=== PATIENT | female | born 1965 | race Caucasian/White ===

== ENCOUNTER 2025-07-22 14:19 | Outpatient (CLI) | payer MEDICARE, BC, SELFPAY ==
--- NOTE | 2025-07-22 14:24 | XR_ITS ---
FINAL REPORT CLINICAL HISTORY: left ankle/LE injury FINDINGS: LEFT TIBIAL FIBULA Two views were obtained. There is no fracture or dislocation. There is a medial hemiarthroplasty. The lateral compartment joint space is preserved. No effusion is identified. There is an overlying splint over the left lower leg. IMPRESSION: No acute process. Reviewed, Interpreted and Dictated by Nino Camp MD Transcribed by Delia Smith Authenticated and [facility]
--- NOTE | 2025-07-22 14:24 | XR_ITS ---
FINAL REPORT CLINICAL HISTORY: Left Foot Pain FINDINGS: LEFT FOOT Three views were obtained. There is no fracture or dislocation of the foot. Again identified is an oblique mildly displaced fracture of the distal fibula. IMPRESSION: No foot fracture. Reviewed, Interpreted and Dictated by Nino Camp MD Transcribed by Delia Smith Authenticated and . [facility]
--- NOTE | 2025-07-22 14:24 | XR_ITS ---
FINAL REPORT CLINICAL HISTORY: Left Ankle Pain/injury FINDINGS: LEFT ANKLE Three views were obtained. There is an oblique, mildly displaced fracture of the distal fibula. Overlying splint is identified. The mortise is intact. There is a small plantar spur. IMPRESSION: Oblique mildly displaced fracture of the distal fibula. Reviewed, Interpreted and Dictated by Nino Camp MD Transcribed by Delia Smith Authenticated and [facility]
== END 2025-07-22 23:59 | disposition home or self-care (01) ==
LOC: RAD 14:21
PROVIDERS: PCP Family Medicine; Visit Provider Podiatrist
DX: S82.832A Other fracture of upper and lower end of left fibula, initial encounter for closed fracture (principal); M79.672 Pain in left foot
CPT/HCPCS: 73590; 73610; 73630

== ENCOUNTER 2025-07-27 12:26 | Outpatient (CLI) | payer MEDICARE, BC, SELFPAY ==
--- OUTSIDE RECORDS SUMMARY | 2023-11-28 10:00 | XMS_ITS | Encounter Summary ---
[facility] [address] [place] [address] Care Team Providers Care Bridge Opener Name Role Phone Denae Serrano MD Primary Care Provider + Reason for Referral * Hospital - Outpatient (Routine) - Closed Specialty Diagnoses / Procedures Referred By Shaun parkre Referred To Contact Sleep Medicine Diagnoses PÉREZ (obstructive sleep apnea) Procedures Home Sleep Study Bautista Franks MD [address] [place] [address] Phone: tel: fax: [facility] [address] [address] Phone: tel: fax: Referral ID Status Reason Start Date Expiration Date Visits Re quested Visits Authorized [id number] Closed 11/19/2023 01/20/2024 1 1 Reason for Visit * Hospital - Outpatient (Routine) - Closed Specialty Diagnoses / Procedures Referred By Shaun parker Referred To Contact Sleep Medicine Diagnoses PÉREZ (obstructive sleep apnea) Procedures Home Sleep Study Bautista Franks MD [address] [place] [address] Phone: tel: fax: [facility] [address] [address] Phone: tel: fax: Referral ID Status Reason Start Date Expiration Date Visits Re quested Visits Authorized [id number] Closed 11/19/2023 01/20/2024 1 1 Encounter Details Date Type Department Care Team (Latest Contact Info) Description 11/28/2023 11:00 AM EDT Hospital Encounter [facility] [address] [place] [id number] PÉREZ (obstructive sleep apnea) Social History Tobacco [...] BMI (Calculated): 33.7 Patient presents with an [place] Sleepiness Scale of Total score: 1 Methods [...] Tech Summary: Scoring Tech (Ann Rivas, RPSGT, RN OFFICE): Insufficient data collected due to failure with equipment. Looks as if patient pulled off or did not wear the pulse ox probe. There was not enough data collected for study to be valid. This is technically an inadequate home sleep study. An in-lab sleep study will be necessary in order to obtain accurate diagnostic data. (11/29/23 1449 : Ann Rivas, RN OFFICE) Polysomnography Results Diagnostic Summary TOTAL RECORDING TIME: [...] (pediatric) documented in this encounter Care Teams Bridge Opener Relationship Specialty Start Date End Date Denae Serrano MD [address] [place] [address] PCP - General Family Medicine 03/19/16 documented as of this encounter
--- OUTSIDE RECORDS SUMMARY | 2024-05-04 18:20 | XMS_ITS | Encounter Summary ---
[facility] Address [address] [place] [address] Care Team Providers Care Compensator Worker Name Role Phone Denae Serrano MD Primary Care Provider + Reason for Referral * Hospital - Outpatient (Routine) - Closed Specialty Diagnoses / Procedures Referred By Shaun parker Referred To Contact Sleep Medicine Diagnoses Hypersomnolence Procedures Polysomnography 4 or More Parameters Bautista Franks MD [address] [place] [address] Phone: tel: fax: [facility] [address] [place] [phone] Phone: tel: fax: Referral ID Status Reason Start Date Expiration Date Visits Re quested Visits Authorized [id number] Closed 12/03/2023 05/18/2024 1 1 Reason for Visit * Hospital - Outpatient (Routine) - Closed Specialty Diagnoses / Procedures Referred By Contkaylen parker Referred To Contact Sleep Medicine Diagnoses Hypersomnolence Procedures Polysomnography 4 or More Parameters Bautista Franks MD [address] [place] [address] Phone: tel: fax: [facility] [address] [place] [address] Phone: tel: fax: Referral ID Status Reason Start Date Expiration Date Visits Re quested Visits Authorized [id number] Closed 12/03/2023 05/18/2024 1 1 Encounter Details Date Type Department Care Team (Late st Contact Info) Description 05/04/2024 7:20 PM EDT Hospital Encounter [facility] [address] [place] [phone] Bautista Franks MD [address] [place] [address] Hypersomnolence Social History Tobacco Use Types Packs/Day [...] 7:21 PM EDT documented in this encounter Plan of [...] agree with the interpretation. Bautista Franks MD, FCCP Pulmonary Critical care and Sleep medicine Narrative [...] unspecified documented in this encounter Care Teams Compensator Worker Relationship Specialty Start Date End Date Denae Serrano MD [address] [place] [address] PCP - General Family Medicine 03/19/16 documented as of this encounter
--- OUTSIDE RECORDS SUMMARY | 2025-07-21 15:37 | XMS_ITS | Encounter Summary ---
Author Organization [facility] [address] Care Team Providers Care Binder Stripper Machine Name Role Phone Nonstaff, Referring Primary Care Provider Dangelo scott Reason for Visit * Reason Comments Fall Slipped in mud, inju ry to left knee and ankle Encounter Details Date Type Department Care Team (Late st Contact Info) Description 07/21/2025 3:37 PM EST - 07/21/2025 6:12 PM EST [facility] [address] [facility] [place] [address] Modesto Groves MD [address] [place], [place] [phone] Fall, initial encounter (Primary Dx); Closed fracture [...] sent through Care Everywhere. * Ankle fracture (Thai) documented in this encounter Medications at Time [...] Means Destination Comment s Home or Self [facility]dc documented in this encounter ED Notes * [...] given ankle fracture. She will be prescribed [place] to help with pain control and advised to keep leg elevated and apply cool compresses as needed. She understands and she is agreeable this plan of care and she is discharged in stable condition. CLINICAL IMPRESSION: Fall, left ankle fracture DISPOSITION/PLAN: 1. Posterior short leg splint with stirrups 2. [place] 3. Discharge to home with orthopedic surgery follow-up *[facility] reviewed. Risks and benefits of narcotic treatment were discussed with the patient. Patient elects to continue with treatment using narcotic therapy. Patient is strictly advised to avoid operating any machinery or motor vehicles while under the influence of narcotic therapy and to only use narcotics as prescribed. Modesto Groves MD 07/21/25 3987 documented in this encounter Plan of Treatment [...] 07/21/2025 documented in this encounter Care Teams Binder Stripper Machine Relationship Specialty Start Date End Date Nonstaff, Referring PCP - General 07/21/25 documented as of this encounter
--- OUTSIDE RECORDS SUMMARY | 2025-07-27 12:30 | XMS_ITS | Encounter Summary ---
Author Organization [employer] ([place], [place], [place], [place], [place]) Address [address] [place] [address] Care Team Providers Care Plisse Machine Operator Name Role Phone Denae Serrano MD Primary Care Provider [phone] Encounter Details Date Type Department Care Team (Late st Contact Info) Description 03/01/2020 Transcribed Document [facility] Family Medicine [address] [place] [address] ProviderJer MD [address] [place], [place] [id number] Social History Tobacco Use Types Packs/Day Years Used Date Smoking Tobacco: Never Assessed Comments Unknown Sex and Gender Information Value Date Recorded Sex Assigned at Not on file Legal Sex Female 4:41 PM CDT Gender Identity Not on file Sexual Orientation Not on file documented as of this encounter Miscellaneous Notes * Cerner Conversion Note - Jer ProviderMD - 03/01/2020 10:49 AM CDT [facility] Main OR PreOp Summary Primary Physician: SWAPNIL RAMIREZ MD-SUR Finalized Date/Time: 03/01/20 11:48:53 Pt. Name: ZENAIDA BOWLING/Sex: 1965 Female Med Rec #: [id number] Physician: SWAPNIL RAMIREZ MD-SUR Financial #: [id number] Pt. Type: O Room/Bed: [facility] Admit/Disch: 03/01/20 07:45:00 - Institution: [facility] PreOp Case Times Entry 1 In Preop 03/01/20 08:00:00 Ready for Holding 03/01/20 09:55:00 Room Patient Ready for 03/01/20 09:55:00 Surgery Patient Out of Preop 03/01/20 10:25:00 Patient Out of n/a Holding Room Last Modified By: OMAR RODRÍGUEZ 03/01/20 11:48:52 [facility] PreOp Case Times Audit 03/01/20 11:48:52 Roller: [id number] Modifier: [id number] <+> 1 Patient Out of Preop Finalized By: OMAR RODRÍGUEZ Document Signatures Signed By: OMAR RODRÍGUEZ 03/01/20 11:48 documented in this encounter Plan of Treatment Upcoming Encounters Date Type Department Care Team (Late st Contact Info) Description 09/13/2025 11:15 AM EST Appointment [address] [phone] documented as of this encounter Visit Diagnoses Not on filedocumented in this encounter Care Teams Plisse Machine Operator Relationship Specialty Start Date End Date Denae Serrano MD [address] [place] [phone] PCP - General Family Medicine 06/11/22 documented as of this encounter
--- OUTSIDE RECORDS SUMMARY | 2025-07-27 12:30 | XMS_ITS | Encounter Summary ---
Author Organization [employer] ([place], [place], [place], [place], [place]) Address [address] [place] [address] Care Team Providers Care Pot Fireman Name Role Phone Denae Serrano MD Primary Care Provider [phone] Encounter Details Date Type Department Care Team (Late st Contact Info) Description 03/01/2020 Transcribed Document [facility] Family Medicine [address] [place] [address] ProviderJer MD [address] [place], [place] [address] Social History Tobacco Use Types Packs/Day Years Used Date Smoking Tobacco: Never Assessed Comments Unknown Sex and Gender Information Value Date Recorded Sex Assigned at Not on file Legal Sex Female 4:41 PM CDT Gender Identity Not on file Sexual Orientation Not on file documented as of this encounter Miscellaneous Notes * Cerner Conversion Note - Historical ProviderMD - 03/01/2020 1:47 PM CDT Event Note Entered On: 03/01/2020 13:52 EDT Performed On: 03/01/2020 13:47 EDT by PÉREZ ALBERT RN Event Note Event Date/Time : 03/01/2020 13:47 EDT Event Location : Other: post op Description of Event : Dr. Rivas notified that pt's oxygen level ranging between 83-87% No orders given at this time. Instructed to monitor pt PÉREZ ALBERT RN - 03/01/2020 13:47 EDT Electronically signed by [facility] Conversion Outbound Sales Professional Cerner at 11/28/2022 11:09 PM CDT documented in this encounter Plan of Treatment Upcoming Encounters Date Type Department Care Team (Late st Contact Info) Description 09/13/2025 11:15 AM EST Appointment [address] [phone] documented as of this encounter Visit Diagnoses Not on filedocumented in this encounter Care Teams Pot Fireman Relationship Specialty Start Date End Date Denae Serrano MD [address] [place] [phone] PCP - General Family Medicine 06/11/22 documented as of this encounter
--- OUTSIDE RECORDS SUMMARY | 2025-07-27 12:30 | XMS_ITS | Encounter Summary ---
Author Organization [employer] ([place], [place], [place], [place], [place]) Address [address] [place] [address] Care Team Providers Care Dredge Pump Operator Name Role Phone Denae Serrano MD Primary Care Provider [phone] Encounter Details Date Type Department Care Team (Late st Contact Info) Description 02/27/2019 Transcribed Document [facility] Family Medicine [address] [place] [address] ProviderJer MD [address] [place] [address] Social History Tobacco Use Types Packs/Day Years Used Date Smoking Tobacco: Never Assessed Comments Unknown Sex and Gender Information Value Date Recorded Sex Assigned at Not on file Legal Sex Female 4:41 PM CDT Gender Identity Not on file Sexual Orientation Not on file documented as of this encounter Miscellaneous Notes * Cerner Conversion Note - Jer Klein MD - 02/27/2019 1:16 PM CDT [facility] Follow Up Note RE: ZENAIDA BOWLING : 1965 Date of Service: 02/27/2019 Referring Physician: Herminio Perez Reason for Visit: colon cancer follow up/ high risk breast cancer screening CC: Doing well Cancer Treatment History: 1) 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 Diagnosed on colonoscopy 02/15/14. Patient had presented with abdominal pain, constipation. Was 48 at time of diagnosis. 2) s/p colon resection by Dr. Perez 03/02/14. 08/25 lymph nodes positive. Margins clear. 3) CT c/a/p at time of diagnosis negative for metastatic disease 4) Adjuvant chemotherapy with XELOX (Xeloda and oxaliplatin) q3 weeks x 8 cycles beginning 03/22/14. Completed 3 cycles but had significant GI toxicity from Xeloda. 5) Adjuvant chemotherapy changed to [id number] on 05/31/14. Received one cycle. HPI: Ms. Bowling returns for follow-up for colon cancer and high risk breast cancer screening. She had a heart attack since her last visit with us. Has finished cardiac rehab. No chest pain or pressure. No GI complaints or changes in bowel pattern. No overt bleeding. No breast changes or skin changes. ECOG PS of 0. Past Medical History: 1) Colon cancer as above 2) Endometriosis 3) Arthritis 4) Last menses 2012, on HRT per Dr. Maldonado at . Has now come off HRT, has hot flashes. Past Surgical History: 1) Colon resection as above 2) Partial knee replacement 2008 3) Sinus surgery 4) L shoulder surgery 5) Cholecystectomy 6) R knee meniscus repair Allergies: Penicillin V Potassium CEPHALOSPORINS Medication List: atorvastatin 1 Tablet Oral Daily Ibuprin [ibuprofen] 2 Tablet Oral As needed omeprazole 1 Capsule Oral Daily ropinirole 1 Tablet Oral As Directed Probiotic [lactobacillus acidophilus/lactobacillus rhamnosus gg] 1 Capsule Oral Daily Praluent Pen [alirocumab] 1 Shot SubQ [id number] CoQ10 SG 100 (ubidecarenone/vitamin e mixed) [ubidecarenone/vitamin e mixed (CoQ10 SG 100)] 1 Capsule Oral Daily Protonix (pantoprazole) [pantoprazole (Protonix)] 1 Tablet Oral Daily Plavix (clopidogrel) [clopidogrel (Plavix)] 1 Tablet Oral Daily metoprolol tartrate 1 Tablet Oral Twice a Day ezetimibe 1 Tablet Oral Daily aspirin 1 Tablet Oral Daily NitroQuick (nitroglycerin) [nitroglycerin (NitroQuick)] 1 Tablet Sublingual As needed melatonin 1 Tablet Oral Every day before sleep Social History: Single. She lives in [place]. Mother is main support person. 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 Previous smoker, smoked 1ppd x 20 yrs but quit in 2002. Occasional alcohol use. Denies illicit drug use. Family History: No one else with colon cancer, but mother had two separate episodes of breast cancer. Maternal aunt had breast cancer in her 30s-40s. Brother had testicular cancer in his 30s or 40s. father had skin cancer. mother had renal cell carcinoma. Review of Systems: 10 systems reviewed and negative except as per HPI Vital Signs: Vital Signs & Weight; Pulse - 76; B/P - 104/55; Pulse Ox - 96% RA; Weight (lb) (lb) - 196.98; BSA(D) (m*2) - 1.98 Physical Examination: Gen?NAD, alert and oriented x3. Eyes?PERRL, EOMI, no scleral icterus. ENT?OP clear without lesion or exudate, no mucositis. Neck?supple, no adenopathy CV?RRR, no m/g/r Chest?CTAB, no w/r/r Abd?soft, nontender, nondistended, positive bowel sounds, no mass, no hepatosplenomegaly, well-healed surgical incision. Back?no spinal or CVA tenderness. Extr?no cyanosis, clubbing, or edema. 2+ distal pulses throughout. Skin?No rashes or jaundice. Heme?No petechiae or ecchymoses. Neuro? Normal speech and gait. Strength and sensation grossly intact upper and lower extremities. Psych? Normal mood and affect. Breast- Breast soft without masses or adenopathy. No skin dimpling. No axillary adenopathy palpable. Laboratory: Date 02/27/2019 Time 1:31 PM Chemistry Creatinine (mg/dL) 0.75 CrCl (C&G) (ml/min) 120.95 Date 02/27/2019 Time 1:31 PM Other Labs NA (mmol/L) 140.7 K+ (mmol/L) 4.48 CL (mmol/L) 107.0 GLU (mg/dL) 99 BUN (mg/dL) 12 CA (mg/dL) 9.2 CO2 (meq/L) 27.6 WBC (K/uL) 5.4 RBC (M/uL) 4.81 HGB (g/dL) 14.1 HCT (%) 42.9 MCH (pg) 29.3 MCHC (g/dL) 32.9 MCV (fml) 89.2 PLT (K/uL) 228 RDW-SD (fml) 42.1 RDW-CV (%) 13.1 MPV (fml) 9.7 NEUT (K/uL) 3.48 LYMPH (K/uL) 1.34 MONO (K/uL) 0.46 EOS (K/uL) 0.12 BASO (K/uL) 0.03 NEUT% (%) 64.0 LYMPH% (%) 24.7 EOS% (%) 2.2 BASO% (%) 0.6 MONO% (%) 8.5 TP (g/dL) 7.5 ALB (g/dL) 4.3 TBILI (mg/dL) 0.6 AST (U/L) 18 ALT (U/L) 14 ALKPHOS (U/L) 94 ANC1 (micl) 3475.2 CEA 07/29 <2.0 CEA level 02/15/14 (preop)=3 Radiology: 1) EGD and colonoscopy Dr. Reeves 09/09/17?mild esophagitis at GE junction. Mild gastritis. Polyps in body of stomach and fundus. Normal duodenum. Pathology?reactive gastropathy. Negative for H pylori. Fundic gland polyp. Started Protonix 40mg po daily. Three polyps on colonoscopy?ascending colon, transverse colon, descending colon. All tubular adenomas. 2) CT scan of chest, abd, and pelvis 08/07/18? negative for metastatic disease. Cancer Diagnosis and Staging: Dx Code Description Morphology Description\.br&.br.br\M Stage [ICD10] C18.4 Malignant neoplasm of transverse colon T3 N1a M0 IIIB Orders: Assessment/Plan: 53 YOWF with 1) Stage IIIIB ([id number]) invasive colon cancer. 08/25 lymph nodes positive at time of resection 03/02/14. Was treated with adjuvant chemotherapy, but only completed about 1/3 of planned chemotherapy due to GI, infectious toxicities. Also developed hearing loss likely due to oxaliplatin. In remission. CT scans from 08/07/18 negative for metastatic disease. CEA level pending from today. Has been negative. 2) EGD and colonoscopy Dr. Reeves 09/09/17. No evidence of malignancy. Protonix 40mg po daily for gastritis recommended. Several colon polyps?all tubular adenomas. No malignancy. Repeat colonoscopy 3 years. 3) Strong family history of cancer and patient was young (prior to age 49) at diagnosis of colon cancer. Saw genetic counselor. Microsatellite instability testing was requested on her tumor tissue and was negative, ruling out Gtz syndrome. Genetic testing inconclusive. She does meet criteria for chemoprevention with Anastrazole and is a candidate for yearly MRI alternating with yearly mammogram. Side effects of Anastrazole discussed, including but not limited to, fatigue, arthralgias, and calcium depletion. Baseline DEXA would be needed to assess bone health. Patient declines chemoprevention at this time and will pursue imaging alone. Information handout provided to patient regarding medication. Mammograms completed at [facility]; will request records. Due again 04/30. Bilateral MRI ordered today to be done prior to return appt. 4) Follow up. CEA level pending from today but nothing by history or exam to suggest colon cancer recurrence. RTC in 6 months with cbc/cmp/cea level. CT chest/abd/pelvis with po and iv contrast yearly; ordered today. MRI bilateral breasts ordered. In remission. She is encouraged to call if any new questions or problems before next visit. Colon cancer in remission. Please call with any additional questions or concerns that may arise. CC: Herminio Perez MD, [address] Dr[facility] Liat Contreras MD [address] [facility], [address], [place] [address] 2 documented in this encounter Plan of Treatment Upcoming Encounters Date Type Department Care Team (Late st Contact Info) Description 09/13/2025 11:15 AM EST Appointment [facility] Breast Care [address] [place] [address] [address] [place] [address] documented as of this encounter Visit Diagnoses Not on filedocumented in this encounter Care Teams Dredge Pump Operator Relationship Specialty Start Date End Date Denae Serrano MD [address] [place] [phone] PCP - General Family Medicine 06/11/22 documented as of this encounter
--- OUTSIDE RECORDS SUMMARY | 2025-07-27 12:30 | XMS_ITS | Encounter Summary ---
Author Organization [employer] ([place], [place], [place], [place], [place]) Address [address] [place] [address] Care Team Providers Care Is Technician Name Role Phone Denae Serrano MD Primary Care Provider [phone] Encounter Details Date Type Department Care Team (Late st Contact Info) Description 03/01/2020 Transcribed Document [facility] Family Medicine [address] [place] [address] ProviderJer MD [address] [place], [place] [address] Social History Tobacco Use Types Packs/Day Years Used Date Smoking Tobacco: Never Assessed Comments Unknown Sex and Gender Information Value Date Recorded Sex Assigned at Not on file Legal Sex Female 4:41 PM CDT Gender Identity Not on file Sexual Orientation Not on file documented as of this encounter Miscellaneous Notes * Cerner Conversion Note - Jer Klein MD - 03/01/2020 1:04 PM CDT Event Note Entered On: 03/01/2020 13:09 EDT Performed On: 03/01/2020 13:04 EDT by Wilda Moralez RN Event Note Event Date/Time : 03/01/2020 13:05 EDT Event Location : Assigned room Description of Event : Dr. Rivas at bedside. pt working on IS. able to get sats up to 90-93% on RA. will desat to 84-88% when dozing off. pt has PÉREZ. does not have working CPAP at home currently. pt does c/o of pain. Dr. Rivas does not want her to receive any more IV narcotics. Dr. Rivas okay for patient to go to postop to get ready for discharge. Wilda Moralez, RN - 03/01/2020 13:04 EDT documented in this encounter Plan of Treatment Upcoming Encounters Date Type Department Care Team (Late st Contact Info) Description 09/13/2025 11:15 AM EST Appointment [address] [phone] documented as of this encounter Visit Diagnoses Not on filedocumented in this encounter Care Teams Is Technician Relationship Specialty Start Date End Date Denae Serrano MD [address] [place] [phone] PCP - General Family Medicine 06/11/22 documented as of this encounter
--- OUTSIDE RECORDS SUMMARY | 2025-07-27 12:30 | XMS_ITS | Encounter Summary ---
Author Organization [employer] ([place], [place], [place], [place], [place]) Address [address] [place] [address] Care Team Providers Care Commercial Truck Driver Name Role Phone Denae Serrano MD Primary Care Provider [phone] Encounter Details Date Type Department Care Team (Late st Contact Info) Description 08/07/2018 Transcribed Document [facility] Family Medicine [address] [place] [address] Jer Klein MD [address] [place], [place] [address] Social History Tobacco Use Types Packs/Day Years Used Date Smoking Tobacco: Never Assessed Comments Unknown Sex and Gender Information Value Date Recorded Sex Assigned at Not on file Legal Sex Female 4:41 PM CDT Gender Identity Not on file Sexual Orientation Not on file documented as of this encounter Miscellaneous Notes * Cerner Conversion Note - Jer Klein MD - 08/07/2018 1:26 PM CHARTER BOAT CAPTAIN [facility] Follow Up Note RE: ZENAIDA BOWLING : 1965 Date of Service: 08/07/2018 Referring Physician: Herminio Perez Reason for Visit: colon cancer follow up Cancer Treatment History: 1) 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 Diagnosed on colonoscopy [...] to [id number] on 05/31/14. Received one cycle. 6) Admitted 06/14/14 for intractable back pain, dehydration. Found to have C difficile colitis and possible viral meningitis, numerous lymphocytes and elevated protein in CSF?cultures negative and flow cytometry normal. Discharged 06/23/14. 7) CT scans 08/23/14 negative for metastatic disease 8) Colonoscopy 09/27/14?no evidence of colon cancer recurrence, biopsy of anastomotic area showing granulation tissue, inflammation but no malignancy 9) CT scans February 14, 2015 negative for metastatic disease 10) CT scans 06/10/15 negative for metastatic disease 11) CT scans October 25, 2015 negative for metastatic disease. 12) EGD and colonoscopy with Dr. Reeves October 10, 2015?esophagitis. Mild gastritis. No evidence of malignancy. Colonoscopy negative. Repeat colonoscopy recommended in 2 years. Pathology showed no evidence of malignancy and no findings consistent with celiac disease. 13) CT scan of chest, abd, and pelvis 07/17/16 negative for metastatic disease 14) CT c/a/p with iv and po contrast 08/06/17?no change and no evidence of metastatic disease. 3mm nodule LLL stable. 15) EGD and colonoscopy Dr. Reeves 09/09/17?mild esophagitis at GE junction. Mild gastritis. Polyps in body of stomach and fundus. Normal duodenum. Pathology?reactive gastropathy. Negative for H pylori. Fundic gland polyp. Started Protonix 40mg po daily. Three polyps on colonoscopy?ascending colon, transverse colon, descending colon. All tubular adenomas. HPI: Ms. Bowling is a 52 yo WF with h/o colon cancer, here today for follow-up. Has mild headache today, but not unusual for her. She has been concerned with weight gain. Otherwise has no complaints. Doing well and is trying to be more active and working. Still has issues with severe back pain and restless legs. No n/v, wt loss, fatigue. No chest pain, dyspnea, cough, abd pain, diarrhea, constipation, blood in stool melena ECOG PS of 0. Past Medical History: [...] Daily ropinirole 1 Tablet Oral As Directed tramadol 1 Tablet Oral As needed Social History: Single. She lives in [place]. Mother is main support person. 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 Works night [...] HPI Vital Signs: Vital Signs & Weight; 36.8 88 138/60 95RA Weight (lb) (lb) ? 209 lb BSA(D) (m*2) - 2.03 Weight 191 lb 02/04/18 Physical Examination: Gen?NAD, alert and oriented x3. [...] lower extremities. Psych? Normal mood and affect. Laboratory: Date Time Date Time CEA pending CEA 1.7 02/04/17 CEA 1.9 07/17/16 CEA 1.5 January 16, 2016 CEA 1.4 October 03, 2015 CEA level 05/30/15 1.7 CEA level 02/14/15 1.7 CEA level 11/16/14 1.5 CEA level 08/23/14 1.6 CEA level 06/14/14 2.2 CEA level 02/15/14 (preop)=3 Radiology: CT scan of chest, abd, and pelvis 08/07/18? negative for metastatic disease. Cancer Diagnosis and Staging: Dx Code Description Morphology Description\.br&.br.br\M Stage [ICD10] C18.4 Malignant neoplasm of transverse colon T3 N1a M0 IIIB Orders: Assessment/Plan: 52 yo WF with 1) Stage IIIIB ([id number]) invasive colon cancer. 08/25 lymph nodes positive at time of resection 03/02/14. Was treated with adjuvant chemotherapy, but only completed about 1/3 of planned chemotherapy due to GI, infectious toxicities. Also developed hearing loss likely due to oxaliplatin. In remission, over 3 years out from time of resection. CT scans from 08/07/18 negative for metastatic disease. CEA level pending from today. Has been negative. 2) EGD and colonoscopy Dr. Reeves 09/09/17. No evidence of malignancy. Protonix 40mg po daily for gastritis recommended. Several colon polyps?all tubular adenomas. No malignancy. Repeat colonoscopy 3 years 3) Strong family history of cancer and patient was young (prior to age 49) at diagnosis of colon cancer. Saw genetic counselor. Microsatellite instability testing was requested on her tumor tissue and was negative, ruling out Gtz syndrome. Refer back to genetic counselor in case further testing indicated 4) Follow up. CEA level pending from today but nothing by history or exam to suggest colon cancer recurrence. Now almost 5 years out from time of surgical resection. RTC in 6 months with cbc/cmp/cea level. CT chest/abd/pelvis with po and iv contrast yearlyt. Yearly scans until year 5. In remission. She is encouraged to call if any new questions or problems before next visit. Colon cancer in remission. Please call with any additional questions or concerns that may arise. CC: Herminio Perez MD, [address]aci [address] Dr. [facility] MD Liat Berger MD [address], [address], [place] [address] [address] Electronically signed by Juan [facility] Conversion Veterinary Assistant Cerner at 11/28/2022 11:15 PM CDT documented in this encounter Plan of Treatment Upcoming Encounters Date Type Department Care Team (Late st Contact Info) Description 09/13/2025 11:15 AM EST Appointment [facility] Breast [address] [place] [address] documented as of this encounter Visit Diagnoses Not on filedocumented in this encounter Care Teams Commercial Truck Driver Relationship Specialty Start Date End Date Denae Serrano MD [address] [address] PCP - General Family Medicine 06/11/22 documented as of this encounter
--- OUTSIDE RECORDS SUMMARY | 2025-07-27 12:30 | XMS_ITS | Encounter Summary ---
Author Organization [employer] ([place], [place], [place], [place], [place]) Address [address] [place] [address] Care Team Providers Care Dough Catcher Name Role Phone Denae Serrano MD Primary Care Provider [phone] Encounter Details Date Type Department Care Team (Late st Contact Info) Description 03/01/2020 Transcribed Document [facility] Family Medicine [address] [place] [address] ProviderJer MD [address] [place], [place] [address] Social History Tobacco Use Types Packs/Day Years Used Date Smoking Tobacco: Never Assessed Comments Unknown Sex and Gender Information Value Date Recorded Sex Assigned at Not on file Legal Sex Female 4:41 PM CDT Gender Identity Not on file Sexual Orientation Not on file documented as of this encounter Miscellaneous Notes * Cerner Conversion Note - Historical ProviderMD - 03/01/2020 9:27 AM CDT Pre Procedure Adult Entered On: 03/01/2020 9:38 EDT Performed On: 03/01/2020 9:27 EDT by Skye Rubio RN Height and Weight, Clinical Dosing Height Source : Stated Height Entry Format : Bath Height, Feet : 5 ft(Converted to: 152 cm, 60 Inch) Height, Inches : 6.5 Inch(Converted to: 0 ft 7 Inch, 16.51 cm) Clinical Height : 168.91 cm Weight Source : Standing scale Weight Entry Format : Bath Clinical Dosing Weight : 100.91 kg Weight, Pounds : 222 lb Body Surface Area (BSA) : 2.1 m2 Body Mass Index : 35.4 kg/m2 (HI) [place] Body Weight : 60 kg Skye Rubio RN - 03/01/2020 9:27 EDT Health Histories Smoking Status : Former smoker, quit more than 30 days ago Smokeless Tobacco Status : Never Skye Rubio RN - 03/01/2020 9:27 EDT Social History (As Of: 03/01/2020 09:38:26 EDT) Tobacco: Smoking Status Former smoker. Years of Use: 15. Packs/Tins Daily: 0.5. Last Used: Quit 2002. (Last Updated: 03/02/2014 09:22:42 EDT by PÉREZ ALBERT, RN) Alcohol: Use in Last 12 Months: Yes. Date/Time of Last Drink: social. (Last Updated: 02/15/2014 11:21:16 EDT by OPAL OHARA, KAUSHIK) Substance Abuse: Drug Use Hx: No. Use in Last 12 Months: No. (Last Updated: 02/15/2014 11:20:35 EDT by OPAL OHARA RN) Nutrition/Health: Caffeine intake amount: 2. (Last Updated: 09/09/2017 08:41:04 EST by MEGHAN EDWARDS RN) Infectious Disease History Has the patient ever been tested for COVID-19? : Yes, Patient stated results Negative Where are the test results? : In EMR Results, Paper Copy on chart Date of COVID-19 test known? : Yes Does patient have symptoms of COVID-19? : No COVID19 Screening : No Experiencing Infectious Disease Symptoms : No symptoms Physical contact outside [place] in the last 30 days : No Infectious Disease History : C-Difficile, Chicken pox/Shingles, Influenza, Measles, Meningitis, Mumps Tuberculosis Symptoms : None Skye Rubio RN - 03/01/2020 9:27 EDT COVID19 PreProcedure Screening Is this an Emergent or Add on Procedure? : No Has patient been isolated since the test : No Exposed to COVID19 symptoms since test? : No Skye Rubio RN - 03/01/2020 9:27 EDT Anesthesia/Transfusion History Family History of Anesthesia Reaction : No prior transfusion(s) Transfusion History : Prior anesthesia without reaction Family History of Anesthesia Reaction : None Skye Rubio RN - 03/01/2020 9:27 EDT Functional Assessment Living Situation : Home Patient Lives With : Alone Persons Assisting Patient at Home : Alone Current Daily Living Assistance : None Sensory Deficits : None Mobility Assistance Prior to Admission : Use of assistive devices SHIELDS Hx Falls Immediate/Within 3 Months : Yes Current Home Treatments : CPAP Home Equipment : Cane, Walker Cane : Cane, single point Walker : Walker, front wheel Professional Skilled Services : None Special Services and Community Resources : None Skye Rubio RN - 03/01/2020 9:27 EDT [place] Suicide Severity Rating Scale (C-SSRS) CSSRS Past Month Wish to be : No CSSRS Past Month Suicidal Thoughts : No CSSRS Lifetime Suicide Behavior : No Suicide Severity Rating Score : 0 Suicide Severity Rating : No Additional Care Required at this time Skye Rubio RN - 03/01/2020 9:27 EDT Psychosocial History Does Someone Depend on You for Care? : No Chronic/Terminal Illness w/Freq Visits : Yes Do You Have a History of the Following? : Patient denies history Currently in Unsafe Situation : No Restraining Order Against Another Person : No Do You Have a Support System? : Yes Hospital/DC Financial Concerns : No Stressors Affecting Hospitalization/DC : No Skye Rubio RN - 03/01/2020 9:27 EDT Advance Directive Patient has Advance Directive *Q : No, patient refuses Advance Directive information Skye Rubio RN - 03/01/2020 9:27 EDT Spiritual/Cultural Needs Significant Loss/Crisis in Past 3 Years : No Significant Distress/Coping/Need Support : No Any Spiritual/Cultural Needs or Requests : No Skye Rubio RN - 03/01/2020 9:27 EDT Teaching/Learning Assessment Barriers To Learning : None evident Individuals Taught : Patient Readiness to Learn : Cooperative Baseline Knowledge of Topic : Good Readiness to Learn : Explanation, Printed materials Learning Style Preferences Patient : Printed materials, Verbal explanation Learning Style Preferences Family : Printed materials, Verbal explanation Skye Rubio RN - 03/01/2020 9:27 EDT Education Topics, Periop Preadmission Perioperative Education Grid Arrival Time/Place : Verbalizes understanding Falls : Verbalizes understanding Infection Control : Verbalizes understanding IV's : Verbalizes understanding NPO Status/Directions : Verbalizes understanding Pain Management : Verbalizes understanding Postoperative Care Preparations : Verbalizes understanding Preprocedure Preparations : Verbalizes understanding Preprocedure Tests/Labs : Verbalizes understanding Responsible Adult : Verbalizes understanding Skye Rubio RN - 03/01/2020 9:27 EDT General Info Preferred Name : Zenaida Arrived From : Home Mode of Arrival on Unit : Ambulatory Patient Arrival Date/Time : 03/01/2020 8:00 EDT Legal Guardian : Mother Support Person/Patient Haul Cane Brakeman : Yes Support Person/Pt Rep Name : Martita Bowling - mother Support Person/Pt Rep Contact Information : [phone] Want Family/Rep/Phys Notified of Admit : No Emergency Contact #1 : Martita Bowling Emergency Contact #1 C [phone] H Emergency Contact #1 Relationship : mother Emergency Contact #2 : . Emergency Contact #2 Phone Number : . Emergency Contact #2 Relationship : . Information Obtained From : Patient Primary Language : Citizen Of [place] Preferred Communication Mode : Verbal Communication Barrier : None Croze Cutter Needed : No Objects to Sharing Info w Family : No Currently Lactating : No Status : Menopause Clinical Trials Participant *Q : None CTP, None *Q : Yes Skye Rubio RN - 03/01/2020 9:27 EDT Vital Measurements Temperature Source : Oral Temperature Mode : Fahrenheit Temperature, Fahrenheit : 98.0 Deg F Clinical Temperature, C : 36.7 Deg C Pulse Method : Non-Invasive BP Device Pulse Source : Brachial, Right Peripheral Pulse Rate : 66 bpm Pulse Rhythm : Regular Respiratory Rate : 16 Breaths/Min Blood Pressure Location : Arm, right upper Blood Pressure Source : Non-Invasive BP Device Blood Pressure Position : Sitting Systolic Blood Pressure : 136 mmHg Diastolic Blood Pressure : 68 mmHg Oxygen Saturation : 97 % Oxygen Therapy Mode : Room air Skye Rubio RN - 03/01/2020 9:27 EDT Sleep Apnea Risk Assmt BiPAP/CPAP Ordered for Home Use : Yes Hx of Obstructive Sleep Apnea Diagnosis : Yes BiPAP/CPAP Used at Home : No Reason BiPAP/CPAP Not Used at Home : weight loss Age over 50 Years Old : Yes Gender Male : No Skye Rubio RN - 03/01/2020 9:27 EDT Christiano Scale Christiano Sensory Perception : No impairment Christiano Moisture : Rarely moist Christiano Activity : Walks occasionally Christiano Mobility : Slightly limited Christiano Nutrition : Adequate Christiano Friction and Shear : No apparent problem Christiano Score : 20 Skye Rubio RN - 03/01/2020 9:27 EDT Oxygen Therapy Oxygen Therapy Mode : Room air Oxygen Saturation (%) : 97 % Skye Rubio RN - 03/01/2020 9:27 EDT Pain Assessment Pain Assessment : Initial assessment Pain Scale Goal : 4 Pain Scale Used : 0-10 Scale Skye Rubio RN - 03/01/2020 9:27 EDT Fall Risk Scales ABCs Fall Injury Risk Identification : None SHIELDS Hx Falls Immediate/Within 3 Months : Yes Shields Secondary Diagnosis : Yes SHIELDS Use of Ambulatory Aid : None SHIELDS IV Therapy or IV Access : Yes Shields Gait/Transferring : Normal, bedrest, immobile Shields Mental Status : Oriented to own ability Shields Fall Risk Score : 60 SHIELDS Fall Scale Risk Level : 46 or > High Risk [place] Fall Interventions : Adequate lighting, Bed in low position, Call device within reach, Non-slip footwear, Personal items within reach, Reinforced to call for assistance before getting out of bed, Room free of clutter/spills, Upper side-rails up, Wheels locked, Wires/Cords secured Skye Rubio RN - 03/01/2020 9:27 EDT Education Topics, Day of Surgery DayofSurgery Education Grid Anesthesia/Sedation : Verbalizes understanding Fall Risks : Verbalizes understanding Family Instructions : Verbalizes understanding Infection Control : Verbalizes understanding Infection Risks : Verbalizes understanding IV's : Verbalizes understanding Medication Instructions : Verbalizes understanding Pain Management : Verbalizes understanding Plan of Care : Verbalizes understanding Responsible Adult : Verbalizes understanding Skye Rubio RN - 03/01/2020 9:27 EDT Valuables and Belongings Valuables and Belongings : Clothing, Jewelry, Personal devices, Personal items, Medications Clothing : Common streetwear Clothing Disposition : Sent to locker Personal Device Disposition : Sent to locker Jewelry : Earrings Jewelry Disposition : Sent to locker Personal Devices : Glasses Personal Items : Cell phone, Credit cards, Wallet Personal Items Disposition : Sent to locker Medication Disposition : Sent to locker Medication Brought With Patient : Yes Skye Rubio RN - 03/01/2020 9:27 EDT Pain Scale Intensity : 0 Skye Rubio RN - 03/01/2020 9:27 EDT Image 4 - Images currently included in the form version of this document have not been included in the text rendition version of the form. Darlyn Coma Mckinney Best Motor Response : Obey commands Darlyn Best Verbal Response : Oriented Mckinney Eye Opening Response : Spontaneous Darlyn Coma Score : 15 Skye Rubio, RN - 03/01/2020 9:27 EDT Electronically signed by [facility] Conversion Supervising Film Or Videotape Editor Cerner at 11/28/2022 11:18 PM CDT documented in this encounter Plan of Treatment Upcoming Encounters Date Type Department Care Team (Late st Contact Info) Description 09/13/2025 11:15 AM EST Appointment [address] [place] [phone] documented as of this encounter Visit Diagnoses Not on filedocumented in this encounter Care Teams Dough Catcher Relationship Specialty Start Date End Date Denae Serrano MD [address] [place] [phone] PCP - General Family Medicine 06/11/22 documented as of this encounter
--- OUTSIDE RECORDS SUMMARY | 2025-07-27 12:30 | XMS_ITS | Encounter Summary ---
Author Organization [employer] ([place], [place], [place], [place], [place]) Address [address] [place] [address] Care Team Providers Care Postal Worker Name Role Phone Denae Serrano MD Primary Care Provider [phone] Encounter Details Date Type Department Care Team (Late st Contact Info) Description 03/01/2020 Transcribed Document [facility] Family Medicine [address] [place] [address] ProviderJer MD [address] [place], [place] [address] Social History Tobacco Use Types Packs/Day Years [...] 03/01/2020 10:49 AM CDT [facility] PostOp Summary Primary Physician: SWAPNIL RAMIREZ MD-SUR Finalized Date/Time: 03/01/20 16:34:23 Pt. Name: ZENAIDA BOWLING/Sex: 1965 Female Med Rec #: [id number] Physician: SWAPNIL RAMIREZ MD-SUR Financial #: [id number] Pt. Type: O Room/Bed: [facility] Admit/Disch: 03/01/20 07:45:00 - Institution: [facility] PostOp Case Times Entry 1 In PACU II 03/01/20 13:25:00 Ready for PACU II 03/01/20 16:15:00 Discharge Discharge from PACU 03/01/20 16:15:00 II Last Modified By: PÉREZ ALBERT RN 03/01/20 16:34:19 Finalized By: PÉREZ ALBERT, RN Document Signatures Signed By: PÉREZ ALBERT RN 03/01/20 16:34 documented in this encounter Plan of Treatment Upcoming Encounters Date Type Department Care Team (Late st Contact Info) Description 09/13/2025 11:15 AM EST Appointment [address] [phone] documented as of this encounter Visit Diagnoses Not on filedocumented in this encounter Care Teams Postal Worker Relationship Specialty Start Date End Date Denae Serrano MD [address] [phone] PCP - General Family Medicine 06/11/22 documented as of this encounter
--- OUTSIDE RECORDS SUMMARY | 2025-07-27 12:30 | XMS_ITS | Encounter Summary ---
Author Organization [employer] ([place], [place], [place], [place], [place]) Address [address] [place] [address] Care Team Providers Care C Software Engineer Name Role Phone Denae Serrano MD Primary Care Provider [phone] Encounter Details Date Type Department Care Team (Late st Contact Info) Description 03/01/2020 Transcribed Document [facility] [place] Family Medicine [address] [place] [address] ProviderJer MD [address] [place], [place] [address] Social History Tobacco Use Types Packs/Day Years [...] 03/01/2020 10:49 AM CDT [facility] PACU Summary Primary Physician: SWAPNIL RAMIREZ MD-SUR Finalized Date/Time: 03/01/20 13:39:39 Pt. Name: ZENAIDA BOWLING/Sex: 1965 Female Med Rec #: [id number] Physician: SWAPNIL RAMIREZ MD-SUR Financial #: [id number] Pt. Type: O Room/Bed: [facility] Admit/Disch: 03/01/20 07:45:00 - Institution: [facility] OR PACU Case Times Entry 1 In PACU I 03/01/20 11:40:00 Ready for PACU 03/01/20 13:35:00 Discharge Discharge from PACU 03/01/20 13:35:00 I Last Modified By: Wilda Moralez RN 03/01/20 13:39:31 [facility] Main OR PACU Case Times Audit 03/01/20 13:39:31 Security Program Manager: [email or web address] Modifier: [email or web address] <+> 1 Ready for PACU Discharge <+> 1 Discharge from PACU I Finalized By: Wilda Moralez, RN Document Signatures Signed By: Wilda Moralez RN 03/01/20 13:39 documented in this encounter Plan of Treatment Upcoming Encounters Date Type Department Care Team (Late st Contact Info) Description 09/13/2025 11:15 AM EST Appointment [address] [phone] documented as of this encounter Visit Diagnoses Not on filedocumented in this encounter Care Teams C Software Engineer Relationship Specialty Start Date End Date Denae Serrano MD [address] [place] [phone] PCP - General Family Medicine 06/11/22 documented as of this encounter
--- OUTSIDE RECORDS SUMMARY | 2025-07-27 12:30 | XMS_ITS | Encounter Summary ---
Author Organization [employer] ([place], [place], [place], [place], [place]) Address [address] [place] [address] Care Team Providers Care Diesel Lube Tech Name Role Phone Denae Serrano MD Primary Care Provider [phone] Encounter Details Date Type Department Care Team (Late st Contact Info) Description 03/01/2020 Transcribed Document [facility] Family Medicine [address] [place] [address] ProviderJer MD [address] [place], [place] [address] Social History Tobacco Use Types Packs/Day Years Used Date Smoking Tobacco: Never Assessed Comments Unknown Sex and Gender Information Value Date Recorded Sex Assigned at Not on file Legal Sex Female 4:41 PM CDT Gender Identity Not on file Sexual Orientation Not on file documented as of this encounter Miscellaneous Notes * [employer]ner Conversion Note - Historical ProviderMD - 03/01/2020 1:37 PM CDT Event Note Entered On: 03/01/2020 13:38 EDT Performed On: 03/01/2020 13:37 EDT by Wilda Moralez RN Event Note Description of Event : Called Dr. Perez to make him aware of r/t pr being in pacu for 2 hours and having decreased sats when sleeping/no cpap at home. Orders received to give pt 30mg toradol. Wilda Moralez RN - 03/01/2020 13:37 EDT Electronically signed by Lynne Martinez Conversion Environmental Maintenance Worker Cerner at 11/28/2022 11:12 PM CDT documented in this encounter Plan of Treatment Upcoming Encounters Date Type Department Care Team (Late st Contact Info) Description 09/13/2025 11:15 AM EST Appointment [address] [phone] documented as of this encounter Visit Diagnoses Not on filedocumented in this encounter Care Teams Diesel Lube Tech Relationship Specialty Start Date End Date Denae Serraon MD [address] [place] [phone] PCP - General Family Medicine 06/11/22 documented as of this encounter
--- OUTSIDE RECORDS SUMMARY | 2025-07-27 12:31 | XMS_ITS | Clinical Summary ---
Author Organization [facility] Address [address] [place] [address] Care Team Providers Care Butcher Assistant Name Role Phone Denae Serrano MD Primary Care Provider [phone] Allergies Active Allergy Reactions Criticality Noted Date Comments Cephalosporins Shortness of breath,Itching,Rash High 04/09/2016 Penicillins Hives,Shortness of breath,Itching,Rash High 04/09/2016 Wound Dressing Adhesive Rash Low 09/03/2022 Tape and dressing adhesive Medications ezetimibe (Zetia) 10 MG tablet Take 1 tablet (10 mg) by mouth 1 (one) time each day. 12/30/2019 Active metoprolol tartrate (Lopressor) 25 MG tablet Take 1 tablet (25 mg) by mouth 1 (one) time each day. 12/30/2019 Active Melatonin 5 MG tablet tablet Take 1 tablet (5 mg) by mouth every night. Active rOPINIRole (Requip) 2 MG tablet Take 2 tablets (4 mg) by mouth every night. 2 tablets nightly Active Repatha SureClick 140 MG/ML solution auto-injector Inject 1 mL into the muscle every 14 (fourteen) days. 06/14/2022 Active esomeprazole (NexIUM) [address] capsule Take 1 capsule (40 mg) by mouth 1 (one) time each day before breakfast. Do not open capsule. Active nitroglycerin (Nitrostat) 0.[address] 1 tablet (0.4 mg) under the tongue every 5 (five) minutes if needed for chest pain. Active acetaminophen (Tylenol) 500 MG tablet Take 2 tablets (1,000 mg total) by mouth every 8 (eight) hours if needed for pain. 100 tablet 11/27/2022 Active traMADol (Ultram) 50 MG tablet Take 1 tablet (50 mg total) by mouth every 6 (six) hours if needed for severe pain. 60 tablet 11/27/2022 Active gabapentin (Neurontin) 100 MG capsuleIndicati ons:Postoperati ve Pain Take one tablet in the morning and 1-2 at night as needed for pain 30 capsule 12/12/2022 Active oxyCODONE (Roxicodone) 5 MG immediate release tablet Take 1 tablet (5 mg) by mouth 1 (one) time each day at the same time. 10 tablet 12/26/2022 Active Active Problems Problem Noted Date Diagnosed Date Obesity (BMI 35.0-39.9 without comorbidity) 08/13 Severe obesity (BMI 35.0-39.9) with comorbidity 09/03/2022 Primary osteoarthritis of one knee, right 2022 Overview (09/03/2022): Added automatically from request for surgery [id number] Dysphagia 07/11/2022 Overview (07/11/2022): Trouble swallowing pills Hiatal hernia 07/11/2022 Prediabetes 07/11/2022 Gastroesophageal reflux disease with hiatal olive ia 05/25/2019 Coronary heart disease Recurrent incisional hernia Resolved Problems Problem Noted Date Diagnosed Date Resolved Date S/P repair of recurrent ventral hernia 08/01/2022 05/02/2025 Arthritis 07/11/2022 05/02/2025 Fatigue 05/25/2019 05/02/2025 Insomnia with sleep apnea 05/25/2019 Family History Medical History Relation Name Comments Cancer Brother Remi Bowling Diabetes Brother Remi Bowling Cancer Father Remi Bowling Sr. Diabetes Father Remi Bowling Sr. Heart disease Father Remi Bowling Sr. Arthritis Mother Martita Bowling Cancer Mother Martita Bowling Hypertension Mother Martita Bowling Kidney disease Mother Martita Bowling Cardiac disorder Other 1 Diabetes Other 2 Other cancer Other 3 Anesthesia problems Neg Hx Malig Hyperthermia Neg Hx Relation Name Status Comments Brother Remi Bowling Father Remi Bowling Sr. Mother Martita Bowling Other 1 Other 2 Other 3 Social History Tobacco Use Types Packs/Day Years Used Date Smoking Tobacco: Former Cigarettes 0.8 20 1 08/15/1982 - 06/15/2003 Smokeless Tobacco: Never Tobacco Cessation:Counseling Given: Not Answered Alcohol Use Standard Drinks/Week Comments Yes 2 (1 standard drink = 0.6 oz pur e alcohol) rarely PHQ-2 Answer Date Recorded Patient Health Questionnaire-2 Score 1 09/19/2022 CAGE ASSESSMENT Answer Date Recorded Cage unable to access Not on file 07/26/2022 Cage max number of drinks Not on file 2021 Cage Beverages a week Not on file 07/26/2022 Have you ever felt you should CUT down on your d rinking? 0 07/26/2022 Have you been ANNOYED by people criticizing your drinking? 0 07/26/2022 Have you felt GUILTY about your drinking? 0 07/26/2022 Have you had a drink first t divina in the morning ([employer] COMM[employer]ICATION[employer] OFFICER) to steady your nerves or to get rid of a hangover? 0 07/26/2022 CAGE Questionnaire Score 0 022 PHQ-2A Answer Date Recorded Patient Health Questionnaire-2 Score 1 09/19/2022 Comments No Sex and Gender Information Value Date Recorded Sex Assigned at Not on file Legal Sex Female 8:49 PM EDT Gender Identity Not on file Sexual Orientation Not on file Last Filed Vital Signs Vital Sign Reading Time Taken Comments Blood Pressure 113/58 03/04/2023 2:17 PM EDT Pulse 79 03/04/2023 2:17 PM EDT Temperature 36.4 C (97.6 F) 11/29/2022 11:25 AM EDT Respiratory Rate 13 11/27/2022 11:25 AM EDT Oxygen Saturation 97% 03/04/2023 2:17 PM EDT Inhaled Oxygen Concentration - - Weight 100 kg (220 lb 7.4 oz) 03/04/2023 2:17 PM EDT Height 170.2 cm (5' 7 ) 03/04/2023 2:17 PM EDT Body Mass Index 34.53 03/04/2023 2:17 PM EDT Plan of Treatment Health Maintenance Due Date Last Done Comments [facility]-HIV Screening 1965 [facility]-Hepatitis C Screening 1965 [facility]-Medicare Annual Wellness (AWV) 1965 [facility]-Infant/Child/Adol SDOH Screenings 1965 [facility]- SDOH Screenings 1982 [facility]-Adult SDOH Screenings 1982 [facility]-Pap Smear 1985 [facility]-Cervical Cancer Screening 1994 [facility]-HPV/Cotest 1994 [facility]-Pneumococcal Vaccine: 50+ Years (2 of 2 - PPSV23, PCV20, or PCV21) 10/04/2016 08/09/2016 [facility]-Zoster Vaccines (3 of 3) 06/19/2022 04/24/2022, 05/21/2016 [facility]-Diabetes: Hemoglobin A1C 07/11/2023 07/11/2022, 10/20/2018 [facility]-Depression Screening 09/19/2023 09/19/2022 [facility]-Breast Cancer Screening 09/04/202408/13, 09/04/2022, 08/30/2021, Additional history exists TYD-HEDNV-84 Vaccine (1 - 2024- season) 2025 [facility]-Influenza Vaccine (#1) 04/12/202507/11, 04/12/2020, 05/12/2019, Additional history exists [facility]-DTaP,Tdap,and Td Vaccines (2 - Td or Tdap) 04/24/2032 04/24/2022, 03/30/2011 [facility]-RSV Vaccine: 60+ Years or (1 - 1-dose 75+ series) 2039 [facility]-Hepatitis A Vaccines Aged Out 11/27/2018, 05/12 No longer eligible based on patient's age to complete this topic [facility]-Obesity Intervention Completed 023, 01/14/2023, 12/12/2022, Additional history exists HPV Vaccines (No Doses Required) Completed [facility]-HIB Vaccines Aged Out No longer e ligible based on patient's age to complete this topic [facility]-IPV Vaccines Aged Out No longer e ligible based on patient's age to complete this topic [facility]-Rotavirus Vaccines Aged Out No lo nger eligible based on patient's age to complete this topic Medical Devices Implanted Type Area Program Project Manager Device Identifier Shelf Expiration Date Model / Serial / Lot Implant Implant Bilateral: Knee Stent Stent Heart Mesh Phasix 10x12 In - [id number] Implanted:Qty : 1 on 07/26/2022 by Gentry Guardado MD at [facility] N/A: Abdomen [employer]-[id number] 05/09/2023 [id number] / / [id number] Cement Palacos - [id number] Implanted:Qty : 2 on 11/27/2022 by Albert Boswell MD at [facility] Right: Knee Heraeus Inc-[id number] 05/11/2027 [id number] / / [id number] Chg Patella Gii Oval Resurfaci - [id number] Implanted:Qty : 1 on 11/27/2022 by Albert Boswell MD at [facility] Right: Knee Judd [employer] Nephew [employer]-[id number] 07/31/2032 [id number] / / [id number] Chg Femoral Legion Ps Oxin Sz5 - [id number] Implanted:Qty : 1 on 11/27/2022 by Albert Boswell MD at [facility] Right: Knee [employer]-[id number] 04/23/2032 [id number] / / [id number] Chg Tibial Gns Ii Cmt Size 3 R - [id number] Implanted:Qty : 1 on 11/27/2022 by Albert Boswell MD at [facility] Right: Knee [employer]-[id number] 06/13/2032 [id number] / / [id number] Knee Lgn Xlp Ps High Sz3-4 12mm - [id number] Implanted:Qty : 1 on 11/27/2022 by Albert Boswell MD at [facility] Right: Knee [id number] 08/13/2032 [id number] / / [id number] Procedures Procedure Name Priority Date/Time Associated Diagnosis Comments POCT GLYCOSYLATED HEMOGLOBIN (HGB A1C) Routine 07/11/2022 8:59 AM EST Personal history of nutritional deficiency from Last 3 Months or Most Recently Relevant to Health Maintenance Results * POCT Glycosylated Hemoglobin (Hgb A1C) (07/11/2022 8:59 AM EST) POCT Hemoglobin A1C 6.0 4.4-6.6 % % [facility] Kit Lot Number [id number] [facility] Kit Expiration Date 06/11/24 [facility] Blood Venous blood specimen / Unknown 07/11/2022 8:59 AM EST Gentry Guardado MD POINT OF CARE TEST ENTER/EDIT OR DERABLES Final Result [facility] [address] [place] [address] from Last 3 Months or Most Recently Relevant to Health Maintenance Insurance [facility] MEDIC[facility] Advance Directives * Full Code (Latest Code Status on File) Date Activated Date Inactivated Comments 07/26/2022 4:15 PM 07/28/2022 6:08 PM Question Answer Comments Patient has decision-making capacity? Yes Care Teams Butcher Assistant Relationship Specialty Start Date End Date Denae Serrano MD [address] [place] [address] [address] [place] [address] PCP - General 12/23/20
--- OUTSIDE RECORDS SUMMARY | 2025-07-27 12:31 | XMS_ITS | Encounter Summary ---
Author Organization [email or web address] ([place], [place], [place], [place], [place]) Address [address] [place] [address] Care Team Providers Care Bottle Carrier Name Role Phone Denae Serrano MD Primary Care Provider [phone] Encounter Details Date Type Department Care Team (Late st Contact Info) Description 10/10/2020 Transcribed Document [facility] [place] [address] [place] [address] ProviderJer MD [address] [place], [place] [id number] Social History Tobacco Use Types Packs/Day Years Used Date Smoking Tobacco: Never Assessed Comments Unknown Sex and Gender Information Value Date Recorded Sex Assigned at Not on file Legal Sex Female 4:41 PM CDT Gender Identity Not on file Sexual Orientation Not on file documented as of this encounter Miscellaneous Notes * Cerner Conversion Note - Historical ProviderMD - 10/10/2020 12:30 PM ASSISTANT PROFESSOR SURGICAL TECHNOLOGY [facility] PreOp Summary Primary Physician: KENDAL SHARP MD-GAE Finalized Date/Time: 10/10/20 12:35:44 Pt. Name: ZENAIDA BOWLING/Sex: 1965 Female Med Rec #: [id number] Physician: KENDAL SHARP MD-GAE Financial #: [id number] Pt. Type: E Room/Bed: [facility] Admit/Disch: 10/10/20 11:14:00 - Institution: [facility] PreOp Case Times Entry 1 In Preop 10/10/20 11:30:00 Ready for Holding 10/10/20 12:25:00 Room Patient Ready for 10/10/20 12:25:00 Surgery Patient Out of Preop 10/10/20 12:25:00 Patient Out of 10/10/20 12:25:00 Holding Room [facility] PreOp Case Times Audit 10/10/20 12:25:13 Esthetician: [id number] Modifier: [id number] <+> 1 Patient Out of Preop <+> 1 Patient Ready for Surgery <+> 1 Ready for Holding Room <+> 1 Patient Out of Holding Room Finalized By: Darlin Randhawa, Rn Document Signatures Signed By: Darlin Randhawa Rn 10/10/20 12:35 Electronically signed by Lynne Martinez Conversion Residential Solar Sales Consultant Cerner at 11/28/2022 11:26 PM CDT documented in this encounter Plan of Treatment Upcoming Encounters Date Type Department Care Team (Late st Contact Info) Description 09/13/2025 11:15 AM EST Appointment [address] [place] [address] documented as of this encounter Visit Diagnoses Not on filedocumented in this encounter Care Teams Bottle Carrier Relationship Specialty Start Date End Date Denae Serrano MD [address] [place] [phone] PCP - General Family Medicine 06/11/22 documented as of this encounter
--- OUTSIDE RECORDS SUMMARY | 2025-07-27 12:31 | XMS_ITS | Encounter Summary ---
Author Organization [employer] ([place], [place], [place], [place], [place]) Address [address] [place] [address] Care Team Providers Care Database Programmer Analyst Name Role Phone Denae Serrano MD Primary Care Provider [phone] Encounter Details Date Type Department Care Team (Late st Contact Info) Description 10/10/2020 Transcribed Document [facility] [place] Medicine [address] [place] [address] Jer Klein MD [address] [place], [place] [id number] Social History Tobacco Use Types Packs/Day Years Used Date Smoking Tobacco: Never Assessed Comments Unknown Sex and Gender Information Value Date Recorded Sex Assigned at Not on file Legal Sex Female 4:41 PM CDT Gender Identity Not on file Sexual Orientation Not on file documented as of this encounter Miscellaneous Notes * Cerner Conversion Note - Jer Klein MD - 10/10/2020 1:24 PM ANIMAL DAYCARE PROVIDER Patient Education Materials Follows: Monitored Anesthesia Care, Care After These instructions provide you with information about caring for yourself after your procedure. Your health care provider may also give you more specific instructions. Your treatment has been planned according to current medical practices, but problems sometimes occur. Call your health care provider if you have any problems or questions after your procedure. What can I expect after the procedure? After your procedure, you may: ??? Feel sleepy for several hours. ??? Feel clumsy and have poor balance for several hours. ??? Feel forgetful about what happened after the procedure. ??? Have poor judgment for several hours. ??? Feel nauseous or vomit. ??? Have a sore throat if you had a breathing tube during the procedure. Follow these instructions at home: For at least 24 hours after the procedure: ??? Have a responsible adult stay with you. It is important to have someone help care for you until you are awake and alert. ??? Rest as needed. ??? Do not: ? Participate in activities in which you could fall or become injured. ? Drive. ? Use heavy machinery. ? Drink alcohol. ? Take sleeping pills or medicines that cause drowsiness. ? Make important decisions or sign legal documents. ? Take care of children on your own. Eating and drinking ??? Follow the diet that is recommended by your health care provider. ??? If you vomit, drink water, juice, or soup when you can drink without vomiting. ??? Make sure you have little or no nausea before eating solid foods. General instructions ??? Take inwd-vac-oyqgxiu and prescription medicines only as told by your health care provider. ??? If you have sleep apnea, surgery and certain medicines can increase your risk for breathing problems. Follow instructions from your health care provider about wearing your sleep device: ? Anytime you are sleeping, including during daytime naps. ? While taking prescription pain medicines, sleeping medicines, or medicines that make you drowsy. ??? If you smoke, do not smoke without supervision. ??? Keep all follow-up visits as told by your health care provider. This is important. Contact a health care provider if: ??? You keep feeling nauseous or you keep vomiting. ??? You feel light-headed. ??? You develop a rash. ??? You have a fever. Get help right away if: ??? You have trouble breathing. Summary ??? For several hours after your procedure, you may feel sleepy and have poor judgment. ??? Have a responsible adult stay with you for at least 24 hours or until you are awake and alert. This information is not intended to replace advice given to you by your health care provider. Make sure you discuss any questions you have with your health care provider. Document Released: 11/18/2016 Document Revised: 10/27/2018 Document Reviewed: 11/18/2016 [employer] Patient Education ? 2020 [employer] Colonoscopy, Adult, Care After This sheet gives you information about how to care for yourself after your procedure. Your doctor may also give you more specific instructions. If you have problems or questions, call your doctor. What can I expect after the procedure? After the procedure, it is common to have: ??? A small amount of blood in your poop for 24 hours. ??? Some gas. ??? Mild cramping or bloating in your belly. Follow these instructions at home: General instructions ??? For the first 24 hours after the procedure: ? Do not drive or use machinery. ? Do not sign important documents. ? Do not drink alcohol. ? Do your daily activities more slowly than normal. ? Eat foods that are soft and easy to digest. ??? Take nlwo-fax-sjjypnb or prescription medicines only as told by your doctor. To help cramping and bloating: ??? Try walking around. ??? Put heat on your belly (abdomen) as told by your doctor. Use a heat source that your doctor recommends, such as a moist heat pack or a heating pad. ? Put a towel between your skin and the heat source. ? Leave the heat on for 20?30 minutes. ? Remove the heat if your skin turns bright red. This is especially important if you cannot feel pain, heat, or cold. You can get burned. Eating and drinking ??? Drink enough fluid to keep your pee (urine) clear or pale yellow. ??? Return to your normal diet as told by your doctor. Avoid heavy or fried foods that are hard to digest. ??? Avoid drinking alcohol for as long as told by your doctor. Contact a doctor if: ??? You have blood in your poop (stool) 2?3 days after the procedure. Get help right away if: ??? You have more than a small amount of blood in your poop. ??? You see large clumps of tissue (blood clots) in your poop. ??? Your belly is swollen. ??? You feel sick to your stomach (nauseous). ??? You throw up (vomit). ??? You have a fever. ??? You have belly pain that gets worse, and medicine does not help your pain. Summary ??? After the procedure, it is common to have a small amount of blood in your poop. You may also have mild cramping and bloating in your belly. ??? For the first 24 hours after the procedure, do not drive or use machinery, do not sign important documents, and do not drink alcohol. ??? Get help right away if you have a lot of blood in your poop, feel sick to your stomach, have a fever, or have more belly pain. This information is not intended to replace advice given to you by your health care provider. Make sure you discuss any questions you have with your health care provider. Document Released: 08/31/2011 Document Revised: 05/29/2018 Document Reviewed: 04/22/2017 [employer] Patient Education ? 2020 [employer]. Diverticulosis Diverticulosis is a condition that develops when small pouches (diverticula) form in the wall of the large intestine (colon). The colon is where water is absorbed and stool is formed. The pouches form when the inside layer of the colon pushes through weak spots in the outer layers of the colon. You may have a few pouches or many of them. What are the causes? The cause of this condition is not known. What increases the risk? The following factors may make you more likely to develop this condition: ??? Being older than age 60. Your risk for this condition increases with age. Diverticulosis is rare among people younger than age 30. By age 80, many people have it. ??? Eating a low-fiber diet. ??? Having frequent constipation. ??? Being overweight. ??? Not getting enough exercise. ??? Smoking. ??? Taking xhrn-aox-zkpzldw pain medicines, like aspirin and ibuprofen. ??? Having a family history of diverticulosis. What are the signs or symptoms? In most people, there are no symptoms of this condition. If you do have symptoms, they may include: ??? Bloating. ??? Cramps in the abdomen. ??? Constipation or diarrhea. ??? Pain in the lower left side of the abdomen. How is this diagnosed? This condition is most often diagnosed during an exam for other colon problems. Because diverticulosis usually has no symptoms, it often cannot be diagnosed independently. This condition may be diagnosed by: ??? Using a flexible scope to examine the colon (colonoscopy). ??? Taking an X-ray of the colon after dye has been put into the colon (barium enema). ??? Doing a CT scan. How is this treated? You may not need treatment for this condition if you have never developed an infection related to diverticulosis. If you have had an infection before, treatment may include: ??? Eating a high-fiber diet. This may include eating more fruits, vegetables, and grains. ??? Taking a fiber supplement. ??? Taking a live bacteria supplement (probiotic). ??? Taking medicine to relax your colon. ??? Taking antibiotic medicines. Follow these instructions at home: ??? Drink 6?8 glasses of water or more each day to prevent constipation. ??? Try not to strain when you have a bowel movement. ??? If you have had an infection before: ? Eat more fiber as directed by your health care provider or your diet and child nutrition director (dietitian). ? Take a fiber supplement or probiotic, if your health care provider approves. ??? Take kioh-btk-swowgqg and prescription medicines only as told by your health care provider. ??? If you were prescribed an antibiotic, take it as told by your health care provider. Do not stop taking the antibiotic even if you start to feel better. ??? Keep all follow-up visits as told by your health care provider. This is important. Contact a health care provider if: ??? You have pain in your abdomen. ??? You have bloating. ??? You have cramps. ??? You have not had a bowel movement in 3 days. Get help right away if: ??? Your pain gets worse. ??? Your bloating becomes very bad. ??? You have a fever or chills, and your symptoms suddenly get worse. ??? You vomit. ??? You have bowel movements that are bloody or black. ??? You have bleeding from your rectum. Summary ??? Diverticulosis is a condition that develops when small pouches (diverticula) form in the wall of the large intestine (colon). ??? You may have a few pouches or many of them. ??? This condition is most often diagnosed during an exam for other colon problems. ??? If you have had an infection related to diverticulosis, treatment may include increasing the fiber in your diet, taking supplements, or taking medicines. This information is not intended to replace advice given to you by your health care provider. Make sure you discuss any questions you have with your health care provider. Document Released: 04/25/2005 Document Revised: 07/11/2018 Document Reviewed: 06/17/2017 [employer] Patient Education ? 2020 [employer] Colon Polyps Polyps are tissue growths inside the body. Polyps can grow in many places, including the large intestine (colon). A polyp may be a round bump or a mushroom-shaped growth. You could have one polyp or several. Most colon polyps are noncancerous (benign). However, some colon polyps can become cancerous over time. Finding and removing the polyps early can help prevent this. What are the causes? The exact cause of colon polyps is not known. What increases the risk? You are more likely to develop this condition if you: ??? Have a family history of colon cancer or colon polyps. ??? Are older than 50 or older than 45 if you are . ??? Have inflammatory bowel disease, such as ulcerative colitis or Crohn's disease. ??? Have certain hereditary conditions, such as: ? Familial adenomatous polyposis. ? Gtz syndrome. ? Turcot syndrome. ? Peutz?Jeghers syndrome. ??? Are overweight. ??? Smoke cigarettes. ??? Do not get enough exercise. ??? Drink too much alcohol. ??? Eat a diet that is high in fat and red meat and low in fiber. ??? Had childhood cancer that was treated with abdominal radiation. What are the signs or symptoms? Most polyps do not cause symptoms. If you have symptoms, they may include: ??? Blood coming from your rectum when having a bowel movement. ??? Blood in your stool. The stool may look dark red or black. ??? Abdominal pain. ??? A change in bowel habits, such as constipation or diarrhea. How is this diagnosed? This condition is diagnosed with a colonoscopy. This is a procedure in which a lighted, flexible scope is inserted into the anus and then passed into the colon to examine the area. Polyps are sometimes found when a colonoscopy is done as part of routine cancer screening tests. How is this treated? Treatment for this condition involves removing any polyps that are found. Most polyps can be removed during a colonoscopy. Those polyps will then be tested for cancer. Additional treatment may be needed depending on the results of testing. Follow these instructions at home: Lifestyle ??? Maintain a healthy weight, or lose weight if recommended by your health care provider. ??? Exercise every day or as told by your health care provider. ??? Do not use any products that contain nicotine or tobacco, such as cigarettes and e-cigarettes. If you need help quitting, ask your health care provider. ??? If you drink alcohol, limit how much you have: ? 0?1 drink a day for women. ? 0?2 drinks a day for men. ??? Be aware of how much alcohol is in your drink. In the [place] one drink equals one 12 oz bottle of beer (355 mL), one 5 oz glass of wine (148 mL), or one 1? oz shot of hard liquor (44 mL). Eating and drinking ??? Eat foods that are high in fiber, such as fruits, vegetables, and whole grains. ??? Eat foods that are high in calcium and vitamin D, such as milk, cheese, yogurt, eggs, liver, fish, and broccoli. ??? Limit foods that are high in fat, such as fried foods and desserts. ??? Limit the amount of red meat and processed meat you eat, such as hot dogs, sausage, stewart, and lunch meats. General instructions ??? Keep all follow-up visits as told by your health care provider. This is important. ? This includes having regularly scheduled colonoscopies. ? Talk to your health care provider about when you need a colonoscopy. Contact a health care provider if: ??? You have new or worsening bleeding during a bowel movement. ??? You have new or increased blood in your stool. ??? You have a change in bowel habits. ??? You lose weight for no known reason. Summary ??? Polyps are tissue growths inside the body. Polyps can grow in many places, including the colon. ??? Most colon polyps are noncancerous (benign), but some can become cancerous over time. ??? This condition is diagnosed with a colonoscopy. ??? Treatment for this condition involves removing any polyps that are found. Most polyps can be removed during a colonoscopy. This information is not intended to replace advice given to you by your health care provider. Make sure you discuss any questions you have with your health care provider. Document Released: 04/24/2005 Document Revised: 11/13/2018 Document Reviewed: 11/13/2018 [employer] Patient Education ? 2019 [employer]. Electronically signed by Juan, [facility] Conversion Wood Tile Installation Helper Cerner at 11/28/2022 11:33 PM CDT documented in this encounter Plan of Treatment Upcoming Encounters Date Type Department Care Team (Late st Contact Info) Description 09/13/2025 11:15 AM EST Appointment [address] [phone] documented as of this encounter Visit Diagnoses Not on filedocumented in this encounter Care Teams Database Programmer Analyst Relationship Specialty Start Date End Date Denae Serrano MD [address] [place] [phone] PCP - General Family Medicine 06/11/22 documented as of this encounter
--- OUTSIDE RECORDS SUMMARY | 2025-07-27 12:31 | XMS_ITS | Clinical Summary ---
Author Organization [facility] Address [address] [place] [address] Phone Care Team Providers Care Fresh Foods Technician Name Role Phone Nonstaff, Referring Primary Care Provider Unavai lable Allergies Active Allergy Reactions Criticality Noted Date Comments Cephalosporins Rash 07/21/2025 Penicillins Rash 07/21/2025 Medications ezetimibe (ZETIA) 10 mg Oral Tablet Take 10 mg by mouth daily. Active esomeprazole (NEXIUM) 40 mg Oral Capsule, Delayed Release(E.C.) Take 40 mg by mouth daily. Active rOPINIRole (REQUIP) 2 mg Oral Tablet Take 4 mg by mouth nightly. Active metoprolol succinate (TOPROL-XL) 25 mg Oral Tablet Sustained Release 24 hr Take 25 mg by mouth daily. Active FLUoxetine (PROZAC) 40 mg Oral Capsule Take 40 mg by mouth daily. Active aspirin 81 mg Oral Tablet, Delayed Release (E.C.) Take 81 mg by mouth daily. Active evolocumab (REPATHA SURECLICK) 140 mg/mL SubQ Pen Injector Inject 140 mg under the skin every 14 days. Active traZODone (DESYREL) 100 mg Oral Tablet Take 100 mg by mouth nightly. Active magnesium oxide (MAG-OX) 400 mg (241.3 mg magnesium) Oral Tablet Take 400 mg by mouth daily. Active Lisdexamfetamin e 40 mg Oral Capsule Take 40 mg by mouth daily. Active HYDROcodone-raphael taminophen (NORCO) 5-325 mg Oral Tablet Take 1 Tablet by mouth every 6 hours as needed for Acute Pain (R52) for up to 3 days. 12 Tablet 07/21/2025 Encounters Date Type Department Care Team Description 07/21/2025 3:37 PM EST - 07/21/2025 6:12 PM EST [facility] [address] [facility] [place]. [place] [phone] Modesto Groves MD Fall, initial encounter (Primary Dx); Closed fracture of left ankle, initial encounter Discharge Disposition: Home or Self Care 07/21/2025 Travel from Last 3 Months Medical History Medical History Date Comments Cancer (HCC) CAD (coronary artery disease) Social History Tobacco Use Types Packs/Day Years [...] Mass Index 29.86 07/21/2025 4:02 PM EST Plan of Treatment Health Maintenance Due Date Last Done Comments Annual Wellness Exam 1967 Hepatitis C Screening 1982 Cervical Cancer Screening 1985 Pap Smear 1985 HPV/Pap Cotest 1994 Breast Cancer Screening 2004 Cologuard 2009 Colon Cancer Screening 2009 Colonoscopy 2009 FIT 2009 Sigmoidoscopy 2009 Virtual Colonography 2009 Hepatitis B Vaccine (2 of 2 - CpG 2-dose series) 02/10/2025 01/13/2025 COVID-19 Vaccine ( season) 2025 DTaP/TDaP/Td (2 - Td or Tdap) 04/24/2032 04/24/2022 Pneumococcal Vaccine 50+ Completed 12/07/2024 Zoster Completed 01/13/2025, 04/24/2022 Influenza Vaccine Completed 06/28/2025, , 04/12/2020, Additional history exists Meningococcal B Vaccine Aged Out No l onger eligible based on patient's age to complete this topic Procedures Procedure Name Priority Date/Time Associated Diagnosis Comments XR KNEE LEFT AP LAT INT EXT OBLIQUES AND SUNRISE STAT 07/21/2025 4:19 PM EST XR ANKLE LEFT AP LATERAL AND OBLIQUE STAT 07/21/2025 4:19 PM EST from Last 3 Months Results * XR KNEE LEFT AP LAT [...] of the ordering clinician. Modesto Groves MD [facility] Final Result * XR [...] of the ordering clinician. Modesto Groves MD [facility] Final Result from Last 3 Months Insurance [facility] PPO MEDICARE IN PART A AND [place] [address] Care Teams Fresh Foods Technician Relationship Specialty Start Date End Date Nonstaff, Referring PCP - General 07/21/25
--- OUTSIDE RECORDS SUMMARY | 2025-07-27 12:31 | XMS_ITS | Encounter Summary ---
Author Organization [facility] [address] Care Team Providers Care Manager Apple Name Role Phone Nonstaff, Referring Primary Care Provider Dangelo scott Encounter Details Date Type Department Care Team (Latest Contact Info) Description 07/21/2025 Travel Social History Tobacco Use Types Packs/Day Years [...] on file documented as of this encounter Plan of Treatment Not on file documented as of this encounter Visit Diagnoses Not on filedocumented in this encounter Care Teams Manager Apple Relationship Specialty Start Date End Date Nonstaff, Referring PCP - General 07/21/25 documented as of this encounter
--- OUTSIDE RECORDS SUMMARY | 2025-07-27 12:31 | XMS_ITS | Encounter Summary ---
Author Organization [employer] ([place], [place], [place], [place], [place]) Address [address] [place] [address] Care Team Providers Care Manager Six Sigma Name Role Phone Denae Serrano MD Primary Care Provider [phone] Encounter Details Date Type Department Care Team (Late st Contact Info) Description 03/01/2020 Transcribed Document [facility] [place] [address] [place] [address] ProviderJer MD [address] [place], [place] [address] Social History Tobacco Use Types Packs/Day Years Used Date Smoking Tobacco: Never Assessed Comments Unknown Sex and Gender Information Value Date Recorded Sex Assigned at Not on file Legal Sex Female 4:41 PM CDT Gender Identity Not on file Sexual Orientation Not on file documented as of this encounter Miscellaneous Notes * Cerner Conversion Note - Historical ProviderMD - 03/01/2020 10:07 AM CDT Event Note Entered On: 03/01/2020 10:08 EDT Performed On: 03/01/2020 10:07 EDT by Skye Rubio RN Event Note Event Date/Time : 03/01/2020 9:00 EDT Event Location : [place] Event Details : Other: anticoag Description of Event : Notified Dr. Perez that pt continued with Aspirin 81 mg po through this am, OK to proceed per Skye Ramos, KAUSHIK - 03/01/2020 10:07 EDT Electronically signed by Juan [facility] Conversion Psychology Instructor Cerner at 11/28/2022 11:18 PM CDT documented in this encounter Plan of Treatment Upcoming Encounters Date Type Department Care Team (Late st Contact Info) Description 09/13/2025 11:15 AM EST Appointment [address] [place] [phone] documented as of this encounter Visit Diagnoses Not on filedocumented in this encounter Care Teams Manager Six Sigma Relationship Specialty Start Date End Date Denae Serrano MD [address] [place] [phone] PCP - General Family Medicine 06/11/22 documented as of this encounter
--- OUTSIDE RECORDS SUMMARY | 2025-07-27 12:31 | XMS_ITS | Encounter Summary ---
Author Organization [employer] ([place], [place], [place], [place], [place]) Address [address] [place] [address] Care Team Providers Care Floor Specialist Name Role Phone Denae Serrano MD Primary Care Provider [phone] Encounter Details Date Type Department Care Team (Late st Contact Info) Description 10/10/2020 Transcribed Document [facility] [place] [address] [place] [address] ProviderJer MD [address] [place], [place] [id number] Social History Tobacco Use Types Packs/Day Years Used Date Smoking Tobacco: Never Assessed Comments Unknown Sex and Gender Information Value Date Recorded Sex Assigned at Not on file Legal Sex Female 4:41 PM CDT Gender Identity Not on file Sexual Orientation Not on file documented as of this encounter Miscellaneous Notes * Cerner Conversion Note - Historical ProviderMD - 10/10/2020 1:25 PM RETAIL FIELD MERCHANDISER [address] [address] ZENAIDA BOWLING :1965 Visit Time:10/10/2020 What to do next Your Diagnosis Personal history of colonic polyps, Personal history of colonic polyps Instructions From Your Care Team Diet after Discharge: Resume usual diet as tolerated, Do not drink any alcoholic beverages, _ Activity after Discharge: , Rest and relax today, No strenuous activity Lifting Restrictions: No heavy lifting over 10 pounds Driving after Discharge: Do not drive for 24 hours May Return to Work/School: tomorrow Notify Provider of: with any questions or concerns Follow-Up Appointments Follow Up with KENDAL SHARP MD-GAE When Comments repeat colonoscopy in 3 years Where: [address] [facility] [address] [place] [address]- Medications What How Much When Instructions Next Dose aspirin (aspirin 81 mg oral delayed release tablet) 1 Tablet(s) Oral Every Day evolocumab (Repatha 140 mg/ mL subcutaneous solution) 140 Milligram(s) SubCutaneous Every Two Weeks rotate injection sites ezetimibe 10 Milligram(s) Oral Every Day furosemide (furosemide 40 mg oral tablet) Oral Every Day gabapentin (gabapentin 100 mg oral capsule) Oral Every Day melatonin (Melatonin 5 mg oral tablet) 1 Tablet(s) Oral Once a day (at bedtime) as needed for as needed for insomnia metoprolol (metoprolol succinate 25 mg oral capsule, extended release) 1 Capsule(s) Oral Every Day multivitamin with minerals (Centrum Women's) 1 Tablet(s) Oral Every Day nitroglycerin (nitroglycerin 0.4 mg sublingual spray) 1 [place](s) SubLINgual Every 5 minutes as needed for for chest pain pantoprazole (Protonix 40 mg oral delayed release tablet) 1 Tablet(s) Oral Every Day Take on an empty stomach 30 minutes before breakfast rOPINIRole (rOPINIRole 2 mg oral tablet) 2 Tablet(s) Oral At Bedtime ubiquinone (CoQ10) 300 Milligram(s) Oral Every Day Take your medications faithfully. Do NOT skip medication. Do NOT stop taking medications without the direction of a physician. Carry a list of your medications with you at all times, and take this medication list with you to your first follow up visit. Report any side effects. Avoid herbal remedies unless discussed with your physician. As part of your treatment plan, your physician may have prescribed a limited course of a controlled substance. This medication may be given to help people with moderate or severe pain or for other medical conditions, but there are risks involved with treatment. Common side effects may include nausea, constipation, drowsiness, sweating, itching, dry mouth, and rash. More serious side effects may include cognitive and motor impairment, like problems with thinking, concentrating, alertness, and movement (e.g. slowed reflexes), and driving and operating heavy machinery can be dangerous. It is important for you to talk to your physician if you have these side effects or questions. These controlled substances can produce physical dependence and be habit-forming if taken for an extended period of time, which means that the body has gotten used to them and may experience withdrawal symptoms if they are abruptly stopped. Withdrawal symptoms can include runny nose, sweating, goose bumps, diarrhea, abdominal cramping, rapid heartbeat, difficulty sleeping, and nervousness. Please dispose of unused and medications per pharmacy guidance. Education Materials Monitored Anesthesia Care, Care After These instructions [...] eating solid foods. General instructions ??? Take hhir-iew-tdozvqj and prescription medicines only as told by [...] 11/18/2016 Document Revised: 10/27/2018 Document Reviewed: 11/18/2016 [employer] Patient Education ?? 2020 [employer]. Colonoscopy, Adult, Care After This sheet gives [...] soft and easy to digest. ??? Take akit-oob-kjvasge or prescription medicines only as told by [...] source. ? Leave the heat on for 20???30 minutes. ? Remove the heat if your [...] You have blood in your poop (stool) 2???3 days after the procedure. Get help right [...] 08/31/2011 Document Revised: 05/29/2018 Document Reviewed: 04/22/2017 [employer] Patient Education ?? 2020 [employer]. Diverticulosis Diverticulosis is a condition that develops [...] getting enough exercise. ??? Smoking. ??? Taking bygc-ptt-gbqsymo pain medicines, like aspirin and ibuprofen. ??? [...] Follow these instructions at home: ??? Drink 6???8 glasses of water or more each day to prevent constipation. ??? Try not to strain when you have a bowel movement. ??? If you have had an infection before: ? Eat more fiber as directed by your health care provider or your diet and communications specialist (dietitian). ? Take a fiber supplement or probiotic, if your health care provider approves. ??? Take khpe-jhz-jrappfk and prescription medicines only as told by [...] 04/25/2005 Document Revised: 07/11/2018 Document Reviewed: 06/17/2017 [employer] Patient Education ?? 2020 Pro[employer]. Colon Polyps Polyps are tissue growths [...] ? Gtz syndrome. ? Turcot syndrome. ? Peutz???Jeghers syndrome. ??? Are overweight. ??? Smoke cigarettes. [...] alcohol, limit how much you have: ? 0???1 drink a day for women. ? 0???2 drinks a day for men. ??? Be aware of how much alcohol is in your drink. In the [place] one drink equals one 12 oz bottle of beer (355 mL), one 5 oz glass of wine (148 mL), or one 1?? oz shot of hard liquor (44 mL). [...] 04/24/2005 Document Revised: 11/13/2018 Document Reviewed: 11/13/2018 Prognosis [employer] Information Systems Patient Education ?? 2020 [employer]. Emergency Awareness and Preventative Care STROKE is an EMERGENCY Every Minute Counts Act FAST and Check for these signs: FACE Does the face look uneven? ARM Does one arm drift down? SPEECH Does their speech sound strange? TIME Call at any sign of stroke Stroke Risk Factors Atrial Fibrillation (irregular heartbeat) Diabetes Family history of stroke Heart Disease Heavy alcohol use High Blood Pressure High Cholesterol Physical inactivity and obesity Smoking Cigarette Smoking The facts are clear, cigarette smoking will shorten your life. Smoking can cause many illnesses along the way. As a healthcare provider, we recommend that you stop smoking. Assistance with quitting is available by contacting 3-567-JRHL-NOW. This is a free resource providing counseling, support, and referral. Or you may contact your personal physician. National Suicide Prevention Lifeline: The National Suicide Prevention Lifeline is a national network of local crisis centers that provides free and confidential emotional support to people in suicidal crisis or emotional distress 24 hours a day, 7 days a week. Don't Wait! Stop a Heart Attack Before it Starts What is a heart attack? A heart attack is damage or to a part of the heart from severely decreased or lack of blood flow to the heart. Over time, arteries can become narrow from the buildup of fat and cholesterol, which is called plaque. The plaque can rupture causing a blood clot to form. When the blood clot forms, the artery can become severely narrowed or completely blocked, causing a heart attack. Heart attack is the leading cause of in the [place]. 85% of muscle damage occurs within the first 2 hours. Delay in the recognition of heart attack symptoms increases the chances of . Know the early symptoms of a heart attack: Nausea Feeling of fullness in chest Jaw Pain Pain that travels down one or both arms Fatigue/being tired Anxiety Back Pain Chest pressure, squeezing, or discomfort Shortness of breath Sweating, or a cold sweat Feeling of impending doom There are unusual signs of a heart attack, too! Women, the elderly, and diabetics may present with atypical symptoms: Fainting/dizziness Weakness Confusion Risk Factors for a Heart Attack Some heart disease risk factors, such as age and family history, cannot be changed. Others, like smoking and lack of exercise, can be changed. Smoking High Cholesterol High Blood Pressure Family History Obesity Age Gender (Males are at higher risk) Lack of Exercise Diabetes Diet Stress Excessive Alcohol Intake If you or someone you know is experiencing the signs and symptoms of a heart attack, DON???T DELAY. Call immediately and seek help. If someone collapses, perform CPR! Do not attempt to drive if you are having symptoms of heart attack. Hands-Only CPR Why Hands-Only CPR? Hands-Only CPR has been shown to be as effective as conventional CPR for cardiac arrests that occur outside of a hospital. Survival depends on immediately receiving CPR from someone nearby. How do you perform Hands-Only CPR? There are two easy steps: Call if you see a teen or adult collapse Push hard and fast in the center of the chest at a beat of 100 beats per minute. Save a life! 4 WAYS TO GET AHEAD OF SEPSIS SEPSIS is a MEDICAL EMERGENCY. Time matters! Infections put you and your family at risk for a life-threatening condition called sepsis. Sepsis is the body's extreme response to an infection. It is life-threatening, and without timely treatment, sepsis can rapidly lead to tissue damage, organ failure, and . Sepsis happens when an infection you already have-in your skin, lungs, urinary tract or somewhere else-triggers a chain reaction throughout your body. 1 PREVENT INFECTIONS Take good care of chronic conditions. Talk to your doctor about getting the recommended vaccines. 2 PRACTICE GOOD HYGIENE Wash your hands frequently. Keep cuts or open sores clean and covered until they are healed. 3 KNOW THE SYMPTOMS Confusion or disorientation Shortness of breath High heart rate Fever, shivering, or feeling very cold Extreme pain or discomfort Clammy or sweaty skin 4 ACT FAST Get medical care IMMEDIATELY if you suspect sepsis or if you have an infection that is not getting better or is getting worse. To learn more about sepsis and how to prevent infections, visit www.cdc.gov/sepsis. Test Results Laboratory or Other Results This Visit (last charted value for your 10/10/2020 visit) No Laboratory or Other Results This Visit Patient Name:ZENAIDA BOWLING I have received this information and was given the opportunity to ask questions. Patient/Training Assistant Name: Patient/Training Assistant Signature: Relationship to Patient: Clinician/Hospital Training Assistant Signature: Date: documented in this encounter Plan of Treatment Upcoming Encounters Date Type Department Care Team (Late st Contact Info) Description 09/13/2025 11:15 AM EST Appointment [address] [phone] documented as of this encounter Visit Diagnoses Not on filedocumented in this encounter Care Teams Floor Specialist Relationship Specialty Start Date End Date Denae Serrano MD [address] [place] [phone] PCP - General Family Medicine 06/11/22 documented as of this encounter
--- OUTSIDE RECORDS SUMMARY | 2025-07-27 12:31 | XMS_ITS | Encounter Summary ---
Author Organization [employer] ([place], [place], [place], [place], [place]) Address [address] [place] [address] Care Team Providers Care Cardiology Associate Name Role Phone Denae Serrano MD Primary Care Provider [phone] Encounter Details Date Type Department Care Team (Late st Contact Info) Description 03/14/2020 Transcribed Document [facility] [place] [address] [place] [address] ProviderJer MD [address] [place] [address] Social History Tobacco Use Types Packs/Day Years Used Date Smoking Tobacco: Never Assessed Comments Unknown Sex and Gender Information Value Date Recorded Sex Assigned at Not on file Legal Sex Female 4:41 PM CDT Gender Identity Not on file Sexual Orientation Not on file documented as of this encounter Miscellaneous Notes * Cerner Conversion Note - Jer Klein MD - 03/14/2020 8:46 AM CDT DATE OF PROCEDURE: 03/01/2020 SURGEON: Herminio Perez MD DRILL PRESS TENDER: Slick. PREOPERATIVE DIAGNOSIS: Incisional hernia. POSTOPERATIVE DIAGNOSIS: Incisional hernia with multiple incisional hernias. PROCEDURE: Laparoscopic repair with mesh. A 15 x 20 cm Synecor mesh was used. DESCRIPTION OF PROCEDURE: After obtaining informed consent, the patient was taken to the operating room, placed in the supine position. General anesthesia was induced and the patient's abdomen was prepped and draped and her left arm was tucked. A band drape was placed and a 10 mm left upper quadrant incision was made. The Veress needle was inserted and the abdomen was insufflated with carbon dioxide gas. The attention was paid to the midline. The patient had multiple adhesions to the anterior abdominal wall. There was no bowel involved with this. These were taken down sharply. It was evident the patient had several Australian cheeselike defects in the midline. The hernia sacs were dissected free and removed the from the abdominal cavity. Three separate zuetnk-ld-uzxwu nonabsorbable sutures were used to close the defect. In order to obtain a 5 cm overlap, the patient had a piece of Synecor mesh measuring 15 x 20 cm was placed in the abdominal cavity and parachuted up to the anterior abdominal wall. It was then attached in a double crown technique using the Protac device. After affixing the mesh, there was no kinking or torsion of the mesh. There was no evidence of any bleeding. The left upper quadrant 10 mm port site was closed with interrupted Vicryl suture. All needle, instrument, sponge counts were correct. The trocars were removed. Incisions were closed. Sterile dressings were applied. The patient was awakened, extubated, taken to recovery room in stable condition. /[id number] MD NORMA Flower/AQ / JS / MODL /[id number] documented in this encounter Plan of Treatment Upcoming Encounters Date Type Department Care Team (Late st Contact Info) Description 09/13/2025 11:15 AM EST Appointment [address] [place] [phone] documented as of this encounter Visit Diagnoses Not on filedocumented in this encounter Care Teams Cardiology Associate Relationship Specialty Start Date End Date Denae Serrano MD [address] [place] [phone] PCP - General Family Medicine 06/11/22 documented as of this encounter
--- OUTSIDE RECORDS SUMMARY | 2025-07-27 12:31 | XMS_ITS | Encounter Summary ---
Author Organization [employer] ([place], [place], [place], [place], [place]) Address [address] [place] [address] Care Team Providers Care Wheel Borer Name Role Phone Denae Serrano MD Primary Care Provider [phone] Encounter Details Date Type Department Care Team (Late st Contact Info) Description 10/10/2020 Transcribed Document [facility] [place] [address] [place] [address] ProviderJer MD [address] [place], [place] [address] Social History Tobacco Use Types Packs/Day Years Used Date Smoking Tobacco: Never Assessed Comments Unknown Sex and Gender Information Value Date Recorded Sex Assigned at Not on file Legal Sex Female 4:41 PM CDT Gender Identity Not on file Sexual Orientation Not on file documented as of this encounter Miscellaneous Notes * Cerner Conversion Note - Historical ProviderMD - 10/10/2020 11:59 AM BOOKKEEPING ASSISTANT Pre Procedure Adult Entered On: 10/10/2020 12:06 EST Performed On: 10/10/2020 11:59 EST by Darlin Randhawa Rn Height and Weight, Clinical Dosing Height Source : Stated Height Entry Format : [place] Height, Feet : 5 ft(Converted to: 152 cm, 60 Inch) Height, Inches : 6 Inch(Converted to: 0 ft 6 Inch, 15.24 cm) Clinical Height : 167.64 cm Weight Source : Standing scale Weight Entry Format : [place] Clinical Dosing Weight : 101.82 kg Weight, Pounds : 224 lb Body Surface Area (BSA) : 2.1 m2 Body Mass Index : 36.2 kg/m2 (HI) Cosmos Body Weight : 59 kg Darlin Randhawa Rn - 10/10/2020 11:59 EST Health Histories Smoking Status : Never (less than 100 in lifetime; none in last 30 days) Smokeless Tobacco Status : Never Darlin Randhawa Rn - 10/10/2020 11:59 EST Social History (As Of: 10/10/2020 12:06:30 EST) Tobacco: Smoking Status Former smoker. Years of Use: 15. Packs/Tins Daily: 0.5. Last Used: Quit 2002. (Last Updated: 03/02/2014 09:22:42 EDT by PÉREZ ALBERT RN) Alcohol: Use in Last 12 Months: Yes. Date/Time of Last Drink: social. (Last Updated: 02/15/2014 11:21:16 EDT by OPAL OHARA, KAUSHIK) Substance Abuse: Drug Use Hx: No. Use in Last 12 Months: No. (Last Updated: 02/15/2014 11:20:35 EDT by OPAL OHARA, KAUSHIK) Nutrition/Health: Caffeine intake amount: 2. (Last Updated: 09/09/2017 08:41:04 EST by MEGHAN EDWARDS RN) Infectious Disease History Has the patient ever been tested for COVID-19? : Yes, Patient stated results Negative Date of COVID-19 test known? : Yes Date of COVID-19 Test : 08/08/2021 EST Date Comment : Pt was given a release after testing positive 08/08/2021 Does patient have symptoms of COVID-19? : No COVID19 Screening : No Experiencing Infectious Disease Symptoms : No symptoms Physical contact outside [place] in the last 30 days : No Infectious Disease History : C-Difficile, Chicken pox/Shingles, Influenza, Measles, Meningitis, Mumps Tuberculosis Symptoms : None Darlin Randhawa Rn - 10/10/2020 11:59 EST COVID19 PreProcedure Screening Is this an Emergent or Add on Procedure? : No Date PreProcedure COVID-19 test known? : Yes Date of PreProcedure COVID-19 : 08/08/2021 EST Has patient been isolated since the test : Yes Exposed to COVID19 symptoms since test? : No Darlin Randhawa Rn - 10/10/2020 11:59 EST Anesthesia/Transfusion History Family History of Anesthesia Reaction : No prior transfusion(s) Transfusion History : Prior anesthesia without reaction Family History of Anesthesia Reaction : None Darlin Randhawa Rn - 10/10/2020 11:59 EST Functional Assessment Living Situation : Home Current Home Treatments : CPAP Darlin Randhawa Rn - 10/10/2020 11:59 EST [place] Suicide Severity Rating Scale (C-SSRS) CSSRS Past Month Wish to be : No CSSRS Past Month Suicidal Thoughts : No CSSRS Lifetime Suicide Behavior : No Suicide Severity Rating Score : 0 Suicide Severity Rating : No Additional Care Required at this time Darlin Randhawa Rn - 10/10/2020 11:59 EST Psychosocial History Chronic/Terminal Illness w/Freq Visits : Yes Do You Have a History of the Following? : Patient denies history Currently in Unsafe Situation : No Darlin Randhawa Rn - 10/10/2020 11:59 EST Advance Directive Patient has Advance Directive *Q : No, patient refuses Advance Directive information Darlin Randhawa Rn - 10/10/2020 11:59 EST General Info Preferred Name : Zenaida Support Person/Patient Hostler Helper : Yes Support Person/Pt Rep Name : Martita Bowling - mother Support Person/Pt Rep Contact Information : [phone] Want Family/Rep/Phys Notified of Admit : No Emergency Contact #1 : Alla Aviles Emergency Contact #1 Emergency Contact #1 Relationship : friend Emergency Contact #2 : - Emergency Contact #2 Phone Number : - Emergency Contact #2 Relationship : - Primary Language : Palauan Preferred Communication Mode : Verbal Communication Barrier : None Geospatial Information Scientist Needed : No Darlin Randhawa Rn - 10/10/2020 11:59 EST Sleep Apnea Risk Assmt BiPAP/CPAP Ordered for Home Use : Yes Hx of Obstructive Sleep Apnea Diagnosis : Yes BiPAP/CPAP Used at Home : No Reason BiPAP/CPAP Not Used at Home : weight loss; pt states that she doesn't use bc she cant sleep Age over 50 Years Old : Yes Gender Male : No Darlin Randhawa Rn - 10/10/2020 11:59 EST Christiano Scale Christiano Sensory Perception : No impairment Christiano Moisture : Rarely moist Christiano Activity : Walks frequently Christiano Mobility : No limitation Christiano Nutrition : Excellent Christiano Friction and Shear : No apparent problem Christiano Score : 23 Darlin Randhawa Rn - 10/10/2020 11:59 EST Fall Risk Scales ABCs Fall Injury Risk Identification : None SHIELDS Hx Falls Immediate/Within 3 Months : No Shields Secondary Diagnosis : Yes SHIELDS Use of Ambulatory Aid : None SHIELDS IV Therapy or IV Access : Yes Shields Gait/Transferring : Normal, bedrest, immobile Shields Mental Status : Oriented to own ability Shields Fall Risk Score : 35 SHIELDS Fall Scale Risk Level : 25-45 Medium Risk [place] Fall Interventions : Adequate lighting, Assistive devices within reach, Bed in low position, Call device within reach, Personal items within reach Darlin Randhawa Rn - 10/10/2020 11:59 EST Valuables and Belongings Valuables and Belongings : Clothing, Personal items Clothing : Common streetwear Clothing Disposition : Bedside Personal Items : Cell phone Personal Items Disposition : Bedside Darlin Randhawa Rn - 10/10/2020 11:59 EST Electronically signed by Lynne Martinez Conversion Curriculum Development Manager Cerner at 11/28/2022 11:17 PM CDT documented in this encounter Plan of Treatment Upcoming Encounters Date Type Department Care Team (Late st Contact Info) Description 09/13/2025 11:15 AM EST Appointment [address] [phone] documented as of this encounter Visit Diagnoses Not on filedocumented in this encounter Care Teams Wheel Borer Relationship Specialty Start Date End Date Denae Serrano MD [address] [phone] PCP - General Family Medicine 06/11/22 documented as of this encounter
--- OUTSIDE RECORDS SUMMARY | 2025-07-27 12:31 | XMS_ITS | Encounter Summary ---
Author Organization [facility] ([place], [place], [place], [place], [place]) Address [address] [place] [address] Care Team Providers Care Sander Hand Name Role Phone Denae Serrano MD Primary Care Provider [phone] Encounter Details Date Type Department Care Team (Late st Contact Info) Description 03/01/2020 Transcribed Document [facility] Family Medicine [address] [place] [address] ProviderJer MD [address] [place], [place] [id number] Social History Tobacco Use Types Packs/Day Years Used Date Smoking Tobacco: Never Assessed Comments Unknown Sex and Gender Information Value Date Recorded Sex Assigned at Not on file Legal Sex Female 4:41 PM CDT Gender Identity Not on file Sexual Orientation Not on file documented as of this encounter Miscellaneous Notes * Cerner Conversion Note - Jer ProviderMD - 03/01/2020 3:28 PM CDT [address] [address] ZENAIDA BOWLING :1965 Visit Time:03/01/2020 What to do next Your Diagnosis Incisional hernia without obstruction or gangrene, Incisional hernia without obstruction or gangrene Instructions From Your Care Team Diet after Discharge: advance as tolerated to usual diet Lifting Restrictions: No heavy lifting over 10 pounds Driving after Discharge: No driving for 24 hours following surgery or any time taking pain medication. Showering/Bathing: Can shower beginning 48 hours after discharge. No tub baths Notify Provider of: any increased redness, drainage or swelling. Temp greater than 101, unable to urinate by 7PM or no BM in 2-3 days. Wound/Incision Care after Discharge: Covaderm dressing over incisions, these may be removed in 48 hours and patient can shower beginning 48 hours after discharge. Do not remove steri strips. Keep abdominal binder on until instructed by doctor at follow up appointment and may remove when in bed. Scripts given for Zofran 8mg by mouth every 12 hours as needed for nausea and Marlow 7.5/325mg one tab by mouth every 4 hours as needed for pain. No ibuprofen until after 9:45 pm Activity: Discharge Activity: No heavy lifting over 10 lbs Diet: Discharge Diet: Resume usual diet as tolerated Follow-Up Appointments Follow Up with SWAPNIL RAMIREZ MD-ANABELA When 03/09/2020 12:00 PM EDT Comments Appointment has been made Where: [facility] [address] [place] [address]- Medications What How Much When Instructions Next Dose aspirin (aspirin 81 mg oral delayed release tablet) 1 Tablet(s) Oral Every Day evolocumab (Repatha 140 mg/ mL subcutaneous solution) 140 Milligram(s) SubCutaneous Every Two Weeks rotate injection sites ezetimibe 10 Milligram(s) Oral Every Day melatonin (Melatonin 5 mg oral tablet) 1 Tablet(s) Oral Once a day (at bedtime) as needed for as needed for insomnia metoprolol (metoprolol succinate 25 mg oral capsule, extended release) 1 Capsule(s) Oral Every Day multivitamin with minerals (Centrum Women's) 1 Tablet(s) Oral Every Day nitroglycerin (nitroglycerin 0.4 mg sublingual spray) 1 [place](s) SubLINgual Every 5 minutes as needed for [...] and medications per pharmacy guidance. Education Materials Outpatient Surgery, Adult, Care After These instructions provide you with [...] procedure, it is common to have: ??? Tenderness and numbness at the surgical site. ??? Swelling and bruising around the surgical site. ??? Nausea. Follow these instructions at home: For at [...] Take care of children on your own. Activity ??? Return to your normal activities as told by your health care provider. Ask your health care provider what activities are safe for you. ??? Do not lift anything that is heavier than 10 lb (4.5 kg), or the limit that your health care provider tells you, until your health care provider says it is okay. ??? Do not play contact sports until your health care provider says it is okay. Incision care ??? Follow instructions from your health care provider about how to take care of an incision, if you have one. Make sure you: ? Wash your hands with soap and water before you change your bandage (dressing). If soap and water are not available, use hand crystal mounter. ? Change your dressing as told by your health care provider. ? Leave stitches (sutures), skin glue, or adhesive strips in place. These skin closures may need to stay in place for 2 weeks or longer. If adhesive strip edges start to loosen and curl up, you may trim the loose edges. Do not remove adhesive strips completely unless your health care provider tells you to do that. ??? Check your incision area every day for signs of infection. Check for: ? More redness, swelling, or pain. ? More fluid or blood. ? Warmth. ? Pus or a bad smell. Medicines ??? Take ctoz-tsa-ewfkljt and prescription medicines only as told by your health care provider. ??? Do not drive or use heavy machinery while taking prescription pain medicines. Eating and drinking ??? Follow the diet recommended by your health care provider. ??? When you are hungry, begin eating light and bland foods such as toast. Gradually return to your regular diet. ??? If you vomit: ? Drink water, juice, or soup when you can drink without vomiting. ? Make sure you have little or no nausea before eating solid foods. General instructions ??? If you have sleep apnea, surgery and certain medicines can increase your risk for breathing problems. Follow instructions from your HCP about wearing your sleep device: ? Anytime you are sleeping, including during daytime naps. ? While taking prescription pain medicines, sleeping medicines, or medicines that make you drowsy. ??? Do not use any tobacco products, such as cigarettes, chewing tobacco, and e-cigarettes, for as long as possible. ??? If you smoke, do not smoke without supervision. ??? Keep all follow-up visits as told by your health care provider. This is important. Contact a health care provider if: ??? You have more redness, swelling, or pain around your incision. ??? You have more fluid or blood coming from your incision. ??? Your incision feels warm to the touch. ??? You have pus or a bad smell coming from your incision. ??? You have a fever. ??? You feel light-headed or you faint. ??? You develop a rash. ??? You keep feeling nauseous or keep vomiting. ??? You have very bad pain, even after taking the medicines your health care provider has prescribed or recommended. ??? You have constipation. Get help right away if: ??? You are unable to pass urine. ??? You have trouble breathing. Summary ??? Have a responsible adult stay with you for at least 24 hours after the procedure. ??? Nausea is common after a procedure. Make sure you have little or no nausea before eating solid foods. Follow the diet recommended by your health care provider. ??? Ask your health care provider what activities are safe for you. This information is not intended to replace advice given to you by your health care provider. Make sure you discuss any questions you have with your health care provider. Document Released: 11/18/2016 Document Revised: 07/31/2019 Document Reviewed: 11/18/2016 [employer] Patient Education ?? 2020 [employer]. General Anesthesia, Adult, Care After This sheet gives you information about how to care for yourself after your procedure. Your health care provider may also give you more specific instructions. If you have problems or questions, contact your health care provider. What can I expect after the procedure? After the procedure, the following side effects are common: ??? Pain or discomfort at the IV site. ??? Nausea. ??? Vomiting. ??? Sore throat. ??? Trouble concentrating. ??? Feeling cold or chills. ??? Weak or tired. ??? Sleepiness and fatigue. ??? Soreness and body aches. These side effects can affect parts of the body that were not involved in surgery. Follow these instructions at home: For at [...] your own. Eating and drinking ??? Follow any instructions from your health care provider about eating or drinking restrictions. ??? When you feel hungry, start by eating small amounts of foods that are soft and easy to digest (bland), such as toast. Gradually return to your regular diet. ??? Drink enough fluid to keep your urine pale yellow. ??? If you vomit, rehydrate by drinking water, juice, or clear broth. General instructions ??? If you have sleep apnea, surgery and certain medicines can increase your risk for breathing problems. Follow instructions from your health care provider about wearing your sleep device: ? Anytime you are sleeping, including during daytime naps. ? While taking prescription pain medicines, sleeping medicines, or medicines that make you drowsy. ??? Return to your normal activities as told by your health care provider. Ask your health care provider what activities are safe for you. ??? Take exow-gxq-nxsfhco and prescription medicines only as told by your health care provider. ??? If you smoke, do not smoke without supervision. ??? Keep all follow-up visits as told by your health care provider. This is important. Contact a health care provider if: ??? You have nausea or vomiting that does not get better with medicine. ??? You cannot eat or drink without vomiting. ??? You have pain that does not get better with medicine. ??? You are unable to pass urine. ??? You develop a skin rash. ??? You have a fever. ??? You have redness around your IV site that gets worse. Get help right away if: ??? You have difficulty breathing. ??? You have chest pain. ??? You have blood in your urine or stool, or you vomit blood. Summary ??? After the procedure, it is common to have a sore throat or nausea. It is also common to feel tired. ??? Have a responsible adult stay with you for the first 24 hours after general anesthesia. It is important to have someone help care for you until you are awake and alert. ??? When you feel hungry, start by eating small amounts of foods that are soft and easy to digest (bland), such as toast. Gradually return to your regular diet. ??? Drink enough fluid to keep your urine pale yellow. ??? Return to your normal activities as told by your health care provider. Ask your health care provider what activities are safe for you. This information is not intended to replace advice given to you by your health care provider. Make sure you discuss any questions you have with your health care provider. Document Released: 11/04/2001 Document Revised: 03/14/2018 Document Reviewed: 03/14/2018 [employer] Patient Education ?? 2020 [employer]. Hernia, Adult A hernia happens when tissue inside your body pushes out through a weak spot in your belly muscles (abdominal wall). This makes a round lump (bulge). The lump may be: ??? In a scar from surgery that was done in your belly (incisional hernia). ??? Near your belly button (umbilical hernia). ??? In your groin (inguinal hernia). Your groin is the area where your leg meets your lower belly (abdomen). This kind of hernia could also be: ? In your scrotum, if you are male. ? In folds of skin around your vagina, if you are female. ??? In your upper thigh (femoral hernia). ??? Inside your belly (hiatal hernia). This happens when your stomach slides above the muscle between your belly and your chest (diaphragm). If your hernia is small and it does not cause pain, you may not need treatment. If your hernia is large or it causes pain, you may need surgery. Follow these instructions at home: Activity ??? Avoid stretching or overusing (straining) the muscles near your hernia. Straining can happen when you: ? Lift something heavy. ? Poop (have a bowel movement). ??? Do not lift anything that is heavier than 10 lb (4.5 kg), or the limit that you are told, until your doctor says that it is safe. ??? Use the strength of your legs when you lift something heavy. Do not use only your back muscles to lift. General instructions ??? Do these things if told by your doctor so you do not have trouble pooping (constipation): ? Drink enough fluid to keep your pee (urine) pale yellow. ? Eat foods that are high in fiber. These include fresh fruits and vegetables, whole grains, and beans. ? Limit foods that are high in fat and processed sugars. These include foods that are fried or sweet. ? Take medicine for trouble pooping. ??? When you cough, try to cough gently. ??? You may try to push your hernia in by very gently pressing on it when you are lying down. Do not try to force the bulge back in if it will not push in easily. ??? If you are overweight, work with your doctor to lose weight safely. ??? Do not use any products that have nicotine or tobacco in them. These include cigarettes and e-cigarettes. If you need help quitting, ask your doctor. ??? If you will be having surgery (hernia repair), watch your hernia for changes in shape, size, or color. Tell your doctor if you see any changes. ??? Take tycn-cqb-oyatmbs and prescription medicines only as told by your doctor. ??? Keep all follow-up visits as told by your doctor. Contact a doctor if: ??? You get new pain, swelling, or redness near your hernia. ??? You poop fewer times in a week than normal. ??? You have trouble pooping. ??? You have poop (stool) that is more dry than normal. ??? You have poop that is harder or larger than normal. Get help right away if: ??? You have a fever. ??? You have belly pain that gets worse. ??? You feel sick to your stomach (nauseous). ??? You throw up (vomit). ??? Your hernia cannot be pushed in by very gently pressing on it when you are lying down. Do not try to force the bulge back in if it will not push in easily. ??? Your hernia: ? Changes in shape or size. ? Changes color. ? Feels hard or it hurts when you touch it. These symptoms may represent a serious problem that is an emergency. Do not wait to see if the symptoms will go away. Get medical help right away. Call your local emergency services (911 in the [place] Summary ??? A hernia happens when tissue inside your body pushes out through a weak spot in the belly muscles. This creates a bulge. ??? If your hernia is small and it does not hurt, you may not need treatment. If your hernia is large or it hurts, you may need surgery. ??? If you will be having surgery, watch your hernia for changes in shape, size, or color. Tell your doctor about any changes. This information is not intended to replace advice given to you by your health care provider. Make sure you discuss any questions you have with your health care provider. Document Released: 01/16/2011 Document Revised: 04/30/2018 Document Reviewed: 04/30/2018 [employer] Interactive Patient Education ?? 2020 [employer]. ondansetron (oral) (on JARAD se iglesia) Sindy Callahan Zuplenz What is the most important information I should know about ondansetron? You should not use ondansetron if you are also using apomorphine (Apokyn). What is ondansetron? Ondansetron blocks the actions of chemicals in the body that can trigger nausea and vomiting. Ondansetron is used to prevent nausea and vomiting that may be caused by surgery, cancer chemotherapy, or radiation treatment. Ondansetron may be used for purposes not listed in this medication guide. What should I discuss with my health care provider before taking ondansetron? You should not use ondansetron if: ?? you are also using apomorphine (Apokyn); or ?? you are allergic to ondansetron or similar medicines (dolasetron, granisetron, palonosetron). To make sure ondansetron is safe for you, tell your doctor if you have: ?? liver disease; ?? an electrolyte imbalance (such as low levels of potassium or magnesium in your blood); ?? congestive heart failure, slow heartbeats; ?? a personal or family history of long QT syndrome; or ?? a blockage in your digestive tract (stomach or intestines). Ondansetron is not expected to harm an unborn baby. Tell your doctor if you are . It is not known whether ondansetron passes into breast milk or if it could harm a nursing baby. Tell your doctor if you are breast-feeding a baby. Ondansetron is not approved for use by anyone younger than 4 years old. Ondansetron orally disintegrating tablets may contain phenylalanine. Tell your doctor if you have phenylketonuria (PKU). How should I take ondansetron? Follow all directions on your prescription label. Do not take this medicine in larger or smaller amounts or for longer than recommended. Ondansetron can be taken with or without food. The first dose of ondansetron is usually taken before the start of your surgery, chemotherapy, or radiation treatment. Follow your doctor's dosing instructions very carefully. Take the ondansetron regular tablet with a full glass of water. To take the orally disintegrating tablet (Zofran ODT): ?? Keep the tablet in its blister pack until you are ready to take it. Open the package and peel back the foil. Do not push a tablet through the foil or you may damage the tablet. ?? Use dry hands to remove the tablet and place it in your mouth. ?? Do not swallow the tablet whole. Allow it to dissolve in your mouth without chewing. ?? Swallow several times as the tablet dissolves. To use ondansetron oral soluble film (strip) (Zuplenz): ?? Keep the strip in the foil pouch until you are ready to use the medicine. ?? Using dry hands, remove the strip and place it on your tongue. It will begin to dissolve right away. ?? Do not swallow the strip whole. Allow it to dissolve in your mouth without chewing. ?? Swallow several times after the strip dissolves. If desired, you may drink liquid to help swallow the dissolved strip. ?? Wash your hands after using Zuplenz. Measure liquid medicine with the dosing syringe provided, or with a special dose-measuring spoon or medicine cup. If you do not have a dose-measuring device, ask your pharmacist for one. Store at room temperature away from moisture, heat, and light. Store liquid medicine in an upright position. What happens if I miss a dose? Take the missed dose as soon as you remember. Skip the missed dose if it is almost time for your next scheduled dose. Do not take extra medicine to make up the missed dose. What happens if I overdose? Seek emergency medical attention or call the Poison Help line at . Overdose symptoms may include sudden loss of vision, severe constipation, feeling light-headed, or fainting. What should I avoid while taking ondansetron? Ondansetron may impair your thinking or reactions. Be careful if you drive or do anything that requires you to be alert. What are the possible side effects of ondansetron? Get emergency medical help if you have signs of an allergic reaction: rash, hives; fever, chills, difficult breathing; swelling of your face, lips, tongue, or throat. Call your doctor at once if you have: ?? severe constipation, stomach pain, or bloating; ?? headache with chest pain and severe dizziness, fainting, fast or pounding heartbeats; ?? fast or pounding heartbeats; ?? jaundice (yellowing of the skin or eyes); ?? blurred vision or temporary vision loss (lasting from only a few minutes to several hours); ?? high levels of serotonin in the body--agitation, hallucinations, fever, fast heart rate, overactive reflexes, nausea, vomiting, diarrhea, loss of coordination, fainting. Common side effects may include: ?? diarrhea or constipation; ?? headache; ?? drowsiness; or ?? tired feeling. This is not a complete list of side effects and others may occur. Call your doctor for medical advice about side effects. You may report side effects to FDA at 5-113-FPZ-7473. What other drugs will affect ondansetron? Ondansetron can cause a serious heart problem, especially if you use certain medicines at the same time, including antibiotics, antidepressants, heart rhythm medicine, antipsychotic medicines, and medicines to treat cancer, malaria, HIV or AIDS. Tell your doctor about all medicines you use, and those you start or stop using during your treatment with ondansetron. Taking ondansetron while you are using certain other medicines can cause high levels of serotonin to build up in your body, a condition called 'serotonin syndrome,' which can be fatal. Tell your doctor if you also use: ?? medicine to treat depression; ?? medicine to treat a psychiatric disorder; ?? a narcotic (opioid) medication; or ?? medicine to prevent nausea and vomiting. This list is not complete and many other drugs can interact with ondansetron. This includes prescription and kgyn-jze-wubzfyl medicines, vitamins, and herbal products. Give a list of all your medicines to any healthcare provider who treats you. Where can I get more information? Your pharmacist can provide more information about ondansetron. Remember, keep this and all other medicines out of the reach of children, never share your medicines with others, and use this medication only for the indication prescribed. Every effort has been made to ensure that the information provided by [employer]. ('[employer]') is accurate, up-to-date, and complete, but no guarantee is made to that effect. Drug information contained herein may be time sensitive. [employer] information has been compiled for use by healthcare practitioners and consumers in the [place] and therefore [employer] does not warrant that uses outside of the [place] are appropriate, unless specifically indicated otherwise. [employer] drug information does not endorse drugs, diagnose patients or recommend therapy. [employer] drug information is an informational resource designed to assist licensed healthcare practitioners in caring for their patients and/or to serve consumers viewing this service as a supplement to, and not a substitute for, the expertise, skill, knowledge and judgment of healthcare practitioners. The absence of a warning for a given drug or drug combination in no way should be construed to indicate that the drug or drug combination is safe, effective or appropriate for any given patient. [employer] does not assume any responsibility for any aspect of healthcare administered with the aid of information [employer] provides. The information contained herein is not intended to cover all possible uses, directions, precautions, warnings, drug interactions, allergic reactions, or adverse effects. If you have questions about the drugs you are taking, check with your doctor, nurse or pharmacist. Copyright 5001-9518 [employer]. Version: 13.01. Revision Date: 06/01/2016. acetaminophen and hydrocodone (a SEET a MIN oh fen and cathi droe KOE done) Hycet, Lorcet, Marlow, Verdrocet, Vicodin, Xodol, Zamicet What is the most important information I should know about acetaminophen and hydrocodone? MISUSE OF OPIOID MEDICINE CAN CAUSE ADDICTION, OVERDOSE, OR . Keep the medication in a place where others cannot get to it. Taking opioid medicine during may cause life-threatening withdrawal symptoms in the . Fatal side effects can occur if you use opioid medicine with alcohol, or with other drugs that cause drowsiness or slow your breathing. Stop taking this medicine and call your doctor right away if you have skin redness or a rash that spreads and causes blistering and peeling. What is acetaminophen and hydrocodone? Acetaminophen and hydrocodone is a combination medicine used to relieve moderate to severe pain. Acetaminophen and hydrocodone may also be used for purposes not listed in this medication guide. What should I discuss with my healthcare provider before taking acetaminophen and hydrocodone? You should not use this medicine if you are allergic to acetaminophen or hydrocodone, or if you have: ?? severe asthma or breathing problems; or ?? a blockage in your stomach or intestines. Tell your doctor if you have ever had: ?? breathing problems, sleep apnea; ?? liver disease; ?? a drug or alcohol addiction; ?? kidney disease; ?? a head injury or seizures; ?? urination problems; or ?? problems with your thyroid, pancreas, or gallbladder. If you use opioid medicine while you are , your baby could become dependent on the drug. This can cause life-threatening withdrawal symptoms in the baby after it is born. Babies born dependent on opioids may need medical treatment for several weeks. Do not breastfeed. This medicine can pass into breast milk and cause drowsiness, breathing problems, or in a nursing baby. How should I take acetaminophen and hydrocodone? Follow all directions on your prescription label. Never take this medicine in larger amounts, or for longer than prescribed. An overdose can damage your liver or cause . Tell your doctor if you feel an increased urge to use more of this medicine. Never share this medicine with another person, especially someone with a history of drug abuse or addiction. MISUSE CAN CAUSE ADDICTION, OVERDOSE, OR . Keep the medicine in a place where others cannot get to it. Selling or giving away acetaminophen and hydrocodone is against the law. Measure liquid medicine carefully. Use the dosing syringe provided, or use a medicine dose-measuring device (not a kitchen spoon). If you need surgery or medical tests, tell the doctor ahead of time that you are using this medicine. You should not stop using this medicine suddenly. Follow your doctor's instructions about tapering your dose. Store at room temperature away from moisture and heat. Keep track of your medicine. You should be aware if anyone is using it improperly or without a prescription. Do not keep leftover opioid medication. Just one dose can cause in someone using this medicine accidentally or improperly. Ask your pharmacist where to locate a drug take-back disposal program. If there is no take-back program, flush the unused medicine down the toilet. What happens if I miss a dose? Since this medicine is used for pain, you are not likely to miss a dose. Skip any missed dose if it is almost time for your next dose. Do not use two doses at one time. What happens if I overdose? Seek emergency medical attention or call the Poison Help line at . An overdose of acetaminophen and hydrocodone can be fatal. The first signs of an acetaminophen overdose include loss of appetite, nausea, vomiting, stomach pain, sweating, and confusion or weakness. Later symptoms may include pain in your upper stomach, dark urine, and yellowing of your skin or the whites of your eyes. Overdose can also cause severe muscle weakness, pinpoint pupils, very slow breathing, extreme drowsiness, or coma. What should I avoid while taking acetaminophen and hydrocodone? Avoid driving or operating machinery until you know how this medicine will affect you. Dizziness or drowsiness can cause falls, accidents, or severe injuries. Do not drink alcohol. Dangerous side effects or could occur. Ask a doctor or pharmacist before using any other medicine that may contain acetaminophen (sometimes abbreviated as APAP). Taking certain medications together can lead to a fatal overdose. What are the possible side effects of acetaminophen and hydrocodone? Get emergency medical help if you have signs of an allergic reaction: hives; difficulty breathing; swelling of your face, lips, tongue, or throat. Opioid medicine can slow or stop your breathing, and may occur. A person caring for you should seek emergency medical attention if you have slow breathing with long pauses, blue colored lips, or if you are hard to wake up. In rare cases, acetaminophen may cause a severe skin reaction that can be fatal. This could occur even if you have taken acetaminophen in the past and had no reaction. Stop taking this medicine and call your doctor right away if you have skin redness or a rash that spreads and causes blistering and peeling. Call your doctor at once if you have: ?? noisy breathing, sighing, shallow breathing, breathing that stops during sleep; ?? a light-headed feeling, like you might pass out; ?? liver problems--nausea, upper stomach pain, tiredness, loss of appetite, dark urine, pranav-colored stools, jaundice (yellowing of the skin or eyes); or ?? low cortisol levels-- nausea, vomiting, loss of appetite, dizziness, worsening tiredness or weakness. Seek medical attention right away if you have symptoms of serotonin syndrome, such as: agitation, hallucinations, fever, sweating, shivering, fast heart rate, muscle stiffness, twitching, loss of coordination, nausea, vomiting, or diarrhea. Serious side effects may be more likely in older adults and those who are overweight, malnourished, or debilitated. Long-term use of opioid medication may affect fertility (ability to have children) in men or women. It is not known whether opioid effects on fertility are permanent. Common side effects include: ?? dizziness, drowsiness, feeling tired; ?? nausea, vomiting, stomach pain; ?? constipation; or ?? headache. This is not a complete list of side effects and others may occur. Call your doctor for medical advice about side effects. You may report side effects to FDA at 4-404-RLI-4710. What other drugs will affect acetaminophen and hydrocodone? You may have breathing problems or withdrawal symptoms if you start or stop taking certain other medicines. Tell your doctor if you also use an antibiotic, antifungal medication, heart or blood pressure medication, seizure medication, or medicine to treat HIV or hepatitis C. Opioid medication can interact with many other drugs and cause dangerous side effects or . Be sure your doctor knows if you also use: ?? cold or allergy medicines, bronchodilator asthma/COPD medication, or a diuretic ('water pill'); ?? medicines for motion sickness, irritable bowel syndrome, or overactive bladder; ?? other narcotic medications--opioid pain medicine or prescription cough medicine; ?? a sedative like Valium--diazepam, alprazolam, lorazepam, Xanax, Klonopin, Versed, and others; ?? drugs that make you sleepy or slow your breathing--a sleeping pill, muscle relaxer, medicine to treat mood disorders or mental illness; ?? drugs that affect serotonin levels in your body--a stimulant, or medicine for depression, Parkinson's disease, migraine headaches, serious infections, or nausea and vomiting. This list is not complete. Other drugs may affect acetaminophen and hydrocodone, including prescription and fzqj-vnq-xbidzwe medicines, vitamins, and herbal products. Not all possible interactions are listed here. Where can I get more information? Your doctor or pharmacist can provide more information about acetaminophen and hydrocodone. Remember, keep this and all other medicines out of the reach of children, never share your medicines with others, and use this medication only for the indication prescribed. Every effort has been made to ensure that the information provided by [employer]. ('[employer]') is accurate, up-to-date, and complete, but no guarantee is made to that effect. Drug information contained herein may be time sensitive. [employer] information has been compiled for use by healthcare practitioners and consumers in the [place] and therefore [employer] does not warrant that uses outside of the [place] are appropriate, unless specifically indicated otherwise. [employer] drug information does not endorse drugs, diagnose patients or recommend therapy. [employer] drug information is an informational resource designed to assist licensed healthcare practitioners in caring for their patients and/or to serve consumers viewing this service as a supplement to, and not a substitute for, the expertise, skill, knowledge and judgment of healthcare practitioners. The absence of a warning for a given drug or drug combination in no way should be construed to indicate that the drug or drug combination is safe, effective or appropriate for any given patient. [employer] does not assume any responsibility for any aspect of healthcare administered with the aid of information [employer] provides. The information contained herein is not intended to cover all possible uses, directions, precautions, warnings, drug interactions, allergic reactions, or adverse effects. If you have questions about the drugs you are taking, check with your doctor, nurse or pharmacist. Copyright 5546-6167 [employer]. Version: 16.. Revision Date: 09/02/2019. Emergency Awareness and Preventative Care STROKE is [...] Assistance with quitting is available by contacting 9-164-UQGI-NOW. This is a free resource providing counseling, support, and referral. Or you may contact your personal physician. [place] Suicide Prevention Lifeline: The National Suicide Prevention [...] CPR? There are two easy steps: Call 9-1-1 if you see a teen or adult [...] This Visit (last charted value for your 03/01/2020 visit) Microbiology 02/26/2020 12:45 PM Novel Coronavirus 2019: Not Detected General Chemistry 03/01/2020 11:45 AM Glucose POC2: 131 mg/dL -- Normal range between ( 70 and 110 ) Device Comment 1: Device Comment 1 Patient Name:ZENAIDA BOWLING I have received this information and was given the opportunity to ask questions. Patient/Revenue Tax Specialist Name: Patient/Revenue Tax Specialist Signature: Relationship to Patient: Clinician/Hospital Revenue Tax Specialist Signature: Date: Electronically signed by [facility], [facility] Conversion Civil Service Worker Cerner at 11/28/2022 11:29 PM CDT documented in this encounter Plan of Treatment Upcoming Encounters Date Type Department Care Team (Late st Contact Info) Description 09/13/2025 11:15 AM EST Appointment [address] [address] documented as of this encounter Visit Diagnoses Not on filedocumented in this encounter Care Teams Sander Hand Relationship Specialty Start Date End Date Denae Serrano MD [address] [phone] PCP - General Family Medicine 06/11/22 documented as of this encounter
--- OUTSIDE RECORDS SUMMARY | 2025-07-27 12:31 | XMS_ITS | Clinical Summary ---
Author Organization [facility] Address [address] [place] [address] Care Team Providers Care Steam Trap Man Name Role Phone Denae Serrano MD Primary Care Provider + Allergies Active Allergy Reactions Criticality Noted Date Comments Cephalosporins Shortness Of Breath,Rash High 10/19/2018 Latex Unknown - Low Severity 04/22/2023 Added based on information entered during case entry, please review and add reactions, type, and severity as needed Penicillins Shortness Of Breath,Rash High 10/19/2018 Wound Dressing Adhesive Other (See Comments) 02/25/2023 Causes red spot if band-aid or other wound adhesive dressing is applied Medications rOPINIRole (REQUIP) 2 MG tablet Take 1 tablet by mouth Every Night. 2 tablets every night Active Melatonin 3 MG capsule Take by mouth Every Night. Active metoprolol tartrate (LOPRESSOR) 25 MG tablet Take 1 tablet by mouth Every 12 (Twelve) Hours. 60 tablet 11 9 Active Additional Information Patient taking differently:25 mg OralDaily, Reported on 02/25/2023 aspirin 81 MG tablet Take 1 tablet by mouth Daily. 30 tablet 11 Active ezetimibe (ZETIA) 10 MG tablet Take 1 tablet by mouth Daily. Active Evolocumab (REPATHA SURECLICK SC) Inject under the skin into the appropriate area as directed Every 14 (Fourteen) Days. Active omeprazole (priLOSEC) 40 MG capsule Take 1 capsule by mouth Daily. Exact dose not reported Active hydrOXYzine pamoate (VISTARIL) 25 MG capsule 4 Active FLUoxetine (PROzac) 20 MG capsule Take 1 capsule by mouth Daily. Active lisdexamfetamin e (Vyvanse) 30 MG capsule Take 1 capsule by mouth Every Morning Active gabapentin (NEURONTIN) 100 MG capsuleIndicati ons:Restless legs syndrome (RLS) Take 1 capsule by mouth Every Night. 30 capsule 4 Active Active Problems Problem Noted Date Diagnosed Date Left ankle pain 02/25/2023 Coronary artery disease invo [place]ving [place] coronary artery of [place] heart without angina pectoris 10/28/2018 Acute [place] inferior lateral first episode care 05/2019 Hyperlipidemia 10/19/2018 Immunizations Immunization Administration Dates Next Due 31-influenza Vac Quardvalent Preservativ 05/12/2019,05/17/2016 Fluzone (or Fluarix & Flulav al for VFC) >6mos 07/11/2022,04/12/2020,05/12/2019,2017 Hepatitis A 11/27/2018,05/21/2018 Pneumococcal Conjugate 13-Va lent (PCV13) 08/09/2016 Shingrix 04/24/2022 Td, Not Adsorbed 03/30/2011 Tdap 04/24/2022 Zostavax 05/21/2016 Family History Medical History Relation Name Comments Cancer Brother Diabetes Brother Diabetes Father Heart disease Father Breast cancer Maternal Aunt Stroke Maternal Grandmother Breast cancer Mother IN HER EARLY 6 0'S Heart attack Paternal Grandfather Heart disease Paternal Grandfather Diabetes Paternal Grandmother Relation Name Status Comments Brother Alive Father Maternal Aunt Maternal Grandfather Maternal Grandmother Mother Alive Paternal Grandfather Paternal Grandmother Social History Tobacco Use Types Packs/Day Years Used Date Smoking Tobacco: Former Cigarettes Q uit: 2002 Smokeless Tobacco: Never Tobacco Cessation:Counseling Given: Not [...] Pulse 82 05/04/2024 7:21 PM EDT Temperature 36.2 C (97.1 F) 11/19/2023 10:43 AM EDT Respiratory Rate 16 10/28/2018 12:44 PM EDT Oxygen Saturation 97% 05/04/2024 7:21 PM EDT Inhaled Oxygen Concentration - - Weight 88.5 kg (195 lb) 05/04/2024 7:21 PM EDT Height 167 cm (5' 5.75 ) 05/04/2024 7:21 PM EDT Body Mass Index 31.72 05/04/2024 7:21 PM EDT Plan of Treatment Health Maintenance Due Date Last Done Comments Annual Gynecologic Pelvic an d Breast Exam 1965 COLOGUARD 2009 COLON CANCER SCREENING 5 YEA R SIGMOIDOSCOPY [address] COLONOGRAPHY 2009 FECAL OCCULT BLOOD TEST 2009 FIT Testing (1 year) 2009 Pneumococcal Vaccine 50+ (2 of 2 - PCV20 or PCV21) 08/09/2017 08/09/2016 ANNUAL PHYSICAL 10/22/2018 HEPATITIS C SCREENING 10/22/2018 LIPID PANEL 10/21/2019 10/20/2018 ZOSTER VACCINE (3 of 3) 06/19/2022 04/24/2022, 05/21 INFLUENZA VACCINE 03/12/2025 07/11/2022, , 05/12/2019, Additional history exists MAMMOGRAM 09/04/2025 09/04/2023, 08/13, 01/08/2023, Additional history exists COLONOSCOPY 10/10/2030 10/10/2020 COLORECTAL CANCER SCREENING 10/10/2030 TDAP/TD VACCINES (2 - Td or Tdap) 04/24/2032 022, 03/30/2011 Medical Devices Implanted Type Area Transfer Specialist Device Identifier Shelf Expiration Date Model / Serial / Lot Stent Xience Gladys Everolimus Brendan 3.5x18mm - [id number] Implanted:Qty: 1 on 10/19/2018 by Xander Rosenbaum MD at [facility] [employer] [facility] [id number] / / Procedures Procedure Name Priority Date/Time Associated Diagnosis Comments MAMMO SCREENING DIGITAL TOMOSYNTHESIS BILATERAL W CAD Routine 08/07/2019 3:00 PM EST Visit for screening mammogram LIPID PANEL Routine 10/20/2018 3:39 AM EDT from Last 3 Months or Most Recently Relevant to Health Maintenance Results * Mammo Screening Digital Tomosynthesis Bilateral With CAD (08/07/2019 3:00 PM EST) Anatomical Region Laterality Modality Breast N/A Mammography 08/10/2019 4:35 PM EST Impressions 08/10/2019 4:37 PM EST No findings suspicious for malignancy. ACR BI-RADS CATEGORY: 1, NEGATIVE RECOMMENDATION: Yearly mammogram, yearly clinical breast exam, and encourage self breast awareness. CAD was used. The standard false negative rate of mammography is between 10% and 25%. Complex patterns or increased breast density will markedly elevate the false negative rate of mammography. A letter, in lay terminology, with the results of this exam will be mailed to the patient. If there is a palpable area of concern, biopsy should be considered regardless of imaging findings. This report was finalized on 08/10/2019 4:37 PM by Thea Davila MD. Narrative 08/10/2019 4:37 PM EST ROUTINE DIGITAL SCREENING MAMMOGRAM WITH TOMOSYNTHESIS HISTORY: Routine screening. IMAGE COMPARISON: Multiple prior comparisons extending to 2014. TECHNIQUE: Low dose full field digital breast tomosynthesis imaging was performed with 2D and 3D acquisitions consisting of bilateral CC and MLO views. FINDINGS: There are heterogeneously dense fibroglandular tissues. The fibroglandular pattern appears stable. There is no mass, worrisome microcalcifications, or architectural distortion to suggest development of malignancy. us Denae Serrano MD IMG MAMMOGRAPHY ORDERABL ES Final Result * (ABNORMAL) Lipid Panel (10/20/2018 3:39 AM EDT) Total Cholesterol 165 0 - 200 mg/dL 10/20/2018 6:28 AM EDT [facility] Triglycerides 152(H) 0 - 150 mg/dL 10/20/2018 6:28 AM EDT [facility] HDL Cholesterol 39(L) 40 - 60 mg/dL 10/20/2018 6:28 AM EDT [facility] LDL Cholesterol 118 0 - 130 mg/dL 10/20/2018 6:28 AM T [facility] Blood Venipuncture / Unknown 10/20/2018 3:39 AM EDT 10/20/2018 5:34 AM EDT [facility] - 10/20/2018 6:28 AM EDT Cholesterol Reference Ranges: Desirable < 200 mg/dL Borderline 200-239 mg/dL High Risk > 239 mg/dL Triglyceride Reference Ranges: Normal < 150 mg/dL Borderline 150-199 mg/dL High 200-499 mg/dL Very High > 499 mg/dL HDL Reference Ranges: Low < 40 mg/dL High > 59 mg/dL LDL Reference Ranges: Optimal < 100 mg/dL Near Optimal 100-129 mg/dL Borderline 130-159 mg/dL High 160-189 mg/dL Very High > 189 mg/dL Xander Rosenbaum MD LAB BLOOD ORDERABLES Anamika kahti Result [facility]
[address] [place] [address], from Last 3 Months or Most Recently Relevant to Health Maintenance Insurance [facility] PPO Advance Directives * CPR (Attempt to Resuscitate) (Latest Code Status on File) Date Activated Date Inactivated Comments 10/19/2018 3:31 PM 10/21/2018 3:19 PM Question Answer Comments Code Status (Patient has no pulse and is not breathing): CPR (Attempt to Resuscitate) Medical Interventions (Patie nt has pulse or is breathing): Full Level Of Support Discussed With: Patient Care Teams Steam Trap Man Relationship Specialty Start Date End Date Denae Serrano MD [address] [place] [id number] PCP - General Family Medicine 03/19/16
--- OUTSIDE RECORDS SUMMARY | 2025-07-27 12:31 | XMS_ITS | Encounter Summary ---
Author Organization [employer] ([place], [place], [place], [place], [place]) Address [address] [place] [address] Care Team Providers Care Corporate Relations Manager Name Role Phone Denae Serrano MD Primary Care Provider [phone] Encounter Details Date Type Department Care Team (Late st Contact Info) Description 03/01/2020 Transcribed Document [facility] [place] [address] [place] [address] ProviderJer MD [address] [place], [place] [id number] Social History Tobacco Use Types Packs/Day Years Used Date Smoking Tobacco: Never Assessed Comments Unknown Sex and Gender Information Value Date Recorded Sex Assigned at Not on file Legal Sex Female 4:41 PM CDT Gender Identity Not on file Sexual Orientation Not on file documented as of this encounter Miscellaneous Notes * Cerner Conversion Note - Jer Klein MD - 03/01/2020 3:15 PM CDT Patient Education Materials Follows: Outpatient Surgery, Adult, Care After These instructions [...] and water are not available, use hand stoker erector. ? Change your dressing as told by [...] or a bad smell. Medicines ??? Take ujsn-ouw-yascgoi and prescription medicines only as told by [...] 11/18/2016 Document Revised: 07/31/2019 Document Reviewed: 11/18/2016 [employer] Interactive Patient Education ? 2020 [employer] General Anesthesia, Adult, Care After This sheet [...] activities are safe for you. ??? Take kmzi-vwv-cnsyisj and prescription medicines only as told by [...] 11/04/2001 Document Revised: 03/14/2018 Document Reviewed: 03/14/2018 [employer] Interactive Patient Education ? 2020 [employer]. Hernia, Adult A hernia happens when tissue [...] if you see any changes. ??? Take mthm-nyh-rckvuas and prescription medicines only as told by [...] 01/16/2011 Document Revised: 04/30/2018 Document Reviewed: 04/30/2018 [employer] Interactive Patient Education ? 2019 [employer]. documented in this encounter Plan of Treatment Upcoming Encounters Date Type Department Care Team (Late st Contact Info) Description 09/13/2025 11:15 AM EST Appointment [facility] [address] [place] [address] documented as of this encounter Visit Diagnoses Not on filedocumented in this encounter Care Teams Corporate Relations Manager Relationship Specialty Start Date End Date Denae Serrano MD [address] [place] [phone] PCP - General Family Medicine 06/11/22 documented as of this encounter
--- OUTSIDE RECORDS SUMMARY | 2025-07-27 12:31 | XMS_ITS | Encounter Summary ---
Author Organization [employer] ([place], [place], [place], [place], [place]) Address [address] [place] [address] Care Team Providers Care Biomedical Engineering Director Name Role Phone Denae Serrano MD Primary Care Provider [phone] Encounter Details Date Type Department Care Team (Late st Contact Info) Description 03/01/2020 Transcribed Document [facility] [place] Family Medicine [address] [place] [address] ProviderJer MD [address] [place], [place] [id number] Social History Tobacco Use Types Packs/Day Years Used Date Smoking Tobacco: Never Assessed Comments Unknown Sex and Gender Information Value Date Recorded Sex Assigned at Not on file Legal Sex Female 4:41 PM CDT Gender Identity Not on file Sexual Orientation Not on file documented as of this encounter Miscellaneous Notes * Cerner Conversion Note - Historical ProviderMD - 03/01/2020 3:56 PM CDT Event Note Entered On: 03/01/2020 16:04 EDT Performed On: 03/01/2020 15:56 EDT by PÉREZ ALBERT RN Event Note Event Date/Time : 03/01/2020 15:40 EDT Description of Event : Spoke with Dr. Rivas regarding pt's oxygen level. Pt has been able to maintain levels greater than 90 % oxygen level. Orders given to discharge pt home. PÉREZ ALBERT RN - 03/01/2020 15:56 EDT Electronically signed by [facility] Conversion Timber Trimmer Cerner at 11/28/2022 11:33 PM CDT documented in this encounter Plan of Treatment Upcoming Encounters Date Type Department Care Team (Late st Contact Info) Description 09/13/2025 11:15 AM EST Appointment [address] [phone] documented as of this encounter Visit Diagnoses Not on filedocumented in this encounter Care Teams Biomedical Engineering Director Relationship Specialty Start Date End Date Denae Serrano MD [address] [place] [phone] PCP - General Family Medicine 06/11/22 documented as of this encounter
--- OUTSIDE RECORDS SUMMARY | 2025-07-27 12:31 | XMS_ITS | Referral Summary ---
Author Organization [employer] ([place], [place], [place], [place], [place]) Address [address] [place] [address] Care Team Providers Care Cnc Mill And Lathe Operator Name Role Phone Denae Serrano MD Primary Care Provider [phone] Allergies Active Allergy Reactions Criticality Noted Date Comments Cephalosporins Shortness Of Breath,Rash High 06/12/2022 Latex 04/22/2023 Added based on information entered during case entry, please review and add reactions, type, and severity as needed Penicillin Shortness Of Breath,Rash High 06/12/2022 Medications aspirin 81 MG EC tablet Take 1 tablet (81 mg total) by mouth. Active esomeprazole (NexIUM) 40 MG capsule Take 1 capsule (40 mg total) by mouth. Active ezetimibe (ZETIA) 10 mg tablet Take 1 tablet (10 mg total) by mouth daily. 09/08/2022 Active melatonin-pyrid oxine, vit B6, (Melatonin, with B6,) 5-1 mg Tab Take 5 mg by mouth. Active metoprolol tartrate (LOPRESSOR) 25 MG tablet Take 1 tablet (25 mg total) by mouth daily. 10/02/2022 Active rOPINIRole (REQUIP) 2 MG tablet Take 1 tablet (2 mg total) by mouth. Active Repatha SureClick 140 mg/mL PnIj Inject subcutaneous ly. 10/11/2022 Active hydrOXYzine (VistariL) 25 MG capsule Take 1 capsule (25 mg total) by mouth 1 time Look-alike /Sound-alike medication . Active fLUoxetine (PROzac) 20 MG capsule Take 1 capsule (20 mg total) by mouth daily. Active dextroamphetami ne-amphetamine (ADDERALL) 20 mg Tab tablet Take 1 tablet (20 mg total) by mouth 1 time. Max Daily Amount: 20 mg Active Active Problems Problem Noted Date Diagnosed Date History of colon polyps 12/25/2023 Social History Tobacco Use Types Packs/Day Years Used Date Smoking Tobacco: Never Smokeless Tobacco: Never Alcohol Use Standard Drinks/Week Comments Not Currently 0 (1 standard drink = 0.6 oz pur e alcohol) Family and Community Support Answer Ezekiel e Recorded Help with Day to Day Activities Not on file 08/23/2023 Feeling Lonely or Isolated Not on file 08/23 Educational Attainment Answer Date Javier rded Speak language other than Turkmen at home Not on file 08/23/2023 Want help with school or training Not on file 08/23/2023 Substance Use Answer Date Recorded Used prescription meds for non-medical reasons N ot on file 08/23/2023 Used illegal drugs past 12 months Not on file 08/23/2023 Comments No Sex and Gender Information Value Date Recorded Sex Assigned at Not on file Legal Sex Female 4:41 PM CDT Gender Identity Not on file Sexual Orientation Not on file Last Filed Vital Signs Vital Sign Reading Time Taken Comments Blood Pressure 126/58 01/24/2024 1:46 PM EDT Pulse 81 01/24/2024 1:46 PM EDT Temperature 36.3 C (97.3 F) 01/24/2024 1:33 PM EDT Respiratory Rate 16 01/24/2024 1:46 PM EDT Oxygen Saturation 98% 01/24/2024 1:46 PM EDT Inhaled Oxygen Concentration - - Weight 90.3 kg (199 lb) 01/24/2024 12:02 PM EDT Height 167.6 cm (5' 6 ) 01/24/2024 12:02 PM EDT Body Mass Index 32.12 01/24/2024 12:02 PM EDT Plan of Treatment Upcoming Encounters Date Type Department Care Team (Late st Contact Info) Description 09/13/2025 11:15 AM EST Appointment [address] [place] [phone] Procedures Procedure Name Priority Date/Time Associated Diagnosis Comments MM DIGITAL MAMMO SCREEN WITH WILLIAM BILATERAL Routine 09/09/2024 10:22 AM EST Visit for screening mammogram from Last 3 Months or Most Recently Relevant to Health Maintenance Results * MM digital mammo screen with william bilateral (09/09/2024 10:22 AM EST) Anatomical Region Laterality Modality Breast Bilateral Mammography 09/09/2024 12:2 9 PM EST Impressions 09/09/2024 12:42 PM EST No mammographic evidence of malignancy. BI-RADS CATEGORY: 2 , BENIGN FINDING(S). RECOMMENDED FOLLOW-UP: Annual mammography. A letter including results and recommendations was sent to the patient. Density notification was included for patients with pattern 3 or 4 breast tissue. Patient information was entered into a reminder system with a target due date for the next mammogram. NOTES: Mammography does not detect approximately 10-15% of breast cancers. Physical examination of the breasts by a physician and regular monthly breast self examinations are integral parts of breast cancer screening. A normal mammogram does not exclude breast cancer if there is an abnormal finding on physical examination. When clinically indicated, a biopsy should not be postponed because of a normal mammogram report. Narrative 09/09/2024 12:42 PM EST BILATERAL SCREENING DIGITAL MAMMOGRAPHY CLINICAL INDICATION: Routine screening. TECHNIQUE: Bilateral CC and MLO views were obtained with digital acquisitions with 3D tomosynthesis. The study was read with the assistance of CAD. COMPARISON: Exams dating back to 2021. DENSITY: The breasts are heterogeneously dense, which may obscure small masses. FINDINGS: There are no spiculated masses, areas of distortion or suspicious calcifications. Diffuse calcifications are noted, stable from prior exam. No dominant suspicious cluster is seen. Biopsy marker clip is noted in the central right breast. us Denae Serrano MD IM MAMMOGRAPHY ORDERABLES Final Result from Last 3 Months or Most Recently Relevant to Health Maintenance Insurance BLUE CROSS/BLUE SHIELD MEDICARE PART A B Care Teams Cnc Mill And Lathe Operator Relationship Specialty Start Date End Date Denae Serrano MD [address] [place] [phone] PCP - General Family Medicine 06/11/22
--- OUTSIDE RECORDS SUMMARY | 2025-07-27 12:31 | XMS_ITS | Encounter Summary ---
Author Organization [employer] ([place], [place], [place], [place], [place]) Address [address] [place] [address] Care Team Providers Care Shoulder Joiner Name Role Phone Denae Serrano MD Primary Care Provider [phone] Encounter Details Date Type Department Care Team (Late st Contact Info) Description 03/01/2020 Transcribed Document [facility] Family Medicine [address] [place] [address] ProviderJer MD [address] [place], [place] [address] Social History Tobacco Use Types Packs/Day Years [...] 03/01/2020 10:49 AM CDT [facility] Main OR IntraOp Summary Primary Physician: SWAPNIL RAMIREZ MD-SUR Finalized Date/Time: 03/01/20 11:34:18 Pt. Name: PERLITA BOWLING/Sex: 1965 Female Med Rec #: [id number] Physician: SWAPNIL RAMIREZ MD-SUR Financial #: [id number] Pt. Type: O Room/Bed: [facility] Admit/Disch: 03/01/20 07:45:00 - Institution: [facility] [place]Op Case Attendance Entry 1 Entry 2 Entry 3 Case Attendee SWAPNIL RAMIREZ MD-Tiki Segal, Rn JACQUES GIRALDO FA Role Performed Surgeon/Proceduralist, Technical Document Writer, Second Court Worker, First First Time In 03/01/20 10:31:00 03/01/20 10:38:00 03/01/20 10:31:00 Time Out 03/01/20 11:36:00 03/01/20 10:47:00 03/01/20 11:36:00 Procedure Hernia Repair Hernia Repair Hernia Repair Incisional Laparoscopic Incisional Laparoscopic Incisional Laparoscopic Other Attendee RN HIEU Superficial Wound Closed By: Last Modified By: LONG FINNEGAN RN WESSEL, JULIANA, RN WESSEL, JULIANA, RN 03/01/20 11:34:15 03/01/20 11:34:15 03/01/20 11:34:15 Entry 4 Entry 5 Entry 6 Case Attendee LONG FINNEGAN, Cher Horne, Scrub iWllow Harris, - SSI Tech Role Performed Technical Document Writer, First Scrub, First Pharmacy Specialist, Ancillary Time In 03/01/20 10:31:00 03/01/20 10:31:00 03/01/20 10:31:00 Time Out 03/01/20 11:36:00 03/01/20 11:05:00 03/01/20 11:36:00 Procedure Hernia Repair Hernia Repair Hernia Repair Incisional Laparoscopic Incisional Laparoscopic Incisional Laparoscopic Other Attendee Superficial Wound Closed By: Last Modified By: LONG FINNEGAN RN WESSEL, JULIANA, RN WESSEL, JULIANA, RN 03/01/20 11:34:15 03/01/20 11:34:15 03/01/20 11:34:15 Entry 7 Entry 8 Case Attendee RAMIRO BIRCH, KEVIN MEADE, Client Relations Representative Role Performed YEAST PUSHER/Nurse Cardiology Technologist Scrub, Second Time In 03/01/20 10:31:00 03/01/20 11:05:00 Time Out 03/01/20 11:36:00 03/01/20 11:36:00 Procedure Hernia Repair Hernia Repair Incisional Laparoscopic Incisional Laparoscopic Other Attendee ST ILDEFONSO RELIEF Superficial Wound Closed By: Last Modified By: LONG FINNEGAN, LONG HUDSON RN 03/01/20 11:34:15 03/01/20 11:34:15 [facility] IntraOp Case Attendance Audit 03/01/20 11:34:15 Chemical Laboratory Scientist: LETA Modifier: [email or web address] 1 <+> Time Out 1 <*> Procedure Hernia Repair Incisional Laparoscopic 2 <*> Procedure Hernia Repair Incisional Laparoscopic 3 <+> Time Out 3 <*> Procedure Hernia Repair Incisional Laparoscopic 4 <+> Time Out 4 <*> Procedure Hernia Repair Incisional Laparoscopic 5 <*> Procedure Hernia Repair Incisional Laparoscopic 6 <+> Time Out 6 <*> Procedure Hernia Repair Incisional Laparoscopic 7 <+> Time Out 7 <*> Procedure Hernia Repair Incisional Laparoscopic 8 <+> Time Out 8 <*> Procedure Hernia Repair Incisional Laparoscopic 03/01/20 11:23:59 Chemical Laboratory Scientist: [email or web address] Modifier: [email or web address] 5 <+> Time Out 5 <*> Procedure Hernia Repair Incisional Laparoscopic 03/01/20 11:23:46 Chemical Laboratory Scientist: [email or web address] Modifier: [email or web address] 1 <*> Procedure Hernia Repair Incisional Laparoscopic 2 <*> Procedure Hernia Repair Incisional Laparoscopic 3 <*> Procedure Hernia Repair Incisional Laparoscopic 4 <*> Procedure Hernia Repair Incisional Laparoscopic 5 <*> Procedure Hernia Repair Incisional Laparoscopic 6 <*> Procedure Hernia Repair Incisional Laparoscopic 7 <+> Time In 7 <*> Procedure Hernia Repair Incisional Laparoscopic <+> 8 Case Attendee <+> 8 Role Performed <+> 8 Time In <+> 8 Procedure <+> 8 Other Attendee 03/01/20 10:54:56 Chemical Laboratory Scientist: [email or web address] Modifier: [email or web address] 1 <*> Procedure Hernia Repair Incisional Laparoscopic 2 <*> Procedure Hernia Repair Incisional Laparoscopic 3 <+> Time In 3 <*> Procedure Hernia Repair Incisional Laparoscopic 4 <+> Time In 4 <*> Procedure Hernia Repair Incisional Laparoscopic 5 <+> Time In 5 <*> Procedure Hernia Repair Incisional Laparoscopic 6 <+> Time In 6 <*> Procedure Hernia Repair Incisional Laparoscopic <+> 7 Case Attendee <+> 7 Role Performed <+> 7 Procedure 03/01/20 10:53:03 Chemical Laboratory Scientist: [email or web address] Modifier: [email or web address] <+> 1 Procedure <+> 3 Case Attendee <+> 3 Role Performed <+> 3 Procedure <+> 4 Case Attendee <+> 4 Role Performed <+> 4 Procedure <+> 5 Case Attendee <+> 5 Role Performed <+> 5 Procedure <+> 6 Case Attendee <+> 6 Role Performed <+> 6 Procedure [facility] IntraOp Case Times Entry 1 Patient In Room Time 03/01/20 10:31:00 Out Room Time 03/01/20 11:36:00 Anesthesia Start Time 03/01/20 10:31:00 Stop Time 03/01/20 11:36:00 Anesthesia Ready 03/01/20 10:31:00 Surgery / Procedure Times Start Time 03/01/20 10:49:00 Stop Time 03/01/20 11:27:00 Last Modified By: LONG FINNEGAN RN 03/01/20 11:34:14 [facility] IntraOp Case Times Audit 03/01/20 11:34:14 Chemical Laboratory Scientist: [email or web address] Modifier: [email or web address] <+> 1 Out Room Time <+> 1 Stop Time 03/01/20 11:27:44 Chemical Laboratory Scientist: [email or web address] Modifier: [email or web address] <+> 1 Stop Time 03/01/20 10:51:19 Chemical Laboratory Scientist: [email or web address] Modifier: [email or web address] <+> 1 Start Time [facility] IntraOp Cautery Entry 1 ESU Identification Cautery Type Monopolar ESU ID Number [id number] ID Type Hospital Number Cautery Settings Cut Setting 1 Coag Setting 30 ESU Grounding Pad Ground Pad Type Adult Grounding Pad Site Left thigh Grounding Pad LONG FINNEGAN RN Applied By Grounding Pad Site Warm, dry and intact Skin Condition Before Cautery Grounding Pad Site Unchanged Skin Condition After Cautery Last Modified By: LONG FINNEGAN RN 03/01/20 10:53:38 [facility] IntraOp Communication Entry 1 Communication To Family/Significant other Comment START Communication By LONG FINNEGAN RN Date and Time 03/01/20 10:52:00 Last Modified By: LONG FINNEGAN RN 03/01/20 10:54:09 [facility] IntraOp Communication Audit 03/01/20 10:54:09 Chemical Laboratory Scientist: [email or web address] Modifier: [email or web address] 1 <*> Date and Time 03/01/20 10:53:00 [facility] IntraOp Counts Verification Entry 1 Procedure Hernia Repair Incisional Laparoscopic Count Info Count Type Sponge, Sharps, Instrument, Miscellaneous Counts Verification Baseline/pre-procedure Sequence Count Results Correct, surgeon notified Counts Performed By Count Performed By Cher Judd, Scrub (Scrub) Tech Count Performed By LONG FINNEGAN RN (RN) Last Modified By: LONG FINNEGAN RN 03/01/20 10:54:30 [facility] IntraOp Counts Final Entry 1 Procedure Hernia Repair Incisional Laparoscopic Final Count Info Count Type Sponge, Sharps, Miscellaneous Counts Verification Skin Closure/end of Sequence procedure Count Results Correct, surgeon notified Counts Performed By Count Performed By KEVIN BRIGHT, (Scrub) Client Relations Representative Count Performed By LONG FINNEGAN RN (RN) Last Modified By: LONG FINNEGAN RN 03/01/20 11:24:24 [facility] IntraOp Counts Final Audit 03/01/20 11:24:24 Chemical Laboratory Scientist: [email or web address] Modifier: [email or web address] 1 <*> Procedure Hernia Repair Incisional Laparoscopic 1 <*> Count Performed By (Scrub) Cher Judd, Client Relations Representative 03/01/20 11:23:18 Chemical Laboratory Scientist: [email or web address] Modifier: [email or web address] 1 <*> Procedure Hernia Repair Incisional Laparoscopic 1 <+> Counts Verification Sequence [facility] IntraOp Departure from OR Entry 1 Integumentary Assessment Integumentary WDL Assessment WDL Transfer/Handoff Transfer to PACU Phase I Handoff Method Bedside/Face to face Post-op Transport Stretcher/Gurney Via Patient Transport LONG FINNEGAN RN Accompanied by Last Modified By: LONG FINNEGAN RN 03/01/20 10:54:46 [facility] IntraOp Dressing and Packing Entry 1 Type Dressing Location abdomen Wound Dressing Item 2x2's Applied By JACQUES GIRALDO FA Other Comments 2x2 covaderms to trocar sites Last Modified By: LONG FINNEGAN RN 03/01/20 10:55:10 [facility] IntraOp Fire Risk Assessment Entry 1 Fire Info Surgical Site or 0- No Incision Above the Xyphoid Open O2 Source 0- No (Mask or Cannula) Available Ignition 1- Yes (ESU, Laser, Light Source) Fire Risk 1 Assessment Score Fire Score Fire Risk Yes Assessment Complete Fire Risk LONG FINNEGAN RN Assessment Verified By Fire Risk 03/01/20 10:31:00 Assessment Verified Date/Time Fire Risk Standard Fire Yes Safety Precautions Followed Last Modified By: LONG FINNEGAN RN 03/01/20 10:55:35 [facility] IntraOp Fire Risk Assessment Audit 03/01/20 10:55:35 Chemical Laboratory Scientist: [email or web address] Modifier: [email or web address] <+> 1 Open O2 Source (Mask or Cannula) [facility] IntraOp General Case Stain Remover 1 Case Information OR OR 03 SJE Case Level 1 Room Verified Yes Wound Class III - Contaminated Specialty SN General Anesthesia Type General ASA Class 3 Diagnosis Preop Diagnosis INNCISIONAL HERNIA Postop Same As Preop Yes Postop Diagnosis INNCISIONAL HERNIA Last Modified By: LONG FINNEGAN RN 03/01/20 10:55:55 [facility] IntraOp General Case Data Audit 03/01/20 10:55:55 Chemical Laboratory Scientist: [email or web address] Modifier: [email or web address] <+> 1 ASA Class <+> 1 Anesthesia Type <+> 1 Postop Same As Preop <+> 1 Preop Diagnosis <+> 1 Postop Diagnosis <+> 1 Room Verified [facility] IntraOp Implant Log Entry 1 Entry 2 Type Implant (Synthetic) Implant (Synthetic) Implant Log Implant Type Other Other Tissue Implant Type Implant BIOMATERIAL SYNECOR SYS FIXATION CAPSURE Identification [id number] [facility]-[id number] Description Implant Quantity 1 2 Implant Site OPSITE OPSITE Implant Identification Model Number Implant [id number] Identification Serial Number Implant [id number] Identification Lot Number Implant [employer] [place] [employer]:Med Prdt Cr Bard:Davol Identification Flake Drier Name: Implant [id number] Identification Catalog Number Implant Size Implant Has an Yes Yes Expiration Date Implant Expiration 01/20/21 08/08/21 Date Wasted Radioactive Material Time Implanted Tissue Implant Continue for Tissue Implant Documentation Tissue Identification Number Graft Prep Per Flake Drier Instructions: Tissue Preparation Method: Reconstitution Solution: Reconstitution Solution Lot Number Reconstitution Solution Expiration Date: Thawing Solution Thawing Solution Lot Number Thawing Solution Expiration Date Preparation Materials, Other Preparation Materials, Other Lot Number Preparation Materials, Other Expiration Date Tissue Prepared/Processed By Flake Drier Paperwork Completed Implant Type Comment Last Modified By: LONG FINNEGAN RN WESSEL, JULIANA, RN 03/01/20 11:03:55 03/01/20 11:17:28 [facility] IntraOp Implant Log Audit 03/01/20 11:17:28 Chemical Laboratory Scientist: LETA Modifier: LETA <+> 2 Implant Identification Description <+> 2 Implant Identification Lot Number <+> 2 Implant Identification Flake Drier Name: <+> 2 Implant Expiration Date <+> 2 Implant Site <+> 2 Implant Quantity <+> 2 Implant Identification Catalog Number <+> 2 Implant Type <+> 2 Implant Has an Expiration Date <+> 2 Type [facility] IntraOp Intraoperative Assessment Entry 1 Valid History / Yes Physical in Chart Preoperative Yes Checklist Reviewed/Evaluated Allergies Reviewed Yes Patient is Latex No Sensitive Isolation Not applicable Precautions Noted Level of WDL Consciousness (WDL = Alert, Oriented to Person, Place, and Time) Skin Assessment Yes Verified Present Upon IVs Arrival to OR Last Modified By: LONG FINNEGAN RN 03/01/20 10:56:00 [facility] IntraOp Intraoperative Equipment Entry 1 Type Equipment Equipment Equipment CO2 Insufflator Intraop Monitoring Electrocardiogram Three lead placement (ECG) Electrode Placement Blood Pressure Non-Invasive BP Device Source Antiembolic Devices Antiembolic Devices Sequential compression device, knee high Antiembolic Device Bilateral Location Scopes Photo/Video Documentation Photo No Video No Intraop Equipment scds on and working Comment prior to induction Last Modified By: LONG FINNEGAN RN 03/01/20 10:56:06 [facility] IntraOp Medication Admin Entry 1 Medication/Irrigant Anesthetic Cocktail-James Route of LOCAL Administration Dose Dose 50 Unit of Measure ml Administered By SWAPNIL RAMIREZ MD-ANABELA Procedure Irrigation Last Modified By: LONG FINNEGAN RN 03/01/20 10:56:15 [facility] IntraOp Patient Positioning Entry 1 Procedure Hernia Repair Incisional Laparoscopic Body Position Supine Left Arm Position Tucked and padded at side Right Arm Position Secured on padded arm board Left Leg Position Uncrossed, parallel Right Leg Position Uncrossed, parallel Feet Uncrossed Yes Pressure Points Yes Checked Positioning Devices Pillows, Safety Strap, Leg(s), Safety Strap, Arm(s) Positioned By RAMIRO BIRCH CRNAJAMES JOSHUA, MD-ANABELA, JACQUES GIRALDO, FA, LONG FINNEGAN RN Position Verified Positioning Yes Verified by Anesthesia Positioning Yes Verified by Surgeon Last Modified By: LONG FINNEGAN RN 03/01/20 10:56:23 [facility] IntraOp Sign In Entry 1 Patient, Site, Yes Procedure Identified Surgical Consent Yes Confirmed Relevant Surgical Yes Documents Available Surgical Site N/A Marked by person performing procedure Anesthesia Machine Yes Check Completed Medication Checks Yes Completed Allergies Yes Airway Difficult Yes Airway/Aspiration Risk Difficult Yes Airway/Aspiration Intervention Equipment Available Blood Loss Risk Yes Blood Loss Yes Intervention Equipment Prepared and Ready Blood Identifiers Not applicable Verified Per Policy Hypothermia Risk Yes Warming Measures Yes Taken Last Modified By: LONG FINNEGAN RN 03/01/20 10:56:27 [facility] Intra Op Sign Out Entry 1 RN Confirmation Surgical Yes Procedure(s) Identified Instrument, Sponge Yes and Sharps Counts Correct/Documented Equipment Problems N/A Documented Specimen Labeled N/A Correctly Urinary Catheter N/A Documented in IView [place] Patient Yes Recovery Concerns Reviewed with Anesthesia Provider, Surgeon and RN [place] Patient Yes Management Concerns Reviewed with Anesthesia Provider, Surgeon and RN Safety Checklist Yes Elements Complete? RN Sign Out LONG FINNEGAN RN Signature RN Sign Out 03/01/20 11:36:00 Signature Date/Time Plan of Care Outcome - Fire Risk OUTCOME STATEMENT: Goal met Patient is free from injury related to surgical fire Plan of Care Outcome - Pt Positioning OUTCOME STATEMENT: Goal met Absence of signs and symptoms of positioning injury. Plan of Care Outcome - Skin Prep OUTCOME STATEMENT: Goal met Intraoperative care is consistent with measures to prevent infection Plan of Care Outcome - Xray/Images OUTCOME STATEMENT: N/A Absence of observable signs or symptoms of radiation injury Plan of Care Outcome - Counts OUTCOME STATEMENT: Goal met Absence of signs and symptoms of injury related to extraneous objects Last Modified By: LONG FINNEGAN RN 03/01/20 11:34:09 [facility] Intra Op Sign Out Audit 03/01/20 11:34:09 Chemical Laboratory Scientist: LETA Modifier: [email or web address] <+> 1 RN Sign Out Signature Date/Time [facility] IntraOp Skin Prep Entry 1 Procedure Hernia Repair Incisional Laparoscopic Prescribed Yes Pre-Surgical Prep Completed Prep Area abdomen Intraop Prep Integumentary WDL Assessment WDL Prep Agents Chloraprep Prep by LONG FINNEGAN RN Hair Removal Methods No hair removal performed Last Modified By: LONG FINNEGAN RN 03/01/20 10:56:36 [facility] IntraOp Surgical Procedures Entry 1 Procedure Hernia Repair Incisional Laparoscopic Additional LAPAROSCOPIC INCISIONAL Procedure HERNIA REPAIR Description Primary Procedure Yes Primary Surgeon SWAPNIL RAMIREZ MD-ANABELA Start 03/01/20 10:49:00 Stop 03/01/20 11:27:00 Anesthesia Type General Specialty SN General Wound Class III - Contaminated Last Modified By: LONG FINNEGAN RN 03/01/20 11:27:45 [facility] IntraOp Surgical Procedures Audit 03/01/20 11:27:45 Chemical Laboratory Scientist: LETA Modifier: [email or web address] <+> 1 Stop [facility] IntraOp Time Out Entry 1 Procedure to be Hernia Repair Performed Incisional Laparoscopic Time Out Time Out Pause Time 03/01/20 10:48:00 All activity Yes suspended (unless life threatening emergency) Team Verbally Correct patient Confirms Information identity, Correct side and site are marked, Consent form is present and accurate, Agreement on the procedure to be done, Correct patient position, Relevant images/results properly labeled/appropriately displayed, Confirm antibiotics have been administered, Confirm the skin prep has dried, Confirm prosthesis/implant/devic e is present, Performed in location of procedure after prepped/draped, Performed before each procedure if multiple procedures, Reconcile problems if responses among team members differ Antibiotic Yes Prophylaxis Administered Or In Progress Within the Last 60 Minutes Beta Ban Yes Administered Venous Yes Thromboembolism Prophylaxis Required Anticipated Critical Events Surgeon Critical or unexpected steps, Special equipment need, Special instrumentation need Anesthesia Provider Patient specific concerns Nursing Assures Sterility of instruments, Implant Availability Essential Imaging N/A Labeled and Displayed Last Modified By: LONG FINNEGAN RN 03/01/20 10:57:09 Case Comments <None> Finalized By: LONG FINNEGAN RN Document Signatures Signed By: LONG FINNEGAN RN 03/01/20 11:34 documented in this encounter Plan of Treatment Upcoming Encounters Date Type Department Care Team (Late st Contact Info) Description 09/13/2025 11:15 AM EST Appointment [address] [phone] documented as of this encounter Visit Diagnoses Not on filedocumented in this encounter Care Teams Shoulder Joiner Relationship Specialty Start Date End Date Denae Serrano MD [address] [place] [phone] PCP - General Family Medicine 06/11/22 documented as of this encounter
--- OUTSIDE RECORDS SUMMARY | 2025-07-27 12:31 | XMS_ITS | Encounter Summary ---
Author Organization [employer] ([place], [place], [place], [place], [place]) Address [address] [place] [address] Care Team Providers Care Natural Resource Economist Name Role Phone Denae Serrano MD Primary Care Provider [phone] Encounter Details Date Type Department Care Team (Late st Contact Info) Description 10/10/2020 Transcribed Document [facility] [place] Family Medicine [address] [place] [address] ProviderJer MD [address] [place] [address] Social History Tobacco Use Types Packs/Day Years Used Date Smoking Tobacco: Never Assessed Comments Unknown Sex and Gender Information Value Date Recorded Sex Assigned at Not on file Legal Sex Female 4:41 PM CDT Gender Identity Not on file Sexual Orientation Not on file documented as of this encounter Miscellaneous Notes * Cerner Conversion Note - Jer Klein MD - 10/10/2020 11:51 AM POST ACUTE CARE NURSE PRACTITIONER Patient: ZENAIDA BOWLING Age: 55 years Sex: Female : 1965 Associated Diagnoses: None Author: GUILLERMINA LUCERO MD-OHRamin Basic Information Source of history: Self. Chief Complaint H/o of polyps History of Present Illness Patient presents today for a colonoscopy due to polyps. Denies any gastrointestinal complaints. Specifically denies rectal bleeding, weight loss, or change in bowel habits. No family history of colon cancer. Last colonoscopy was 08/2017 which showed evidence of prior intervention in the colon, a single sessile polyp in the ascending colon, a single sessile polyp in the transverse colon, a single sessile polyp in the descending colon, a few diverticula in the sigmoid colon and internal hemorrhoids. 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 A) Large intestine, ascending, polyp, biopsy: ?? Tubular adenoma. ?? No high-grade dysplasia or malignancy identified. B) Large intestine, transverse, polyp, biopsy: ?? Tubular adenoma. ?? No high-grade dysplasia or malignancy identified. C) Large intestine, descending, polyp, biopsy: ?? Tubular adenoma. No high-grade dysplasia or malignancy identified. 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 Adjuvant chemo Endometriosis (2441481792): Resolved. Clostridium difficile (84664459): Resolved. Viral meningitis (93774973): Resolved. Tobacco abuse (180616045): Resolved. Procedure history: Cholecystectomy; (02817). Left shoulder labrum repair. Partial left knee replacement. Right meniscus repair. sinus surgery. Diagnostic laparoscopy. Left knee ATS. Lap hand assisted transverse colectomy and splenic flexure colectomy. Power port placement. colonoscopy. Social History Social & Psychosocial Habits Alcohol 02/15/2014 Alcohol Use in Last Twelve Months Yes Date/Time of Last Drink social Nutrition/Health 09/09/2017 Caffeine intake amount: 2 Substance Abuse 02/15/2014 Recreational Drug Use History No Recreational Drug Use Last 12 Months No Tobacco 03/02/2014 Smoking Status Former smoker Years of Tobacco Use 15 Packs/Tins Daily 0.5 Month Tobacco Last Used Quit 2002 . Family History: Cousin with colon cancer Health Status Allergies: Allergic Reactions (All) Severity Not Documented Cephalosporins- Rash, itching and throat swelling. Penicillin- Rash, itch and throat swelling., Allergies (2) Active Reaction cephalosporins Rash penicillin Rash Current medications: (Selected) Inpatient Medications Ordered Normal Saline 1,000 mL: 50 mL/Hr, IntraVENous lidocaine 1% injectable solution: 0.5 mL, IntraDermal, 1-Time, PRN: Other (See Comment) Prescriptions Prescribed Protonix 40 mg oral delayed release tablet: 1 Tab, Oral, Daily, Take on an empty stomach 30 minutes before breakfast, 30 Tab, 3 Refill(s) Documented Medications Documented Centrum Women's: 1 Tab, Oral, Daily, 0 Refill(s) CoQ10: 300 mg, Oral, Daily, 0 Refill(s) Melatonin 5 mg oral tablet: 1 Tab, Oral, Once a day (at bedtime), PRN: as needed for insomnia, 60 Tab, 0 Refill(s) Repatha 140 mg/mL subcutaneous solution: 140 mg, SubCutaneous, [id number], rotate injection sites, 2 Each, 0 Refill(s) aspirin 81 mg oral delayed release tablet: 1 Tab, Oral, Daily, 30 Tab, 0 Refill(s) ezetimibe: 10 mg, Oral, Daily, 0 Refill(s) furosemide 40 mg oral tablet: Tab, Oral, Daily, 0 Refill(s) gabapentin 100 mg oral capsule: Cap, Oral, Daily, 0 Refill(s) metoprolol succinate 25 mg oral capsule, extended release: 1 Cap, Oral, Daily, 0 Refill(s) nitroglycerin 0.4 mg sublingual spray: 1 [place], SubLINgual, Q5Min, PRN: for chest pain, 5 Gram, 0 Refill(s) rOPINIRole 2 mg oral tablet: 2 Tab, Oral, At Bedtime, 0 Refill(s), Medications (2) Active Scheduled: (0) Continuous: (1) NaCl 0.9% 1,000 mL 1,000 mL, IntraVENous, 50 mL/Hr PRN: (1) lidocaine 1% *PF* inj 5 mL 0.5 mL, IntraDermal, 1-Time Problem list: All Problems Hyperlipidemia / SNOMED CT 21150624 / Confirmed Migraine / SNOMED CT 87359920 / Confirmed GERD - Gastro-esophageal reflux disease / SNOMED CT 5031140951 / Confirmed Sleep apnea resolved / SNOMED CT 126347144 / Confirmed Urinary frequency / SNOMED CT 785142987 / Confirmed Hiatal hernia / SNOMED CT 114536088 / Confirmed Postmenopausal / SNOMED CT 947113013 / Confirmed Joint problem / SNOMED CT 482150586 / Confirmed Cancer of colon / SNOMED CT 097222606 / Confirmed Arthritis / SNOMED CT 9478988 / Confirmed Hearing loss in left ear / SNOMED CT 844900883 / Confirmed Tinnitus / SNOMED CT 403352624 / Confirmed AMI (acute myocardial infarction) / SNOMED CT 94913164 / Confirmed CAD (coronary artery disease) / SNOMED CT 25286983 / Confirmed HTN (hypertension) / SNOMED CT 4585829532 / Confirmed Stented coronary artery / SNOMED CT 8166311493 / Confirmed Borderline diabetes / SNOMED CT 2445248546 / Confirmed History of obstructive sleep apnea / IMO 07814470 / Confirmed Insomnia / SNOMED CT 750413683 / Confirmed Resolved: Colon cancer / SNOMED CT [id number] 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 Adjuvant chemo Resolved: Endometriosis / SNOMED CT 2243523094 Resolved: Clostridium difficile / SNOMED CT 50098300 Resolved: Viral meningitis / SNOMED CT 38696928 Resolved: Tobacco abuse / SNOMED CT 972651150 Canceled: Abdominal pain / SNOMED CT 26580702, Active Problems (19) AMI (acute myocardial infarction) Arthritis Borderline diabetes CAD (coronary artery disease) Cancer of colon GERD - Gastro-esophageal reflux disease Hearing loss in left ear Hiatal hernia History of obstructive sleep apnea HTN (hypertension) Hyperlipidemia Insomnia Joint problem Migraine Postmenopausal Sleep apnea resolved Stented coronary artery Tinnitus Urinary frequency Review of Systems Constitutional: No fever, No chills, No weight gain, No weight loss. Eye: No recent visual problem, No blurring. Ear/Nose/Mouth/Throat: No dysphagia, No epistaxis, No hoarse voice, No sore throat. Respiratory: No shortness of breath, No cough, No hemoptysis. Cardiovascular: No chest pain, No palpitations, No claudication. Gastrointestinal: No nausea, No vomiting, No diarrhea, No constipation, No heartburn, No belching, No bloating, No abdominal pain, No hematemesis, No change in bowel habits, No melena, No rectal bleeding. Genitourinary: No dysuria, No hematuria. Hematology/Lymphatics: No bruising tendency, No bleeding tendency. Endocrine: No excessive thirst, No cold intolerance, No heat intolerance. Musculoskeletal: No joint pain, No muscle pain, No gait disturbance, No joint redness. Integumentary: No rash, No pruritus. Neurologic: No confusion, No dizziness, No headache, No seizure. Psychiatric: No anxiety, No depression. the rest of the 10 system review is negative Physical Examination VS/Measurements Vitals Signs (last 24 hrs) Last Charted Minimum Maximum Temp 97.4 (OCT 10:) 97.4 (OCT 10:) 97.4 (OCT 10) Mon HR 76 (OCT 10) 76 (OCT 10) 76 (OCT 10) Resp Rate 18 (OCT 10) 18 (OCT 10:) 18 (OCT 10:) SBP 127 (OCT 10) 127 (OCT 10) 127 (OCT 10:) DBP 73 (OCT 10:) 73 (OCT 10:) 73 (OCT 10:) SpO2 96 (OCT 10:) 96 (OCT 10:) 96 (OCT 10:) General: No acute distress. Appearance: Well nourished. Eye: Pupils are equal, round and reactive to light, Extraocular movements are intact, Normal conjunctiva. Sclera: Both eyes, Within normal limits. HENT: Normocephalic, Normal hearing, Oral mucosa is moist. Nose: Both nostrils, Within normal limits, Patent. Mouth: pink. Neck: Supple, Non-tender, No carotid bruit, No jugular venous distention. Respiratory: Lungs are clear to auscultation, Respirations are non-labored, Breath sounds are equal. Pattern: Regular. Cardiovascular: Normal rate, Regular rhythm, No murmur, No gallop, No edema. Arterial pulses: Bilateral, Dorsalis pedis, Within normal limits. Gastrointestinal: Soft, Non-tender, Non-distended, Normal bowel sounds, No organomegaly. Abdomen: Liver ( Within normal limits ). Lymphatics: Lymphatic exam: Bilateral, Cervical chain, Inguinal, Within normal limits. Musculoskeletal: Normal range of motion, Normal strength, No tenderness, No deformity, Normal gait. Integumentary: Warm, Dry, [place], No rash. Integumentary exam: Face, Chest, Arm, Abdomen, Leg. Neurologic: Alert, Oriented, No focal deficits. Orientation: To person, To place, To time. Psychiatric: Cooperative, Appropriate mood & affect, Normal judgment. Review / Management Results review: No qualifying data available. Impression and Plan H/O of polyps and colon cancer. Proceed with colonoscopy. Risks including that of bleeding, perforation, splenic injury, and missed lesion have been discussed with patient who verbalizes understanding and agrees to proceed. Further recommendations will be based on the above findings.\.brTP as above performed by Miryam Judd APRN. I, Guillermina Lucero MD personally interviewed the patient [id number]. I reviewed and discussed with the patient the medical records, medical history and diagnostic studies. I performed a complete physical exam and created the plan of care as documented above. The mid-level provider participated in the patients care by documenting the entire visit, ordering tests and prescribing medications as directed by myself, Dr. Guillermina Lucero according to my evaluation. documented in this encounter Plan of Treatment Upcoming Encounters Date Type Department Care Team (Late st Contact Info) Description 09/13/2025 11:15 AM EST Appointment [address] [phone] documented as of this encounter Visit Diagnoses Not on filedocumented in this encounter Care Teams Natural Resource Economist Relationship Specialty Start Date End Date Denae Serrano MD [address] [place] [address] [address] [place] [address] PCP - General Family Medicine 06/11/22 documented as of this encounter
--- OUTSIDE RECORDS SUMMARY | 2025-07-27 12:31 | XMS_ITS | Encounter Summary ---
Author Organization [employer] ([place], [place], [place], [place], [place]) Address [address] [place] [address] Care Team Providers Care Financial Management Consultant Name Role Phone Denae Serrano MD Primary Care Provider [phone] Encounter Details Date Type Department Care Team (Late st Contact Info) Description 10/10/2020 Transcribed Document [facility] [place] [address] [place] [address] ProviderJer MD [address] [place], [place] [address] Social History Tobacco Use Types Packs/Day Years Used Date Smoking Tobacco: Never Assessed Comments Unknown Sex and Gender Information Value Date Recorded Sex Assigned at Not on file Legal Sex Female 4:41 PM CDT Gender Identity Not on file Sexual Orientation Not on file documented as of this encounter Miscellaneous Notes * Cerner Conversion Note - Historical ProviderMD - 10/10/2020 1:02 PM TRAUMA COORDINATOR [facility] PACU Summary Primary Physician: KENDAL SHARP MD-GAE Finalized Date/Time: 10/10/20 13:42:31 Pt. Name: ZENAIDA BOWLING/Sex: 1965 Female Med Rec #: [id number] Physician: KENDAL SHARP MD-GAE Financial #: [id number] Pt. Type: E Room/Bed: [facility] Admit/Disch: 10/10/20 11:14:00 - Institution: [facility] PACU Case Times Entry 1 In PACU I 10/10/20 13:15:00 Ready for PACU 10/10/20 13:33:00 Discharge Discharge from PACU 10/10/20 13:41:00 I Finalized By: Catrachita Blas, Rn Document Signatures Signed By: Catrachita Blas Rn 10/10/20 13:42 Electronically signed by Juan [facility] Conversion Soft Iron Inspector Cerner at 11/28/2022 11:29 PM CDT documented in this encounter Plan of Treatment Upcoming Encounters Date Type Department Care Team (Late st Contact Info) Description 09/13/2025 11:15 AM EST Appointment [address] [address] documented as of this encounter Visit Diagnoses Not on filedocumented in this encounter Care Teams Financial Management Consultant Relationship Specialty Start Date End Date Denae Serrano MD [address] [place] [phone] PCP - General Family Medicine 06/11/22 documented as of this encounter
--- OUTSIDE RECORDS SUMMARY | 2025-07-27 12:31 | XMS_ITS | Encounter Summary ---
Author Organization [employer] ([place], [place], [place], [place], [place]) Address [address] [place] [address] Care Team Providers Care Special Agent Fbi Name Role Phone Denae Serrano MD Primary Care Provider [phone] Encounter Details Date Type Department Care Team (Late st Contact Info) Description 10/10/2020 Transcribed Document [facility] [place] Family Medicine [address] [place] [address] ProviderJer MD [address] [place], [place] [id number] Social History Tobacco Use Types Packs/Day Years Used Date Smoking Tobacco: Never Assessed Comments Unknown Sex and Gender Information Value Date Recorded Sex Assigned at Not on file Legal Sex Female 4:41 PM CDT Gender Identity Not on file Sexual Orientation Not on file documented as of this encounter Miscellaneous Notes * Cerner Conversion Note - Historical ProviderMD - 10/10/2020 1:02 PM [facility] Endo IntraOp Summary Primary Physician: KENDAL SHARP MD-GAE Finalized Date/Time: 10/10/20 13:14:28 Pt. Name: ZENAIDA BOWLING/Sex: 1965 Female Med Rec #: [id number] Physician: KENDAL SHARP MD-GAE Financial #: [id number] Pt. Type: E Room/Bed: [facility] [place] Admit/Disch: 10/10/20 11:14:00 - Institution: [facility] Endo - Case Attendance Entry 1 Entry 2 Entry 3 Case Attendee KENDAL SHARP MD-Almita Robertson, Rn ALDAIR MCCALL APRN, ASSISTANT PROFESSOR SCULPTURE-ANS Role Performed Surgeon/Proceduralist, Dispatcher Radio, Second ASSISTANT PROFESSOR SCULPTURE/Nurse Artificial Breeding Ranch Supervisor First Time In 10/10/20 13:00:00 10/10/20 12:51:00 10/10/20 12:51:00 Time Out 10/10/20 13:14:00 10/10/20 13:14:00 10/10/20 13:14:00 Procedure Colonoscopy, Colon Colonoscopy, Colon Colonoscopy, Colon Polypectomy Polypectomy Polypectomy Other Attendee Superficial Wound Closed By: Last Modified By: Almita Bennett, Almita Hanna, Almita Hanna, Romeo 10/10/20 13:14:22 10/10/20 13:14:22 10/10/20 13:14:22 Entry 4 Entry 5 Case Attendee OTHER, ATTENDEE DAVE GÓMEZ MD-ANS Role Performed Scrub, First Anesthesiologist of Record Time In 10/10/20 12:51:00 10/10/20 12:51:00 Time Out 10/10/20 13:14:00 10/10/20 13:14:00 Procedure Colonoscopy, Colon Colonoscopy, Colon Polypectomy Polypectomy Other Attendee Yuly Goodwin Superficial Wound Closed By: Last Modified By: Almita Bennett, Rn Almita Bennett, Romeo 10/10/20 13:14:22 10/10/20 13:14:22 [facility] Endo - Case Attendance Audit 10/10/20 13:14:22 Circus Rider: [id number] Modifier: [id number] 1 <+> Time Out 1 <*> Procedure Colonoscopy, Colon Polypectomy 2 <+> Time Out 2 <*> Procedure Colonoscopy, Colon Polypectomy 3 <+> Time Out 3 <*> Procedure Colonoscopy, Colon Polypectomy 4 <+> Time Out 4 <*> Procedure Colonoscopy, Colon Polypectomy 5 <+> Time Out 5 <*> Procedure Colonoscopy, Colon Polypectomy 10/10/20 13:10:09 Circus Rider: [id number] Modifier: [id number] 1 <*> Procedure Colonoscopy 2 <*> Procedure Colonoscopy 3 <*> Procedure Colonoscopy 4 <*> Procedure Colonoscopy 5 <*> Procedure Colonoscopy 10/10/20 13:00:31 Circus Rider: [id number] Modifier: [id number] 1 <*> Time In 10/10/20 12:51:00 1 <*> Procedure Colonoscopy 10/10/20 12:56:36 Circus Rider: [id number] Modifier: [id number] <+> 1 Procedure 2 <+> Time In 2 <*> Procedure Colonoscopy 3 <+> Time In 3 <*> Procedure Colonoscopy 4 <+> Time In 4 <*> Procedure Colonoscopy 5 <+> Time In 5 <*> Procedure Colonoscopy 10/10/20 12:54:32 Circus Rider: [id number] Modifier: [id number] <+> 1 Time In <+> 2 Case Attendee <+> 2 Role Performed <+> 2 Procedure <+> 3 Case Attendee <+> 3 Role Performed <+> 3 Procedure <+> 4 Case Attendee <+> 4 Role Performed <+> 4 Procedure <+> 4 Other Attendee <+> 5 Case Attendee <+> 5 Role Performed <+> 5 Procedure [facility] - Case Times Entry 1 Patient In Room Time 10/10/20 12:51:00 Out Room Time 10/10/20 13:14:00 Anesthesia Start Time 10/10/20 12:51:00 Stop Time 10/10/20 13:14:00 Anesthesia Ready 10/10/20 12:51:00 Surgery / Procedure Times Start Time 10/10/20 13:02:00 Stop Time 10/10/20 13:12:00 Last Modified By: Almita Bennett Rn 10/10/20 13:12:58 [facility] - Case Times Audit 10/10/20 13:12:58 Circus Rider: [id number] Modifier: [id number] <+> 1 Out Room Time <+> 1 Stop Time <+> 1 Stop Time 10/10/20 13:02:44 Circus Rider: [id number] Modifier: [id number] <+> 1 Start Time [facility] - Cultures and Spec Summary Entry 1 Cultrures and Specimens Specimen Ordered: Yes Test(s) Routine/Path-Lab Requested/Final Disposition Last Modified By: Almita Bennett Rn 10/10/20 13:13:46 [facility] - Delays Entry 1 Delay Reason No Delay Duration 0 Minute(s) Last Modified By: Almita Bennett Rn 10/10/20 12:54:38 E Endo - Departure from OR Entry 1 Integumentary Assessment Integumentary WDL Assessment WDL Transfer/Handoff Transfer to PACU Phase I Post-op Transport Stretcher/Gurney Via Patient Transport ALDAIR MCCALL APRN, Accompanied by ASSISTANT PROFESSOR SCULPTURE-Donald SONG Sandy, Rn Last Modified By: Almita Bennett Rn 10/10/20 12:54:57 E Endo - Endoscopy Details Entry 1 Abdomen Procedure Soft, Non-Tender Assessment Procedure Abdomen 10/10/20 12:55:00 Assessment D/T Radio Frequency Ablation Abdominal Pressure Last Modified By: Almita Bennett Rn 10/10/20 12:55:07 [facility] Endo - Fire Risk Assessment Entry 1 Fire Info Surgical Site or 0- No Incision Above the Xyphoid Open O2 Source 1- Yes (Mask or Cannula) Available Ignition 1- Yes (ESU, Laser, Light Source) Fire Risk 2 Assessment Score Fire Score Fire Risk Yes Assessment Complete Fire Risk Almita Bennett Rn Assessment Verified By Fire Risk 10/10/20 12:55:00 Assessment Verified Date/Time Fire Risk High Risk Protocol Yes Implemented Standard Fire Yes Safety Precautions Followed Last Modified By: Almita Bennett Rn 10/10/20 12:55:24 [facility] Endo - Fire Risk Assessment Audit 10/10/20 12:55:24 Circus Rider: [id number] Modifier: [id number] <+> 1 Fire Risk Assessment Verified By [facility] Endo - General Case Remote Sensing Technologist 1 Case Information OR Endo 01 [facility] Case Level 1 Room Verified Yes Wound Class III - Contaminated Specialty SN Gastroenterology Anesthesia Type MAC ASA Class 3 Diagnosis Preop Diagnosis History of colon cancer Postop Same As Preop No Postop Diagnosis tranverse colon polyp, diverticulosi Last Modified By: Almita Bennett Rn 10/10/20 13:14:18 [facility] Endo - General Case Data Audit 10/10/20 13:14:18 Circus Rider: [id number] Modifier: [id number] <+> 1 Postop Same As Preop <+> 1 Postop Diagnosis 10/10/20 12:58:08 Circus Rider: [id number] Modifier: [id number] <+> 1 Specialty <+> 1 ASA Class <+> 1 Anesthesia Type <+> 1 Preop Diagnosis <+> 1 Room Verified [facility] - Intraoperative Assessment Entry 1 Valid History / Yes Physical in Chart Preoperative Yes Checklist Reviewed/Evaluated Allergies Reviewed Yes Patient is Latex No Sensitive Isolation Not applicable Precautions Noted Skin Assessment Yes Verified Present Upon IVs, ECG monitored Arrival to OR Last Modified By: Almita Bennett Rn 10/10/20 12:55:32 [facility] - Intraoperative Equipment Entry 1 Type Scope Equipment Intraop Monitoring Electrocardiogram Three lead placement (ECG) Electrode Placement Blood Pressure Non-Invasive BP Device Source Blood Pressure Arm, left upper Location Pulse Oximeter Hand, right Probe Site Antiembolic Devices Scopes Flexible Endoscopes Colonoscope, Peds Used Scope Serial [id number] Number/Identificatio n Number Photo/Video Documentation Photo Yes Video No Last Modified By: Almita Bennett Rn 10/10/20 12:55:56 [facility] - Patient Positioning Entry 1 Procedure Colonoscopy, Colon Polypectomy Body Position Lateral, right side up Left Arm Position Resting at side Right Arm Position Resting at side Left Leg Position Other Right Leg Position Other Feet Uncrossed Yes Pressure Points Yes Checked Positioned By Almita Bennett Rn, ALDAIR MCCALL, GOPAL, ASSISTANT PROFESSOR SCULPTURE-ANS Position Verified Positioning Yes Verified by Surgeon Last Modified By: Almita Bennett Rn 10/10/20 13:10:10 [facility] - Patient Positioning Audit 10/10/20 13:10:10 Circus Rider: [id number] Modifier: [id number] 1 <*> Procedure Colonoscopy [facility] - Sign In Entry 1 Patient, Site, Yes Procedure Identified Surgical Consent Yes Confirmed Relevant Surgical Yes Documents Available Surgical Site N/A Marked by person performing procedure Medication Checks Yes Completed Airway Difficult No Airway/Aspiration Risk Difficult Yes Airway/Aspiration Intervention Equipment Available Blood Loss Risk No Blood Loss No Intervention Equipment Prepared and Ready Blood Identifiers Not applicable Verified Per Policy Hypothermia Risk Yes Warming Measures Yes Taken Last Modified By: Almita Bennett Rn 10/10/20 12:54:39 [facility] - Sign Out Entry 1 RN Confirmation Instrument, Sponge N/A and Sharps Counts Correct/Documented Equipment Problems N/A Documented Specimen Labeled Yes Correctly Urinary Catheter N/A Documented in IView Safety Checklist Yes Elements Complete? RN Sign Out Almita Bennett Rn Signature RN Sign Out 10/10/20 13:15:00 Signature Date/Time Plan of Care Outcome - [...] related to extraneous objects Last Modified By: Almita Bennett Rn 10/10/20 13:13:19 [facility] Endo - Surgical Procedures Entry 1 Entry 2 Procedure Colonoscopy Colon Polypectomy Modifiers Additional Procedure Description Primary Procedure Yes No Primary Surgeon KENDAL SHARP MD-GAE WOLFORD, TRACEY, MD-GAE Start 10/10/20 13:02:00 10/10/20 13:02:00 Stop 10/10/20 13:12:00 10/10/20 13:12:00 Physician States 10/10/20 13:05:00 10/10/20 13:05:00 Cecum Reached Anesthesia Type MAC MAC Specialty SN Gastroenterology SN Gastroenterology Wound Class III - Contaminated III - Contaminated Last Modified By: Almita Bennett Rn Rickards, Sandy, Rn 10/10/20 13:13:36 10/10/20 13:13:36 [facility] Endo - Surgical Procedures Audit 10/10/20 13:13:36 Circus Rider: [id number] Modifier: [id number] <+> 1 Stop <+> 2 Stop 10/10/20 13:10:44 Circus Rider: [id number] Modifier: [id number] <+> 1 Start <+> 2 Start 10/10/20 13:10:04 Circus Rider: [id number] Modifier: [id number] 1 <*> Procedure Colonoscopy 1 <+> Physician States Cecum Reached <+> 2 Procedure <+> 2 Primary Procedure <+> 2 Primary Surgeon <+> 2 Specialty <+> 2 Wound Class <+> 2 Anesthesia Type <+> 2 Physician States Cecum Reached 10/10/20 12:57:33 Circus Rider: [id number] Modifier: [id number] 1 <*> Procedure Colonoscopy 1 <+> Specialty [facility] Endo - Time Out Entry 1 Procedure to be Colonoscopy, Colon Performed Polypectomy Time Out Time Out Pause Time 10/10/20 13:01:00 All activity Yes suspended (unless life threatening emergency) Team Verbally Correct patient Confirms Information identity, Consent form is present and accurate, Agreement on the procedure to be done, Correct patient position Antibiotic N/A Prophylaxis Administered Or In Progress Within the Last 60 Minutes Beta Ban N/A Administered Venous N/A Thromboembolism Prophylaxis Required Anticipated Critical Events Surgeon None expected Anesthesia Provider None expected Last Modified By: Almita Bennett Rn 10/10/20 13:10:11 [facility] - Time Out Audit 10/10/20 13:10:11 Circus Rider: [id number] Modifier: [id number] 1 <*> Procedure to be Performed Colonoscopy Case Comments <None> Finalized By: Almita Bennett, Rn Document Signatures Signed By: Almita Bennett Rn 10/10/20 13:14 Electronically signed by Juan [facility] Conversion Two Way Radio Installer Cerner at 11/28/2022 11:21 PM CDT documented in this encounter Plan of Treatment Upcoming Encounters Date Type Department Care Team (Late st Contact Info) Description 09/13/2025 11:15 AM EST Appointment [address] [phone] documented as of this encounter Visit Diagnoses Not on filedocumented in this encounter Care Teams Special Agent Fbi Relationship Specialty Start Date End Date Denae Serrano MD [address] [place] [phone] PCP - General Family Medicine 06/11/22 documented as of this encounter
--- OUTSIDE RECORDS SUMMARY | 2025-07-27 12:32 | XMS_ITS | Clinical Summary ---
Author Organization [facility] Address [address] [place] [phone] Phone [email or web address] Care Team Providers Care Mines Inspector Name Role Phone Denae Serrano MD Primary Care Provider + Allergies Active Allergy Reactions Criticality Noted Date Comments Cephalosporins Rash Low 03/19/2018 Penicillins Hives Medications aspirin 81 MG tablet Take 81 mg by mouth daily. Active metoprolol tartrate (LOPRESSOR) 25 MG tablet Take 25 mg by mouth 2 times daily. 9 Active nitroglycerin (NITROSTAT) 0.4 MG SL tablet 1 under the tongue as needed for angina, may repeat q5mins for up three doses 9 Active ezetimibe (ZETIA) 10 MG tablet Take 10 mg by mouth 1 (one) time each day. 4 9 Active REPATHA SURECLICK 140 MG/ML solution auto-injector 9 9 Active rOPINIRole (REQUIP) 2 MG tablet Take 2 mg by mouth every night. Active SUMAtriptan (IMITREX) 100 MG tablet Take 100 mg by mouth if needed. 0 Active pantoprazole (PROTONIX) 40 MG EC tablet Take 40 mg by mouth 1 (one) time each day. 0 Active Melatonin 5 MG tablet Take 5 mg by mouth every night. Active Multiple Vitamins-Minera ls (MULTIVITAMIN ADULT PO) Take by mouth. Activ e furosemide (LASIX) 40 MG tablet furosemide 40 mg tablet 1 po daily Active potassium chloride (KLOR-CON M20) 20 MEQ CR tablet potassium chloride ER 20 mEq tablet,extended release(part/cry st) 1 po daily with lasix. Active gabapentin (NEURONTIN) 100 MG capsule TAKE 1 CAPSULE BY MOUTH THREE TIMES DAILY AND 2 TO 3 IN THE EVENING AT BEDTIME FOR NEUROPATHIC PAIN 0 Active Active Problems Problem Noted Date Diagnosed Date Vaginitis and vulvovaginitis 05/25/2019 Abnormal blood pressure 05/25/2019 Abnormal glucose level 05/25/2019 Abnormal weight gain 05/25/2019 Acute constipation 05/25/2019 Acute upper respiratory infection 05/25/2019 Allergic rhinitis 05/25/2019 Candidiasis 05/25/2019 Clostridium difficile colitis 05/25/2019 Cyst of ovary 05/25/2019 Dehydration 05/25/2019 Disorder of lipid metabolism 05/25/2019 Dysmenorrhea 05/25/2019 Fatigue 05/25/2019 Gastroesophageal reflux disease with hiatal olive ia 05/25/2019 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 Increased frequency of urination 05/25/2019 Insomnia with sleep apnea 05/25/2019 Insomnia 05/25/2019 Intermittent palpitations 05/25/2019 Malaise and fatigue 05/25/2019 Menopausal symptom 05/25/2019 Ophthalmic migraine 05/25/2019 Referred otalgia 05/25/2019 Abdominal pain 05/25/2019 Dysuria 05/25/2019 Headache 05/25/2019 Low back pain 05/25/2019 Allergic urticaria 05/25/2019 Sinusitis 05/25/2019 Lateral epicondylitis, left elbow 05/25/2019 Coronary artery disease invo lving [place] coronary artery of [place] heart without angina pectoris 10/28/2018 S/P coronary artery stent placement 10/23/2018 Overview (10/23/2018): -LCX Acute AL inferior lateral first episode care 05/2019 Hyperlipidemia 10/19/2018 Disorder of bursae and tendons in shoulder regio n 02/14/2016 Overview (01/08/2018): Open wound of finger 05/31/2011 Overview (01/08/2018): Astigmatism 08/29/2010 Overview (01/08/2018): Examination for medicolegal reason 11/15/2009 Overview (01/08/2018): Contact dermatitis and other eczema due to other specified agent 11/04/2009 Overview (01/08/2018): Elevated blood-pressure read ing without diagnosis of hypertension 07/19/2009 Overview (01/08/2018): Presbyopia 12/28/2008 Overview (01/08/2018): Regular astigmatism 12/28/2008 Overview (01/08/2018): Hypermetropia 12/28/2008 Overview (01/08/2018): Internal derangement of knee 11/02/2008 Overview (01/08/2018): Other examination of ears and hearing 05/11/2008 Overview (01/08/2018): Screening for hypertension 05/07/2008 Overview (01/08/2018): Pain in joint, lower leg 03/01/2008 Overview (01/08/2018): Backache 07/08/2007 Overview (01/08/2018): Resolved Problems Problem Noted Date Diagnosed Date Resolved Date Acute sinusitis 07/19/2009 10/23/2018 Overview (01/08/2018): Family History Medical History Relation Name Comments Diabetes Brother Testicular cancer Brother Diabetes Father Heart disease Father Skin cancer Father Breast cancer Mother Hypertension Mother Kidney cancer Mother Heart disease Paternal Grandfather Diabetes Paternal Grandmother Relation Name Status Comments Brother Father Mother Paternal Grandfather Paternal Grandmother Social History Tobacco Use Types Packs/Day Years Used Date Smoking Tobacco: Former Cigarettes Q uit: 2002 Smokeless Tobacco: Never Intimate Partner Violence Answer Date R ecorded Insults You Not on file 11/22/2020 Threatens You Not on file 11/22/2020 Screams at You Not on file 11/22/2020 Physically Hurt Not on file 11/22/2020 Intimate Partner Violence Score Not on file 11/22/2020 Depression Answer Date Recorded PHQ-9 Total Score 0 12/12/2020 Stress Answer Date Recorded Stress in your Life Not on file 06/15/2024 Dealing with Stress 3 06/15/2024 Comments Unknown Sex and Gender Information Value Date Recorded Sex Assigned at Not on file Legal Sex Female 7:53 AM CDT Gender Identity Not on file Sexual Orientation Not on file Last Filed Vital Signs Vital Sign Reading Time Taken Comments Blood Pressure 130/84 12/12/2020 2:47 PM EDT Pulse 89 12/12/2020 2:47 PM EDT Temperature 37.1 C (98.8 F) 02/19/2022 10:46 AM EDT Respiratory Rate 16 12/12/2020 2:47 PM EDT Oxygen Saturation 95% 12/12/2020 2:47 PM EDT Inhaled Oxygen Concentration - - Weight 93.4 kg (206 lb) 05/25/2019 1:28 PM EDT Height 167.6 cm (5' 6 ) 05/25/2019 1:28 PM EDT Body Mass Index 33.25 05/25/2019 1:28 PM EDT Plan of Treatment Health Maintenance Due Date Last Done Comments CT Colonography 1965 Cervical Cancer Screening Combo 1965 Colonoscopy 1965 Colorectal Cancer Screening Combo 1965 DNA Cologuard 1965 Dental Cleaning/Exam 1965 FIT or FOBT Test 1965 HIV Screening 1965 HPV only / HPV + Pap 1965 Hepatitis C Screening 1965 Pap only testing 1965 Sigmoidoscopy 1965 Annual Preventive Exam 1982 Hep B Infection Screening - Triple Screen 1982 Tetanus Diphtheria and Pertussis Immunization (1 - Tdap) 1983 Zoster Immunization (2 of 3) 07/16/2016 05/21/2016 Pneumococcal: 50+ Years (2 o f 2 - PPSV23, PCV20, or PCV21) 10/04/2016 08/09/2016 Breast Cancer Screening 08/07/2021 08/07/20 19, 05/07/2017 Covid-19 Immunization (1 - season) 2025 Influenza Immunization (#1) 2025 Pneumococcal Immunization Discontinued 08/09/2016 Hepatitis A Immunization Aged Out 019, 05/21/2018 No longer eligible based on patient's age to complete this topic HIB Immunization Aged Out No longer e ligible based on patient's age to complete this topic HPV Immunization Aged Out No longer e ligible based on patient's age to complete this topic Hepatitis B Immunization Aged Out No longer eligible based on patient's age to complete this topic Polio Immunization Aged Out No longer eligible based on patient's age to complete this topic Insurance [employer] 5 [id number] [place] [address] Care Teams Mines Inspector Relationship Specialty Start Date End Date Denae Serrano MD [address] [phone] PCP - General Change Number Operator 06/22/19
--- OUTSIDE RECORDS SUMMARY | 2025-07-27 12:32 | XMS_ITS | Clinical Summary ---
Author Organization [employer] ([place], [place], [place], [place], [place]) Address [address] [place] [address] Care Team Providers Care Counter Top Assembler Name Role Phone Denae Serrano MD Primary Care Provider [phone] Allergies Active Allergy Reactions Criticality Noted Date [...] Diagnosed Date History of colon polyps 12/25/2023 Family History Medical History Relation Name Comments Breast cancer Maternal Aunt Breast cancer Mother Ovarian cancer Neg Hx Relation Name Status Comments Maternal Aunt Mother Social History Tobacco Use Types Packs/Day Years [...] Date Javier rded Speak language other than Lebanese at home Not on file 08/23/2023 Want [...] Info) Description 09/13/2025 11:15 AM EST Appointment [address] [place] [phone] Health Maintenance Due Date Last Done Comments CT Colonography 1965 FOBT/FIT 1965 Fit-DNA (Cologuard) 1965 Sigmoidoscopy 1965 Depression Screening (12+) 1976 Tobacco Cessation Counseling and Screening (12+) 1976 HIV Screening 1979 Hepatitis C Screening 1982 Pap Smear 1985 Pneumococcal 50+ years (2 of 2 - PCV20 or PCV21) 08/09/2017 08/09/2016 Lipid Panel 10/20/2021 10/20/2018 Medicare IPPE (Welcome to Medicare) [id number] 08/12/2024 COVID-19 VACCINE (1 - 2023-2 5 season) 2025 Influenza Vaccine (#1) 2025 0, 05/12/2019, 05/17/2016 Breast Cancer Screening 09/09/2026 09/09/19 25, 09/04/2023, 01/08/2023, Additional history exists Colonoscopy 01/23/2027 01/24/2024 Colorectal Cancer Screening 01/23/2027 DTAP/TDAP/TD VACCINES (3 - T d or Tdap) 04/24/2032 04/24/2022, 03/30/2011 Respiratory Syncytial Virus (RSV) Adult or (1 - 1-dose 75+ series) 2039 Shingles Vaccine (Zoster) Completed 04/24/2022, 05/2016 Procedures Procedure Name Priority Date/Time Associated Diagnosis [...] central right breast. us Denae Serrano MD IMG MAMMOGRAPHY ORDERABLES Final Result from Last 3 Months or Most Recently Relevant to Health Maintenance Insurance BLUE CROSS/BLUE SHIELD MEDICARE PART A B Care Teams Counter Top Assembler Relationship Specialty Start Date End Date Denae Serrano MD [address] [place] [phone] PCP - General Family Medicine 06/11/22
[2025-07-27 12:51] LABS: Blood Urea Nitrogen 29 mg/dl (7-17); Creatinine,Serum 0.70 mg/dl (0.52-1.04); Estimated Glomerular Filt Rate 85 ml/min (>60); GFR (African American) 103 ML/MIN (>60)
== END 2025-07-27 23:59 | disposition home or self-care (01) ==
PROVIDERS: PCP Family Medicine; Visit Provider Podiatrist
DX: S82.832A Other fracture of upper and lower end of left fibula, initial encounter for closed fracture (principal); G89.29 Other chronic pain; M85.89 Other specified disorders of bone density and structure, multiple sites
CPT/HCPCS: 36415; 82565; 84520

== ENCOUNTER 2025-07-28 10:29 | Outpatient (CLI) | payer MEDICARE, BC, SELFPAY ==
[2025-07-28] MEDS: GADOTERIDOL INJ 20ML SYRINGE 17 ML IV (11:51)
--- NOTE | 2025-07-28 16:00 | MR_ITS ---
FINAL REPORT TECHNIQUE: Multiplanar MR imaging of the left ankle was obtained with and without contrast. CLINICAL HISTORY: Evaluation of Left Ankle Instability and Pain FINDINGS: Articular cartilage: There are mild, diffuse degenerative changes. No focal osteochondral defect. Marrow signal: Oblique fracture of the distal fibula is seen extending to the mortise. There is 2 mm of displacement. There is mild marrow edema of the lateral talus and calcaneus abutting the subtalar joint which may be degenerative or related to bone contusion. Joint fluid: Moderate joint effusions of the subtalar and ankle joint. Calcified joint body is seen posterior to the ankle measuring 6 mm. Tendons: No evidence of tear Ligaments: Talofibular and deltoid ligaments are intact. There is a tear involving the anterior tibiofibular ligament syndesmosis. There is also a tear of many of the talocalcaneal ligaments within the subtalar joint. Plantar fascia: No evidence of tear or fasciitis. Postcontrast imaging demonstrates enhancement surrounding the distal fibula which could be associated with posttraumatic change. No enhancing mass identified. IMPRESSION: 1. Distal fibular fracture with surrounding contrast-enhancement which could be associated to posttraumatic change. 2. Tear of the anterior talofibular ligament and tibiofibular syndesmosis. 3. Age-indeterminate tear of the talocalcaneal ligaments with significant effusion of the subtalar joint. Reviewed, Interpreted and Dictated by Marine Forman MD Transcribed by Callie Lopes Authenticated and [facility]
== END 2025-07-28 23:59 | disposition home or self-care (01) ==
LOC: RAD 10:30
PROVIDERS: PCP Family Medicine; Visit Provider Podiatrist
DX: S82.832A Other fracture of upper and lower end of left fibula, initial encounter for closed fracture (principal); S93.492A Sprain of other ligament of left ankle, initial encounter; S93.432A Sprain of tibiofibular ligament of left ankle, initial encounter; S93.692A Other sprain of left foot, initial encounter; M85.89 Other specified disorders of bone density and structure, multiple sites; G89.29 Other chronic pain
CPT/HCPCS: 73723; A9576

== ENCOUNTER 2025-07-29 12:53 | Outpatient (CLI) | payer MEDICARE, BC, SELFPAY ==
--- OUTSIDE RECORDS SUMMARY | 2023-11-28 10:00 | XMS_ITS | Encounter Summary ---
[facility] [address] [place] [address] Care Team Providers Care Inward Toll Operator Name Role Phone Denae Serrano MD Primary Care Provider + Reason for Referral * Hospital - Outpatient (Routine) - Closed Specialty Diagnoses / Procedures Referred By Shaun parker Referred To Contact Sleep Medicine Diagnoses PÉREZ (obstructive sleep apnea) Procedures Home Sleep Study Bautista Franks MD [address] [place] [address] Phone: tel: fax: [facility] [address] [address] Phone: tel: fax: Referral ID Status Reason Start Date Expiration Date Visits Re quested Visits Authorized [id number] Closed 11/19/2023 01/20/2024 1 1 Reason for Visit * Hospital - Outpatient (Routine) - Closed Specialty Diagnoses / Procedures Referred By Shaun parker Referred To Contact Sleep Medicine Diagnoses PÉREZ (obstructive sleep apnea) Procedures Home Sleep Study Bautista Franks MD [address] [place] [address] Phone: tel: fax: [facility] [address] [address] Phone: tel: fax: Referral ID Status Reason Start Date Expiration Date Visits Re quested Visits Authorized [id number] Closed 11/19/2023 01/20/2024 1 1 Encounter Details Date Type Department Care Team (Latest Contact Info) Description 11/28/2023 11:00 AM EDT Hospital Encounter [facility] [address] [facility] [address] [place] [phone] PÉREZ (obstructive sleep apnea) Social History Tobacco [...] BMI (Calculated): 33.7 Patient presents with an [place] Sleepiness Scale of Total score: 1 Methods [...] Tech Summary: Scoring Tech (Ann Rivas, RPSGT, DIRECTOR CLINICAL DATA): Insufficient data collected due to failure with equipment. Looks as if patient pulled off or did not wear the pulse ox probe. There was not enough data collected for study to be valid. This is technically an inadequate home sleep study. An in-lab sleep study will be necessary in order to obtain accurate diagnostic data. (11/29/23 1449 : Ann Rivas, DIRECTOR CLINICAL DATA) Polysomnography Results Diagnostic Summary TOTAL RECORDING TIME: [...] (pediatric) documented in this encounter Care Teams Inward Toll Operator Relationship Specialty Start Date End Date Denae Serrano MD [address] [place] [address] PCP - General Family Medicine 03/19/16 documented as of this encounter
--- OUTSIDE RECORDS SUMMARY | 2024-05-04 18:20 | XMS_ITS | Encounter Summary ---
[facility] [address] [place] [address] Care Team Providers Care Resistor Winder Name Role Phone Denae Serrano MD Primary Care Provider + Reason for Referral * Hospital - Outpatient (Routine) - Closed Specialty Diagnoses / Procedures Referred By Shaun parker Referred To Contact Sleep Medicine Diagnoses Hypersomnolence Procedures Polysomnography 4 or More Parameters Bautista Franks MD [address] [place] [address] Phone: tel: fax: [facility] [address] [place] [phone] Phone: tel: fax: Referral ID Status Reason Start Date Expiration Date Visits Re quested Visits Authorized [id number] Closed 12/03/2023 05/18/2024 1 1 Reason for Visit * Hospital - Outpatient (Routine) - Closed Specialty Diagnoses / Procedures Referred By Shaun parker Referred To Contact Sleep Medicine Diagnoses Hypersomnolence Procedures Polysomnography 4 or More Parameters Bautista Franks MD [address] [place] [address] Phone: tel: fax: [facility] [address] [place] [address] Phone: tel: fax: Referral ID Status Reason Start Date Expiration Date Visits Re quested Visits Authorized [id number] Closed 12/03/2023 05/18/2024 1 1 Encounter Details Date Type Department Care Team (Late st Contact Info) Description 05/04/2024 7:20 PM EDT Hospital Encounter [facility] [address] [place] [phone] Bautista Franks MD [address] [place] [address] Hypersomnolence Social History Tobacco Use Types Packs/Day [...] unspecified documented in this encounter Care Teams Resistor Winder Relationship Specialty Start Date End Date Denae Serrano MD [address] [place] [address] PCP - General Family Medicine 03/19/16 documented as of this encounter
--- OUTSIDE RECORDS SUMMARY | 2025-07-21 15:37 | XMS_ITS | Encounter Summary ---
Author Organization [facility] [address] Care Team Providers Care Correctional Supervisor Lieutenant Name Role Phone Nonstaff, Referring Primary Care Provider Dangelo scott Reason for Visit * Reason Comments Fall Slipped in mud, inju ry to left knee and ankle Encounter Details Date Type Department Care Team (Late st Contact Info) Description 07/21/2025 3:37 PM EST - 07/21/2025 6:12 PM EST Emergency [facility] [address] [facility] [place] [address] Modesto Groves MD [address] [place], [place] [id number] Fall, initial encounter (Primary Dx); Closed fracture [...] sent through Care Everywhere. * Ankle fracture (Norwegian) documented in this encounter Medications at Time [...] Means Destination Comment s Home or Self Prison documented in this encounter ED Notes * [...] given ankle fracture. She will be prescribed [place] to help with pain control and advised to keep leg elevated and apply cool compresses as needed. She understands and she is agreeable this plan of care and she is discharged in stable condition. CLINICAL IMPRESSION: Fall, left ankle fracture DISPOSITION/PLAN: 1. Posterior short leg splint with stirrups 2. [place] 3. Discharge to home with orthopedic surgery follow-up *[facility] reviewed. Risks and benefits of narcotic treatment were discussed with the patient. Patient elects to continue with treatment using narcotic therapy. Patient is strictly advised to avoid operating any machinery or motor vehicles while under the influence of narcotic therapy and to only use narcotics as prescribed. Modesto Groves MD 07/21/25 2620 documented in this encounter Plan of Treatment [...] 07/21/2025 documented in this encounter Care Teams Correctional Supervisor Lieutenant Relationship Specialty Start Date End Date Nonstaff, Referring PCP - General 07/21/25 documented as of this encounter
--- OUTSIDE RECORDS SUMMARY | 2025-07-29 13:12 | XMS_ITS | Clinical Summary ---
Author Organization [facility] Address [address] [place] [address] Phone Care Team Providers Care Integrated Logistics Programs Director Name Role Phone Nonstaff, Referring Primary Care [...] 6:12 PM EST [facility] [address] [facility]. [place] [phone] Modesto Groves MD Fall, initial encounter (Primary [...] of the ordering clinician. Modesto Groves MD [facility] ORDERABLES Final Result * XR [...] of the ordering clinician. Modesto Groves MD [facility] ORDERABLES Final Result from Last 3 Months Insurance [facility] PPO MEDICARE [place] PART A AND B Care Teams Integrated Logistics Programs Director Relationship Specialty Start Date End Date Nonstaff, Referring PCP - General 07/21/25
--- OUTSIDE RECORDS SUMMARY | 2025-07-29 13:12 | XMS_ITS | Encounter Summary ---
Author Organization [facility] [place] [address] Care Team Providers Care Procurement Assistant Name Role Phone Nonstaff, Referring Primary Care [...] on filedocumented in this encounter Care Teams Procurement Assistant Relationship Specialty Start Date End Date Nonstaff, Referring PCP - General 07/21/25 documented as of this encounter
--- OUTSIDE RECORDS SUMMARY | 2025-07-29 13:13 | XMS_ITS | Clinical Summary ---
Author Organization [facility] Address [address] [place] [address] Care Team Providers Care Biofuels Operations Manager Name Role Phone Denae Serrano MD Primary Care Provider [phone] Allergies Active Allergy Reactions Criticality Noted Date [...] (09/03/2022): Added automatically from request for surgery [id number] Dysphagia 07/11/2022 Overview (07/11/2022): Trouble swallowing pills [...] drink first t divina in the morning (EYE-ELECTRICIAN HELPER POWERHOUSE) to steady your nerves or to get [...] Screening 09/04/202408/13, 09/04/2022, 08/30/2021, Additional history exists [id number] Vaccine (1 - 2024- season) 2025 UKY-Influenza [...] this topic Medical Devices Implanted Type Area Weed Burner Device Identifier Shelf Expiration Date Model / Serial / Lot Implant Implant Bilateral: Knee Stent Stent Heart Mesh Phasix 10x12 In - [id number] Implanted:Qty : 1 on 07/26/2022 by Gentry Guardado MD at [facility] N/A: Abdomen Davol [id number] 05/09/2023 [id number] / / [id number] Cement Palacos - [id number] Implanted:Qty : 2 on 11/27/2022 by Albert Boswell MD at [facility] Right: Knee Heraeus [id number] 05/11/2027 [id number] / / [id number] Chg Patella Gii Oval Resurfaci - [id number] Implanted:Qty : 1 on 11/27/2022 by Albert Boswell MD at [facility] Right: Knee Judd & Nephew Chapman [id number] 07/31/2032 [id number] / / [id number] Chg Femoral Legion Ps Oxin Sz5 - [id number] Implanted:Qty : 1 on 11/27/2022 by Albert Boswell MD at [facility] Right: Knee Judd [employer] Nephew Chapman Inc-[id number] 04/23/2032 [id number] / / [id number] Chg Tibial Gns Ii Cmt Size 3 R - [id number] Implanted:Qty : 1 on 11/27/2022 by Albert Boswell MD at [facility] Right: Knee Judd [employer] Nephew Chapman [id number] 06/13/2032 [id number] / / [id number] Knee Lgn Xlp Ps High Sz3-4 12mm - [id number] Implanted:Qty : 1 on 11/27/2022 by Albert Boswell MD at [facility] Right: Knee Judd [employer] Nephew Chapman Inc-[id number] 08/13/2032 [id number] / / [id number] Procedures Procedure Name Priority Date/Time Associated Diagnosis Comments POCT GLYCOSYLATED HEMOGLOBIN (HGB A1C) Routine 07/11/2022 8:59 AM EST Personal history of nutritional deficiency from Last 3 Months or Most Recently Relevant to Health Maintenance Results * POCT Glycosylated Hemoglobin (Hgb A1C) (07/11/2022 8:59 AM EST) POCT Hemoglobin A1C 6.0 4.4-6.6 % % [facility] Kit Lot Number [id number] [facility] Kit Expiration Date 06/11/24 [facility] Blood Venous blood specimen / Unknown 07/11/2022 8:59 AM EST Gentry Guardado MD POINT OF CARE TEST ENTER/EDIT OR DERABLES Final Result [facility] [address] [place] [address] from Last 3 Months or Most Recently Relevant to Health Maintenance Insurance [facility] [place] [address] Advance Directives * Full Code (Latest Code Status on File) Date Activated Date Inactivated Comments 07/26/2022 4:15 PM 07/28/2022 6:08 PM Question Answer Comments Patient has decision-making capacity? Yes Care Teams Biofuels Operations Manager Relationship Specialty Start Date End Date Denae Serrano MD [address] [place] [address] [address] [place] [address] PCP - General 12/23/20
--- OUTSIDE RECORDS SUMMARY | 2025-07-29 13:13 | XMS_ITS | Clinical Summary ---
Author Organization [facility] Address [address] [place] [address] Care Team Providers Care Coupling Machine Operator Name Role Phone Denae Serrano [...] pain 02/25/2023 Coronary artery disease invo lving [place] coronary artery of [place] heart without angina pectoris 10/28/2018 Acute [place] inferior lateral first episode care 05/2019 Hyperlipidemia [...] 022, 03/30/2011 Medical Devices Implanted Type Area Utility Operator Device Identifier Shelf Expiration Date Model / Serial / Lot Stent Xience Gladys Everolimus Brendan 3.5x18mm - [id number] Implanted:Qty: 1 on 10/19/2018 by Xander Rosenbaum MD at [facility] [id number] / / Procedures Procedure Name Priority Date/Time [...] - 200 mg/dL 10/20/2018 6:28 AM EDT [facility] Triglycerides 152(H) 0 - 150 mg/dL 10/20/2018 6:28 AM EDT [facility] HDL Cholesterol 39(L) 40 - 60 mg/dL 10/20/2018 6:28 AM EDT [facility] LDL Cholesterol 118 0 - 130 mg/dL 10/20/2018 6:28 AM T [facility] Blood Venipuncture / Unknown 10/20/2018 3:39 AM EDT 10/20/2018 5:34 AM EDT [facility] - 10/20/2018 6:28 AM EDT Cholesterol [...] Xander Rosenbaum MD LAB BLOOD ORDERABLES Anamika kathi Result [facility]
[address] [place] [address], from Last 3 Months or Most Recently Relevant to Health Maintenance Insurance [facility] PPO Advance Directives * CPR (Attempt to Resuscitate) (Latest Code Status on File) Date Activated Date Inactivated Comments 10/19/2018 3:31 PM 10/21/2018 3:19 PM Question Answer Comments Code Status (Patient has no pulse and is not breathing): CPR (Attempt to Resuscitate) Medical Interventions (Patie nt has pulse or is breathing): Full Level Of Support Discussed With: Patient Care Teams Coupling Machine Operator Relationship Specialty Start Date End Date Denae Serrano MD [address] [place] [address] PCP - General Family Medicine 03/19/16
--- OUTSIDE RECORDS SUMMARY | 2025-07-29 13:13 | XMS_ITS | Clinical Summary ---
Author Organization [facility] Address [address] [place] [address] Phone [email or web address] Care Team Providers Care Project Director Name Role Phone Denae Serrano MD [...] elbow 05/25/2019 Coronary artery disease invo lving [place] coronary artery of [place] heart without angina pectoris 10/28/2018 S/P coronary artery stent placement 10/23/2018 Overview (10/23/2018): -LCX Acute [place] inferior lateral first episode care 05/2019 Hyperlipidemia [...] Insurance ANTH IN COPAY 5 [id number] [place] [address] Care Teams Project Director Relationship Specialty Start Date End Date Denae Serrano MD [address] [address] PCP - General Piano Machine Operator 06/22/19
[2025-07-29 13:15] LABS: Hematocrit 41.7 % (37.0-47.0); Hemoglobin 13.5 g/dL (12.2-16.2); Immature Granulocytes % 0.2 %; Mean Corpuscular HGB Conc 32.4 g/dL (31.8-35.4); Mean Corpuscular Hemoglobin 29.3 pg (27.0-31.2); Mean Corpuscular Volume 90.5 fl (81-99); Nucleated Red Blood Cells % 0 %; Platelet Count 234 K/mm3 (142-424); Red Blood Count 4.61 M/mm3 (4.20-5.40); Red Cell Distribution Width-SD 41.5 fL; White Blood Count 8.1 K/mm3 (4.8-10.8)
[2025-07-29 13:44] LABS: Chloride 103 mmol/L (98-107)
[2025-07-29 13:45] LABS: Albumin Level 4.0 g/dl (3.5-5.0); Potassium 4.4 mmoL/L (3.5-5.1); Sodium 132 mmol/L (136-145)
[2025-07-29 13:47] LABS: Anion Gap 7.4 mEq/L (5-15); Blood Urea Nitrogen 30 mg/dl (7-17); Carbon Dioxide 26 mmol/L (22.0-30.0); Creatinine,Serum 0.70 mg/dl (0.52-1.04); Estimated Glomerular Filt Rate 85 ml/min (>60); GFR (African American) 103 ML/MIN (>60)
[2025-07-29 13:48] LABS: Alanine Aminotransferase 40 U/L (12-78); Albumin/Globulin Ratio 1.7 (1.1-1.8); Alkaline Phosphatase 66 U/L (38-126); Aspartate Amino Transferase 28 U/L (14-36); Bilirubin,Total 0.2 mg/dl (0.2-1.3); Calcium 9.2 mg/dl (8.4-10.2); Globulin 2.4 g/dL (1.3-3.2); Glucose 104 mg/dl (74-100); Magnesium 2.0 mg/dl (1.6-2.3); Total Protein,Serum 6.4 g/dl (6.3-8.2)
[2025-07-29 14:38] LABS: Vitamin B12 573 pg/mL (239-931)
[2025-07-30 12:26] LABS: Prealbumin 26 mg/dL (10-36)
[2025-08-03 21:08] LABS: 1,25 Dihydroxy Vitamin D 15 pg/mL (.); 1,25-Dihydroxy, Vitamin D-2 <10 pg/mL (.); 1,25-Dihydroxy, Vitamin D-3 14 pg/mL (.)
== END 2025-07-29 23:59 | disposition home or self-care (01) ==
LOC: LAB 12:54
PROVIDERS: PCP Family Medicine; Visit Provider Podiatrist
DX: M85.89 Other specified disorders of bone density and structure, multiple sites (principal); Z87.891 Personal history of nicotine dependence; E55.9 Vitamin D deficiency, unspecified; R60.0 Localized edema
CPT/HCPCS: 36415; 80053; 80323; 82607; 82652; 83735; 84134; 85025

== ENCOUNTER 2025-08-06 09:20 | Outpatient (CLI) | payer MEDICARE, BC, SELFPAY ==
--- OUTSIDE RECORDS SUMMARY | 2023-11-28 10:00 | XMS_ITS | Encounter Summary ---
[facility] [address] [place] [address] Care Team Providers Care Tablet Repair Name Role Phone Denae Serrnao MD Primary Care Provider + Reason for Referral * Hospital - Outpatient (Routine) - Closed Specialty Diagnoses / Procedures Referred By Shaun parker Referred To Contact Sleep Medicine Diagnoses PÉREZ (obstructive sleep apnea) Procedures Home Sleep Study Bautista Franks MD [address] [place] [address] Phone: tel: fax: [facility] [address] [address] Phone: tel: fax: Referral ID Status Reason Start Date Expiration Date Visits Re quested Visits Authorized [id number] Closed 11/19/2023 01/20/2024 1 1 Reason for Visit * Hospital - Outpatient (Routine) - Closed Specialty Diagnoses / Procedures Referred By Shaun parker Referred To Contact Sleep Medicine Diagnoses PÉREZ (obstructive sleep apnea) Procedures Home Sleep Study Bautista Franks MD [address] [place] [address] Phone: tel: fax: [facility] [address] [address] Phone: tel: fax: Referral ID Status Reason Start Date Expiration Date Visits Re quested Visits Authorized [id number] Closed 11/19/2023 01/20/2024 1 1 Encounter Details Date Type Department Care Team (Latest Contact Info) Description 11/28/2023 11:00 AM EDT Hospital Encounter [facility] [facility] [address] [place] [phone] PÉREZ (obstructive sleep apnea) Social History Tobacco [...] BMI (Calculated): 33.7 Patient presents with an [place] Sleepiness Scale of Total score: 1 Methods [...] Tech Summary: Scoring Tech (Ann Rivas, RPSGT, TEXTILE ENGINEER): Insufficient data collected due to failure with equipment. Looks as if patient pulled off or did not wear the pulse ox probe. There was not enough data collected for study to be valid. This is technically an inadequate home sleep study. An in-lab sleep study will be necessary in order to obtain accurate diagnostic data. (11/29/23 1449 : Ann Rivas, TEXTILE ENGINEER) Polysomnography Results Diagnostic Summary TOTAL RECORDING TIME: [...] (pediatric) documented in this encounter Care Teams Tablet Repair Relationship Specialty Start Date End Date Denae Serrano MD [address] [place] [address] PCP - General Family Medicine 03/19/16 documented as of this encounter
--- OUTSIDE RECORDS SUMMARY | 2024-05-04 18:20 | XMS_ITS | Encounter Summary ---
[facility] [address] [place] [address] Care Team Providers Care Plastic Surgery Assistant Name Role Phone Denae Serrano MD Primary Care Provider + Reason for Referral * Hospital - Outpatient (Routine) - Closed Specialty Diagnoses / Procedures Referred By Shaun parker Referred To Contact Sleep Medicine Diagnoses Hypersomnolence Procedures Polysomnography 4 or More Parameters Bautista Franks MD [address] [place] [address] Phone: tel: fax: [facility] [address] [place] [phone] Phone: tel: fax: Referral ID Status Reason Start Date Expiration Date Visits Re quested Visits Authorized [id number] Closed 12/03/2023 05/18/2024 1 1 Reason for Visit * Hospital - Outpatient (Routine) - Closed Specialty Diagnoses / Procedures Referred By Shaun parker Referred To Contact Sleep Medicine Diagnoses Hypersomnolence Procedures Polysomnography 4 or More Parameters Bautista Franks MD [address] [place] [address] Phone: tel: fax: [facility] [address] [place] [address] Phone: tel: fax: Referral ID Status Reason Start Date Expiration Date Visits Re quested Visits Authorized [id number] Closed 12/03/2023 05/18/2024 1 1 Encounter Details Date Type Department Care Team (Late st Contact Info) Description 05/04/2024 7:20 PM EDT Hospital Encounter [facility] [address] [place] [phone] Bautista Franks MD [address] [place] [address] Hypersomnolence Social History Tobacco Use Types Packs/Day [...] agree with the interpretation. Bautista Franks MD, [facility] Pulmonary Critical care and Sleep medicine [...] unspecified documented in this encounter Care Teams Plastic Surgery Assistant Relationship Specialty Start Date End Date Denae Serrano MD [address] [place] [address] PCP - General Family Medicine 03/19/16 documented as of this encounter
--- OUTSIDE RECORDS SUMMARY | 2025-07-21 15:37 | XMS_ITS | Encounter Summary ---
Author Organization [facility] [place] [address] Care Team Providers Care Hazardous Substances Engineer Name Role Phone Nonstaff, Referring Primary Care Provider Dangelo scott Reason for Visit * Reason Comments Fall Slipped in mud, inju ry to left knee and ankle Encounter Details Date Type Department Care Team (Late st Contact Info) Description 07/21/2025 3:37 PM EST - 07/21/2025 6:12 PM EST Emergency [facility] [address] [facility] [place] [address] Modesto Groves MD [address] [place], [place] [phone] Fall, initial encounter (Primary Dx); Closed fracture [...] sent through Care Everywhere. * Ankle fracture ([place]) documented in this encounter Medications at Time [...] Means Destination Comment s Home or Self Correction documented in this encounter ED Notes * [...] given ankle fracture. She will be prescribed [place] to help with pain control and advised to keep leg elevated and apply cool compresses as needed. She understands and she is agreeable this plan of care and she is discharged in stable condition. CLINICAL IMPRESSION: Fall, left ankle fracture DISPOSITION/PLAN: 1. Posterior short leg splint with stirrups 2. [place] 3. Discharge to home with orthopedic surgery follow-up *[facility] reviewed. Risks and benefits of narcotic treatment were discussed with the patient. Patient elects to continue with treatment using narcotic therapy. Patient is strictly advised to avoid operating any machinery or motor vehicles while under the influence of narcotic therapy and to only use narcotics as prescribed. Modesto Groves MD 07/21/25 6422 documented in this encounter Plan of Treatment [...] 24 hours. 1601 (Given - Provid er: Michelle Corbett RN) documented in this encounter Orders Nursing Count Last Ordered Date First Orde red Date ED [facility] DME 1 07/21/2025 SPLINT, CUSTOM 1 07/21/2025 documented in this encounter Care Teams Hazardous Substances Engineer Relationship Specialty Start Date End Date Nonstaff, Referring PCP - General 07/21/25 documented as of this encounter
--- OUTSIDE RECORDS SUMMARY | 2025-08-06 09:23 | XMS_ITS | Encounter Summary ---
Author Organization [employer] ([place], [place], [place], [place], [place]) Address [address] [place] [address] Care Team Providers Care Cutter And Presser Name Role Phone Denae Serrano MD Primary Care Provider [phone] Encounter Details Date Type Department Care Team (Late st Contact Info) Description 08/07/2018 Transcribed Document [facility] [place] Family Medicine [address] [place] [address] Jer Klein MD [address] [place], [place] [address] Social History Tobacco Use Types Packs/Day Years Used Date Smoking Tobacco: Never Assessed Comments Unknown Sex and Gender Information Value Date Recorded Sex Assigned at Not on file Legal Sex Female 4:41 PM CDT Gender Identity Not on file Sexual Orientation Not on file documented as of this encounter Miscellaneous Notes * Cerner Conversion Note - Jer Klein MD - 08/07/2018 1:26 PM VP DIRECTOR OF FINANCE [place] [facility] Follow Up Note RE: ZENAIDA BOWLING : 1965 Date of Service: 08/07/2018 Referring Physician: Herminio Perez Reason for Visit: colon cancer follow up Cancer Treatment History: 1) 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 Diagnosed on colonoscopy [...] needed Social History: Single. She lives in [place]. Mother is main support person. Patient works at [employer], does quality assurance coordinator (lots of driving [...] 52 yo WF with 1) Stage IIIIB (S5K3yS3) invasive colon cancer. 08/25 lymph nodes positive [...] Herminio Perez MD, [address] Dr. [place] [facility] MD Liat Berger MD [address], [address], [place] [address] 1 Electronically signed by Juan [facility] Conversion Log Washer Cerner at 11/28/2022 11:15 PM CDT documented in this encounter Plan of Treatment Upcoming Encounters Date Type Department Care Team (Late st Contact Info) Description 09/13/2025 11:15 AM EST Appointment [facility] Breast [address] [place] [address] documented as of this encounter Visit Diagnoses Not on filedocumented in this encounter Care Teams Cutter And Presser Relationship Specialty Start Date End Date Denae Serrano MD [address] [phone] PCP - General Family Medicine 06/11/22 documented as of this encounter
--- OUTSIDE RECORDS SUMMARY | 2025-08-06 09:23 | XMS_ITS | Encounter Summary ---
Author Organization [employer] ([place], [place], [place], [place], [place]) Address [address] [place] [address] Care Team Providers Care Pipe Supervisor Name Role Phone Denae Serrano MD Primary Care Provider [phone] Encounter Details Date Type Department Care Team (Late st Contact Info) Description 03/01/2020 Transcribed Document [facility] [place] [address] [place] [address] ProviderJer MD [address] [place], [place] [address] Social History Tobacco Use Types Packs/Day Years [...] ZENAIDA BOWLING/Sex: 1965 Female Med Rec #: [id number] Physician: SWAPNIL RAMIREZ MD-SUR Financial #: [id number] Pt. Type: O Room/Bed: Admit/Disch: 03/01/20 07:45:00 - Institution: [facility] Main OR PACU Case Times Entry 1 In PACU I 03/01/20 11:40:00 Ready for PACU 03/01/20 13:35:00 Discharge Discharge from PACU 03/01/20 13:35:00 I Last Modified By: Wilda Moralez RN 03/01/20 13:39:31 [facility] Main OR PACU Case Times Audit 03/01/20 13:39:31 Head Stock Operator: [email or web address] Modifier: [email or web address] <+> 1 Ready for PACU Discharge <+> 1 Discharge from PACU I Finalized By: Wilda Moralez, RN Document Signatures Signed By: Wilda Moralez RN 03/01/20 13:39 documented in this encounter Plan of Treatment Upcoming Encounters Date Type Department Care Team (Late st Contact Info) Description 09/13/2025 11:15 AM EST Appointment [address] [address] documented as of this encounter Visit Diagnoses Not on filedocumented in this encounter Care Teams Pipe Supervisor Relationship Specialty Start Date End Date Denae Serrano MD [address] [place] [phone] PCP - General Family Medicine 06/11/22 documented as of this encounter
--- OUTSIDE RECORDS SUMMARY | 2025-08-06 09:23 | XMS_ITS | Clinical Summary ---
Author Organization [facility] Address [address] [place] [address] Phone Care Team Providers Care Teletypesetter Monitor Name Role Phone Nonstaff, Referring Primary Care [...] 6:12 PM EST [facility] [address] [facility] [place] [id number] Modesto Groves MD Fall, initial encounter (Primary [...] of the ordering clinician. Modesto Groves MD [facility] ORDER[facility] Final Result * XR [...] of the ordering clinician. Modesto Groves MD [facility] ORDERABLES Final Result from Last 3 Months Insurance REPLACED BY [facility] PPO MEDICARE [place] PART A AND B Care Teams Teletypesetter Monitor Relationship Specialty Start Date End Date Nonstaff, Referring PCP - General 07/21/25
--- OUTSIDE RECORDS SUMMARY | 2025-08-06 09:23 | XMS_ITS | Encounter Summary ---
Author Organization [employer] ([place], [place], [place], [place], [place]) Address [address] [place] [address] Care Team Providers Care Sdc Teacher Name Role Phone Denae Serrano MD Primary Care Provider [phone] Encounter Details Date Type Department Care Team (Late st Contact Info) Description 02/27/2019 Transcribed Document [facility] [place] Family Medicine [address] [place] [address] ProviderJer MD [address] [place] [address] Social History Tobacco Use Types Packs/Day Years [...] Klein MD - 02/27/2019 1:16 PM CDT [place] [facility] Follow Up Note RE: ZENAIDA BOWLING : 1965 Date of Service: 02/27/2019 Referring Physician: Herminio Perez Reason for Visit: colon cancer follow up/ high risk breast cancer screening CC: Doing well Cancer Treatment History: 1) Stage IIIB ([id number]) invasive adenocarcinoma transverse colon. Diagnosed on colonoscopy [...] Daily Praluent Pen [alirocumab] 1 Shot SubQ Dehpr4Drgba CoQ10 SG 100 (ubidecarenone/vitamin e mixed) [ubidecarenone/vitamin [...] sleep Social History: Single. She lives in [place]. Mother is main support person. 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 08/25 lymph nodes positive [...] to patient regarding medication. Mamm[facility] completed at [facility]; will request records. Due again 04/30. [...] Herminio Perez MD, Staci Mercado Dr[address] Dr. [place] [facility] Liat Contreras MD [address], [address], [place] [address] 2 documented in this encounter Plan of Treatment Upcoming Encounters Date Type Department Care Team (Late st Contact Info) Description 09/13/2025 11:15 AM EST Appointment [facility] [address] [place] [address] [address] [place] [address] documented as of this encounter Visit Diagnoses Not on filedocumented in this encounter Care Teams Sdc Teacher Relationship Specialty Start Date End Date Denae Serrano MD [address] [place] [phone] PCP - General Family Medicine 06/11/22 documented as of this encounter
--- OUTSIDE RECORDS SUMMARY | 2025-08-06 09:23 | XMS_ITS | Encounter Summary ---
Author Organization [employer] ([place], [place], [place], [place], [place]) Address [address] [place] [address] Care Team Providers Care Hospital Pharmacy Director Name Role Phone Denae Serrano MD Primary Care Provider [phone] Encounter Details Date Type Department Care Team (Late st Contact Info) Description 03/01/2020 Transcribed Document [facility] [place] [address] [place] [address] ProviderJer MD [address] [place], [place] [address] Social History Tobacco Use Types Packs/Day Years [...] Info) Description 09/13/2025 11:15 AM EST Appointment [address] [address] documented as of this encounter Visit Diagnoses Not on filedocumented in this encounter Care Teams Hospital Pharmacy Director Relationship Specialty Start Date End Date Denae Serrano MD [address] [place] [phone] PCP - General Family Medicine 06/11/22 documented as of this encounter
--- OUTSIDE RECORDS SUMMARY | 2025-08-06 09:23 | XMS_ITS | Encounter Summary ---
Author Organization [employer] ([place], [place], [place], [place], [place]) Address [address] [place] [address] Care Team Providers Care Cloud Systems Administrator Name Role Phone Denae Serrano MD Primary Care Provider [phone] Encounter Details Date Type Department Care Team (Late st Contact Info) Description 03/01/2020 Transcribed Document [facility] [place] Family Medicine [address] [place] [address] ProviderJer MD [address] [place], [place] [address] Social History Tobacco Use Types Packs/Day Years [...] EDT Electronically signed by Lynne Martinez Conversion Management Information Systems Director Cerner at 11/28/2022 11:12 PM CDT documented in this encounter Plan of Treatment Upcoming Encounters Date Type Department Care Team (Late st Contact Info) Description 09/13/2025 11:15 AM EST Appointment [address] [address] documented as of this encounter Visit Diagnoses Not on filedocumented in this encounter Care Teams Cloud Systems Administrator Relationship Specialty Start Date End Date Denae Serrano MD [address] [place] [phone] PCP - General Family Medicine 06/11/22 documented as of this encounter
--- OUTSIDE RECORDS SUMMARY | 2025-08-06 09:23 | XMS_ITS | Encounter Summary ---
Author Organization [employer] ([place], [place], [place], [place], [place]) Address [address] [place] [address] Care Team Providers Care Masseur/Masseuse Name Role Phone Denae Serrano MD Primary Care Provider [phone] Encounter Details Date Type Department Care Team (Late st Contact Info) Description 03/01/2020 Transcribed Document [facility] [place] [address] [place] [address] ProviderJer MD [address] [place], [place] [address] Social History Tobacco Use Types Packs/Day Years [...] ZENAIDA BOWLING/Sex: 1965 Female Med Rec #: [id number] Physician: SWAPNIL RAMIREZ MD-SUR Financial #: [id number] Pt. Type: O Room/Bed: [facility] Admit/Disch: 03/01/20 07:45:00 - Institution: [facility] Main OR PostOp Case Times Entry 1 In PACU II 03/01/20 13:25:00 Ready for PACU II 03/01/20 16:15:00 Discharge Discharge from PACU 03/01/20 16:15:00 II Last Modified By: PÉREZ ALBERT RN 03/01/20 16:34:19 Finalized By: PÉREZ ALBERT, RN Document Signatures Signed By: PÉREZ ALBERT RN 03/01/20 16:34 Electronically signed by Juan [facility] Conversion Applied Computer Science Professor Cerner at 11/28/2022 11:14 PM CDT documented in this encounter Plan of Treatment Upcoming Encounters Date Type Department Care Team (Late st Contact Info) Description 09/13/2025 11:15 AM EST Appointment [address] [phone] documented as of this encounter Visit Diagnoses Not on filedocumented in this encounter Care Teams Masseur/Masseuse Relationship Specialty Start Date End Date Denae eSrrano MD [address] [phone] PCP - General Family Medicine 06/11/22 documented as of this encounter
--- OUTSIDE RECORDS SUMMARY | 2025-08-06 09:23 | XMS_ITS | Encounter Summary ---
Author Organization [facility] [place] [address] Care Team Providers Care Senior Office Assistant Name Role Phone Nonstaff, Referring Primary [...] on filedocumented in this encounter Care Teams Senior Office Assistant Relationship Specialty Start Date End Date Nonstaff, Referring PCP - General 07/21/25 documented as of this encounter
--- OUTSIDE RECORDS SUMMARY | 2025-08-06 09:23 | XMS_ITS | Encounter Summary ---
Author Organization [employer] ([place], [place], [place], [place], [place]) Address [address] [place] [address] Care Team Providers Care Nursing Care Partner Name Role Phone Denae Serrano MD Primary Care Provider [phone] Encounter Details Date Type Department Care Team (Late st Contact Info) Description 03/01/2020 Transcribed Document [facility] [place] Family Medicine [address] [place] [address] ProviderJer MD [address] [place], [place] [address] Social History Tobacco Use Types Packs/Day Years [...] ZENAIDA BOWLING/Sex: 1965 Female Med Rec #: [id number] Physician: SWAPNIL RAMIREZ MD-SUR Financial #: [id number] Pt. Type: O Room/Bed: [facility] Admit/Disch: 03/01/20 07:45:00 - Institution: [facility] PreOp Case Times Entry 1 In Preop 03/01/20 08:00:00 Ready for Holding 03/01/20 09:55:00 Room Patient Ready for 03/01/20 09:55:00 Surgery Patient Out of Preop 03/01/20 10:25:00 Patient Out of n/a Holding Room Last Modified By: OMAR RODRÍGUEZ 03/01/20 11:48:52 [facility] PreOp Case Times Audit 03/01/20 11:48:52 Contract Coordinator: [id number] Modifier: [email or web address] <+> 1 Patient Out of Preop Finalized By: OMAR RODRÍGUEZ Document Signatures Signed By: OMAR RODRÍGUEZ 03/01/20 11:48 documented in this encounter Plan of Treatment Upcoming Encounters Date Type Department Care Team (Late st Contact Info) Description 09/13/2025 11:15 AM EST Appointment [address] [phone] documented as of this encounter Visit Diagnoses Not on filedocumented in this encounter Care Teams Nursing Care Partner Relationship Specialty Start Date End Date Denae Serrano MD [address] [place] [phone] PCP - General Family Medicine 06/11/22 documented as of this encounter
--- OUTSIDE RECORDS SUMMARY | 2025-08-06 09:23 | XMS_ITS | Encounter Summary ---
Author Organization [employer] ([place], [place], [place], [place], [place]) Address [address] [place] [address] Care Team Providers Care Blueprint Reproducer Name Role Phone Denae Serrano MD Primary Care Provider [phone] Encounter Details Date Type Department Care Team (Late st Contact Info) Description 03/01/2020 Transcribed Document [facility] [place] [address] [place] [address] ProviderJer MD [address] [place], [place] [address] Social History Tobacco Use Types Packs/Day Years [...] Source : Stated Height Entry Format : [place] Height, Feet : 5 ft(Converted to: 152 cm, 60 Inch) Height, Inches : 6.5 Inch(Converted to: 0 ft 7 Inch, 16.51 cm) Clinical Height : 168.91 cm Weight Source : Standing scale Weight Entry Format : [place] Clinical Dosing Weight : 100.91 kg Weight, Pounds : 222 lb Body Surface Area (BSA) : 2.1 m2 Body Mass Index : 35.4 kg/m2 (HI) [place] Body Weight : 60 kg Skye Rubio [...] Skye Rubio RN - 03/01/2020 9:27 EDT [place] Suicide Severity Rating Scale (C-SSRS) CSSRS Past [...] EDT Legal Guardian : Mother Support Person/Patient Software Controls Engineer : Yes Support Person/Pt Rep Name : Martita Bowling - mother Support Person/Pt Rep Contact Information : [phone] Want Family/Rep/Phys Notified of Admit : No Emergency Contact #1 : Martita Bowling Emergency Contact #1 C [phone] H Emergency Contact #1 Relationship : mother Emergency Contact #2 : . Emergency Contact #2 Phone Number : . Emergency Contact #2 Relationship : . Information Obtained From : Patient Primary Language : Chinese Preferred Communication Mode : Verbal Communication Barrier : None Compliance Testing Analyst Needed : No Objects to Sharing Info [...] Level : 46 or > High Risk Piercy Fall Interventions : Adequate lighting, Bed in [...] rendition version of the form. Darlyn Coma [place] Best Motor Response : Obey commands Darlyn Best Verbal Response : Oriented [place] Eye Opening Response : Spontaneous Darlyn Coma Score : 15 Skye Rubio, RN - 03/01/2020 9:27 EDT Electronically signed by [facility] Conversion Shear Grinder Operator Cerner at 11/28/2022 11:18 PM CDT documented in this encounter Plan of Treatment Upcoming Encounters Date Type Department Care Team (Late st Contact Info) Description 09/13/2025 11:15 AM EST Appointment [address] [place] [phone] documented as of this encounter Visit Diagnoses Not on filedocumented in this encounter Care Teams Blueprint Reproducer Relationship Specialty Start Date End Date Denae Serrano MD [address] [place] [phone] PCP - General Family Medicine 06/11/22 documented as of this encounter
--- OUTSIDE RECORDS SUMMARY | 2025-08-06 09:23 | XMS_ITS | Encounter Summary ---
Author Organization [employer] ([place], [place], [place], [place], [place]) Address [address] [place] [address] Care Team Providers Care Lean Six Sigma Senior Specialist Name Role Phone Denae Serrano MD Primary Care Provider [phone] Encounter Details Date Type Department Care Team (Late st Contact Info) Description 03/01/2020 Transcribed Document [facility] Family Medicine [address] [place] [address] ProviderJer MD [address] [place], [place] [id number] Social History Tobacco Use Types Packs/Day Years [...] - 03/01/2020 13:47 EDT Electronically signed by [facility] Conversion Bag Washer Cerner at 11/28/2022 11:09 PM CDT documented in this encounter Plan of Treatment Upcoming Encounters Date Type Department Care Team (Late st Contact Info) Description 09/13/2025 11:15 AM EST Appointment [address] [phone] documented as of this encounter Visit Diagnoses Not on filedocumented in this encounter Care Teams Lean Six Sigma Senior Specialist Relationship Specialty Start Date End Date Denae Serrano MD [address] [place] [phone] PCP - General Family Medicine 06/11/22 documented as of this encounter
--- OUTSIDE RECORDS SUMMARY | 2025-08-06 09:24 | XMS_ITS | Encounter Summary ---
Author Organization [employer] ([place], [place], [place], [place], [place]) Address [address] [place] [address] Care Team Providers Care Talent Buyer Name Role Phone Denae Serrano MD Primary Care Provider [phone] Encounter Details Date Type Department Care Team (Late st Contact Info) Description 03/14/2020 Transcribed Document [facility] Family Medicine [facility] [place] [address] ProviderJer MD [address] [place] [address] Social History Tobacco Use Types Packs/Day Years [...] OF PROCEDURE: 03/01/2020 SURGEON: Herminio Perez MD PORCELAIN ENAMEL LABORER: Slick. PREOPERATIVE DIAGNOSIS: Incisional hernia. POSTOPERATIVE DIAGNOSIS: [...] It was evident the patient had several Bahraini cheeselike defects in the midline. The hernia sacs were dissected free and removed the from the abdominal cavity. Three separate xizxlq-xo-nwsak nonabsorbable sutures were used to close the [...] taken to recovery room in stable condition. /[id number] MD NORMA Flower/AQ / JS / MODL /[id number] Electronically signed by [facility] Conversion Special Forces Warrant Officer Cerner at 11/28/2022 11:13 PM CDT documented in this encounter Plan of Treatment Upcoming Encounters Date Type Department Care Team (Late st Contact Info) Description 09/13/2025 11:15 AM EST Appointment [address] [place] [phone] documented as of this encounter Visit Diagnoses Not on filedocumented in this encounter Care Teams Talent Buyer Relationship Specialty Start Date End Date Denae Serrano MD [address] [place] [phone] PCP - General Family Medicine 06/11/22 documented as of this encounter
--- OUTSIDE RECORDS SUMMARY | 2025-08-06 09:24 | XMS_ITS | Clinical Summary ---
Author Organization [employer] ([place], [place], [place], [place], [place]) Address [address] [place] [address] Care Team Providers Care Director Digital Analytics Name Role Phone Denae Serrano MD Primary Care Provider [phone] Allergies Active Allergy Reactions Criticality Noted Date [...] Date Javier rded Speak language other than Greek at home Not on file 08/23/2023 Want [...] Info) Description 09/13/2025 11:15 AM EST Appointment [address] [place] [phone] Health Maintenance Due Date Last Done [...] SHIELD MEDICARE PART A B Care Teams Director Digital Analytics Relationship Specialty Start Date End Date Denae Serrano MD [address] [place] [phone] PCP - General Family Medicine 06/11/22
--- OUTSIDE RECORDS SUMMARY | 2025-08-06 09:24 | XMS_ITS | Encounter Summary ---
Author Organization [employer] ([place], [place], [place], [place], [place]) Address [address] [place] [address] Care Team Providers Care Impregnator Operator Name Role Phone Denae Serrano MD Primary Care Provider [phone] Encounter Details Date Type Department Care Team (Late st Contact Info) Description 03/01/2020 Transcribed Document [facility] [place] [address] [place] [address] ProviderJer MD [address] [place], [place] [address] Social History Tobacco Use Types Packs/Day Years [...] and water are not available, use hand archeologist classical. ? Change your dressing as told by [...] or a bad smell. Medicines ??? Take qcmq-ymx-pkktgfv and prescription medicines only as told by [...] 11/18/2016 Document Revised: 07/31/2019 Document Reviewed: 11/18/2016 Starline Interactive Patient Education ? 2020 Starline Inc. General Anesthesia, Adult, Care After This [...] activities are safe for you. ??? Take rccq-etr-eehufsq and prescription medicines only as told by [...] 11/04/2001 Document Revised: 03/14/2018 Document Reviewed: 03/14/2018 Starline Interactive Patient Education ? 2020 Tapactive. Hernia, Adult A hernia happens when tissue [...] if you see any changes. ??? Take uhwe-zim-oxqlltj and prescription medicines only as told by [...] 01/16/2011 Document Revised: 04/30/2018 Document Reviewed: 04/30/2018 ElsePeaberry Software Interactive Patient Education ? 2019 Tapactive. Electronically signed by Cleve Martinez Conversion Technology Solutions Architect Cerner at 11/28/2022 11:20 PM CDT documented in this encounter Plan of Treatment Upcoming Encounters Date Type Department Care Team (Late st Contact Info) Description 09/13/2025 11:15 AM EST Appointment [facility] [address] [facility] [address] [place] [address] documented as of this encounter Visit Diagnoses Not on filedocumented in this encounter Care Teams Impregnator Operator Relationship Specialty Start Date End Date Denae Serrano MD [address] [place] [phone] PCP - General Family Medicine 06/11/22 documented as of this encounter
--- OUTSIDE RECORDS SUMMARY | 2025-08-06 09:24 | XMS_ITS | Encounter Summary ---
Author Organization [employer] ([place], [place], [place], [place], [place]) Address [address] [place] [address] Care Team Providers Care Senior Care Specialist Name Role Phone Denae Serrano MD Primary Care Provider [phone] Encounter Details Date Type Department Care Team (Late st Contact Info) Description 03/01/2020 Transcribed Document [facility] Family Medicine [address] [place] [address] ProviderJer MD [address] [place], [place] [address] Social History Tobacco Use Types Packs/Day Years [...] 03/01/2020 10:07 EDT Electronically signed by [facility] Conversion Trap Puller Cerner at 11/28/2022 11:18 PM CDT documented in this encounter Plan of Treatment Upcoming Encounters Date Type Department Care Team (Late st Contact Info) Description 09/13/2025 11:15 AM EST Appointment [address] [place] [phone] documented as of this encounter Visit Diagnoses Not on filedocumented in this encounter Care Teams Senior Care Specialist Relationship Specialty Start Date End Date Denae Serrano MD [address] [place] [phone] PCP - General Family Medicine 06/11/22 documented as of this encounter
--- OUTSIDE RECORDS SUMMARY | 2025-08-06 09:24 | XMS_ITS | Encounter Summary ---
Author Organization [employer] ([place], [place], [place], [place], [place]) Address [address] [place] [address] Care Team Providers Care Stereo Map Plotter Operator Name Role Phone Denae Serrano MD Primary Care Provider [phone] Encounter Details Date Type Department Care Team (Late st Contact Info) Description 10/10/2020 Transcribed Document [facility] Family Medicine [address] [place] [address] ProviderJer MD [address] [place], [place] [id number] Social History Tobacco Use Types Packs/Day Years Used Date Smoking Tobacco: Never Assessed Comments Unknown Sex and Gender Information Value Date Recorded Sex Assigned at Not on file Legal Sex Female 4:41 PM CDT Gender Identity Not on file Sexual Orientation Not on file documented as of this encounter Miscellaneous Notes * Cerner Conversion Note - Historical ProviderMD - 10/10/2020 1:25 PM INFORMATION SECURITY ANALYST [address] [address] ZENAIDA BOWLING :1965 Visit Time:10/10/2020 [...] repeat colonoscopy in 3 years Where: [address] [facility] [address] [place] [address]- Medications What How Much When Instructions Next [...] nitroglycerin (nitroglycerin 0.4 mg sublingual spray) 1 Luana(s) SubLINgual Every 5 minutes as needed for [...] eating solid foods. General instructions ??? Take qsrx-ova-fpffsgx and prescription medicines only as told by [...] 11/18/2016 Document Revised: 10/27/2018 Document Reviewed: 11/18/2016 Lotour.com Patient Education ?? 2020 Bandwdth Publishing. Colonoscopy, Adult, Care After This sheet gives [...] soft and easy to digest. ??? Take mmib-rtr-wxizytf or prescription medicines only as told by [...] 08/31/2011 Document Revised: 05/29/2018 Document Reviewed: 04/22/2017 ElseSteeplechase Networks Patient Education ?? 2020 Lotour.com Inc. Diverticulosis Diverticulosis is a condition that [...] getting enough exercise. ??? Smoking. ??? Taking hupv-rmp-xtvvbtr pain medicines, like aspirin and ibuprofen. ??? [...] health care provider or your diet and ergonomic specialist (dietitian). ? Take a fiber supplement or probiotic, if your health care provider approves. ??? Take oisr-tuf-gffdnmy and prescription medicines only as told by [...] 04/25/2005 Document Revised: 07/11/2018 Document Reviewed: 06/17/2017 ElseSteeplechase Networks Patient Education ?? 2020 Lotour.com Inc. Colon Polyps Polyps are tissue growths [...] 04/24/2005 Document Revised: 11/13/2018 Document Reviewed: 11/13/2018 Lotour.com Patient Education ?? 2020 Bandwdth Publishing. Emergency Awareness and Preventative Care STROKE is [...] Assistance with quitting is available by contacting 2-026-ADDR-NOW. This is a free resource providing counseling, [...] was given the opportunity to ask questions. Patient/Baseball Winder Name: Patient/Baseball Winder Signature: Relationship to Patient: Clinician/Hospital Baseball Winder Signature: Date: Electronically signed by Lynne Martinez Conversion Tower Air Traffic Control Specialist Cerner at 11/28/2022 11:19 PM CDT documented in this encounter Plan of Treatment Upcoming Encounters Date Type Department Care Team (Late st Contact Info) Description 09/13/2025 11:15 AM EST Appointment [address] [phone] documented as of this encounter Visit Diagnoses Not on filedocumented in this encounter Care Teams Stereo Map Plotter Operator Relationship Specialty Start Date End Date Denae Serrano MD [address] [place] [phone] PCP - General Family Medicine 06/11/22 documented as of this encounter
--- OUTSIDE RECORDS SUMMARY | 2025-08-06 09:24 | XMS_ITS | Clinical Summary ---
Author Organization [facility] Address [address] [place] [address] Care Team Providers Care Hourly Team Members Name Role Phone Denae Serrano MD Primary Care Provider [phone] Allergies Active Allergy Reactions Criticality Noted Date [...] (09/03/2022): Added automatically from request for surgery [id number] Dysphagia 07/11/2022 Overview (07/11/2022): Trouble swallowing pills [...] drink first t divina in the morning (EYE-ARCHIVIST) to steady your nerves or to get [...] Screening 09/04/202408/13, 09/04/2022, 08/30/2021, Additional history exists [id number] Vaccine (1 - 2024- season) 2025 UKY-Influenza [...] this topic Medical Devices Implanted Type Area Java Technical Manager Device Identifier Shelf Expiration Date Model / Serial / Lot Implant Implant Bilateral: Knee Stent Stent Heart Mesh Phasix 10x12 In - [id number] Implanted:Qty : 1 on 07/26/2022 by Gentry Guardado MD at [facility] N/A: Abdomen Davol Inc-[id number] 05/09/2023 [id number] / / [id number] Cement Palacos - [id number] Implanted:Qty : 2 on 11/27/2022 by Albert Boswell MD at [facility] Right: Knee Heraeus Inc-[id number] 05/11/2027 [id number] / / [id number] Chg Patella Gii Oval Resurfaci - [id number] Implanted:Qty : 1 on 11/27/2022 by Albert Boswell MD at [facility] Right: Knee Judd & Nephew Chapman Inc-[id number] 07/31/2032 [id number] / / [id number] Chg Femoral Legion Ps Oxin Sz5 - [id number] Implanted:Qty : 1 on 11/27/2022 by Albert Boswell MD at [facility] Right: Knee Judd & Nephew Chapman Inc-[id number] 04/23/2032 [id number] / / [id number] Chg Tibial Gns Ii Cmt Size 3 R - [id number] Implanted:Qty : 1 on 11/27/2022 by Albert Boswell MD at [facility] Right: Knee Judd & Nephew Chapman Inc-[id number] 06/13/2032 [id number] / / [id number] Knee Lgn Xlp Ps High Sz3-4 12mm - [id number] Implanted:Qty : 1 on 11/27/2022 by Albert Boswell MD at [facility] Right: Knee Judd & Nephew Chapman Inc-[id number] 08/13/2032 [id number] / / [id number] Procedures Procedure Name Priority Date/Time Associated Diagnosis Comments POCT GLYCOSYLATED HEMOGLOBIN (HGB A1C) Routine 07/11/2022 8:59 AM EST Personal history of nutritional deficiency from Last 3 Months or Most Recently Relevant to Health Maintenance Results * POCT Glycosylated Hemoglobin (Hgb A1C) (07/11/2022 8:59 AM EST) POCT Hemoglobin A1C 6.0 4.4-6.6 % % [facility] Kit Lot Number [id number] [facility] Kit Expiration Date 06/11/24 [facility] Blood Venous blood specimen / Unknown 07/11/2022 8:59 AM EST Gentry Guardado MD POINT OF CARE TEST ENTER/EDIT OR DERABLES Final Result [facility] [address] [place] [address] from Last 3 Months or Most Recently Relevant to Health Maintenance Insurance [facility] [place] [address] Advance Directives * Full Code (Latest Code Status on File) Date Activated Date Inactivated Comments 07/26/2022 4:15 PM 07/28/2022 6:08 PM Question Answer Comments Patient has decision-making capacity? Yes Care Teams Hourly Team Members Relationship Specialty Start Date End Date Denae Serrano MD #[phone] PCP - General 12/23/20
--- OUTSIDE RECORDS SUMMARY | 2025-08-06 09:24 | XMS_ITS | Encounter Summary ---
Author Organization [employer] ([place], [place], [place], [place], [place]) Address [address] [place] [address] Care Team Providers Care Oven Dauber Name Role Phone Denae Serrano MD Primary Care Provider [phone] Encounter Details Date Type Department Care Team (Late st Contact Info) Description 03/01/2020 Transcribed Document [facility] Family Medicine [address] [place] [address] ProviderJer MD [address] [place], [place] [id number] Social History Tobacco Use Types Packs/Day Years Used Date Smoking Tobacco: Never Assessed Comments Unknown Sex and Gender Information Value Date Recorded Sex Assigned at Not on file Legal Sex Female 4:41 PM CDT Gender Identity Not on file Sexual Orientation Not on file documented as of this encounter Miscellaneous Notes * Cerner Conversion Note - Jer ProviderMD - 03/01/2020 3:28 PM CDT [address] [address] ZENAIDA BOWLING :1965 Visit Time:03/01/2020 [...] 12 hours as needed for nausea and Fielding 7.5/325mg one tab by mouth every 4 hours as needed for pain. No ibuprofen until after 9:45 pm Activity: Discharge Activity: No heavy lifting over 10 lbs Diet: Discharge Diet: Resume usual diet as tolerated Follow-Up Appointments Follow Up with SWAPNIL RAMIREZ MD-ANABELA When 03/09/2020 12:00 PM EDT Comments Appointment has been made Where: [facility] [address] [place] [address]- Medications What How Much When Instructions Next [...] nitroglycerin (nitroglycerin 0.4 mg sublingual spray) 1 Moon(s) SubLINgual Every 5 minutes as needed for [...] and water are not available, use hand bellows assembler. ? Change your dressing as told by [...] or a bad smell. Medicines ??? Take aizi-toa-qweobpt and prescription medicines only as told by [...] 11/18/2016 Document Revised: 07/31/2019 Document Reviewed: 11/18/2016 Prodagio Software Interactive Patient Education ?? 2020 We[employer] India [employer]. General Anesthesia, Adult, Care After This sheet [...] activities are safe for you. ??? Take qbqs-uty-ktvaynl and prescription medicines only as told by [...] 11/04/2001 Document Revised: 03/14/2018 Document Reviewed: 03/14/2018 Prodagio Software Interactive Patient Education ?? 2020 [employer]. Hernia, Adult A hernia happens when tissue [...] if you see any changes. ??? Take nfte-zxe-kvewchw and prescription medicines only as told by [...] 01/16/2011 Document Revised: 04/30/2018 Document Reviewed: 04/30/2018 Prodagio Software Interactive Patient Education ?? 2020 [employer]. ondansetron (oral) (on JARAD se iglesia) Sindy [...] may report side effects to FDA at 8-370-ZUG-6926. What other drugs will affect ondansetron? Ondansetron [...] interact with ondansetron. This includes prescription and acck-aew-usuvjrd medicines, vitamins, and herbal products. Give a [...] to ensure that the information provided by sli.do. ('Multum') is accurate, up-to-date, and complete, but no guarantee is made to that effect. Drug information contained herein may be time sensitive. Pear (formerly [employer]) information has been compiled for use by healthcare practitioners and consumers in the [place] and therefore [employer]) does not warrant that uses outside of the [place] are appropriate, unless specifically indicated otherwise. E[employer] drug information does not endorse drugs, diagnose patients or recommend therapy. [employer] drug information is an informational resource designed [...] effective or appropriate for any given patient. [employer]) does not assume any responsibility for any aspect of healthcare administered with the aid of information [employer]) provides. The information contained herein is not intended to cover all possible uses, directions, precautions, warnings, drug interactions, allergic reactions, or adverse effects. If you have questions about the drugs you are taking, check with your doctor, nurse or pharmacist. Copyright 6322-9574 sli.do. Version: 13.01. Revision Date: 06/01/2016. acetaminophen and hydrocodone (a SEET a MIN oh fen and cathi droe KOE done) Hycet, Lorcet, Fielding, Verdrocet, Vicodin, Xodol, Zamicet What is the [...] may report side effects to FDA at 6-556-UNP-3876. What other drugs will affect acetaminophen and [...] affect acetaminophen and hydrocodone, including prescription and efvu-vmz-ebcjswb medicines, vitamins, and herbal products. Not all [...] to ensure that the information provided by sli.do. ('Multum') is accurate, up-to-date, and complete, but no guarantee is made to that effect. Drug information contained herein may be time sensitive. [employer]formerly [employer]) information has been compiled for use by healthcare practitioners and consumers in the [place] and therefore [employer] (formerly [employer]) does not warrant that uses outside of the [place] are appropriate, unless specifically indicated otherwise. E[employer] drug information does not endorse drugs, diagnose patients or recommend therapy. [employer] drug information is an informational resource designed [...] effective or appropriate for any given patient. [employer] (formerly [employer]) does not assume any responsibility for any aspect of healthcare administered with the aid of information [employer]formerly [employer]) provides. The information contained herein is not intended to cover all possible uses, directions, precautions, warnings, drug interactions, allergic reactions, or adverse effects. If you have questions about the drugs you are taking, check with your doctor, nurse or pharmacist. Copyright 1097-8081 sli.do. Version: 16.. Revision Date: 09/02/2019. Emergency Awareness [...] Assistance with quitting is available by contacting 4-990-QRRG-NOW. This is a free resource providing counseling, support, and referral. Or you may contact your personal physician. [place] Suicide Prevention Lifeline: The National Suicide Prevention [...] was given the opportunity to ask questions. Patient/Book Reviewer Name: Patient/Book Reviewer Signature: Relationship to Patient: Clinician/Hospital Book Reviewer Signature: Date: Electronically signed by [facility] Conversion Locomotive Engineer Diesel Cerner at 11/28/2022 11:29 PM CDT documented in this encounter Plan of Treatment Upcoming Encounters Date Type Department Care Team (Late st Contact Info) Description 09/13/2025 11:15 AM EST Appointment [address] [phone] documented as of this encounter Visit Diagnoses Not on filedocumented in this encounter Care Teams Oven Dauber Relationship Specialty Start Date End Date Denae Serrano MD [address] [phone] PCP - General Family Medicine 06/11/22 documented as of this encounter
--- OUTSIDE RECORDS SUMMARY | 2025-08-06 09:24 | XMS_ITS | Referral Summary ---
Author Organization [employer] ([place], [place], [place], [place], [place]) Address [address] [place] [address] Care Team Providers Care Biomedical Engineering Supervisor Name Role Phone Denae Serrano MD Primary Care Provider [phone] Allergies Active Allergy Reactions Criticality Noted Date [...] Date Javier rded Speak language other than Congolese at home Not on file 08/23/2023 Want [...] Info) Description 09/13/2025 11:15 AM EST Appointment [address] [place] [phone] Procedures Procedure Name Priority Date/Time Associated [...] SHIELD MEDICARE PART A B Care Teams Biomedical Engineering Supervisor Relationship Specialty Start Date End Date Denae Serrano MD [address] [place] [phone] PCP - General Family Medicine 06/11/22
--- OUTSIDE RECORDS SUMMARY | 2025-08-06 09:24 | XMS_ITS | Encounter Summary ---
Author Organization [employer] ([place], [place], [place], [place], [place]) Address [address] [place] [address] Care Team Providers Care Pawn Broker Name Role Phone Denae Serrano MD Primary Care Provider [phone] Encounter Details Date Type Department Care Team (Late st Contact Info) Description 10/10/2020 Transcribed Document [facility] [place] [address] [place] [address] ProviderJer MD [address] [place], [place] [address] Social History Tobacco Use Types Packs/Day Years Used Date Smoking Tobacco: Never Assessed Comments Unknown Sex and Gender Information Value Date Recorded Sex Assigned at Not on file Legal Sex Female 4:41 PM CDT Gender Identity Not on file Sexual Orientation Not on file documented as of this encounter Miscellaneous Notes * Cerner Conversion Note - Historical ProviderMD - 10/10/2020 12:30 PM BAND ATTACHER [facility] End[facility] PreOp Summary Primary Physician: KENDAL SHARP MD-GAE Finalized Date/Time: 10/10/20 12:35:44 Pt. Name: ZENAIDA BOWLING/Sex: 1965 Female Med Rec #: [id number] Physician: KENDAL SHARP MD-GAE Financial #: [id number] Pt. Type: E Room/Bed: [facility] Admit/Disch: 10/10/20 11:14:00 - Institution: [facility] PreOp Case Times Entry 1 In Preop 10/10/20 11:30:00 Ready for Holding 10/10/20 12:25:00 Room Patient Ready for 10/10/20 12:25:00 Surgery Patient Out of Preop 10/10/20 12:25:00 Patient Out of 10/10/20 12:25:00 Holding Room [facility] PreOp Case Times Audit 10/10/20 12:25:13 Gunner'S Mate: [id number] Modifier: [id number] <+> 1 Patient Out of Preop <+> 1 Patient Ready for Surgery <+> 1 Ready for Holding Room <+> 1 Patient Out of Holding Room Finalized By: Darlin Randhawa, Rn Document Signatures Signed By: Darlin Randhawa Rn 10/10/20 12:35 documented in this encounter Plan of Treatment Upcoming Encounters Date Type Department Care Team (Late st Contact Info) Description 09/13/2025 11:15 AM EST Appointment [address] [place] [address] documented as of this encounter Visit Diagnoses Not on filedocumented in this encounter Care Teams Pawn Broker Relationship Specialty Start Date End Date Denae Serrano MD [address] [place] [phone] PCP - General Family Medicine 06/11/22 documented as of this encounter
--- OUTSIDE RECORDS SUMMARY | 2025-08-06 09:24 | XMS_ITS | Encounter Summary ---
Author Organization [employer] ([place], [place], [place], [place], [place]) Address [address] [place] [address] Care Team Providers Care Extrusion Operator Name Role Phone Denae Serrano MD Primary Care Provider [phone] Encounter Details Date Type Department Care Team (Late st Contact Info) Description 10/10/2020 Transcribed Document [facility] [place] [address] [place] [address] Jer Klein MD [address] [place], [place] [address] Social History Tobacco Use Types Packs/Day Years Used Date Smoking Tobacco: Never Assessed Comments Unknown Sex and Gender Information Value Date Recorded Sex Assigned at Not on file Legal Sex Female 4:41 PM CDT Gender Identity Not on file Sexual Orientation Not on file documented as of this encounter Miscellaneous Notes * Cerner Conversion Note - Jer Klein MD - 10/10/2020 1:24 PM BREAST TRIMMER Patient Education Materials Follows: Monitored Anesthesia Care, [...] eating solid foods. General instructions ??? Take nwzc-gua-axozqdu and prescription medicines only as told by [...] 11/18/2016 Document Revised: 10/27/2018 Document Reviewed: 11/18/2016 [employer] Patient Education ? 2020 [employer] Colonoscopy, Adult, Care After This sheet [...] soft and easy to digest. ??? Take qzky-qwz-jnqxszg or prescription medicines only as told by [...] 08/31/2011 Document Revised: 05/29/2018 Document Reviewed: 04/22/2017 [employer] Patient Education ? 2020 [employer]. Diverticulosis Diverticulosis is a condition that develops [...] getting enough exercise. ??? Smoking. ??? Taking kcmf-afz-edbtoku pain medicines, like aspirin and ibuprofen. ??? [...] health care provider or your diet and nutrition services manager (dietitian). ? Take a fiber supplement or probiotic, if your health care provider approves. ??? Take mdjl-byr-jtueivn and prescription medicines only as told by [...] 04/25/2005 Document Revised: 07/11/2018 Document Reviewed: 06/17/2017 [employer] Patient Education ? 2020 [employer]. Colon Polyps Polyps are tissue growths [...] Reviewed: 11/13/2018 Elsevier Patient Education ? 2019 [email or web address]. Electronically signed by Juan, [facility] Conversion Site Engineer Cerner at 11/28/2022 11:33 PM CDT documented in this encounter Plan of Treatment Upcoming Encounters Date Type Department Care Team (Late st Contact Info) Description 09/13/2025 11:15 AM EST Appointment [address] [address] documented as of this encounter Visit Diagnoses Not on filedocumented in this encounter Care Teams Extrusion Operator Relationship Specialty Start Date End Date Denae Serrano MD [address] [place] [phone] PCP - General Family Medicine 06/11/22 documented as of this encounter
--- OUTSIDE RECORDS SUMMARY | 2025-08-06 09:24 | XMS_ITS | Clinical Summary ---
Author Organization [facility] Address [address] [place] [address] Care Team Providers Care Broiler Chef Or Cook Name Role Phone Denae Serrano MD Primary [...] pain 02/25/2023 Coronary artery disease invo lving [place] coronary artery of [place] heart without angina pectoris 10/28/2018 Acute [place] inferior lateral first episode care 05/2019 Hyperlipidemia [...] 022, 03/30/2011 Medical Devices Implanted Type Area Dairy Tester Device Identifier Shelf Expiration Date Model / Serial / Lot Stent Xience Gladys Everolimus Brendan 3.5x18mm - [id number] Implanted:Qty: 1 on 10/19/2018 by Xander Rosenbaum MD at [facility] [id number] / / Procedures Procedure Name Priority Date/Time [...] - 200 mg/dL 10/20/2018 6:28 AM EDT [facility] Triglycerides 152(H) 0 - 150 mg/dL 10/20/2018 6:28 AM EDT [facility] HDL Cholesterol 39(L) 40 - 60 mg/dL 10/20/2018 6:28 AM EDT [facility] LDL Cholesterol 118 0 - 130 mg/dL 10/20/2018 6:28 AM T [facility] Blood Venipuncture / Unknown 10/20/2018 3:39 AM EDT 10/20/2018 5:34 AM EDT [facility] - 10/20/2018 6:28 [...] MD LAB BLOOD ORDERABLES Anamika kathi Result [facility]
[address] [place] [address], from Last 3 Months or Most Recently Relevant to Health Maintenance Insurance [facility] PPO Advance Directives * CPR (Attempt to Resuscitate) (Latest Code Status on File) Date Activated Date Inactivated Comments 10/19/2018 3:31 PM 10/21/2018 3:19 PM Question Answer Comments Code Status (Patient has no pulse and is not breathing): CPR (Attempt to Resuscitate) Medical Interventions (Patie nt has pulse or is breathing): Full Level Of Support Discussed With: Patient Care Teams Broiler Chef Or Cook Relationship Specialty Start Date End Date Denae Serrano MD [address] [place] [address] PCP - General Family Medicine 03/19/16
--- OUTSIDE RECORDS SUMMARY | 2025-08-06 09:24 | XMS_ITS | Clinical Summary ---
Author Organization [facility] Address [address] [place] [address] Phone [email or web address] Care Team Providers Care Mast Maker Name Role Phone Denae Serrano MD Primary [...] elbow 05/25/2019 Coronary artery disease invo lving [place] coronary artery of [place] heart without angina pectoris 10/28/2018 S/P coronary artery stent placement 10/23/2018 Overview (10/23/2018): -LCX Acute [place] inferior lateral first episode care 05/2019 Hyperlipidemia [...] Insurance ANTH IN COPAY 5 [id number] [place] [address] Care Teams Mast Maker Relationship Specialty Start Date End Date Denae Serrano MD [address] [address] PCP - General Shear Grinder Operator 06/22/19
--- OUTSIDE RECORDS SUMMARY | 2025-08-06 09:24 | XMS_ITS | Encounter Summary ---
Author Organization [employer] ([place], [place], [place], [place], [place]) Address [address] [place] [address] Care Team Providers Care Director Of Midwifery/Staff Midwife Name Role Phone Denae Serrano MD Primary Care Provider [phone] Encounter Details Date Type Department Care Team (Late st Contact Info) Description 10/10/2020 Transcribed Document [facility] [place] [address] [place] [address] ProviderJer MD [address] [place], [place] [address] Social History Tobacco Use Types Packs/Day Years Used Date Smoking Tobacco: Never Assessed Comments Unknown Sex and Gender Information Value Date Recorded Sex Assigned at Not on file Legal Sex Female 4:41 PM CDT Gender Identity Not on file Sexual Orientation Not on file documented as of this encounter Miscellaneous Notes * Cerner Conversion Note - Historical ProviderMD - 10/10/2020 1:02 PM GENERAL SURGEON [facility] Endo PACU Summary Primary Physician: KENDAL SHARP MD-GAE Finalized Date/Time: 10/10/20 13:42:31 Pt. Name: ZENAIDA BOWLING/Sex: 1965 Female Med Rec #: [id number] Physician: KENDAL SHARP MD-GAE Financial #: [id number] Pt. Type: E Room/Bed: [facility] Admit/Disch: 10/10/20 11:14:00 - Institution: [facility] PACU Case Times Entry 1 In PACU I 10/10/20 13:15:00 Ready for PACU 10/10/20 13:33:00 Discharge Discharge from PACU 10/10/20 13:41:00 I Finalized By: Catrachita Blas, Rn Document Signatures Signed By: Catrachita Blas Rn 10/10/20 13:42 Electronically signed by Juan [facility] Conversion Dog Behaviorist Cerner at 11/28/2022 11:29 PM CDT documented in this encounter Plan of Treatment Upcoming Encounters Date Type Department Care Team (Late st Contact Info) Description 09/13/2025 11:15 AM EST Appointment [address] [phone] documented as of this encounter Visit Diagnoses Not on filedocumented in this encounter Care Teams Director Of Midwifery/Staff Midwife Relationship Specialty Start Date End Date Denae Serrano MD [address] [place] [phone] PCP - General Family Medicine 06/11/22 documented as of this encounter
--- OUTSIDE RECORDS SUMMARY | 2025-08-06 09:24 | XMS_ITS | Encounter Summary ---
Author Organization [employer] ([place], [place], [place], [place], [place]) Address [address] [place] [address] Care Team Providers Care Feller Operator Name Role Phone Denae Serrano MD Primary Care Provider [phone] Encounter Details Date Type Department Care Team (Late st Contact Info) Description 10/10/2020 Transcribed Document [facility] [place] [address] [place] [address] ProviderJer MD [address] [place], [place] [address] Social History Tobacco Use Types Packs/Day Years Used Date Smoking Tobacco: Never Assessed Comments Unknown Sex and Gender Information Value Date Recorded Sex Assigned at Not on file Legal Sex Female 4:41 PM CDT Gender Identity Not on file Sexual Orientation Not on file documented as of this encounter Miscellaneous Notes * Cerner Conversion Note - Historical ProviderMD - 10/10/2020 11:59 AM CARBON COATER MACHINE OPERATOR Pre Procedure Adult Entered On: 10/10/2020 12:06 EST Performed On: 10/10/2020 11:59 EST by Darlin Randhawa Rn Height and Weight, Clinical Dosing Height Source : Stated Height Entry Format : [place] Height, Feet : 5 ft(Converted to: 152 cm, 60 Inch) Height, Inches : 6 Inch(Converted to: 0 ft 6 Inch, 15.24 cm) Clinical Height : 167.64 cm Weight Source : Standing scale Weight Entry Format : [place] Clinical Dosing Weight : 101.82 kg Weight, Pounds : 224 lb Body Surface Area (BSA) : 2.1 m2 Body Mass Index : 36.2 kg/m2 (HI) [place] Body Weight : 59 kg Darlin Randhawa [...] Darlin Randhawa Rn - 10/10/2020 11:59 EST [place] Suicide Severity Rating Scale (C-SSRS) CSSRS Past [...] Info Preferred Name : Zenaida Support Person/Patient Print Line Feeder : Yes Support Person/Pt Rep Name : Martita Bowling - mother Support Person/Pt Rep Contact Information : [phone] Want Family/Rep/Phys Notified of Admit : No Emergency Contact #1 : Alla Aviles Emergency Contact #1 Emergency Contact #1 Relationship : friend Emergency Contact #2 : - Emergency Contact #2 Phone Number : - Emergency Contact #2 Relationship : - Primary Language : B[place]an Preferred Communication Mode : Verbal Communication Barrier : None Power And Recovery Supervisor Needed : No Darlin Randhawa Rn - [...] Scale Risk Level : 25-45 Medium Risk Mobile Fall Interventions : Adequate lighting, Assistive devices within reach, Bed in low position, Call device within reach, Personal items within reach Darlin Randhawa Rn - 10/10/2020 11:59 EST Valuables and Belongings Valuables and Belongings : Clothing, Personal items Clothing : Common streetwear Clothing Disposition : Bedside Personal Items : Cell phone Personal Items Disposition : Bedside Darlin Randhawa Rn - 10/10/2020 11:59 EST documented in this encounter Plan of Treatment Upcoming Encounters Date Type Department Care Team (Late st Contact Info) Description 09/13/2025 11:15 AM EST Appointment [address] [address] documented as of this encounter Visit Diagnoses Not on filedocumented in this encounter Care Teams Feller Operator Relationship Specialty Start Date End Date Denae Serrano MD [address] [address] PCP - General Family Medicine 06/11/22 documented as of this encounter
--- OUTSIDE RECORDS SUMMARY | 2025-08-06 09:24 | XMS_ITS | Encounter Summary ---
Author Organization [employer] ([place], [place], [place], [place], [place]) Address [address] [place] [address] Care Team Providers Care Motion Picture Equipment Machinist Name Role Phone Denae Serrano MD Primary Care Provider [phone] Encounter Details Date Type Department Care Team (Late st Contact Info) Description 10/10/2020 Transcribed Document [facility] [place] [address] [place] [address] ProviderJer MD [address] [place] [address] Social History Tobacco Use Types Packs/Day Years Used Date Smoking Tobacco: Never Assessed Comments Unknown Sex and Gender Information Value Date Recorded Sex Assigned at Not on file Legal Sex Female 4:41 PM CDT Gender Identity Not on file Sexual Orientation Not on file documented as of this encounter Miscellaneous Notes * Cerner Conversion Note - Jer Klein MD - 10/10/2020 11:51 AM CLINICAL SERVICES DIRECTOR Patient: ZENAIDA BOWLING Age: 55 years Sex: Female : 1965 Associated Diagnoses: None Author: GUILLERMINA LUCERO MD-RIRamin Basic Information Source of history: Self. Chief [...] identified. Histories Past Medical History: Active Hyperlipidemia (75535502) Migraine (52640951) GERD - Gastro-esophageal reflux disease (2053853811) Sleep apnea resolved (985660241) Arthritis (1280387) Hearing loss in left ear (149789952) Tinnitus (550168289) Resolved Colon cancer ([id number]): Resolved. 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 Clostridium difficile (85022164): Resolved. Viral meningitis (18108539): Resolved. Tobacco abuse (734206074): Resolved. Procedure history: Cholecystectomy; (46679). Left shoulder labrum repair. Partial left knee [...] 140 mg/mL subcutaneous solution: 140 mg, SubCutaneous, [id number], rotate injection sites, 2 Each, 0 Refill(s) [...] Refill(s) nitroglycerin 0.4 mg sublingual spray: 1 [place], SubLINgual, Q5Min, PRN: for chest pain, 5 Gram, 0 Refill(s) rOPINIRole 2 mg oral tablet: 2 Tab, Oral, At Bedtime, 0 Refill(s), Medications (2) Active Scheduled: (0) Continuous: (1) NaCl 0.9% 1,000 mL 1,000 mL, IntraVENous, 50 mL/Hr PRN: (1) lidocaine 1% *PF* inj 5 mL 0.5 mL, IntraDermal, 1-Time Problem list: All Problems Hyperlipidemia / SNOMED CT 13820557 / Confirmed Migraine / SNOMED CT 30302327 / Confirmed GERD - Gastro-esophageal reflux disease / SNOMED CT 7838314851 / Confirmed Sleep apnea resolved / SNOMED CT 087649820 / Confirmed Urinary frequency / SNOMED CT 704935427 / Confirmed Hiatal hernia / SNOMED CT 912093845 / Confirmed Postmenopausal / SNOMED CT 358159061 / Confirmed Joint problem / SNOMED CT 767332293 / Confirmed Cancer of colon / SNOMED CT 151412803 / Confirmed Arthritis / SNOMED CT 8454152 / Confirmed Hearing loss in left ear / SNOMED CT 948834718 / Confirmed Tinnitus / SNOMED CT 352502895 / Confirmed AMI (acute myocardial infarction) / SNOMED CT 94878414 / Confirmed CAD (coronary artery disease) / SNOMED CT 64065387 / Confirmed HTN (hypertension) / SNOMED CT 5790677362 / Confirmed Stented coronary artery / SNOMED CT 6097224950 / Confirmed Borderline diabetes / SNOMED CT 3145504270 / Confirmed History of obstructive sleep apnea / IMO 87384950 / Confirmed Insomnia / SNOMED CT 705340148 / Confirmed Resolved: Colon cancer / SNOMED CT [id number] 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 Integumentary: Warm, Dry, [place], No rash. Integumentary exam: Face, Chest, Arm, [...] Guillermina Lucero MD personally interviewed the patient [id number]. I reviewed and discussed with the patient the medical records, medical history and diagnostic studies. I performed a complete physical exam and created the plan of care as documented above. The mid-level provider participated in the patients care by documenting the entire visit, ordering tests and prescribing medications as directed by myself, Dr. Guillermina Lucero according to my evaluation. Electronically signed by Lynne Martinez Conversion Rigging And Controls Aircraft Mechanic Cerner at 11/28/2022 11:17 PM CDT documented in this encounter Plan of Treatment Upcoming Encounters Date Type Department Care Team (Late st Contact Info) Description 09/13/2025 11:15 AM EST Appointment [address] [phone] documented as of this encounter Visit Diagnoses Not on filedocumented in this encounter Care Teams Motion Picture Equipment Machinist Relationship Specialty Start Date End Date Denae Serrano MD [address] [place] [address] [address] [place] [address] PCP - General Family Medicine 06/11/22 documented as of this encounter
--- OUTSIDE RECORDS SUMMARY | 2025-08-06 09:24 | XMS_ITS | Encounter Summary ---
Author Organization [employer] ([place], [place], [place], [place], [place]) Address [address] [place] [address] Care Team Providers Care Agriculture Inspector Name Role Phone Denae Serrano MD Primary Care Provider [phone] Encounter Details Date Type Department Care Team (Late st Contact Info) Description 10/10/2020 Transcribed Document [facility] [place] [address] [place] [address] ProviderJer MD [address] [place], [place] [address] Social History Tobacco Use Types Packs/Day Years Used Date Smoking Tobacco: Never Assessed Comments Unknown Sex and Gender Information Value Date Recorded Sex Assigned at Not on file Legal Sex Female 4:41 PM CDT Gender Identity Not on file Sexual Orientation Not on file documented as of this encounter Miscellaneous Notes * Cerner Conversion Note - Historical ProviderMD - 10/10/2020 1:02 PM RESHIPPING CLERK [facility] Endo IntraOp Summary Primary Physician: KENDAL SHARP MD-GAE Finalized Date/Time: 10/10/20 13:14:28 Pt. Name: ZENAIDA BOWLING/Sex: 1965 Female Med Rec #: [id number] Physician: KENDAL SHARP MD-GAE Financial #: [id number] Pt. Type: E Room/Bed: [facility] Admit/Disch: 10/10/20 11:14:00 - Institution: [facility] Endo - Case Attendance Entry 1 Entry 2 Entry 3 Case Attendee KENDAL SHARP MD-Almita Robertson, Rn ALDAIR MCCALL APRN, REGIONAL MANAGER-ANS Role Performed Surgeon/Proceduralist, Gun Fitter, Second REGIONAL MANAGER/Nurse Swimming Pool Serviceperson First Time In 10/10/20 13:00:00 10/10/20 12:51:00 [...] Almita Bennett, Romeo 10/10/20 13:14:22 10/10/20 13:14:22 [facility] Endo - Case Attendance Audit 10/10/20 13:14:22 Neurosurgeon: [id number] Modifier: [id number] 1 <+> Time Out 1 <*> Procedure Colonoscopy, Colon Polypectomy 2 <+> Time Out 2 <*> Procedure Colonoscopy, Colon Polypectomy 3 <+> Time Out 3 <*> Procedure Colonoscopy, Colon Polypectomy 4 <+> Time Out 4 <*> Procedure Colonoscopy, Colon Polypectomy 5 <+> Time Out 5 <*> Procedure Colonoscopy, Colon Polypectomy 10/10/20 13:10:09 Neurosurgeon: [id number] Modifier: [id number] 1 <*> Procedure Colonoscopy 2 <*> Procedure Colonoscopy 3 <*> Procedure Colonoscopy 4 <*> Procedure Colonoscopy 5 <*> Procedure Colonoscopy 10/10/20 13:00:31 Neurosurgeon: [id number] Modifier: [id number] 1 <*> Time In 10/10/20 12:51:00 1 <*> Procedure Colonoscopy 10/10/20 12:56:36 Neurosurgeon: [id number] Modifier: [id number] <+> 1 Procedure 2 <+> Time In 2 <*> Procedure Colonoscopy 3 <+> Time In 3 <*> Procedure Colonoscopy 4 <+> Time In 4 <*> Procedure Colonoscopy 5 <+> Time In 5 <*> Procedure Colonoscopy 10/10/20 12:54:32 Neurosurgeon: [id number] Modifier: [id number] <+> 1 Time In <+> 2 Case [...] Endo - Case Times Audit 10/10/20 13:12:58 Neurosurgeon: [id number] Modifier: [id number] <+> 1 Out Room Time <+> 1 Stop Time <+> 1 Stop Time 10/10/20 13:02:44 Neurosurgeon: [id number] Modifier: [id number] <+> 1 Start Time [facility] Endo - [...] Patient Transport ALDAIR MCCALL APRN, Accompanied by REGIONAL MANAGER-Donald SONG Sandy, Rn Last Modified By: Almita Bennett Rn 10/10/20 12:54:57 E Endo - Endoscopy Details Entry 1 Abdomen Procedure Soft, Non-Tender Assessment Procedure Abdomen 10/10/20 12:55:00 Assessment D/T Radio Frequency Ablation Abdominal Pressure Last Modified By: Almita Bennett Rn 10/10/20 12:55:07 [facility] Endo - Fire Risk Assessment Entry 1 [...] Modified By: Almita Bennett Rn 10/10/20 12:55:24 [facility] Endo - Fire Risk Assessment Audit 10/10/20 12:55:24 Neurosurgeon: [id number] Modifier: [id number] <+> 1 Fire Risk Assessment Verified By [facility] Endo - General Case Operations Tech 1 Case Information OR Endo 01 [facility] Case Level 1 Room Verified Yes Wound Class III - Contaminated Specialty SN Gastroenterology Anesthesia Type MAC ASA Class 3 Diagnosis Preop Diagnosis History of colon cancer Postop Same As Preop No Postop Diagnosis tranverse colon polyp, diverticulosi Last Modified By: Almita Bennett Rn 10/10/20 13:14:18 [facility] Endo - General Case Data Audit 10/10/20 13:14:18 Neurosurgeon: [id number] Modifier: [id number] <+> 1 Postop Same As Preop <+> 1 Postop Diagnosis 10/10/20 12:58:08 Neurosurgeon: [id number] Modifier: [id number] <+> 1 Specialty <+> 1 ASA Class [...] By Almita Bennett Rn, ALDAIR MCCALL, GOPAL, REGIONAL MANAGER-ANS Position Verified Positioning Yes Verified by Surgeon Last Modified By: Almita Bennett Rn 10/10/20 13:10:10 [facility] End[facility] - Patient Positioning Audit 10/10/20 13:10:10 Neurosurgeon: [id number] Modifier: [id number] 1 <*> Procedure Colonoscopy [facility] Endo - [...] Modified By: Almita Bennett Rn 10/10/20 13:13:19 [facility] Endo - Surgical Procedures Entry 1 Entry [...] Rickards, Sandy, Rn 10/10/20 13:13:36 10/10/20 13:13:36 [facility] Endo - Surgical Procedures Audit 10/10/20 13:13:36 Neurosurgeon: [id number] Modifier: [id number] <+> 1 Stop <+> 2 Stop 10/10/20 13:10:44 Neurosurgeon: [id number] Modifier: [id number] <+> 1 Start <+> 2 Start 10/10/20 13:10:04 Neurosurgeon: [id number] Modifier: [id number] 1 <*> Procedure Colonoscopy 1 <+> Physician States Cecum Reached <+> 2 Procedure <+> 2 Primary Procedure <+> 2 Primary Surgeon <+> 2 Specialty <+> 2 Wound Class <+> 2 Anesthesia Type <+> 2 Physician States Cecum Reached 10/10/20 12:57:33 Neurosurgeon: [id number] Modifier: [id number] 1 <*> Procedure Colonoscopy 1 <+> Specialty [facility] Endo - Time Out Entry 1 Procedure [...] Endo - Time Out Audit 10/10/20 13:10:11 Neurosurgeon: [id number] Modifier: [id number] 1 <*> Procedure to be Performed Colonoscopy Case Comments <None> Finalized By: Almita Bennett, Rn Document Signatures Signed By: Almita Bennett Rn 10/10/20 13:14 documented in this encounter Plan of Treatment Upcoming Encounters Date Type Department Care Team (Late st Contact Info) Description 09/13/2025 11:15 AM EST Appointment [address] [phone] documented as of this encounter Visit Diagnoses Not on filedocumented in this encounter Care Teams Agriculture Inspector Relationship Specialty Start Date End Date Denae Serrano MD [address] [place] [phone] PCP - General Family Medicine 06/11/22 documented as of this encounter
--- OUTSIDE RECORDS SUMMARY | 2025-08-06 09:24 | XMS_ITS | Encounter Summary ---
Author Organization [employer] ([place], [place], [place], [place], [place]) Address [address] [place] [address] Care Team Providers Care Pressure Control Supervisor Name Role Phone Denae Serrano MD Primary Care Provider [phone] Encounter Details Date Type Department Care Team (Late st Contact Info) Description 03/01/2020 Transcribed Document [facility] [place] Family Medicine [address] [place] [address] ProviderJer MD [address] [place], [place] [address] Social History Tobacco Use Types Packs/Day Years [...] PERLITA BOWLING/Sex: 1965 Female Med Rec #: [id number] Physician: SWAPNIL RAMIREZ MD-SUR Financial #: [id number] Pt. Type: O Room/Bed: [facility] Admit/Disch: 03/01/20 07:45:00 - [place] [facility] Case Attendance Entry 1 Entry 2 Entry 3 Case Attendee SWAPNIL RAMIREZ MD-Tiki Segal, Rn JACQUES GIRALDO FA Role Performed Surgeon/Proceduralist, Jewelry Making Instructor, Second Local Az Truck Driver, First First Time In 03/01/20 10:31:00 03/01/20 [...] Case Attendee LONG FINNEGAN, Cher Horne, Scrub Willow Harris, - SSI Tech Role Performed Jewelry Making Instructor, First Scrub, First Media Sales Representative, Ancillary Time In 03/01/20 10:31:00 03/01/20 10:31:00 [...] 8 Case Attendee RAMIRO BIRCH, KEVIN MEADE, Transport Technician Role Performed CASTING COORDINATOR/Nurse Longwall Foreman Scrub, Second Time In 03/01/20 10:31:00 03/01/20 11:05:00 Time Out 03/01/20 11:36:00 03/01/20 11:36:00 Procedure Hernia Repair Hernia Repair Incisional Laparoscopic Incisional Laparoscopic Other Attendee ST ILDEFONSO RELIEF Superficial Wound Closed By: Last Modified By: LONG FINNEGAN, LONG HUDSON RN 03/01/20 11:34:15 03/01/20 11:34:15 [facility] IntraOp Case Attendance Audit 03/01/20 11:34:15 Tin Cutter: LETA Modifier: [email or web address] 1 <+> Time Out [...] Procedure Hernia Repair Incisional Laparoscopic 03/01/20 11:23:59 Tin Cutter: [email or web address] Modifier: [email or web address] 5 <+> Time Out 5 <*> Procedure Hernia Repair Incisional Laparoscopic 03/01/20 11:23:46 Tin Cutter: [email or web address] Modifier: [email or web address] 1 <*> Procedure Hernia [...] Procedure <+> 8 Other Attendee 03/01/20 10:54:56 Tin Cutter: [email or web address] Modifier: [email or web address] 1 <*> Procedure Hernia [...] Role Performed <+> 7 Procedure 03/01/20 10:53:03 Tin Cutter: [email or web address] Modifier: [email or web address] <+> 1 Procedure <+> [...] [facility] IntraOp Case Times Audit 03/01/20 11:34:14 Tin Cutter: [email or web address] Modifier: [email or web address] <+> 1 Out Room Time <+> 1 Stop Time 03/01/20 11:27:44 Tin Cutter: [email or web address] Modifier: [email or web address] <+> 1 Stop Time 03/01/20 10:51:19 Tin Cutter: [email or web address] Modifier: [email or web address] <+> 1 Start Time [facility] IntraOp Cautery Entry 1 ESU Identification Cautery Type Monopolar ESU ID Number [id number] ID Type Hospital Number Cautery Settings Cut [...] 10:54:09 [facility] IntraOp Communication Audit 03/01/20 10:54:09 Tin Cutter: [email or web address] Modifier: [email or web address] 1 <*> Date and [...] By Count Performed By KEVIN BRIGHT, (Scrub) Transport Technician Count Performed By LONG FINNEGAN RN (RN) Last Modified By: LONG FINNEGAN RN 03/01/20 11:24:24 [facility] IntraOp Counts Final Audit 03/01/20 11:24:24 Tin Cutter: [email or web address] Modifier: [email or web address] 1 <*> Procedure Hernia Repair Incisional Laparoscopic 1 <*> Count Performed By (Scrub) Cher Judd, Transport Technician 03/01/20 11:23:18 Tin Cutter: [email or web address] Modifier: [email or web address] 1 <*> Procedure Hernia [...] IntraOp Fire Risk Assessment Audit 03/01/20 10:55:35 Tin Cutter: [email or web address] Modifier: [email or web address] <+> 1 Open O2 Source (Mask or Cannula) [facility] IntraOp General Case Databases Computer Consultant 1 Case Information OR OR 03 [facility] Case Level 1 Room Verified Yes Wound Class III - Contaminated Specialty SN General Anesthesia Type General ASA Class 3 Diagnosis Preop Diagnosis INNCISIONAL HERNIA Postop Same As Preop Yes Postop Diagnosis INNCISIONAL HERNIA Last Modified By: LONG FINNEGAN RN 03/01/20 10:55:55 [facility] IntraOp General Case Data Audit 03/01/20 10:55:55 Tin Cutter: [email or web address] Modifier: [email or web address] <+> 1 ASA Class <+> 1 Anesthesia Type <+> 1 Postop Same As Preop <+> 1 Preop Diagnosis <+> 1 Postop Diagnosis <+> 1 Room Verified [facility] IntraOp Implant Log Entry 1 Entry 2 Type Implant (Synthetic) Implant (Synthetic) Implant Log Implant Type Other Other Tissue Implant Type Implant BIOMATERIAL SYNECOR SYS FIXATION CAPSURE Identification [id number] [facility]-[id number] Description Implant Quantity 1 2 Implant Site OPSITE OPSITE Implant Identification Model Number Implant [id number] Identification Serial Number Implant [id number] Identification Lot Number Implant Wl [employer]:Med Prdt Cr Bard:Davol Identification Engineering Technical Analyst Name: Implant [id number] Identification Catalog Number Implant Size Implant Has an Yes Yes Expiration Date Implant Expiration 01/20/21 08/08/21 Date Wasted Radioactive Material Time Implanted Tissue Implant Continue for Tissue Implant Documentation Tissue Identification Number Graft Prep Per Engineering Technical Analyst Instructions: Tissue Preparation Method: Reconstitution Solution: Reconstitution Solution Lot Number Reconstitution Solution Expiration Date: Thawing Solution Thawing Solution Lot Number Thawing Solution Expiration Date Preparation Materials, Other Preparation Materials, Other Lot Number Preparation Materials, Other Expiration Date Tissue Prepared/Processed By Engineering Technical Analyst Paperwork Completed Implant Type Comment Last Modified By: LONG FINNEGAN RN WESSEL, JULIANA, RN 03/01/20 11:03:55 03/01/20 11:17:28 [facility] IntraOp Implant Log Audit 03/01/20 11:17:28 Tin Cutter: LETA Modifier: LETA <+> 2 Implant Identification Description <+> 2 Implant Identification Lot Number <+> 2 Implant Identification Engineering Technical Analyst Name: <+> 2 Implant Expiration Date <+> [...] Intra Op Sign Out Audit 03/01/20 11:34:09 Tin Cutter: LETA Modifier: [email or web address] <+> 1 RN Sign [...] [facility] IntraOp Surgical Procedures Audit 03/01/20 11:27:45 Tin Cutter: LETA Modifier: [email or web address] <+> 1 Stop [facility] [...] Info) Description 09/13/2025 11:15 AM EST Appointment [address] [phone] documented as of this encounter Visit Diagnoses Not on filedocumented in this encounter Care Teams Pressure Control Supervisor Relationship Specialty Start Date End Date Denae Serrano MD [address] [place] [phone] PCP - General Family Medicine 06/11/22 documented as of this encounter
--- OUTSIDE RECORDS SUMMARY | 2025-08-06 09:24 | XMS_ITS | Encounter Summary ---
Author Organization [employer] ([place], [place], [place], [place], [place]) Address [address] [place] [address] Care Team Providers Care Big Data Analytics Lead Name Role Phone Denae Serrano MD Primary Care Provider [phone] Encounter Details Date Type Department Care Team (Late st Contact Info) Description 03/01/[address] [facility] [place] [address] [place] [address] ProviderJer MD [address] [place], [place] [address] Social History Tobacco Use Types Packs/Day Years [...] 03/01/2020 15:56 EDT Electronically signed by Juan [facility] Conversion Bingo Usher Cerner at 11/28/2022 11:33 PM CDT documented in this encounter Plan of Treatment Upcoming Encounters Date Type Department Care Team (Late st Contact Info) Description 09/13/2025 11:15 AM EST Appointment [address] [phone] documented as of this encounter Visit Diagnoses Not on filedocumented in this encounter Care Teams Big Data Analytics Lead Relationship Specialty Start Date End Date Denae Serrano MD [address] [place] [phone] PCP - General Family Medicine 06/11/22 documented as of this encounter
--- NOTE | 2025-08-06 09:30 | CT_ITS ---
FINAL REPORT TECHNIQUE: Thin section axial CT with IV contrast supplemented with 3D MIP reconstruction under CT Angiogram protocol. This study was performed with techniques to keep radiation doses as low as reasonably achievable, (ALARA). Individualized dose reduction techniques using automated exposure control or adjustment of mA and/or kV according to the patient's size were employed. CLINICAL HISTORY: access blood flow in trauma patient. patient having foot surgery on 08/18/25 FINDINGS: CT ABDOMEN, CT PELVIS, CTA ABDOMEN, CTA PELVIS AND CTA LOWER EXTREMITY RUNOFF CT ANGIOGRAM ABDOMEN AND PELVIS: Abdominal aorta shows no significant stenosis, aneurysm or dissection. There is moderate diffuse plaque disease. Central mesenteric and renal arteries are widely patent. Iliac vessels show no significant stenosis, dissection or aneurysm. CTA RIGHT LOWER EXTREMITY: The femoral and popliteal vessels showed no significant stenosis or occlusion. There is three-vessel runoff of the calf. CTA LEFT LOWER EXTREMITY: The femoral and popliteal vessels show no significant stenosis or occlusion. There is three-vessel runoff of the calf. Abdomen: Solid abdominal organs are grossly unremarkable. No bowel obstruction is seen. There is no free fluid or free air. Patient is status post central abdominal wall hernia repair. Pelvis: The appendix is normal. The uterus and ovaries are unremarkable. There is mild sigmoid diverticulosis. Pelvic bowel loops are unremarkable. No mass or fluid collection is seen. IMPRESSION: No significant arterial inflow or outflow disease of the lower extremities Reviewed, Interpreted and Dictated by Marine Forman MD Transcribed by Delia Smith Authenticated and [facility]
[2025-08-06] MEDS: IOPAMIDOL-370 (76%);100ML BOTTLE 120 ML IV (09:54)
[2025-08-06] MEDS: SODIUM CHLORIDE 0.9% 10ML SYR (RAD ONLY) 10 ML IV (09:54)
[2025-08-06] MEDS: 0.9 % SODIUM CHLORIDE 50 ML VIAL 100 ML IV (09:54)
== END 2025-08-06 23:59 | disposition home or self-care (01) ==
LOC: RAD 09:21
PROVIDERS: PCP Family Medicine; Visit Provider Podiatrist
DX: I70.222 Atherosclerosis of native arteries of extremities with rest pain, left leg (principal); M14.672 Charcot's joint, left ankle and foot; G62.9 Polyneuropathy, unspecified; R09.89 Other specified symptoms and signs involving the circulatory and respiratory systems; Z87.891 Personal history of nicotine dependence; R20.8 Other disturbances of skin sensation
CPT/HCPCS: 75635; Q9967

== ENCOUNTER 2025-08-06 10:00 | Outpatient (CLI) | payer MEDICARE, BC, SELFPAY ==
--- OUTSIDE RECORDS SUMMARY | 2023-11-28 10:00 | XMS_ITS | Encounter Summary ---
[facility] [address] [place] [address] Care Team Providers Care Electronic Coils Supervisor Name Role Phone Denae Serrano MD Primary Care Provider + Reason for Referral * Hospital - Outpatient (Routine) - Closed Specialty Diagnoses / Procedures Referred By Shaun parker Referred To Contact Sleep Medicine Diagnoses PÉREZ (obstructive sleep apnea) Procedures Home Sleep Study Bautista Franks MD [address] [place] [address] Phone: tel: fax: [facility] [address] [address] Phone: tel: fax: Referral ID Status Reason Start Date Expiration Date Visits Re quested Visits Authorized [id number] Closed 11/19/2023 01/20/2024 1 1 Reason for Visit * Hospital - Outpatient (Routine) - Closed Specialty Diagnoses / Procedures Referred By Shaun parker Referred To Contact Sleep Medicine Diagnoses PÉREZ (obstructive sleep apnea) Procedures Home Sleep Study Bautista Franks MD [address] [place] [address] Phone: tel: fax: [facility] [address] [address] Phone: tel: fax: Referral ID Status Reason Start Date Expiration Date Visits Re quested Visits Authorized [id number] Closed 11/19/2023 01/20/2024 1 1 Encounter Details Date Type Department Care Team (Latest Contact Info) Description 11/28/2023 11:00 AM EDT Hospital Encounter [facility] [address] [facility] [address] [place] [phone] PÉREZ (obstructive sleep apnea) Social History Tobacco [...] BMI (Calculated): 33.7 Patient presents with an [place] Sleepiness Scale of Total score: 1 Methods [...] Tech Summary: Scoring Tech (Ann Rivas, RPSGT, COOK SYRUP MAKER): Insufficient data collected due to failure with equipment. Looks as if patient pulled off or did not wear the pulse ox probe. There was not enough data collected for study to be valid. This is technically an inadequate home sleep study. An in-lab sleep study will be necessary in order to obtain accurate diagnostic data. (11/29/23 1449 : nAn Rivas, COOK SYRUP MAKER) Polysomnography Results Diagnostic Summary TOTAL RECORDING TIME: [...] (pediatric) documented in this encounter Care Teams Electronic Coils Supervisor Relationship Specialty Start Date End Date Denae Serrano MD [address] [place] [address] PCP - General Family Medicine 03/19/16 documented as of this encounter
--- OUTSIDE RECORDS SUMMARY | 2024-05-04 18:20 | XMS_ITS | Encounter Summary ---
[facility] [address] [place] [address] Care Team Providers Care Infantry Assaultman Name Role Phone Denae Serrano MD Primary Care Provider + Reason for Referral * Hospital - Outpatient (Routine) - Closed Specialty Diagnoses / Procedures Referred By Shaun parker Referred To Contact Sleep Medicine Diagnoses Hypersomnolence Procedures Polysomnography 4 or More Parameters Bautista Franks MD [address] [place] [address] Phone: tel: fax: [facility] [address] [place] [phone] Phone: tel: fax: Referral ID Status Reason Start Date Expiration Date Visits Re quested Visits Authorized [id number] Closed 12/03/2023 05/18/2024 1 1 Reason for Visit * Hospital - Outpatient (Routine) - Closed Specialty Diagnoses / Procedures Referred By Shaun parker Referred To Contact Sleep Medicine Diagnoses Hypersomnolence Procedures Polysomnography 4 or More Parameters Bautista Franks MD [address] [place] [address] Phone: tel: fax: [facility] [address] [place] [address] Phone: tel: fax: Referral ID Status Reason Start Date Expiration Date Visits Re quested Visits Authorized [id number] Closed 12/03/2023 05/18/2024 1 1 Encounter Details Date Type Department Care Team (Late st Contact Info) Description 05/04/2024 7:20 PM EDT Hospital Encounter [facility] [address] [place] [phone] Bautista Franks MD [address] [place] [address] Hypersomnolence Social History Tobacco Use Types Packs/Day [...] 05/04/2024 7 :21 PM EDT Gentry Fang * Tootie Bowers Fall Risk Assessment [...] agree with the interpretation. Bautista Franks MD, [facility] Pulmonary Critical care and Sleep medicine Narrative [...] unspecified documented in this encounter Care Teams Infantry Assaultman Relationship Specialty Start Date End Date Denae Serrano MD [address] [place] [address] PCP - General Family Medicine 03/19/16 documented as of this encounter
--- OUTSIDE RECORDS SUMMARY | 2025-07-21 15:37 | XMS_ITS | Encounter Summary ---
Author Organization [facility] [address] Care Team Providers Care Tie Puller Name Role Phone Nonstaff, Referring Primary Care Provider Dangelo scott Reason for Visit * Reason Comments Fall Slipped in mud, inju ry to left knee and ankle Encounter Details Date Type Department Care Team (Late st Contact Info) Description 07/21/2025 3:37 PM EST - 07/21/2025 6:12 PM EST Emergency [facility] [address] [facility] [place] [address] Modesto Groves MD [address] [place], [place] [id number] Fall, initial encounter (Primary Dx); Closed fracture of left ankle, initial encounter Discharge Disposition: Home or Self Care Social History Tobacco Use Types Packs/Day Years Used Date Smoking Tobacco: Never Smokeless Tobacco: Never Alcohol Use Standard Drinks/Week Comments Not Currently 0 (1 standard drink = 0.6 oz pur e alcohol) Comments No Sex and Gender Information Value Date Recorded Sex Assigned at Not on file Legal Sex Female 3:15 PM EST Gender Identity Not on file Sexual Orientation Not on file documented as of this encounter Last Filed Vital Signs Vital Sign Reading Time Taken Comments Blood Pressure 138/69 07/21/2025 6:07 PM EST Pulse 80 07/21/2025 6:11 PM EST Temperature 36.7 C (98 F) 07/21/2025 3:23 PM EST Respiratory Rate 20 07/21/2025 6:11 PM EST Oxygen Saturation 99% 07/21/2025 6:11 PM EST Inhaled Oxygen Concentration - - Weight 83.9 kg (185 lb) 07/21/2025 4:02 PM EST Height 167.6 cm (5' 6 ) 07/21/2025 4:02 PM EST Body Mass Index 29.86 07/21/2025 4:02 PM EST documented in this encounter Discharge Instructions * Discharge Instructions* Modesto Groves MD - 07/21/2025 4:56 PM EST Use crutches to assist with walking; avoid putting significant amounts of weight on your left ankleuntil cleared by orthopedics; take pain medication as prescribed; return to the ER for worsening signs or symptoms or other concerns; call the attached phone number to follow-up with an orthopedic surgeon * Attachments The following attachments cannot be sent through Care Everywhere. * Ankle fracture (Maltese) documented in this encounter Medications at Time of Discharge aspirin 81 mg Oral Tablet, Delayed Release (E.C.) Take 81 mg by mouth daily. esomeprazole (NEXIUM) 40 mg Oral Capsule, Delayed Release(E.C.) Take 40 mg by mouth daily. evolocumab (REPATHA SURECLICK) 140 mg/mL SubQ Pen Injector Inject 140 mg under the skin every 14 days. ezetimibe (ZETIA) 10 mg Oral Tablet Take 10 mg by mouth daily. FLUoxetine (PROZAC) 40 mg Oral Capsule Take 40 mg by mouth daily. Lisdexamfetamine 40 mg Oral Capsule Take 40 mg by mouth daily. magnesium oxide (MAG-OX) 400 mg (241.3 mg magnesium) Oral Tablet Take 400 mg by mouth daily. metoprolol succinate (TOPROL-XL) 25 mg Oral Tablet Sustained Release 24 hr Take 25 mg by mouth daily. rOPINIRole (REQUIP) 2 mg Oral Tablet Take 4 mg by mouth nightly. traZODone (DESYREL) 100 mg Oral Tablet Take 100 mg by mouth nightly. HYDROcodone-aceta minophen (NORCO) 5-325 mg Oral Tablet Take 1 Tablet by mouth every 6 hours as needed for Acute Pain (R52) for up to 3 days. 12 Tablet 07/21/2025 07/24/2025 documented as of this encounter Ordered Prescriptions Prescription Sig Dispense Quantity Refills Last Filled Start Date End Date HYDROcodone-acetam inophen (NORCO) 5-325 mg Oral Tablet Take 1 Tablet by mouth every 6 hours as needed for Acute Pain (R52) for up to 3 days. 12 Tablet 07/21/2025 07/24/2025 documented in this encounter Discharge Disposition Disposition Code Departure Means Destination Comment s Home or Self [place] documented in this encounter ED Notes * Modesto Groves MD - 07/21/2025 3:15 PM EST CHIEF COMPLAINT: Fall, left ankle pain, left knee pain HISTORY OF PRESENT ILLNESS: The patient is a 60-year-old female who presents to the emergency department today out of concern for ankle pain and knee pain after a fall. Patient states that she was outside and that she slipped in the mud. Patient tells me that she has pain in her left ankle and states that it is very swollen. She states that she can bear weight but states that it hurts. She state s that she also wrenched her knee and has some pain in her knee. She denies striking her head. No headache or neck pain noted. Denies loss of consciousness. She is not on any blood thinners or antiplatelet agents besides baby aspirin per her report. Patient denies any other signs or symptoms such as nausea or vomiting diarrhea chest pain shortness of breath abdominal pain fever chills or any other signs or symptoms other than these already enumerated. PAST MEDICAL HISTORY: Please see electronic medical record Medications: Reviewed per nursing records Allergies: Reviewed per nursing records Surgeries: Please see electronic medical record SOCIAL HISTORY: Patient denies the use of illicit drug use or tobacco products but does drink alcohol socially FAMILY HISTORY: Noncontributory REVIEW OF SYSTEMS: 14-point review of systems completed and found to be negative except as mentioned and denoted in the history of present illness VITAL SIGNS: ED Triage Vitals [07/21/25 1523] Temp 98 ??F (36.7 ??C) Pulse 78 Resp 20 BP 132/74 SpO2 99 % Height Weight PHYSICAL EXAMINATION: General: Well developed, well nourished, well-appearing, in no acute distress Skin: Warm and dry, no signs of pallor or cyanosis, back inspected and is unremarkable appearing, and tender to palpation along the length of the vertebral spine, no step-offs appreciated HEENT: Normocephalic, appearing atraumatic, moist mucous membranes, no lymphadenopathy, conjunctivae appearing unremarkable, trachea midline, oropharynx appearing unremarkable Cardiac: Regular rate and regular rhythm, no rubs murmurs or gallops appreciated Pulmonary: Symmetric chest excursion, clear to auscultation bilaterally, normal air movement throughout the chest, no signs of respiratory distress/labor Abdominal: Soft, nontender, nondistended, normoactive bowel sounds, no signs of rebound or guarding, no signs of palpable masses appreciated Extremity: No signs of peripheral cyanosis or pitting edema or clubbing, left ankle is inspected along the lateral malleolus there is obvious sign of swelling of the left ankle, tenderness to palpation left lateral malleolus noted, no tenderness in the left foot noted, no tenderness to tibia-fibulaotherwise, patient has some pain with flexion extension at the left knee but has no tenderness whenthe left knee is palpated, 2+ DP pulse appreciated left lower extremity, grossly intact light touchsensation noted throughout left leg from knee distally, able to dorsiflex and plantarflex left ankle but does have pain when she does so Neurological: Alert and oriented x3, GCS 15 LABORATORY/IMAGING STUDIES: Results for orders placed or performed during the hospital encounter of 07/21/25 XR ANKLE LEFT AP LATERAL AND OBLIQUE Narrative XR ANKLE LEFT AP LATERAL AND OBLIQUE, 07/21/2025 4:19 PM CLINICAL HISTORY: -pain, fall, swelling COMPARISON: None. PROCEDURE COMMENTS: XR ANKLE LEFT AP LATERAL AND OBLIQUE FINDINGS: Essentially nondisplaced fracture involving the distal fibula extending to the level the ankle joint. No other definite fracture or malalignment. Lateral predominant soft tissue swelling. Impression Mildly displaced distal fibular fracture at the level the ankle joint. - Note: Radiology results need to be interpreted within a comprehensive clinical context. If you have questions about the radiology report, please contact the office of the ordering clinician. XR KNEE LEFT AP LAT INT EXT OBLIQUES AND SUNRISE Narrative XR KNEE LEFT AP LAT INT EXT OBLIQUES AND SUNRISE, 07/21/2025 4:19 PM CLINICAL HISTORY: -pain, fall COMPARISON: None. PROCEDURE COMMENTS: XR KNEE LEFT AP LAT INT EXT OBLIQUES AND SUNRISE FINDINGS: Postsurgical changes related to partial knee replacement. No acute fracture or malalignment. No hardware complication. No joint effusion. Impression No acute osseous abnormality. - Note: Radiology results need to be interpreted within a comprehensive clinical context. If you have questions about the radiology report, please contact the office of the ordering clinician. *Imaging independently reviewed and interpreted by myself and consistent with: Minimally displaced left distal fibular fracture seen on radiographs of the ankle MEDICAL DECISION MAKING: Upon initial examination, the patient appears hemodynamically stable and in no acute distress. On my exam the patient is alert resting comfortably no distress. Systemically speaking she looks well. She comes to the emergency department today out of concern for pain in her left ankle and knee after a fall. Patient does certainly have swelling in the left ankle. No swellingin left knee noted or significant tenderness to palpation but she has pain when she flexes and extends the left knee. Vital signs reviewed and are overall fairly benign. At this current time screening radiographs of left ankle and knee will be obtained. Patient be given extra strength Tylenol and cool compress will be ordered to be applied to her left ankle. She has no complaint of head trauma and is not on any blood thinners. No loss of consciousness or neck pain. Low suspicion for intracranial or cervical injury. Imaging studies returned and demonstrate essentially minimally displaced left ankle fracture. Patient is placed in a posterior short leg splint with stirrups and advised to use crutches to assist with ambulation. She is advised to follow-up with orthopedics. She states she has an orthopedic provider in her hometown she will follow-up with. I asked her to call their office to set up a follow-up appointment given ankle fracture. She will be prescribed [place] to help with pain control and advised to keep leg elevated and apply cool compresses as needed. She understands and she is agreeable this plan of care and she is discharged in stable condition. CLINICAL IMPRESSION: Fall, left ankle fracture DISPOSITION/PLAN: 1. Posterior short leg splint with stirrups 2. [place] 3. Discharge to home with orthopedic surgery follow-up *[facility] reviewed. Risks and benefits of narcotic treatment were discussed with the patient. Patient elects to continue with treatment using narcotic therapy. Patient is strictly advised to avoid operating any machinery or motor vehicles while under the influence of narcotic therapy and to only use narcotics as prescribed. Modesto Groves MD 07/21/25 2606 documented in this encounter Plan of Treatment Not on file documented as of this encounter Procedures Procedure Name Priority Date/Time Associated Diagnosis Comments XR KNEE LEFT AP LAT INT EXT OBLIQUES AND [place] STAT 07/21/2025 4:19 PM EST XR ANKLE LEFT AP LATERAL AND OBLIQUE STAT 07/21/2025 4:19 PM EST documented in this encounter Results * XR KNEE LEFT AP LAT INT EXT OBLIQUES AND [place] (07/21/2025 4:19 PM EST) Anatomical Region Laterality Modality Knee Radiographic Dory ging 07/21/2025 4:19 PM EST Impressions 07/21/2025 4:25 PM EST No acute osseous abnormality. - Note: Radiology results need to be interpreted within a comprehensive clinical context. If you have questions about the radiology report, please contact the office of the ordering clinician. Narrative 07/21/2025 4:25 PM EST XR KNEE LEFT AP LAT INT EXT OBLIQUES AND SUNRISE, 07/21/2025 4:19 PM CLINICAL HISTORY: -pain, fall COMPARISON: None. PROCEDURE COMMENTS: XR KNEE LEFT AP LAT INT EXT OBLIQUES AND SUNRISE FINDINGS: Postsurgical changes related to partial knee replacement. No acute fracture or malalignment. No hardware complication. No joint effusion. Procedure Note Job Glass MD - 07/21/2025 XR KNEE LEFT AP LAT INT EXT OBLIQUES AND SUNRISE, 07/21/2025 4:19 PM CLINICAL HISTORY: -pain, fall COMPARISON: None. PROCEDURE COMMENTS: XR KNEE LEFT AP LAT INT EXT OBLIQUES AND SUNRISE FINDINGS: Postsurgical changes related to partial knee replacement. Noacute fracture or malalignment. No hardware complication. No joint effusion. IMPRESSION: No acute osseous abnormality. - Note: Radiology results need to be interpreted within a comprehensiveclinical context. If you have questions about the radiology report, please contactthe office of the ordering clinician. us Modesto Groves MD IMG DIAGNOSTIC IMAGING ORDERABLES Final Result * XR ANKLE LEFT AP LATERAL AND OBLIQUE (07/21/2025 4:19 PM EST) Anatomical Region Laterality Modality Ankle Radiographic Dory ging 07/21/2025 4:19 PM EST Impressions 07/21/2025 4:22 PM EST Mildly displaced distal fibular fracture at the level the ankle joint. - Note: Radiology results need to be interpreted within a comprehensive clinical context. If you have questions about the radiology report, please contact the office of the ordering clinician. Narrative 07/21/2025 4:22 PM EST XR ANKLE LEFT AP LATERAL AND OBLIQUE, 07/21/2025 4:19 PM CLINICAL HISTORY: -pain, fall, swelling COMPARISON: None. PROCEDURE COMMENTS: XR ANKLE LEFT AP LATERAL AND OBLIQUE FINDINGS: Essentially nondisplaced fracture involving the distal fibula extending to the level the ankle joint. No other definite fracture or malalignment. Lateral predominant soft tissue swelling. Procedure Note Job Glass MD - 07/21/2025 XR ANKLE LEFT AP LATERAL AND OBLIQUE, 07/21/2025 4:19 PM CLINICAL HISTORY: -pain, fall, swelling COMPARISON: None. PROCEDURE COMMENTS: XR ANKLE LEFT AP LATERAL AND OBLIQUE FINDINGS: Essentially nondisplaced fracture involving the distal fibula extending tothe level the ankle joint. No other definite fracture or malalignment.Lateral predominant soft tissue swelling. IMPRESSION: Mildly displaced distal fibular fracture at the level the ankle joint. - Note: Radiology results need to be interpreted within a comprehensiveclinical context. If you have questions about the radiology report, please contactthe office of the ordering clinician. Modesto Groves MD IM DIAGNOSTIC IMAGING ORDERABLES Final Result documented in this encounter Visit Diagnoses Diagnosis Fall, initial encounter- Primary Closed fracture of left ankle, initial encounter documented in this encounter Administered Medications Inactive Administered Medications - up to 1 most recent administrations Medication Order MAR Action Action Date Dose Rate Site acetaminophen (TYLENOL) tablet 1,000 mg 1,000 mg, Oral, ONCE, 1 dose, On Sat07/21/25 at 1600, Maximum adult dose of acetaminophen is 4000 mg from all sources in 24 hours. Given 07/21/2025 4:01 PM EST 1,000 mg documented in this encounter Historical Medications * This list may reflect changes made after this encounter. Lisdexamfetamine 40 mg Oral Capsule Take 40 mg by mouth daily. magnesium oxide (MAG-OX) 400 mg (241.3 mg magnesium) Oral Tablet Take 400 mg by mouth daily. traZODone (DESYREL) 100 mg Oral Tablet Take 100 mg by mouth nightly. evolocumab (REPATHA SURECLICK) 140 mg/mL SubQ Pen Injector Inject 140 mg under the skin every 14 days. aspirin 81 mg Oral Tablet, Delayed Release (E.C.) Take 81 mg by mouth daily. FLUoxetine (PROZAC) 40 mg Oral Capsule Take 40 mg by mouth daily. metoprolol succinate (TOPROL-XL) 25 mg Oral Tablet Sustained Release 24 hr Take 25 mg by mouth daily. rOPINIRole (REQUIP) 2 mg Oral Tablet Take 4 mg by mouth nightly. esomeprazole (NEXIUM) 40 mg Oral Capsule, Delayed Release(E.C.) Take 40 mg by mouth daily. ezetimibe (ZETIA) 10 mg Oral Tablet Take 10 mg by mouth daily. added in this encounter Active and Recently Administered Medications Times are shown in EST. Scheduled Medication Order 07/19/2025 07/20/2025 07/21/2025 acetaminophen (TYLENOL) tablet 1,000 mg (COMPLETED) 1,000 mg, Oral, ONCE, 1 dose, On Sat07/21/25 at 1600, Maximum adult dose of acetaminophen is 4000 mg from all sources in 24 hours. 1601 (Given - Provid er: Mcihelle Corbett RN) documented in this encounter Orders Nursing Count Last Ordered Date First Orde red Date ED [facility] DME 1 07/21/2025 SPLINT, CUSTOM 1 07/21/2025 documented in this encounter Care Teams Tie Puller Relationship Specialty Start Date End Date Nonstaff, Referring PCP - General 07/21/25 documented as of this encounter
[2025-08-06 07:57] VITALS: BMI 29.0
--- NOTE | 2025-08-06 10:02 | XR_ITS ---
FINAL REPORT CLINICAL HISTORY: SOA, Edema, surgery on 08/18/25 FINDINGS: No acute pulmonary density is evident. There is evidence of old granulomatous disease. There is no evidence of effusion or other pleural disease. The mediastinum has a normal appearance. The cardiac silhouette is unremarkable. IMPRESSION: No acute findings. Reviewed, Interpreted and Dictated by Marine Forman MD Transcribed by Delia Smith Authenticated and . [facility]
--- OUTSIDE RECORDS SUMMARY | 2025-08-06 10:04 | XMS_ITS | Encounter Summary ---
Author Organization [employer] ([place], [place], [place], [place], [place]) Address [address] [place] [address] Care Team Providers Care Front End Alignment Specialist Name Role Phone Denae Serrano MD Primary Care Provider [phone] Encounter Details Date Type Department Care Team (Late st Contact Info) Description 08/07/2018 Transcribed Document [facility] [place] Family Medicine [address] [place] [address] Jer Klein MD [address] [place], [place] [address] Social History Tobacco Use Types Packs/Day Years Used Date Smoking Tobacco: Never Assessed Comments Unknown Sex and Gender Information Value Date Recorded Sex Assigned at Not on file Legal Sex Female 4:41 PM CDT Gender Identity Not on file Sexual Orientation Not on file documented as of this encounter Miscellaneous Notes * Cerner Conversion Note - Jer Klein MD - 08/07/2018 1:26 PM PLASTIC WORKER [facility] Follow Up Note RE: ZENAIDA BOWLING : 1965 Date of Service: 08/07/2018 Referring Physician: Herminio Perez Reason for Visit: colon cancer follow up Cancer Treatment History: 1) 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 Diagnosed on colonoscopy [...] needed Social History: Single. She lives in [place]. Mother is main support person. 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 08/25 lymph nodes positive [...] Herminio Perez MD, [address] Dr. [facility] MD Liat Berger MD [address], [address], [place] [address] 1 Electronically signed by Juan [facility] Conversion Generalist Cerner at 11/28/2022 11:15 PM CDT documented in this encounter Plan of Treatment Upcoming Encounters Date Type Department Care Team (Late st Contact Info) Description 09/13/2025 11:15 AM EST Appointment [facility] Breast [address] [place] [address] documented as of this encounter Visit Diagnoses Not on filedocumented in this encounter Care Teams Front End Alignment Specialist Relationship Specialty Start Date End Date Denae Serrano MD [address] [phone] PCP - General Family Medicine 06/11/22 documented as of this encounter
--- OUTSIDE RECORDS SUMMARY | 2025-08-06 10:04 | XMS_ITS | Encounter Summary ---
Author Organization [employer] ([place], [place], [place], [place], [place]) Address [address] [place] [address] Care Team Providers Care Hat Body Sorter Name Role Phone Denae Serrano MD Primary Care Provider [phone] Encounter Details Date Type Department Care Team (Late st Contact Info) Description 03/01/2020 Transcribed Document [facility] [place] Family Medicine [address] [place] [address] ProviderJer MD [address] [place], [place] [address] Social History Tobacco Use Types Packs/Day Years [...] ZENAIDA BOWLING/Sex: 1965 Female Med Rec #: [id number] Physician: SWAPNIL RAMIREZ MD-SUR Financial #: [id number] Pt. Type: O Room/Bed: [facility] Admit/Disch: 03/01/20 07:45:00 - Institution: [facility] Main OR PostOp Case Times Entry 1 In PACU II 03/01/20 13:25:00 Ready for PACU II 03/01/20 16:15:00 Discharge Discharge from PACU 03/01/20 16:15:00 II Last Modified By: PÉREZ ALBERT RN 03/01/20 16:34:19 Finalized By: PÉREZ ALBERT, RN Document Signatures Signed By: PÉREZ ALBERT RN 03/01/20 16:34 Electronically signed by Juan [facility] Conversion Medical Claims Processor Cerner at 11/28/2022 11:14 PM CDT documented in this encounter Plan of Treatment Upcoming Encounters Date Type Department Care Team (Late st Contact Info) Description 09/13/2025 11:15 AM EST Appointment [address] [phone] documented as of this encounter Visit Diagnoses Not on filedocumented in this encounter Care Teams Hat Body Sorter Relationship Specialty Start Date End Date Denae Serrano MD [address] [phone] PCP - General Family Medicine 06/11/22 documented as of this encounter
--- OUTSIDE RECORDS SUMMARY | 2025-08-06 10:04 | XMS_ITS | Clinical Summary ---
Author Organization [facility] Address [address] [place] [address] Phone Care Team Providers Care Tower Air Traffic Control Specialist Name Role Phone Nonstaff, Referring Primary Care [...] 6:12 PM EST [facility] [address] [facility]. [place] [id number] Modesto Groves MD Fall, initial encounter (Primary [...] the ordering clinician. Modesto Groves MD [facility] [place] [...] the ordering clinician. Modesto Groves MD [facility] [place] [facility] ORDERABLES Final Result from Last 3 Months Insurance [facility] PPO MEDICARE [place] PART A AND B Care Teams Tower Air Traffic Control Specialist Relationship Specialty Start Date End Date Nonstaff, Referring PCP - General 07/21/25
--- OUTSIDE RECORDS SUMMARY | 2025-08-06 10:04 | XMS_ITS | Encounter Summary ---
Author Organization [employer] ([place], [place], [place], [place], [place]) Address [address] [place] [address] Care Team Providers Care Scrubbing Machine Operator Name Role Phone Denae Serrano MD Primary Care Provider [phone] Encounter Details Date Type Department Care Team (Late st Contact Info) Description 02/27/2019 Transcribed Document [facility] [place] [address] [place] [address] ProviderJer MD [address] [place] [address] Social History Tobacco Use Types Packs/Day Years [...] Klein MD - 02/27/2019 1:16 PM CDT [facility] Follow Up Note RE: ZENAIDA BOWLING : 1965 Date of Service: 02/27/2019 Referring Physician: Herminio Perez Reason for Visit: colon cancer follow up/ high risk breast cancer screening CC: Doing well Cancer Treatment History: 1) Stage IIIB ([id number]) invasive adenocarcinoma transverse colon. Diagnosed on colonoscopy [...] Daily Praluent Pen [alirocumab] 1 Shot SubQ [id number] CoQ10 SG 100 (ubidecarenone/vitamin e mixed) [ubidecarenone/vitamin [...] sleep Social History: Single. She lives in [place]. Mother is main support person. 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 08/25 lymph nodes positive [...] to patient regarding medication. Mammograms completed at [facility]; will request records. Due again 04/30. Bilateral [...] Herminio Perez MD, [address] Dr. [facility] Liat Contreras MD [address], [address], [place] [address] 2 documented in this encounter Plan of Treatment Upcoming Encounters Date Type Department Care Team (Late st Contact Info) Description 09/13/2025 11:15 AM EST Appointment [facility] [address] [place] [address] [address] [place] [address] documented as of this encounter Visit Diagnoses Not on filedocumented in this encounter Care Teams Scrubbing Machine Operator Relationship Specialty Start Date End Date Denae Serrano MD [address] [place] [phone] PCP - General Family Medicine 06/11/22 documented as of this encounter
--- OUTSIDE RECORDS SUMMARY | 2025-08-06 10:04 | XMS_ITS | Encounter Summary ---
Author Organization [email or web address] ([place], [place], [place], [place], [place]) Address [address] [place] [address] Care Team Providers Care Game Protector Name Role Phone Denae Serrano MD Primary Care Provider [phone] Encounter Details Date Type Department Care Team (Late st Contact Info) Description 03/01/2020 Transcribed Document [facility] [address] [place] [address] ProvidereJr MD [address] [place], [place] [address] Social History Tobacco Use Types Packs/Day Years [...] ZENAIDA BOWLING/Sex: 1965 Female Med Rec #: [id number] Physician: SWAPNIL RAMIREZ MD-SUR Financial #: [id number] Pt. Type: O Room/Bed: Admit/Disch: 03/01/20 07:45:00 - Institution: [facility] Main OR PACU Case Times Entry 1 In PACU I 03/01/20 11:40:00 Ready for PACU 03/01/20 13:35:00 Discharge Discharge from PACU 03/01/20 13:35:00 I Last Modified By: Wilda Moralez RN 03/01/20 13:39:31 [facility] Main OR PACU Case Times Audit 03/01/20 13:39:31 Border Patrol Agent: [email or web address] Modifier: [email or web address] <+> 1 Ready for PACU Discharge <+> 1 Discharge from PACU I Finalized By: Wilda Moralez, RN Document Signatures Signed By: Wilda Moralez RN 03/01/20 13:39 Electronically signed by Cleve Martinez Conversion Bookkeeping Machine Mechanic Cerner at 11/28/2022 11:18 PM CDT documented in this encounter Plan of Treatment Upcoming Encounters Date Type Department Care Team (Late st Contact Info) Description 09/13/2025 11:15 AM EST Appointment [address] [phone] documented as of this encounter Visit Diagnoses Not on filedocumented in this encounter Care Teams Game Protector Relationship Specialty Start Date End Date Denae Serrano MD [address] [place] [phone] PCP - General Family Medicine 06/11/22 documented as of this encounter
--- OUTSIDE RECORDS SUMMARY | 2025-08-06 10:04 | XMS_ITS | Encounter Summary ---
Author Organization [employer] ([place], [place], [place], [place], [place]) Address [address] [place] [address] Care Team Providers Care Companion Name Role Phone Denae Serrano MD Primary Care Provider [phone] Encounter Details Date Type Department Care Team (Late st Contact Info) Description 03/01/2020 Transcribed Document [facility] [place] [address] [place] [address] ProviderJer MD [address] [place], [place] [address] Social History Tobacco Use Types Packs/Day Years [...] Wilda Moralez RN - 03/01/2020 13:37 EDT documented in this encounter Plan of Treatment Upcoming Encounters Date Type Department Care Team (Late st Contact Info) Description 09/13/2025 11:15 AM EST Appointment [address] [phone] documented as of this encounter Visit Diagnoses Not on filedocumented in this encounter Care Teams Companion Relationship Specialty Start Date End Date Denae Serrano MD [address] [place] [phone] PCP - General Family Medicine 06/11/22 documented as of this encounter
--- OUTSIDE RECORDS SUMMARY | 2025-08-06 10:04 | XMS_ITS | Encounter Summary ---
Author Organization [facility] [place] [address] Care Team Providers Care Nozzle Operator Name Role Phone Nonstaff, Referring Primary Care [...] on filedocumented in this encounter Care Teams Nozzle Operator Relationship Specialty Start Date End Date Nonstaff, Referring PCP - General 07/21/25 documented as of this encounter
--- OUTSIDE RECORDS SUMMARY | 2025-08-06 10:04 | XMS_ITS | Encounter Summary ---
Author Organization [employer] ([place], [place], [place], [place], [place]) Address [address] [place] [address] Care Team Providers Care Sand Mill Operator Facing Sand Name Role Phone Denae Serrano MD Primary Care Provider [phone] Encounter Details Date Type Department Care Team (Late st Contact Info) Description 03/01/2020 Transcribed Document [facility] [address] [place] [address] ProviderJer MD [address] [place], [place] [address] Social History Tobacco Use Types Packs/Day Years [...] ZENAIDA BOWLING/Sex: 1965 Female Med Rec #: [id number] Physician: SWAPNIL RAMIREZ MD-SUR Financial #: [id number] Pt. Type: O Room/Bed: [facility] Admit/Disch: 03/01/20 07:45:00 - Institution: [facility] PreOp Case Times Entry 1 In Preop 03/01/20 08:00:00 Ready for Holding 03/01/20 09:55:00 Room Patient Ready for 03/01/20 09:55:00 Surgery Patient Out of Preop 03/01/20 10:25:00 Patient Out of n/a Holding Room Last Modified By: OMAR RODRÍGUEZ 03/01/20 11:48:52 [facility] PreOp Case Times Audit 03/01/20 11:48:52 Multi Slide Machine Tender: [id number] Modifier: [id number] <+> 1 Patient Out of Preop Finalized By: OMAR RODRÍGUEZ Document Signatures Signed By: OMAR RODRÍGUEZ 03/01/20 11:48 documented in this encounter Plan of Treatment Upcoming Encounters Date Type Department Care Team (Late st Contact Info) Description 09/13/2025 11:15 AM EST Appointment [address] [phone] documented as of this encounter Visit Diagnoses Not on filedocumented in this encounter Care Teams Sand Mill Operator Facing Sand Relationship Specialty Start Date End Date Denae Serrano MD [address] [place] [phone] PCP - General Family Medicine 06/11/22 documented as of this encounter
--- OUTSIDE RECORDS SUMMARY | 2025-08-06 10:04 | XMS_ITS | Encounter Summary ---
Author Organization [employer] ([place], [place], [place], [place], [place]) Address [address] [place] [address] Care Team Providers Care Assistant Store Manager Name Role Phone Dneae Serrano MD Primary Care Provider [phone] Encounter Details Date Type Department Care Team (Late st Contact Info) Description 03/01/2020 Transcribed Document [facility] [place] [address] [place] [address] ProviderJer MD [address] [place], [place] [address] Social History Tobacco Use Types Packs/Day Years [...] Source : Stated Height Entry Format : [place] Height, Feet : 5 ft(Converted to: 152 cm, 60 Inch) Height, Inches : 6.5 Inch(Converted to: 0 ft 7 Inch, 16.51 cm) Clinical Height : 168.91 cm Weight Source : Standing scale Weight Entry Format : [place] Clinical Dosing Weight : 100.91 kg Weight, Pounds : 222 lb Body Surface Area (BSA) : 2.1 m2 Body Mass Index : 35.4 kg/m2 (HI) [place] Body Weight : 60 kg Skye Rubio [...] social. (Last Updated: 02/15/2014 11:21:16 EDT by POAL OHARA, KAUSHIK) Substance Abuse: Drug Use Hx: [...] Skye Rubio RN - 03/01/2020 9:27 EDT [place] Suicide Severity Rating Scale (C-SSRS) CSSRS Past [...] EDT Legal Guardian : Mother Support Person/Patient Service Worker Helper : Yes Support Person/Pt Rep Name : Martita Bowling - mother Support Person/Pt Rep Contact Information : [phone] Want Family/Rep/Phys Notified of Admit : No Emergency Contact #1 : Martita Bowling Emergency Contact #1 C [phone] H Emergency Contact #1 Relationship : mother Emergency Contact #2 : . Emergency Contact #2 Phone Number : . Emergency Contact #2 Relationship : . Information Obtained From : Patient Primary Language : Northern Irish Preferred Communication Mode : Verbal Communication Barrier : None Automobile Seat Cover Installer Needed : No Objects to Sharing Info [...] Level : 46 or > High Risk [place] Fall Interventions : Adequate lighting, Bed in [...] rendition version of the form. Darlyn Coma [place] Best Motor Response : Obey commands Darlyn Best Verbal Response : Oriented [place] Eye Opening Response : Spontaneous Darlyn Coma Score : 15 Skye Rubio, RN - 03/01/2020 9:27 EDT Electronically signed by [facility] Conversion Aviation Manager Cerner at 11/28/2022 11:18 PM CDT documented in this encounter Plan of Treatment Upcoming Encounters Date Type Department Care Team (Late st Contact Info) Description 09/13/2025 11:15 AM EST Appointment [address] [place] [phone] documented as of this encounter Visit Diagnoses Not on filedocumented in this encounter Care Teams Assistant Store Manager Relationship Specialty Start Date End Date Denae Serrano MD [address] [place] [phone] PCP - General Family Medicine 06/11/22 documented as of this encounter
--- OUTSIDE RECORDS SUMMARY | 2025-08-06 10:04 | XMS_ITS | Encounter Summary ---
Author Organization [employer] ([place], [place], [place], [place], [place]) Address [address] [place] [address] Care Team Providers Care Sand Tester Name Role Phone Denae Serrano MD Primary Care Provider [phone] Encounter Details Date Type Department Care Team (Late st Contact Info) Description 03/01/2020 Transcribed Document [facility] [place] Family Medicine [address] [place] [address] ProviderJer MD [address] [place], [place] [address] Social History Tobacco Use Types Packs/Day Years [...] Wilda Moralez, RN - 03/01/2020 13:04 EDT Electronically signed by Lynne Martinez Conversion Playground Equipment Erector Cerner at 11/28/2022 11:11 PM CDT documented in this encounter Plan of Treatment Upcoming Encounters Date Type Department Care Team (Late st Contact Info) Description 09/13/2025 11:15 AM EST Appointment [address] [phone] documented as of this encounter Visit Diagnoses Not on filedocumented in this encounter Care Teams Sand Tester Relationship Specialty Start Date End Date Denae Serrano MD [address] [place] [phone] PCP - General Family Medicine 06/11/22 documented as of this encounter
--- OUTSIDE RECORDS SUMMARY | 2025-08-06 10:04 | XMS_ITS | Encounter Summary ---
Author Organization [employer] ([place], [place], [place], [place], [place]) Address [address] [place] [address] Care Team Providers Care Studio Couch Frame Builder Name Role Phone Denae Serrano MD Primary Care Provider [phone] Encounter Details Date Type Department Care Team (Late st Contact Info) Description 03/01/2020 Transcribed Document [facility] [place] [address] [place] [address] ProviderJer MD [address] [place], [place] [address] Social History Tobacco Use Types Packs/Day Years [...] 13:47 EDT Electronically signed by [facility] Conversion Emergency Medicine Physician Cerner at 11/28/2022 11:09 PM CDT documented in this encounter Plan of Treatment Upcoming Encounters Date Type Department Care Team (Late st Contact Info) Description 09/13/2025 11:15 AM EST Appointment [address] [phone] documented as of this encounter Visit Diagnoses Not on filedocumented in this encounter Care Teams Studio Couch Frame Builder Relationship Specialty Start Date End Date Denae Serrano MD [address] [place] [phone] PCP - General Family Medicine 06/11/22 documented as of this encounter
--- OUTSIDE RECORDS SUMMARY | 2025-08-06 10:05 | XMS_ITS | Clinical Summary ---
Author Organization [facility] Address [address] [place] [address] Phone [email or web address] Care Team Providers Care Pencil Maker Name Role Phone Denae Serrano MD [...] elbow 05/25/2019 Coronary artery disease invo lving [place] coronary artery of [place] heart without angina pectoris 10/28/2018 S/P coronary artery stent placement 10/23/2018 Overview (10/23/2018): -LCX Acute SD inferior lateral first episode care 05/2019 Hyperlipidemia [...] Insurance ANTH IN COPAY 5 [id number] [place] [address] Care Teams Pencil Maker Relationship Specialty Start Date End Date Denae Serrano MD [address] [address] PCP - General Microstrategy Developer 06/22/19
--- OUTSIDE RECORDS SUMMARY | 2025-08-06 10:05 | XMS_ITS | Encounter Summary ---
Author Organization [employer] ([place], [place], [place], [place], [place]) Address [address] [place] [address] Care Team Providers Care Medical Coding Instructor Name Role Phone Denae Serrano MD Primary Care Provider [phone] Encounter Details Date Type Department Care Team (Late st Contact Info) Description 10/10/2020 Transcribed Document [facility] [place] [address] [place] [address] ProviderJer MD [address] [place], [place] [address] Social History Tobacco Use Types Packs/Day Years Used Date Smoking Tobacco: Never Assessed Comments Unknown Sex and Gender Information Value Date Recorded Sex Assigned at Not on file Legal Sex Female 4:41 PM CDT Gender Identity Not on file Sexual Orientation Not on file documented as of this encounter Miscellaneous Notes * Cerner Conversion Note - Historical ProviderMD - 10/10/2020 11:59 AM STRIPER Pre Procedure Adult Entered On: 10/10/2020 12:06 EST Performed On: 10/10/2020 11:59 EST by Darlin Randhawa Rn Height and Weight, Clinical Dosing Height Source : Stated Height Entry Format : [place] Height, Feet : 5 ft(Converted to: 152 cm, 60 Inch) Height, Inches : 6 Inch(Converted to: 0 ft 6 Inch, 15.24 cm) Clinical Height : 167.64 cm Weight Source : Standing scale Weight Entry Format : [place] Clinical Dosing Weight : 101.82 kg Weight, Pounds : 224 lb Body Surface Area (BSA) : 2.1 m2 Body Mass Index : 36.2 kg/m2 (HI) [place] Body Weight : 59 kg Darlin Randhawa [...] Family History of Anesthesia Reaction : None Darlni Randhawa Rn - 10/10/2020 11:59 EST Functional Assessment Living Situation : Home Current Home Treatments : CPAP Darlin Randhawa Rn - 10/10/2020 11:59 EST [place] Suicide Severity Rating Scale (C-SSRS) CSSRS Past [...] Info Preferred Name : Zenaida Support Person/Patient Flavor Tank Tender : Yes Support Person/Pt Rep Name : Martita Bowling - mother Support Person/Pt Rep Contact Information : [phone] Want Family/Rep/Phys Notified of Admit : No Emergency Contact #1 : Alla Aviles Emergency Contact #1 Emergency Contact #1 Relationship : friend Emergency Contact #2 : - Emergency Contact #2 Phone Number : - Emergency Contact #2 Relationship : - Primary Language : [place] Islander Preferred Communication Mode : Verbal Communication Barrier : None Landfill Gas Technician Needed : No Darlin Randhawa Rn - [...] Scale Risk Level : 25-45 Medium Risk [place] Fall Interventions : Adequate lighting, Assistive devices [...] Description 09/13/2025 11:15 AM EST Appointment [address] [phone] documented as of this encounter Visit Diagnoses Not on filedocumented in this encounter Care Teams Medical Coding Instructor Relationship Specialty Start Date End Date Denae Serrano MD [address] [phone] PCP - General Family Medicine 06/11/22 documented as of this encounter
--- OUTSIDE RECORDS SUMMARY | 2025-08-06 10:05 | XMS_ITS | Encounter Summary ---
Author Organization [employer] ([place], [place], [place], [place], [place]) Address [address] [place] [address] Care Team Providers Care Chiropractor Sole Practitioner Name Role Phone Denae Serrano MD Primary Care Provider [phone] Encounter Details Date Type Department Care Team (Late st Contact Info) Description 10/10/2020 Transcribed Document [facility] [place] Family [place] [address] [place] [address] ProviderJer MD [address] [place] [address] Social History Tobacco Use Types Packs/Day Years Used Date Smoking Tobacco: Never Assessed Comments Unknown Sex and Gender Information Value Date Recorded Sex Assigned at Not on file Legal Sex Female 4:41 PM CDT Gender Identity Not on file Sexual Orientation Not on file documented as of this encounter Miscellaneous Notes * Cerner Conversion Note - Jer Klein MD - 10/10/2020 11:51 AM CRIMINAL JUSTICE FACULTY Patient: ZENAIDA BOWLING Age: 55 years Sex: Female : 1965 Associated Diagnoses: None Author: GUILLERMINA LUCERO MD-INRamin Basic Information Source of history: Self. Chief [...] identified. 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 Adjuvant chemo Endometriosis (5710929199): Resolved. Clostridium difficile (45503211): Resolved. Viral meningitis (65841891): Resolved. Tobacco abuse (501128670): Resolved. Procedure history: Cholecystectomy; (83535). Left shoulder labrum repair. Partial left knee [...] 140 mg/mL subcutaneous solution: 140 mg, SubCutaneous, [id number], rotate injection sites, 2 Each, 0 Refill(s) [...] Refill(s) nitroglycerin 0.4 mg sublingual spray: 1 Beecher, SubLINgual, Q5Min, PRN: for chest pain, 5 Gram, 0 Refill(s) rOPINIRole 2 mg oral tablet: 2 Tab, Oral, At Bedtime, 0 Refill(s), Medications (2) Active Scheduled: (0) Continuous: (1) NaCl 0.9% 1,000 mL 1,000 mL, IntraVENous, 50 mL/Hr PRN: (1) lidocaine 1% *PF* inj 5 mL 0.5 mL, IntraDermal, 1-Time Problem list: All Problems Hyperlipidemia / SNOMED CT 15165161 / Confirmed Migraine / SNOMED CT 25642941 / Confirmed GERD - Gastro-esophageal reflux disease / SNOMED CT 9636393093 / Confirmed Sleep apnea resolved / SNOMED CT 816616641 / Confirmed Urinary frequency / SNOMED CT 531867496 / Confirmed Hiatal hernia / SNOMED CT 445711789 / Confirmed Postmenopausal / SNOMED CT 084099289 / Confirmed Joint problem / SNOMED CT 012127608 / Confirmed Cancer of colon / SNOMED CT 572767664 / Confirmed Arthritis / SNOMED CT 4840080 / Confirmed Hearing loss in left ear / SNOMED CT 564909694 / Confirmed Tinnitus / SNOMED CT 805267380 / Confirmed AMI (acute myocardial infarction) / SNOMED CT 15045167 / Confirmed CAD (coronary artery disease) / SNOMED CT 69251113 / Confirmed HTN (hypertension) / SNOMED CT 3046983638 / Confirmed Stented coronary artery / SNOMED CT 1824483659 / Confirmed Borderline diabetes / SNOMED CT 5525361431 / Confirmed History of obstructive sleep apnea / IMO 01472729 / Confirmed Insomnia / SNOMED CT 913704512 / Confirmed Resolved: Colon cancer / SNOMED CT [id number] 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 Adjuvant chemo Resolved: Endometriosis / SNOMED CT 8496380551 Resolved: Clostridium difficile / SNOMED CT 33142636 Resolved: Viral meningitis / SNOMED CT 91040688 Resolved: Tobacco abuse / SNOMED CT 486364944 Canceled: Abdominal pain / SNOMED CT 70081498, Active Problems (19) AMI (acute myocardial infarction) [...] No deformity, Normal gait. Integumentary: Warm, Dry, [place], No rash. Integumentary exam: Face, Chest, Arm, [...] Guillermina Lucero MD personally interviewed the patient [id number]. I reviewed and discussed with the patient [...] Description 09/13/2025 11:15 AM EST Appointment [address] [phone] documented as of this encounter Visit Diagnoses Not on filedocumented in this encounter Care Teams Chiropractor Sole Practitioner Relationship Specialty Start Date End Date Denae Serrano MD [address] [place] [address] [address] [place] [address] PCP - General Family Medicine 06/11/22 documented as of this encounter
--- OUTSIDE RECORDS SUMMARY | 2025-08-06 10:05 | XMS_ITS | Encounter Summary ---
Author Organization [employer] ([place], [place], [place], [place], [place]) Address [address] [place] [address] Care Team Providers Care Dispatcher Tugboat Name Role Phone Denae Serrano MD Primary Care Provider [phone] Encounter Details Date Type Department Care Team (Late st Contact Info) Description 03/01/2020 Transcribed Document [facility] [place] Family Medicine [address] [place] [address] ProviderJer MD [address] [place], [place] [address] Social History Tobacco Use Types Packs/Day Years [...] and water are not available, use hand travel registered nurse oncology. ? Change your dressing as told by [...] or a bad smell. Medicines ??? Take mhcd-wrt-rfnojxo and prescription medicines only as told by [...] 11/18/2016 Document Revised: 07/31/2019 Document Reviewed: 11/18/2016 [employer] Interactive Patient Education ? 2020 [employer] General Anesthesia, Adult, Care After This [...] activities are safe for you. ??? Take hbny-bkr-croiifh and prescription medicines only as told by [...] 11/04/2001 Document Revised: 03/14/2018 Document Reviewed: 03/14/2018 [employer] Interactive Patient Education ? 2020 [employer]. Hernia, Adult A hernia happens when tissue [...] if you see any changes. ??? Take odmo-nos-dxxsmpw and prescription medicines only as told by [...] 01/16/2011 Document Revised: 04/30/2018 Document Reviewed: 04/30/2018 [employer] Interactive Patient Education ? 2019 [employer]. documented in this encounter Plan of Treatment Upcoming Encounters Date Type Department Care Team (Late st Contact Info) Description 09/13/2025 11:15 AM EST Appointment [facility] [address] [facility] [address] [place] [address] documented as of this encounter Visit Diagnoses Not on filedocumented in this encounter Care Teams Dispatcher Tugboat Relationship Specialty Start Date End Date Denae Serrano MD [address] [place] [phone] PCP - General Family Medicine 06/11/22 documented as of this encounter
--- OUTSIDE RECORDS SUMMARY | 2025-08-06 10:05 | XMS_ITS | Clinical Summary ---
Author Organization [facility] Address [address] [place] [address] Care Team Providers Care Legal Billing Clerk Name Role Phone Denae Serrano MD Primary Care Provider [phone] Allergies Active Allergy Reactions Criticality Noted Date [...] (09/03/2022): Added automatically from request for surgery [id number] Dysphagia 07/11/2022 Overview (07/11/2022): Trouble swallowing pills [...] drink first t divina in the morning (EYE-BODY CLEANER) to steady your nerves or to get [...] Screening 09/04/202408/13, 09/04/2022, 08/30/2021, Additional history exists [id number] Vaccine (1 - 2024- season) 2025 UKY-Influenza [...] this topic Medical Devices Implanted Type Area Peoplesoft Hrms Developer Device Identifier Shelf Expiration Date Model / Serial / Lot Implant Implant Bilateral: Knee Stent Stent Heart Mesh Phasix 10x12 In - [id number] Implanted:Qty : 1 on 07/26/2022 by Gentry Guardado MD at [facility] N/A: Abdomen Davol [id number] 05/09/2023 [id number] / / [id number] Cement Palacos - [id number] Implanted:Qty : 2 on 11/27/2022 by Albert Boswell MD at [facility] Right: Knee Heraeus [id number] 05/11/2027 [id number] / / [id number] Chg Patella Gii Oval Resurfaci - [id number] Implanted:Qty : 1 on 11/27/2022 by Albert Boswell MD at [facility] Right: Knee Judd & Nephew Chapman [id number] 07/31/2032 [id number] / / [id number] Chg Femoral Legion Ps Oxin Sz5 - [id number] Implanted:Qty : 1 on 11/27/2022 by Albert Boswell MD at [facility] Right: Knee Judd [employer] Nephew Chapman Inc-[id number] 04/23/2032 [id number] / / [id number] Chg Tibial Gns Ii Cmt Size 3 R - [id number] Implanted:Qty : 1 on 11/27/2022 by Albert Boswell MD at [facility] Right: Knee Judd [employer] Nephew Chapman Inc-[id number] 06/13/2032 [id number] / / [id number] Knee Lgn Xlp Ps High Sz3-4 12mm - [id number] Implanted:Qty : 1 on 11/27/2022 by Albert Boswell MD at [facility] Right: Knee Judd [employer] Nephew Chapman Inc-[id number] 08/13/2032 [id number] / / [id number] Procedures Procedure Name Priority Date/Time Associated Diagnosis Comments POCT GLYCOSYLATED HEMOGLOBIN (HGB A1C) Routine 07/11/2022 8:59 AM EST Personal history of nutritional deficiency from Last 3 Months or Most Recently Relevant to Health Maintenance Results * POCT Glycosylated Hemoglobin (Hgb A1C) (07/11/2022 8:59 AM EST) POCT Hemoglobin A1C 6.0 4.4-6.6 % % [facility] Kit Lot Number [id number] [facility] Kit Expiration Date 06/11/24 [facility] Blood Venous blood specimen / Unknown 07/11/2022 8:59 AM EST Gentry Guardado MD POINT OF CARE TEST ENTER/EDIT OR DERABLES Final Result [facility] [address] [place] [address] from Last 3 Months or Most Recently Relevant to Health Maintenance Insurance [facility] [place] [address] Advance Directives * Full Code (Latest Code Status on File) Date Activated Date Inactivated Comments 07/26/2022 4:15 PM 07/28/2022 6:08 PM Question Answer Comments Patient has decision-making capacity? Yes Care Teams Legal Billing Clerk Relationship Specialty Start Date End Date Denae Serrano MD #[id number] PCP - General 12/23/20
--- OUTSIDE RECORDS SUMMARY | 2025-08-06 10:05 | XMS_ITS | Encounter Summary ---
Author Organization [employer] ([place], [place], [place], [place], [place]) Address [address] [place] [address] Care Team Providers Care Automatic Lump Making Machine Tender Name Role Phone Denae Serrano MD Primary Care Provider [phone] Encounter Details Date Type Department Care Team (Late st Contact Info) Description 03/01/2020 Transcribed Document [facility] [place] Family Medicine [address] [place] [address] ProviderJer MD [address] [place], [place] [address] Social History Tobacco Use Types Packs/Day Years [...] PERLITA BOWLING/Sex: 1965 Female Med Rec #: [id number] Physician: SWAPNIL RAMIREZ MD-SUR Financial #: [id number] Pt. Type: O Room/Bed: [facility] Admit/Disch: 03/01/20 07:45:00 - Institution: [facility] IntraOp Case Attendance Entry 1 Entry 2 Entry 3 Case Attendee SWAPNIL RAMIREZ MD-Tiki Segal, Rn JACQUES GIRALDO FA Role Performed Surgeon/Proceduralist, Chemical Dependency Professional, Second Manager Council, First First Time In 03/01/20 10:31:00 03/01/20 [...] Willow Harris, - SSI Tech Role Performed Chemical Dependency Professional, First Scrub, First Palliative Care Physician, Ancillary Time In 03/01/20 10:31:00 03/01/20 10:31:00 [...] 8 Case Attendee RAMIRO BIRCH, KEVIN MEADE, Puffer Tender Role Performed CAVING GUIDE/Nurse Casting Operator Scrub, Second Time In 03/01/20 10:31:00 03/01/20 11:05:00 Time Out 03/01/20 11:36:00 03/01/20 11:36:00 Procedure Hernia Repair Hernia Repair Incisional Laparoscopic Incisional Laparoscopic Other Attendee ST ILDEFONSO RELIEF Superficial Wound Closed By: Last Modified By: LONG FINNEGAN, LONG HUDSON RN 03/01/20 11:34:15 03/01/20 11:34:15 [facility] IntraOp Case Attendance Audit 03/01/20 11:34:15 Enrobing Machine Operator: LETA Modifier: [email or web address] 1 <+> Time Out [...] Procedure Hernia Repair Incisional Laparoscopic 03/01/20 11:23:59 Enrobing Machine Operator: [email or web address] Modifier: [email or web address] 5 <+> Time Out 5 <*> Procedure Hernia Repair Incisional Laparoscopic 03/01/20 11:23:46 Enrobing Machine Operator: [email or web address] Modifier: [email or web address] 1 <*> Procedure Hernia [...] Procedure <+> 8 Other Attendee 03/01/20 10:54:56 Enrobing Machine Operator: [email or web address] Modifier: [email or web address] 1 <*> Procedure Hernia [...] Role Performed <+> 7 Procedure 03/01/20 10:53:03 Enrobing Machine Operator: [email or web address] Modifier: [email or web address] <+> 1 Procedure <+> [...] [facility] IntraOp Case Times Audit 03/01/20 11:34:14 Enrobing Machine Operator: [email or web address] Modifier: [email or web address] <+> 1 Out Room Time <+> 1 Stop Time 03/01/20 11:27:44 Enrobing Machine Operator: [email or web address] Modifier: [email or web address] <+> 1 Stop Time 03/01/20 10:51:19 Enrobing Machine Operator: [email or web address] Modifier: [email or web address] <+> 1 Start Time [facility] IntraOp Cautery Entry 1 ESU Identification Cautery Type Monopolar ESU ID Number [id number] ID Type Hospital Number Cautery Settings Cut [...] 10:54:09 [facility] IntraOp Communication Audit 03/01/20 10:54:09 Enrobing Machine Operator: [email or web address] Modifier: [email or web address] 1 <*> Date and [...] By Count Performed By KEVIN BRIGHT, (Scrub) Puffer Tender Count Performed By LONG FINNEGAN RN (RN) Last Modified By: LONG FINNEGAN RN 03/01/20 11:24:24 [facility] IntraOp Counts Final Audit 03/01/20 11:24:24 Enrobing Machine Operator: [email or web address] Modifier: [email or web address] 1 <*> Procedure Hernia Repair Incisional Laparoscopic 1 <*> Count Performed By (Scrub) Cher Judd, Puffer Tender 03/01/20 11:23:18 Enrobing Machine Operator: [email or web address] Modifier: [email or web address] 1 <*> Procedure Hernia [...] IntraOp Fire Risk Assessment Audit 03/01/20 10:55:35 Enrobing Machine Operator: [email or web address] Modifier: [email or web address] <+> 1 Open O2 Source (Mask or Cannula) [facility] IntraOp General Case Human Resource Statistician 1 Case Information OR OR 03 SJE Case Level 1 Room Verified Yes Wound Class III - Contaminated Specialty SN General Anesthesia Type General ASA Class 3 Diagnosis Preop Diagnosis INNCISIONAL HERNIA Postop Same As Preop Yes Postop Diagnosis INNCISIONAL HERNIA Last Modified By: LONG FINNEGAN RN 03/01/20 10:55:55 [facility] IntraOp General Case Data Audit 03/01/20 10:55:55 Enrobing Machine Operator: [email or web address] Modifier: [email or web address] <+> 1 ASA Class <+> 1 Anesthesia Type <+> 1 Postop Same As Preop <+> 1 Preop Diagnosis <+> 1 Postop Diagnosis <+> 1 Room Verified [facility] IntraOp Implant Log Entry 1 Entry 2 Type Implant (Synthetic) Implant (Synthetic) Implant Log Implant Type Other Other Tissue Implant Type Implant BIOMATERIAL SYNECOR SYS FIXATION CAPSURE Identification [id number] [id number] Description Implant Quantity 1 2 Implant Site OPSITE OPSITE Implant Identification Model Number Implant [id number] Identification Serial Number Implant [id number] Identification Lot Number Implant Wl [place] [employer]:Med Prdt Cr Bard:Davol Identification Inorganic Chemistry Teacher Name: Implant [id number] Identification Catalog Number Implant Size Implant Has an Yes Yes Expiration Date Implant Expiration 01/20/21 08/08/21 Date Wasted Radioactive Material Time Implanted Tissue Implant Continue for Tissue Implant Documentation Tissue Identification Number Graft Prep Per Inorganic Chemistry Teacher Instructions: Tissue Preparation Method: Reconstitution Solution: Reconstitution Solution Lot Number Reconstitution Solution Expiration Date: Thawing Solution Thawing Solution Lot Number Thawing Solution Expiration Date Preparation Materials, Other Preparation Materials, Other Lot Number Preparation Materials, Other Expiration Date Tissue Prepared/Processed By Inorganic Chemistry Teacher Paperwork Completed Implant Type Comment Last Modified By: LONG FINNEGAN RN WESSEL, JULIANA, RN 03/01/20 11:03:55 03/01/20 11:17:28 [facility] IntraOp Implant Log Audit 03/01/20 11:17:28 Enrobing Machine Operator: LETA Modifier: LETA <+> 2 Implant Identification Description <+> 2 Implant Identification Lot Number <+> 2 Implant Identification Inorganic Chemistry Teacher Name: <+> 2 Implant Expiration Date <+> [...] Intra Op Sign Out Audit 03/01/20 11:34:09 Enrobing Machine Operator: LETA Modifier: [email or web address] <+> 1 RN Sign [...] [facility] IntraOp Surgical Procedures Audit 03/01/20 11:27:45 Enrobing Machine Operator: LETA Modifier: [id number] <+> 1 Stop SJE [...] Info) Description 09/13/2025 11:15 AM EST Appointment [address] [phone] documented as of this encounter Visit Diagnoses Not on filedocumented in this encounter Care Teams Automatic Lump Making Machine Tender Relationship Specialty Start Date End Date Denae Serrano MD [address] [place] [address] [phone] PCP - General Family Medicine 06/11/22 documented as of this encounter
--- OUTSIDE RECORDS SUMMARY | 2025-08-06 10:05 | XMS_ITS | Referral Summary ---
Author Organization [employer] ([place], [place], [place], [place], [place]) Address [address] [place] [address] Care Team Providers Care Body Man Name Role Phone Denae Serrano MD Primary Care Provider [phone] Allergies Active Allergy Reactions Criticality Noted Date [...] Date Javier rded Speak language other than [place] at home Not on file 08/23/2023 Want [...] Description 09/13/2025 11:15 AM EST Appointment [address] [place] [phone] Procedures Procedure Name Priority Date/Time Associated [...] SHIELD MEDICARE PART A B Care Teams Body Man Relationship Specialty Start Date End Date Denae eSrrano MD [address] [place] [phone] PCP - General Family Medicine 06/11/22
--- OUTSIDE RECORDS SUMMARY | 2025-08-06 10:05 | XMS_ITS | Clinical Summary ---
Author Organization [employer] ([place], [place], [place], [place], [place]) Address [address] [place] [address] Care Team Providers Care Caving Guide Name Role Phone Denae Serrano MD Primary Care Provider [phone] Allergies Active Allergy Reactions Criticality Noted Date [...] Date Javier rded Speak language other than Argentine at home Not on file 08/23/2023 Want [...] Description 09/13/2025 11:15 AM EST Appointment [address] [place] [phone] Health Maintenance Due Date Last Done [...] SHIELD MEDICARE PART A B Care Teams Caving Guide Relationship Specialty Start Date End Date Denae Serrano MD [address] [place] [address] [phone] PCP - General Family Medicine 06/11/22
--- OUTSIDE RECORDS SUMMARY | 2025-08-06 10:05 | XMS_ITS | Encounter Summary ---
Author Organization [employer] ([place], [place], [place], [place], [place]) Address [address] [place] [address] Care Team Providers Care Accounts Payable Supervisor Name Role Phone Denae Serrano MD Primary Care Provider [phone] Encounter Details Date Type Department Care Team (Late st Contact Info) Description 03/01/2020 Transcribed Document [facility] Family Medicine [address] [place] [address] ProviderJer MD [address] [place], [place] [id number] Social History Tobacco Use Types Packs/Day Years [...] 12 hours as needed for nausea and [place] 7.5/325mg one tab by mouth every 4 hours as needed for pain. No ibuprofen until after 9:45 pm Activity: Discharge Activity: No heavy lifting over 10 lbs Diet: Discharge Diet: Resume usual diet as tolerated Follow-Up Appointments Follow Up with SWAPNIL RAMIREZ MD-ANABELA When 03/09/2020 12:00 PM EDT Comments Appointment has been made Where: [facility] [address] [place] [address]- Medications What How Much When Instructions Next [...] nitroglycerin (nitroglycerin 0.4 mg sublingual spray) 1 [place](s) SubLINgual Every 5 minutes as needed for [...] and water are not available, use hand home office representative. ? Change your dressing as told by [...] or a bad smell. Medicines ??? Take jwcx-ilv-tsrzekc and prescription medicines only as told by [...] 11/18/2016 Document Revised: 07/31/2019 Document Reviewed: 11/18/2016 [employer] Interactive Patient Education ?? 2020 R2G. General Anesthesia, Adult, Care After This sheet [...] activities are safe for you. ??? Take oxfl-zdk-osgfxom and prescription medicines only as told by [...] 11/04/2001 Document Revised: 03/14/2018 Document Reviewed: 03/14/2018 [employer] Interactive Patient Education ?? 2020 R2G. Hernia, Adult A hernia happens when tissue [...] if you see any changes. ??? Take upkg-vbu-epejodm and prescription medicines only as told by [...] 01/16/2011 Document Revised: 04/30/2018 Document Reviewed: 04/30/2018 [employer] Interactive Patient Education ?? 2020 R2G. ondansetron (oral) (on JARAD se iglesia) Sindy [...] may report side effects to FDA at 2-343-WPT-5293. What other drugs will affect ondansetron? Ondansetron [...] interact with ondansetron. This includes prescription and tlxe-zly-tzqitss medicines, vitamins, and herbal products. Give a [...] to ensure that the information provided by [employer]. ('[employer]') is accurate, up-to-date, and complete, but no guarantee is made to that effect. Drug information contained herein may be time sensitive. [employer] information has been compiled for use by healthcare practitioners and consumers in the [place] and therefore [employer] does not warrant that uses outside of the [place] are appropriate, unless specifically indicated otherwise. [employer] drug information does not endorse drugs, diagnose patients or recommend therapy. [employer] drug information is an informational resource designed [...] effective or appropriate for any given patient. [employer] does not assume any responsibility for any aspect of healthcare administered with the aid of information [employer] provides. The information contained herein is not intended to cover all possible uses, directions, precautions, warnings, drug interactions, allergic reactions, or adverse effects. If you have questions about the drugs you are taking, check with your doctor, nurse or pharmacist. Copyright 1722-4103 [employer]. Version: 13.01. Revision Date: 06/01/2016. acetaminophen and hydrocodone (a SEET a MIN oh fen and cathi droe KOE done) Hycet, Lorcet, [place], Verdrocet, Vicodin, Xodol, Zamicet What is the [...] may report side effects to FDA at 7-878-SOF-7609. What other drugs will affect acetaminophen and [...] affect acetaminophen and hydrocodone, including prescription and adti-fbi-pahpvcs medicines, vitamins, and herbal products. Not all [...] to ensure that the information provided by [employer]. ('[employer]') is accurate, up-to-date, and complete, but no guarantee is made to that effect. Drug information contained herein may be time sensitive. [employer] information has been compiled for use by healthcare practitioners and consumers in the [place] and therefore [employer] does not warrant that uses outside of the [place] are appropriate, unless specifically indicated otherwise. [employer] drug information does not endorse drugs, diagnose patients or recommend therapy. [employer] drug information is an informational resource designed [...] effective or appropriate for any given patient. [employer] does not assume any responsibility for any aspect of healthcare administered with the aid of information [employer] provides. The information contained herein is not intended to cover all possible uses, directions, precautions, warnings, drug interactions, allergic reactions, or adverse effects. If you have questions about the drugs you are taking, check with your doctor, nurse or pharmacist. Copyright 4958-2652 [employer]. Version: 16.. Revision Date: 09/02/2019. Emergency Awareness [...] Assistance with quitting is available by contacting 3-999-MQKR-NOW. This is a free resource providing counseling, support, and referral. Or you may contact your personal physician. [place] Suicide Prevention Lifeline: The National Suicide Prevention [...] was given the opportunity to ask questions. Patient/Cell Efficiency Supervisor Name: Patient/Cell Efficiency Supervisor Signature: Relationship to Patient: Clinician/Hospital Cell Efficiency Supervisor Signature: Date: Electronically signed by [facility] Hospital Intern Cerner at 11/28/2022 11:29 PM CDT documented in this encounter Plan of Treatment Upcoming Encounters Date Type Department Care Team (Late st Contact Info) Description 09/13/2025 11:15 AM EST Appointment [address] [phone] documented as of this encounter Visit Diagnoses Not on filedocumented in this encounter Care Teams Accounts Payable Supervisor Relationship Specialty Start Date End Date Denae Serrano MD [address] [phone] PCP - General Family Medicine 06/11/22 documented as of this encounter
--- OUTSIDE RECORDS SUMMARY | 2025-08-06 10:05 | XMS_ITS | Encounter Summary ---
Author Organization [employer] ([place], [place], [place], [place], [place]) Address [address] [place] [address] Care Team Providers Care Automobile Club Travel Counselor Name Role Phone Denae Serrano MD Primary Care Provider [phone] Encounter Details Date Type Department Care Team (Late st Contact Info) Description 10/10/2020 Transcribed Document [facility] [place] Medicine [address] [place] [address] ProviderJer MD [address] [place], [place] [address] Social History Tobacco Use Types Packs/Day Years Used Date Smoking Tobacco: Never Assessed Comments Unknown Sex and Gender Information Value Date Recorded Sex Assigned at Not on file Legal Sex Female 4:41 PM CDT Gender Identity Not on file Sexual Orientation Not on file documented as of this encounter Miscellaneous Notes * Cerner Conversion Note - Historical ProviderMD - 10/10/2020 1:02 PM WIRER MAINTENANCE NAMRATA Endo IntraOp Summary Primary Physician: KENDAL SHARP MD-GAE Finalized Date/Time: 10/10/20 13:14:28 Pt. Name: ZENAIDA BOWLING/Sex: 1965 Female Med Rec #: [id number] Physician: KENDAL SHARP MD-GAE Financial #: [id number] Pt. Type: E Room/Bed: [facility] Admit/Disch: 10/10/20 11:14:00 - Institution: [facility] Endo - Case Attendance Entry 1 Entry 2 Entry 3 Case Attendee KENDAL SHARP MD-Almita Robertson, Rn ALDAIR MCCALL APRN, LAWN SERVICE SUPERVISOR-ANS Role Performed Surgeon/Proceduralist, Dispatcher Chief Oil, Second LAWN SERVICE SUPERVISOR/Nurse Neuroradiologist First Time In 10/10/20 13:00:00 10/10/20 12:51:00 [...] Almita Bennett, Romeo 10/10/20 13:14:22 10/10/20 13:14:22 [facility] Endo - Case Attendance Audit 10/10/20 13:14:22 Electrical Tester Battery: [id number] Modifier: [id number] 1 <+> Time Out 1 <*> Procedure Colonoscopy, Colon Polypectomy 2 <+> Time Out 2 <*> Procedure Colonoscopy, Colon Polypectomy 3 <+> Time Out 3 <*> Procedure Colonoscopy, Colon Polypectomy 4 <+> Time Out 4 <*> Procedure Colonoscopy, Colon Polypectomy 5 <+> Time Out 5 <*> Procedure Colonoscopy, Colon Polypectomy 10/10/20 13:10:09 Electrical Tester Battery: [id number] Modifier: [id number] 1 <*> Procedure Colonoscopy 2 <*> Procedure Colonoscopy 3 <*> Procedure Colonoscopy 4 <*> Procedure Colonoscopy 5 <*> Procedure Colonoscopy 10/10/20 13:00:31 Electrical Tester Battery: [id number] Modifier: [id number] 1 <*> Time In 10/10/20 12:51:00 1 <*> Procedure Colonoscopy 10/10/20 12:56:36 Electrical Tester Battery: [id number] Modifier: [id number] <+> 1 Procedure 2 <+> Time In 2 <*> Procedure Colonoscopy 3 <+> Time In 3 <*> Procedure Colonoscopy 4 <+> Time In 4 <*> Procedure Colonoscopy 5 <+> Time In 5 <*> Procedure Colonoscopy 10/10/20 12:54:32 Electrical Tester Battery: [id number] Modifier: [id number] <+> 1 Time In <+> 2 Case [...] Endo - Case Times Audit 10/10/20 13:12:58 Electrical Tester Battery: [id number] Modifier: [id number] <+> 1 Out Room Time <+> 1 Stop Time <+> 1 Stop Time 10/10/20 13:02:44 Electrical Tester Battery: [id number] Modifier: [id number] <+> 1 Start Time [facility] Endo - [...] Patient Transport ALDAIR MCCALL APRN, Accompanied by LAWN SERVICE SUPERVISOR-Donald SONG Sandy, Rn Last Modified By: Almita Bennett Rn 10/10/20 12:54:57 E Endo - Endoscopy Details Entry 1 Abdomen Procedure Soft, Non-Tender Assessment Procedure Abdomen 10/10/20 12:55:00 Assessment D/T Radio Frequency Ablation Abdominal Pressure Last Modified By: Almita Bennett Rn 10/10/20 12:55:07 [facility] Endo - Fire Risk Assessment Entry 1 [...] Modified By: Almita Bennett Rn 10/10/20 12:55:24 [facility] Endo - Fire Risk Assessment Audit 10/10/20 12:55:24 Electrical Tester Battery: [id number] Modifier: [id number] <+> 1 Fire Risk Assessment Verified By [facility] Endo - General Case Batch Tank Controller 1 Case Information OR Endo 01 [facility] Case Level 1 Room Verified Yes Wound Class III - Contaminated Specialty SN Gastroenterology Anesthesia Type MAC ASA Class 3 Diagnosis Preop Diagnosis History of colon cancer Postop Same As Preop No Postop Diagnosis tranverse colon polyp, diverticulosi Last Modified By: Almita Bennett Rn 10/10/20 13:14:18 [facility] Endo - General Case Data Audit 10/10/20 13:14:18 Electrical Tester Battery: [id number] Modifier: [id number] <+> 1 Postop Same As Preop <+> 1 Postop Diagnosis 10/10/20 12:58:08 Electrical Tester Battery: [id number] Modifier: [id number] <+> 1 Specialty <+> 1 ASA Class [...] By Almita Bennett Rn, ALDAIR MCCALL, GOPAL, LAWN SERVICE SUPERVISOR-ANS Position Verified Positioning Yes Verified by Surgeon Last Modified By: Almita Bennett Rn 10/10/20 13:10:10 [facility] Endo - Patient Positioning Audit 10/10/20 13:10:10 Electrical Tester Battery: [id number] Modifier: [id number] 1 <*> Procedure Colonoscopy [facility] Endo - [...] Modified By: Almita Bennett Rn 10/10/20 13:13:19 [facility] Endo - Surgical Procedures Entry 1 Entry [...] Rickards, Sandy, Rn 10/10/20 13:13:36 10/10/20 13:13:36 [facility] Endo - Surgical Procedures Audit 10/10/20 13:13:36 Electrical Tester Battery: [id number] Modifier: [id number] <+> 1 Stop <+> 2 Stop 10/10/20 13:10:44 Electrical Tester Battery: [id number] Modifier: [id number] <+> 1 Start <+> 2 Start 10/10/20 13:10:04 Electrical Tester Battery: [id number] Modifier: [id number] 1 <*> Procedure Colonoscopy 1 <+> Physician States Cecum Reached <+> 2 Procedure <+> 2 Primary Procedure <+> 2 Primary Surgeon <+> 2 Specialty <+> 2 Wound Class <+> 2 Anesthesia Type <+> 2 Physician States Cecum Reached 10/10/20 12:57:33 Electrical Tester Battery: [id number] Modifier: [id number] 1 <*> Procedure Colonoscopy 1 <+> Specialty [facility] Endo - Time Out Entry 1 Procedure [...] Endo - Time Out Audit 10/10/20 13:10:11 Electrical Tester Battery: [id number] Modifier: [id number] 1 <*> Procedure to be Performed Colonoscopy Case Comments <None> Finalized By: Almita Bennett, Rn Document Signatures Signed By: Almita Bennett Rn 10/10/20 13:14 Electronically signed by Juan [facility] Conversion Foil Spooler Cerner at 11/28/2022 11:21 PM CDT documented in this encounter Plan of Treatment Upcoming Encounters Date Type Department Care Team (Late st Contact Info) Description 09/13/2025 11:15 AM EST Appointment [address] [phone] documented as of this encounter Visit Diagnoses Not on filedocumented in this encounter Care Teams Automobile Club Travel Counselor Relationship Specialty Start Date End Date Denae Serrano MD [address] [place] [phone] PCP - General Family Medicine 06/11/22 documented as of this encounter
--- OUTSIDE RECORDS SUMMARY | 2025-08-06 10:05 | XMS_ITS | Clinical Summary ---
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 10/28/2018 Acute [place] inferior lateral first episode care 05/2019 Hyperlipidemia [...] 022, 03/30/2011 Medical Devices Implanted Type Area Financial Market Dealer Device Identifier Shelf Expiration Date Model / Serial / Lot Stent Xience Gladys Everolimus Brendan 3.5x18mm - [id number] Implanted:Qty: 1 on 10/19/2018 by Xander Rosenbaum MD at [facility] [employer] [facility] [id number] / / Procedures Procedure Name Priority Date/Time [...] - 200 mg/dL 10/20/2018 6:28 AM EDT [facility] Triglycerides 152(H) 0 - 150 mg/dL 10/20/2018 6:28 AM EDT [facility] HDL Cholesterol 39(L) 40 - 60 mg/dL 10/20/2018 6:28 AM EDT [facility] LDL Cholesterol 118 0 - 130 mg/dL 10/20/2018 6:28 AM T [facility] Blood Venipuncture / Unknown 10/20/2018 3:39 AM EDT 10/20/2018 5:34 AM EDT [facility] - 10/20/2018 6:28 AM EDT Cholesterol [...] MD LAB BLOOD ORDERABLES Anamika kathi Result [facility]
[address] [place] [address], from Last 3 Months or Most Recently Relevant to Health Maintenance Insurance [facility] PPO Advance Directives * CPR (Attempt to Resuscitate) (Latest Code Status on File) Date Activated Date Inactivated Comments 10/19/2018 3:31 PM 10/21/2018 3:19 PM Question Answer Comments Code Status (Patient has no pulse and is not breathing): CPR (Attempt to Resuscitate) Medical Interventions (Patie nt has pulse or is breathing): Full Level Of Support Discussed With: Patient Care Teams Senior Pharmacy Technician Relationship Specialty Start Date End Date Denae Serrano MD [address] [place] [phone] PCP - General Family Medicine 03/19/16
--- OUTSIDE RECORDS SUMMARY | 2025-08-06 10:05 | XMS_ITS | Encounter Summary ---
Author Organization [employer] ([place], [place], [place], [place], [place]) Address [address] [place] [address] Care Team Providers Care Remarketing Manager Name Role Phone Denae Serrano MD Primary Care Provider [phone] Encounter Details Date Type Department Care Team (Late st Contact Info) Description 10/10/2020 Transcribed Document [facility] [place] [address] [place] [address] Jer Klein MD [address] [place], [place] [id number] Social History Tobacco Use Types Packs/Day Years Used Date Smoking Tobacco: Never Assessed Comments Unknown Sex and Gender Information Value Date Recorded Sex Assigned at Not on file Legal Sex Female 4:41 PM CDT Gender Identity Not on file Sexual Orientation Not on file documented as of this encounter Miscellaneous Notes * Cerner Conversion Note - Jer Klein MD - 10/10/2020 1:24 PM WOOD PILE DRIVER OPERATOR Patient Education Materials Follows: Monitored Anesthesia Care, [...] eating solid foods. General instructions ??? Take ioqt-xjz-cdbbabf and prescription medicines only as told by [...] 11/18/2016 Document Revised: 10/27/2018 Document Reviewed: 11/18/2016 [employer] Patient Education ? 2020 [employer] Inc. Colonoscopy, Adult, Care After This sheet [...] soft and easy to digest. ??? Take xgzc-jog-apygpog or prescription medicines only as told by [...] 08/31/2011 Document Revised: 05/29/2018 Document Reviewed: 04/22/2017 [employer] Patient Education ? 2020 eCareDiary. Diverticulosis Diverticulosis is a condition that develops [...] getting enough exercise. ??? Smoking. ??? Taking hyyu-msi-esmflza pain medicines, like aspirin and ibuprofen. ??? [...] care provider or your diet and nutrition director (dietitian). ? Take a fiber supplement or probiotic, if your health care provider approves. ??? Take mvkh-bib-glrtgst and prescription medicines only as told by [...] 04/25/2005 Document Revised: 07/11/2018 Document Reviewed: 06/17/2017 [employer] Patient Education ? 2020 [employer]. Colon Polyps Polyps are tissue growths [...] Reviewed: 11/13/2018 Elsevier Patient Education ? 2019 eCareDiary. Electronically signed by Juan, [facility] Conversion Hearing Care Professional Cerner at 11/28/2022 11:33 PM CDT documented in this encounter Plan of Treatment Upcoming Encounters Date Type Department Care Team (Late st Contact Info) Description 09/13/2025 11:15 AM EST Appointment [address] [phone] documented as of this encounter Visit Diagnoses Not on filedocumented in this encounter Care Teams Remarketing Manager Relationship Specialty Start Date End Date Denae Serrano MD [address] [place] [phone] PCP - General Family Medicine 06/11/22 documented as of this encounter
--- OUTSIDE RECORDS SUMMARY | 2025-08-06 10:05 | XMS_ITS | Encounter Summary ---
Author Organization [employer] ([place], [place], [place], [place], [place]) Address [address] [place] [address] Care Team Providers Care Carbon Capture Power Plant Engineer Name Role Phone Denae Serrano MD Primary Care Provider [phone] Encounter Details Date Type Department Care Team (Late st Contact Info) Description 10/10/2020 Transcribed Document [facility] [place] [address] [place] [address] ProviderJer MD [address] [place], [place] [address] Social History Tobacco Use Types Packs/Day Years Used Date Smoking Tobacco: Never Assessed Comments Unknown Sex and Gender Information Value Date Recorded Sex Assigned at Not on file Legal Sex Female 4:41 PM CDT Gender Identity Not on file Sexual Orientation Not on file documented as of this encounter Miscellaneous Notes * Cerner Conversion Note - Historical ProviderMD - 10/10/2020 1:02 PM AGRISCIENCE INSTRUCTOR [facility] PACU Summary Primary Physician: KENDAL SHARP MD-GAE Finalized Date/Time: 10/10/20 13:42:31 Pt. Name: ZENAIDA BOWLING/Sex: 1965 Female Med Rec #: [id number] Physician: KENDAL SHARP MD-GAE Financial #: [id number] Pt. Type: E Room/Bed: [facility] Admit/Disch: 10/10/20 11:14:00 - Institution: [facility] PACU Case Times Entry 1 In PACU I 10/10/20 13:15:00 Ready for PACU 10/10/20 13:33:00 Discharge Discharge from PACU 10/10/20 13:41:00 I Finalized By: Catrachita Blas, Rn Document Signatures Signed By: Catrachita Blas Rn 10/10/20 13:42 Electronically signed by Juan [facility] Conversion Software Developer Intern Cerner at 11/28/2022 11:29 PM CDT documented in this encounter Plan of Treatment Upcoming Encounters Date Type Department Care Team (Late st Contact Info) Description 09/13/2025 11:15 AM EST Appointment [address] [phone] documented as of this encounter Visit Diagnoses Not on filedocumented in this encounter Care Teams Carbon Capture Power Plant Engineer Relationship Specialty Start Date End Date Denae Serrano MD [address] [place] [phone] PCP - General Family Medicine 06/11/22 documented as of this encounter
--- OUTSIDE RECORDS SUMMARY | 2025-08-06 10:05 | XMS_ITS | Encounter Summary ---
Author Organization [employer] ([place], [place], [place], [place], [place]) Address [address] [place] [address] Care Team Providers Care Oil Developer Name Role Phone Denae Serrano MD Primary Care Provider [phone] Encounter Details Date Type Department Care Team (Late st Contact Info) Description 03/01/2020 Transcribed Document [facility] [place] Medicine [address] [place] [address] ProviderJer MD [address] [place], [place] [address] Social History Tobacco Use Types Packs/Day Years [...] EDT Performed On: 03/01/2020 10:07 EDT by kSye Rubio RN Event Note Event Date/Time : 03/01/2020 9:00 EDT Event Location : [place] area Event Details : Other: anticoag Description of Event : Notified Dr. Perez that pt continued with Aspirin 81 mg po through this am, OK to proceed per Skye Ramos, KAUSHIK - 03/01/2020 10:07 EDT documented in this encounter Plan of Treatment Upcoming Encounters Date Type Department Care Team (Late st Contact Info) Description 09/13/2025 11:15 AM EST Appointment [address] [place] [phone] documented as of this encounter Visit Diagnoses Not on filedocumented in this encounter Care Teams Oil Developer Relationship Specialty Start Date End Date Denae Serrano MD [address] [place] [phone] PCP - General Family Medicine 06/11/22 documented as of this encounter
--- OUTSIDE RECORDS SUMMARY | 2025-08-06 10:05 | XMS_ITS | Encounter Summary ---
Author Organization [employer] ([place], [place], [place], [place], [place]) Address [address] [place] [address] Care Team Providers Care Direct Marketing Specialist Name Role Phone Denae Serrano MD Primary Care Provider [phone] Encounter Details Date Type Department Care Team (Late st Contact Info) Description 03/14/2020 Transcribed Document [facility] [place] [facility] [place] [address] ProviderJer MD [address] [place] [address] Social History Tobacco Use Types Packs/Day Years [...] OF PROCEDURE: 03/01/2020 SURGEON: Herminio Perez MD CAD ADMINISTRATOR: Slick. PREOPERATIVE DIAGNOSIS: Incisional hernia. POSTOPERATIVE DIAGNOSIS: [...] It was evident the patient had several Prydeinig cheeselike defects in the midline. The hernia sacs were dissected free and removed the from the abdominal cavity. Three separate bnhskp-me-zjinx nonabsorbable sutures were used to close the [...] taken to recovery room in stable condition. /[id number] MD NORMA Flower/AQ / JS / MODL /[id number] Electronically signed by Juan [facility] Conversion Rn Pediatric Cerner at 11/28/2022 11:13 PM CDT documented in this encounter Plan of Treatment Upcoming Encounters Date Type Department Care Team (Late st Contact Info) Description 09/13/2025 11:15 AM EST Appointment [address] [place] [phone] documented as of this encounter Visit Diagnoses Not on filedocumented in this encounter Care Teams Direct Marketing Specialist Relationship Specialty Start Date End Date Denae Serrano MD [address] [place] [phone] PCP - General Family Medicine 06/11/22 documented as of this encounter
--- OUTSIDE RECORDS SUMMARY | 2025-08-06 10:05 | XMS_ITS | Encounter Summary ---
Author Organization [employer] ([place], [place], [place], [place], [place]) Address [address] [place] [address] Care Team Providers Care Senior Unix Administrator Name Role Phone Denae Serrano MD Primary Care Provider [phone] Encounter Details Date Type Department Care Team (Late st Contact Info) Description 10/10/2020 Transcribed Document [facility] [place] [address] [place] [address] ProviderJer MD [address] [place], [place] [id number] Social History Tobacco Use Types Packs/Day Years Used Date Smoking Tobacco: Never Assessed Comments Unknown Sex and Gender Information Value Date Recorded Sex Assigned at Not on file Legal Sex Female 4:41 PM CDT Gender Identity Not on file Sexual Orientation Not on file documented as of this encounter Miscellaneous Notes * Cerner Conversion Note - Historical ProviderMD - 10/10/2020 1:25 PM TALENT PROGRAM MANAGER [address] [address] ZENAIDA BOWLING :1965 Visit Time:10/10/2020 [...] repeat colonoscopy in 3 years Where: [address] [facility] [address] [place] [address]- Medications What How Much When Instructions Next [...] nitroglycerin (nitroglycerin 0.4 mg sublingual spray) 1 [place](s) SubLINgual Every 5 minutes as needed for [...] eating solid foods. General instructions ??? Take nlyu-zlb-cqhyqeu and prescription medicines only as told by [...] 11/18/2016 Document Revised: 10/27/2018 Document Reviewed: 11/18/2016 [employer]P Holdings Patient Education ?? 2020 eKonnekt. Colonoscopy, Adult, Care After This sheet gives [...] soft and easy to digest. ??? Take yjbw-zkg-avrjigm or prescription medicines only as told by [...] 08/31/2011 Document Revised: 05/29/2018 Document Reviewed: 04/22/2017 [email or web address] Patient Education ?? 2020 PDP Holdings Inc. Diverticulosis Diverticulosis is a condition that [...] getting enough exercise. ??? Smoking. ??? Taking vjfl-urq-dovtqbm pain medicines, like aspirin and ibuprofen. ??? [...] care provider or your diet and nutrition instructor (dietitian). ? Take a fiber supplement or probiotic, if your health care provider approves. ??? Take uknm-fhk-brsqfks and prescription medicines only as told by [...] 04/25/2005 Document Revised: 07/11/2018 Document Reviewed: 06/17/2017 [email or web address].com Patient Education ?? 2020 [employer] Inc. Colon Polyps Polyps are tissue growths [...] 04/24/2005 Document Revised: 11/13/2018 Document Reviewed: 11/13/2018 [employer]P Holdings Patient Education ?? 2020 eKonnekt. Emergency Awareness and Preventative Care STROKE is [...] Assistance with quitting is available by contacting 9-873-ZIGN-NOW. This is a free resource providing counseling, [...] was given the opportunity to ask questions. Patient/Automatic Casting Machine Operator Name: Patient/Automatic Casting Machine Operator Signature: Relationship to Patient: Clinician/Hospital Automatic Casting Machine Operator Signature: Date: documented in this encounter Plan of Treatment Upcoming Encounters Date Type Department Care Team (Late st Contact Info) Description 09/13/2025 11:15 AM EST Appointment [address] [phone] documented as of this encounter Visit Diagnoses Not on filedocumented in this encounter Care Teams Senior Unix Administrator Relationship Specialty Start Date End Date Denae Serrano MD [address] [place] [phone] PCP - General Family Medicine 06/11/22 documented as of this encounter
--- OUTSIDE RECORDS SUMMARY | 2025-08-06 10:05 | XMS_ITS | Encounter Summary ---
Author Organization [employer] ([place], [place], [place], [place], [place]) Address [address] [place] [address] Care Team Providers Care Clin Nurse Spec Name Role Phone Denae Serrano MD Primary Care Provider [phone] Encounter Details Date Type Department Care Team (Late st Contact Info) Description 03/01/2020 Transcribed Document [facility] [place] [address] [place] [address] ProviderJer MD [address] [place], [place] [address] Social History Tobacco Use Types Packs/Day Years [...] 03/01/2020 15:56 EDT Electronically signed by Juan [facility] Conversion Motor Coach Tour Operator Cerner at 11/28/2022 11:33 PM CDT documented in this encounter Plan of Treatment Upcoming Encounters Date Type Department Care Team (Late st Contact Info) Description 09/13/2025 11:15 AM EST Appointment [address] [phone] documented as of this encounter Visit Diagnoses Not on filedocumented in this encounter Care Teams Clin Nurse Spec Relationship Specialty Start Date End Date Denae Serrano MD [address] [place] [phone] PCP - General Family Medicine 06/11/22 documented as of this encounter
--- OUTSIDE RECORDS SUMMARY | 2025-08-06 10:05 | XMS_ITS | Encounter Summary ---
Author Organization [employer] ([place], [place], [place], [place], [place]) Address [address] [place] [address] Care Team Providers Care Gravity Meter Operator Name Role Phone Denae Serrano MD Primary Care Provider [phone] Encounter Details Date Type Department Care Team (Late st Contact Info) Description 10/10/2020 Transcribed Document [facility] [place] [address] [place] [address] ProviderJer MD [address] [place], [place] [address] Social History Tobacco Use Types Packs/Day Years Used Date Smoking Tobacco: Never Assessed Comments Unknown Sex and Gender Information Value Date Recorded Sex Assigned at Not on file Legal Sex Female 4:41 PM CDT Gender Identity Not on file Sexual Orientation Not on file documented as of this encounter Miscellaneous Notes * [employer]ner Conversion Note - Historical ProviderMD - 10/10/2020 12:30 PM CODING QUALITY ANALYST [facility] End[facility] PreOp Summary Primary Physician: KENDAL SHARP MD-GAE Finalized Date/Time: 10/10/20 12:35:44 Pt. Name: ZENAIDA BOWLING/Sex: 1965 Female Med Rec #: [id number] Physician: KENDAL SHARP MD-GAE Financial #: [id number] Pt. Type: E Room/Bed: [facility] Admit/Disch: 10/10/20 11:14:00 - Institution: [facility] PreOp Case Times Entry 1 In Preop 10/10/20 11:30:00 Ready for Holding 10/10/20 12:25:00 Room Patient Ready for 10/10/20 12:25:00 Surgery Patient Out of Preop 10/10/20 12:25:00 Patient Out of 10/10/20 12:25:00 Holding Room [facility] PreOp Case Times Audit 10/10/20 12:25:13 Telecommunicator Supervisor: [id number] Modifier: [id number] <+> 1 Patient Out of Preop <+> 1 Patient Ready for Surgery <+> 1 Ready for Holding Room <+> 1 Patient Out of Holding Room Finalized By: Darlin Randhawa, Rn Document Signatures Signed By: Darlin Randhawa Rn 10/10/20 12:35 documented in this encounter Plan of Treatment Upcoming Encounters Date Type Department Care Team (Late st Contact Info) Description 09/13/2025 11:15 AM EST Appointment [address] [place] [phone] documented as of this encounter Visit Diagnoses Not on filedocumented in this encounter Care Teams Gravity Meter Operator Relationship Specialty Start Date End Date Denae Serrano MD [address] [place] [phone] PCP - General Family Medicine 06/11/22 documented as of this encounter
--- NOTE | 2025-08-06 10:30 | ECG_ITS ---
APPROVED REPORT Exam: Resting ECG HR:65 bpm ECG Measurements Heart Rate 65 AXES NE 190 P 42 QRSd 88 QRS 56 QT 387 T 60 QTc 399 Conclusion SINUS RHYTHM LOW QRS VOLTAGE IN PRECORDIAL LEADS [QRS DEFLECTION < 1.0 mV IN CHEST LEADS] BORDERLINE ECG UNCONFIRMED REPORT Electronically signed by : Erich Spivey MD 08/08/2025 12:04:13
== END 2025-08-06 23:59 | disposition home or self-care (01) ==
LOC: PREOP 10:02
PROVIDERS: PCP Family Medicine; Visit Provider Podiatrist
DX: Z01.810 Encounter for preprocedural cardiovascular examination (principal); Z01.811 Encounter for preprocedural respiratory examination; R06.02 Shortness of breath; R60.9 Edema, unspecified; R94.31 Abnormal electrocardiogram [ECG] [EKG]
CPT/HCPCS: 71046; 93005

== ENCOUNTER 2025-08-11 10:14 | Outpatient (CLI) | payer MEDICARE, BC, SELFPAY ==
--- OUTSIDE RECORDS SUMMARY | 2023-11-28 10:00 | XMS_ITS | Encounter Summary ---
[facility] [address] [place] [address] Care Team Providers Care Display Decorator Name Role Phone Denae Serrano MD Primary Care Provider + Reason for Referral * Hospital - Outpatient (Routine) - Closed Specialty Diagnoses / Procedures Referred By Shaun parker Referred To Contact Sleep Medicine Diagnoses PÉREZ (obstructive sleep apnea) Procedures Home Sleep Study Bautista Franks MD [address] [place] [address] Phone: tel: fax: [facility] [address] [address] Phone: tel: fax: Referral ID Status Reason Start Date Expiration Date Visits Re quested Visits Authorized [id number] Closed 11/19/2023 01/20/2024 1 1 Reason for Visit * Hospital - Outpatient (Routine) - Closed Specialty Diagnoses / Procedures Referred By Shaun parker Referred To Contact Sleep Medicine Diagnoses PÉREZ (obstructive sleep apnea) Procedures Home Sleep Study Bautista Franks MD [address] [place] [address] Phone: tel: fax: [facility] [address] [address] Phone: tel: fax: Referral ID Status Reason Start Date Expiration Date Visits Re quested Visits Authorized [id number] Closed 11/19/2023 01/20/2024 1 1 Encounter Details Date Type Department Care Team (Latest Contact Info) Description 11/28/2023 11:00 AM EDT Hospital Encounter [facility] [address] [place] [id number] PÉREZ (obstructive sleep apnea) Social History Tobacco Use Types Packs/Day Years Used Date Smoking Tobacco: Former Cigarettes Q uit: 2002 Smokeless Tobacco: Never Alcohol Use Standard Drinks/Week Comments Yes 2 (1 standard drink = 0.6 oz pure alcohol) on weekends, may drink bourbon instead of beer at times AUDIT-C Answer Date Recorded Frequency of Alcohol Consumption Monthly or less 10/28/2018 Average Number of Drinks 1 or 2 019 Frequency of Binge Drinking Not on file 10/10 Abuse Screen Answer Date Recorded Unsafe at Home or Work/School Not on file Feels Threatened by Someone? Not on file 04/2023 Does Anyone Keep You from Co ntacting Others or Doint Things Outside the Home? Not on file 05/20/2023 Physical Sign of Abuse Present Not on file 1 Housing Stability Answer Date Recorded Current Living Arrangements Not on file 04/2023 Potentially Unsafe Housing Conditions Not on pravin e 05/20/2023 Family and Community Support Answer Ezekiel e Recorded Help with Day-to-Day Activities Not on file 05/20/2023 Lonely or Isolated Not on file 05/20/2023 Employment Answer Date Recorded Do you want help finding or keeping work or a akshat b? Not on file 05/20/2023 Disabilities Answer Date Recorded Concentrating, Remembering, or Making Decisions Difficulty Not on file 05/20/2023 Doing Errands Independently Difficulty Not on fi le 05/20/2023 Education Answer Date Recorded Help with school or training? Not on file Preferred Language Not on file 05/20/2023 Comments No Sex and Gender Information Value Date Recorded Sex Assigned at Not on file Legal Sex Female 12:11 PM EDT Gender Identity Not on file Sexual Orientation Not on file documented as of this encounter Last Filed Vital Signs Vital Sign Reading Time Taken Comments Blood Pressure - - Pulse - - Temperature - - Respiratory Rate - - Oxygen Saturation - - Inhaled Oxygen Concentration - - Weight 93.9 kg (207 lb) 11/28/2023 11:16 AM EDT Height 167 cm (5' 5.75 ) 11/28/2023 11:16 AM EDT Body Mass Index 33.67 11/28/2023 11:16 AM EDT documented in this encounter Plan of Treatment Not on file documented as of this encounter Procedures Procedure Name Priority Date/Time Associated Diagnosis Comments FAILED HST Routine 11/29/2023 11:00 AM EDT PÉREZ (obstructive sleep apnea) documented in this encounter Results * FAILED HST (11/29/2023 11:00 AM EDT) Impressions SLEEP MEDICINE - 12/16/2023 10:22 PM EDT Technically inadequate study RECOMMENDATIONS: This is technically inadequate study for diagnosis of sleep disordered breathing. Consider repeat HST, and preferably, in lab study to further evaluate I have conducted an epoch by epoch review of the raw data and agree with the interpretation. Electronically signed by: Bautista Franks MD 12/16/23 22:20 EDT Narrative SLEEP MEDICINE - 12/16/2023 10:22 PM EDT Table formatting from the original result was not included. Polysomnography Report Patient Name: Zenaida Bowling Interpreting Physician: Bautista Franks MD Date of : 1965 Referring Physician: Bautista Franks MD Primary Care Physician: Denae Serrano MD Date of Study: 11/29/23 Clinical Information Patient is a 58 y.o. female. Height: 167 cm (65.75 ) Weight: 93.9 kg (207 lb) BMI (Calculated): 33.7 Patient presents with an [place] Sleepiness Scale of Total score: 1 Methods used for Home Sleep Testing: Patient had a home sleep test using an WatchPat device that uses peripheral arterial tone to measure arterial volume changes at the fingertip showing sympathetic nervous system activation. Sleep stages are determined based on signal characteristics and built in actigraphy can help determine sleep/wake periods. Both signal attenuation and pulse rate determine arousals correlating with respiratory events, and the pulse oximeter sensor determines blood oxygen saturations. Snoring and body position is determined through an intergrated sensor measuring decibals and actigraphy. Hypopneas were scored according to AASM definition 1B (4% desaturation). Tech Summary: Scoring Tech (Ann Rivas, RPSGT, REVOLVING INVENTORY CLERK): Insufficient data collected due to failure with equipment. Looks as if patient pulled off or did not wear the pulse ox probe. There was not enough data collected for study to be valid. This is technically an inadequate home sleep study. An in-lab sleep study will be necessary in order to obtain accurate diagnostic data. (11/29/23 1449 : Ann Rivas, REVOLVING INVENTORY CLERK) Polysomnography Results Diagnostic Summary TOTAL RECORDING TIME: 7 hours and 27 minutes TOTAL SLEEP TIME: 5 hours and 25 minutes Pulse ox probe data could not be collected so this is technically inadequate study. us Bautista Franks MD SLEEP CENTER ORDERABLES Final Result SLEEP MEDICINE documented in this encounter Visit Diagnoses Diagnosis PÉREZ (obstructive sleep apnea) Obstructive sleep apnea (adult) (pediatric) documented in this encounter Care Teams Display Decorator Relationship Specialty Start Date End Date Denae Serrano MD [address] [place] [address] PCP - General Family Medicine 03/19/16 documented as of this encounter
--- OUTSIDE RECORDS SUMMARY | 2024-05-04 18:20 | XMS_ITS | Encounter Summary ---
[facility] [address] [place] [address] Care Team Providers Care Home Energy Auditor Name Role Phone Denae Serrano MD Primary Care Provider + Reason for Referral * Hospital - Outpatient (Routine) - Closed Specialty Diagnoses / Procedures Referred By Shaun parker Referred To Contact Sleep Medicine Diagnoses Hypersomnolence Procedures Polysomnography 4 or More Parameters Bautista Franks MD [address] [place] [address] Phone: tel: fax: [facility] [address] [place] [address] Phone: tel: fax: Referral ID Status Reason Start Date Expiration Date Visits Re quested Visits Authorized [id number] Closed 12/03/2023 05/18/2024 1 1 Reason for Visit * Hospital - Outpatient (Routine) - Closed Specialty Diagnoses / Procedures Referred By Shaun parker Referred To Contact Sleep Medicine Diagnoses Hypersomnolence Procedures Polysomnography 4 or More Parameters Bautista Franks MD [address] [place] [address] Phone: tel: fax: [facility] [address] [place] [address] Phone: tel: fax: Referral ID Status Reason Start Date Expiration Date Visits Re quested Visits Authorized [id number] Closed 12/03/2023 05/18/2024 1 1 Encounter Details Date Type Department Care Team (Late st Contact Info) Description 05/04/2024 7:20 PM EDT Hospital Encounter [facility] [address] [place] [phone] Bautista Franks MD [address] [place] [address] Hypersomnolence Social History Tobacco Use Types Packs/Day Years [...] Sign Reading Time Taken Comments Blood Pressure 123/58 05/04/2024 7:21 PM EDT Pulse 82 05/04/2024 7:21 PM EDT Temperature - - Respiratory Rate - - Oxygen Saturation 97% 05/04/2024 7:21 PM EDT Inhaled Oxygen Concentration - - Weight 88.5 kg (195 lb) 05/04/2024 7:21 PM EDT Height 167 cm (5' 5.75 ) 05/04/2024 7:21 PM EDT Body Mass Index 31.72 05/04/2024 7:21 PM EDT documented in this encounter Functional Status * Tootie Bowers Fall Risk Assessment (First 24 hrs only, then right click and complete this group) Question Answer Date of Assessment Author Last Known Fall 0 05/04/2024 7:21 PM EDT Or Gentry ortiz Mobility 0 05/04/2024 7:21 PM EDT Gentry Fang Medications 1 05/04/2024 7:21 PM EDT Gentry Fang Mental Status/LOC/Awareness 0 05/04/2024 7: 21 PM EDT Gentry Fang Toileting Needs 0 05/04/2024 7:21 PM EDT Or Gentry ortiz Volume/Electrolyte Status 0 05/04/2024 7:21 PM EDT Gentry Fang Communication/Sensory 0 05/04/2024 7:21 PM EDT Gentry Fang Fall Risk Total 3 05/04/2024 7 :21 PM EDT eGntry Fang * Tootie Bowers Fall Risk Assessment (First 24 hrs only, then right click and complete this group) Question Answer Date of Assessment Author Last Known Fall 0 05/04/2024 7:21 PM EDT Or Gentry ortiz Mobility 0 05/04/2024 7:21 PM EDT Gentry Fang Medications 1 05/04/2024 7:21 PM EDT Gentry Fang Mental Status/LOC/Awareness 0 05/04/2024 7: 21 PM EDT Fang, Gentry Toileting Needs 0 05/04/2024 7:21 PM EDT Or rGentry Volume/Electrolyte Status 0 05/04/2024 7:21 PM EDT Gentry Fang Communication/Sensory 0 05/04/2024 7:21 PM EDT Gentry Fang Fall Risk Total 3 05/04/2024 7 :21 PM EDT Gentry Fang documented as of this encounter Plan of Treatment Not on file documented as of this encounter Procedures Procedure Name Priority Date/Time Associated Diagnosis Comments NPSG Routine 05/05/2024 5:27 AM EDT Hypersomnolence documented in this encounter Results * NPSG (05/05/2024 5:27 AM EDT) Impressions SLEEP MEDICINE - 05/06/2024 2:31 PM EDT 1. Mild obstructive sleep apnea. 2. Nocturnal hypoxemia. 3. Snoring. 4. Periodic limb movements RECOMMENDATIONS: 1. Patient had good sleep efficiency but increased N2 sleep and reduced REM sleep. Significant sleep fragmentation noted. Patient met met criteria for mild obstructive sleep apnea based on this study. Consider auto CPAP trial with CPAP pressures of 4-20 cmH2O and monitor closely with CPAP download. 2. Patient had significant PLMs noted. Consider clinical correlation with restless leg symptoms and, if present, treatment may help with overall sleep quality. 3. Discuss good sleep hygiene habits, including but not limited to fixed wake up and sleep time, avoid alcohol 4 hours before sleep and not driving while drowsy. I have conducted an epoch by epoch review of the raw data and agree with the interpretation. Bautista Franks MD, [facility] Pulmonary Critical care and Sleep medicine Narrative SLEEP MEDICINE - 05/06/2024 2:31 PM EDT PATIENT NAME: Zenaida Bowling : 1965; Age: 58 y.o. OVERNIGHT POLYSOMNOGRAM DATE OF STUDY: 2023. REQUESTING PHYSICIAN: - REASON FOR STUDY: PÉREZ STUDY METHODOLOGY: This is a fully attended overnight polysomnogram performed using multichannel recording format. STUDY INTERPRETATION: 1. Sleep architecture: Patient spent a total of 400 minutes sleeping with 84.8% sleep efficiency. Patient spent 3.1% in N1, 75.3% in N2, 11.8% in N3, and 9.9% stage REM. Arousal index was abnormal at 53.5, suggesting sleep fragmentation. 2. Respiratory data: Review of respiratory waveform showed that patient had obstructive Hypopneas and apneas noted during the study with combined AHI of 6, Suggesting mild obstructive sleep apnea. No supine sleep noted. 3. Oxygenation data: Lowest O2 saturation noted was 87% with sleep disordered Breathing. Pt spent 11.8 minute time below 89% saturation. 4. Periodic Limb movement data: PLMs noted with index of 64.5 with arousal index of 24.3 5. Cardiac data: Heart rate ranging from 47 to 82, appears regular rhythm. No Malignant arrhythmia noted. 6. Snoring: Grade 2 . 7. Bebeto Stoke respirations: None. 8. Bruxism: None. us Bautista Franks MD SLEEP CENTER ORDERABLES Final Result SLEEP MEDICINE documented in this encounter Visit Diagnoses Diagnosis Hypersomnolence Hypersomnia, unspecified documented in this encounter Care Teams Home Energy Auditor Relationship Specialty Start Date End Date Denae Serrano MD [address] [place] [address] PCP - General Family Medicine 03/19/16 documented as of this encounter
--- OUTSIDE RECORDS SUMMARY | 2025-07-21 15:37 | XMS_ITS | Encounter Summary ---
Author Organization [facility] [address] Care Team Providers Care Speed Runner Name Role Phone Nonstaff, Referring Primary Care Provider Dangelo scott Reason for Visit * Reason Comments Fall Slipped in mud, inju ry to left knee and ankle Encounter Details Date Type Department Care Team (Late st Contact Info) Description 07/21/2025 3:37 PM EST - 07/21/2025 6:12 PM EST [facility] [address] [facility] [place] [address] Modesto Groves MD [address] [place], [place] [id number] Fall, initial encounter (Primary Dx); Closed fracture [...] 4:02 PM EST documented in this encounter Functional Status * Suicide Severity Rating Answer Date of Assessment Author No Risk 07/21/2025 3:24 PM EST Nick Agarwal RN * [place] Suicide Severity Rating Scale (Q shift for moderate and high) Question Answer Date of Assessment Author 1. In the past month, have y ou wished you were or wished you could go to sleep and not wake up? 0 07/21/2025 3:24 PM EST Nick Campa RN 2. In the past month, have y ou actually had any thoughts of killing yourself? (If no, skip to question 6) 0 07/21/2025 3:24 PM EST Nick Agarwal RN 6. Have you ever done anythi ng, started to do anything, or prepared to do anything to end your life? 0 07/21/2025 3:24 PM EST Nick Page RN documented as of this encounter Discharge Instructions * Discharge Instructions* [...] sent through Care Everywhere. * Ankle fracture ([place]) documented in this encounter Medications at Time [...] Means Destination Comment s Home or Self Long Term documented in this encounter ED Notes * [...] given ankle fracture. She will be prescribed [place] to help with pain control and advised to keep leg elevated and apply cool compresses as needed. She understands and she is agreeable this plan of care and she is discharged in stable condition. CLINICAL IMPRESSION: Fall, left ankle fracture DISPOSITION/PLAN: 1. Posterior short leg splint with stirrups 2. [place] 3. Discharge to home with orthopedic surgery follow-up *[facility] reviewed. Risks and benefits of narcotic treatment were discussed with the patient. Patient elects to continue with treatment using narcotic therapy. Patient is strictly advised to avoid operating any machinery or motor vehicles while under the influence of narcotic therapy and to only use narcotics as prescribed. Modesto Groves MD 07/21/25 1712 documented in this encounter Plan of Treatment [...] please contactthe office of the ordering clinician. Result Dheeraj Groves MD [facility] DIAGNOSTIC IMAGING ORDERABLES Final Result documented in [...] hours. 1601 (Given - Provid er: Michelle Corbett, RN) documented in this encounter Orders Nursing Count Last Ordered Date First Orde red Date ED [facility] DME 1 07/21/2025 SPLINT, CUSTOM 1 07/21/2025 documented in this encounter Care Teams Speed Runner Relationship Specialty Start Date End Date Nonstaff, Referring PCP - General 07/21/25 documented as of this encounter
--- OUTSIDE RECORDS SUMMARY | 2025-08-11 10:19 | XMS_ITS | Encounter Summary ---
Author Organization [facility] [place] [address] Care Team Providers Care Base Brander Name Role Phone Nonstaff, Referring Primary Care [...] on filedocumented in this encounter Care Teams Base Brander Relationship Specialty Start Date End Date Nonstaff, Referring PCP - General 07/21/25 documented as of this encounter
--- OUTSIDE RECORDS SUMMARY | 2025-08-11 10:19 | XMS_ITS | Encounter Summary ---
Author Organization [employer] ([place], [place], [place], [place], [place]) Address [address] [place] [address] Care Team Providers Care Clerical Aide Teacher Name Role Phone Denae Serrano MD Primary Care Provider [phone] Encounter Details Date Type Department Care Team (Late st Contact Info) Description 10/10/2020 Transcribed Document [facility] [place] [address] [place] [address] ProviderJer MD [address] [place], [place] [phone] Social History Tobacco Use Types Packs/Day Years Used Date Smoking Tobacco: Never Assessed Comments Unknown Sex and Gender Information Value Date Recorded Sex Assigned at Not on file Legal Sex Female 4:41 PM CDT Gender Identity Not on file Sexual Orientation Not on file documented as of this encounter Miscellaneous Notes * [employer]ner Conversion Note - Historical ProviderMD - 10/10/2020 1:25 PM SHOT GRINDER OPERATOR [address] [address] ZENAIDA BOWLING :1965 Visit Time:10/10/2020 [...] years Where: [address] [facility] [address] [place] [address]- Medications What How Much When Instructions Next [...] nitroglycerin (nitroglycerin 0.4 mg sublingual spray) 1 [place](s) SubLINgual Every 5 minutes as needed for [...] eating solid foods. General instructions ??? Take ytvu-ntg-possxxr and prescription medicines only as told by [...] 11/18/2016 Document Revised: 10/27/2018 Document Reviewed: 11/18/2016 Signpost Patient Education ?? 2020 Social Data Technologies. Colonoscopy, Adult, Care After This sheet gives [...] soft and easy to digest. ??? Take ebfy-ekv-kjogbwb or prescription medicines only as told by [...] 08/31/2011 Document Revised: 05/29/2018 Document Reviewed: 04/22/2017 ElseSensika Technologies Patient Education ?? 2020 Signpost Inc. Diverticulosis Diverticulosis is a condition that [...] getting enough exercise. ??? Smoking. ??? Taking imcr-mqc-pacrrlq pain medicines, like aspirin and ibuprofen. ??? [...] health care provider or your diet and nutritional services cook (dietitian). ? Take a fiber supplement or probiotic, if your health care provider approves. ??? Take byby-hys-lvhqaer and prescription medicines only as told by [...] 04/25/2005 Document Revised: 07/11/2018 Document Reviewed: 06/17/2017 ElseSensika Technologies Patient Education ?? 2020 Signpost Inc. Colon Polyps Polyps are tissue growths [...] 04/24/2005 Document Revised: 11/13/2018 Document Reviewed: 11/13/2018 Signpost Patient Education ?? 2020 Social Data Technologies. Emergency Awareness and Preventative Care STROKE is [...] Assistance with quitting is available by contacting 0-963-WZDX-NOW. This is a free resource providing counseling, [...] was given the opportunity to ask questions. Patient/Rag Grader Name: Patient/Rag Grader Signature: Relationship to Patient: Clinician/Hospital Rag Grader Signature: Date: documented in this encounter Plan of Treatment Upcoming Encounters Date Type Department Care Team (Late st Contact Info) Description 09/13/2025 11:15 AM EST Appointment [address] [phone] documented as of this encounter Visit Diagnoses Not on filedocumented in this encounter Care Teams Clerical Aide Teacher Relationship Specialty Start Date End Date Denae Serrano MD [address] [place] [phone] PCP - General Family Medicine 06/11/22 documented as of this encounter
--- OUTSIDE RECORDS SUMMARY | 2025-08-11 10:19 | XMS_ITS | Encounter Summary ---
Author Organization [employer] ([place], [place], [place], [place], [place]) Address [address] [place] [address] Care Team Providers Care Actuarial Consultant Name Role Phone Denae Serrano MD Primary Care Provider [phone] Encounter Details Date Type Department Care Team (Late st Contact Info) Description 03/01/2020 Transcribed Document [facility] [place] Family Medicine [address] [place] [address] ProviderJer MD [address] [place], [place] [id number] Social History Tobacco Use Types Packs/Day Years Used Date Smoking Tobacco: Never Assessed Comments Unknown Sex and Gender Information Value Date Recorded Sex Assigned at Not on file Legal Sex Female 4:41 PM CDT Gender Identity Not on file Sexual Orientation Not on file documented as of this encounter Miscellaneous Notes * Cerner Conversion Note - Jer ProviderMD - 03/01/2020 3:28 PM CDT [address] [address] ZENAIDA BOWLING :1965 Visit Time:03/01/2020 [...] 12 hours as needed for nausea and [place] 7.5/325mg one tab by mouth every 4 hours as needed for pain. No ibuprofen until after 9:45 pm Activity: Discharge Activity: No heavy lifting over 10 lbs Diet: Discharge Diet: Resume usual diet as tolerated Follow-Up Appointments Follow Up with SWAPNIL RAMIREZ MD-ANABELA When 03/09/2020 12:00 PM EDT Comments Appointment has been made Where: [facility] [address] [place] [address]- Medications What How Much When Instructions Next [...] nitroglycerin (nitroglycerin 0.4 mg sublingual spray) 1 [place](s) SubLINgual Every 5 minutes as needed for [...] and water are not available, use hand surveillance camera technician. ? Change your dressing as told by [...] or a bad smell. Medicines ??? Take oayy-lpb-ohtbhlr and prescription medicines only as told by [...] 11/18/2016 Document Revised: 07/31/2019 Document Reviewed: 11/18/2016 [employer] Interactive Patient Education ?? 2020 [employer]. General Anesthesia, Adult, Care After This sheet [...] activities are safe for you. ??? Take joog-wat-psqtgmo and prescription medicines only as told by [...] 11/04/2001 Document Revised: 03/14/2018 Document Reviewed: 03/14/2018 [employer] Interactive Patient Education ?? 2020 [employer]. Hernia, Adult A hernia happens when tissue [...] if you see any changes. ??? Take nyru-fya-fejddgt and prescription medicines only as told by [...] 01/16/2011 Document Revised: 04/30/2018 Document Reviewed: 04/30/2018 [employer] Interactive Patient Education ?? 2020 [employer]. ondansetron (oral) (on JARAD se iglesia) Sindy [...] may report side effects to FDA at 4-461-VJW-5696. What other drugs will affect ondansetron? Ondansetron [...] interact with ondansetron. This includes prescription and cebn-drh-jpwdgbv medicines, vitamins, and herbal products. Give a [...] to ensure that the information provided by [employer]. ('[employer]') is accurate, up-to-date, and complete, but no guarantee is made to that effect. Drug information contained herein may be time sensitive. [employer] information has been compiled for use by healthcare practitioners and consumers in the [place] and therefore [employer] does not warrant that uses outside of the [place] are appropriate, unless specifically indicated otherwise. [employer] drug information does not endorse drugs, diagnose patients or recommend therapy. [employer] drug information is an informational resource designed [...] effective or appropriate for any given patient. [employer] does not assume any responsibility for any aspect of healthcare administered with the aid of information [employer] provides. The information contained herein is not intended to cover all possible uses, directions, precautions, warnings, drug interactions, allergic reactions, or adverse effects. If you have questions about the drugs you are taking, check with your doctor, nurse or pharmacist. Copyright 5900-3752 [employer]. Version: 13.01. Revision Date: 06/01/2016. acetaminophen and hydrocodone (a SEET a MIN oh fen and cathi droe KOE done) Hycet, Lorcet, [place], Verdrocet, Vicodin, Xodol, Zamicet What is the [...] may report side effects to FDA at 9-327-TIM-8031. What other drugs will affect acetaminophen and [...] affect acetaminophen and hydrocodone, including prescription and zilm-tkm-evtxbyh medicines, vitamins, and herbal products. Not all [...] to ensure that the information provided by [employer]. ('[employer]') is accurate, up-to-date, and complete, but no guarantee is made to that effect. Drug information contained herein may be time sensitive. [employer] information has been compiled for use by healthcare practitioners and consumers in the [place] and therefore [employer] does not warrant that uses outside of the [place] are appropriate, unless specifically indicated otherwise. [employer] drug information does not endorse drugs, diagnose patients or recommend therapy. [employer] drug information is an informational resource designed [...] effective or appropriate for any given patient. [employer] does not assume any responsibility for any aspect of healthcare administered with the aid of information [employer] provides. The information contained herein is not intended to cover all possible uses, directions, precautions, warnings, drug interactions, allergic reactions, or adverse effects. If you have questions about the drugs you are taking, check with your doctor, nurse or pharmacist. Copyright 3290-2712 [employer]. Version: 16.. Revision Date: 09/02/2019. Emergency Awareness [...] Assistance with quitting is available by contacting 4-197-MIXO-NOW. This is a free resource providing counseling, support, and referral. Or you may contact your personal physician. [employer] Suicide Prevention Lifeline: The National Suicide Prevention [...] was given the opportunity to ask questions. Patient/Hospitality Manager Name: Patient/Hospitality Manager Signature: Relationship to Patient: Clinician/Hospital Hospitality Manager Signature: Date: Electronically signed by [facility] Conversion Geologist Petroleum Cerner at 11/28/2022 11:29 PM CDT documented in this encounter Plan of Treatment Upcoming Encounters Date Type Department Care Team (Late st Contact Info) Description 09/13/2025 11:15 AM EST Appointment [address] [phone] documented as of this encounter Visit Diagnoses Not on filedocumented in this encounter Care Teams Actuarial Consultant Relationship Specialty Start Date End Date Denae Serrano MD [address] [phone] PCP - General Family Medicine 06/11/22 documented as of this encounter
--- OUTSIDE RECORDS SUMMARY | 2025-08-11 10:19 | XMS_ITS | Encounter Summary ---
Author Organization [employer] ([place], [place], [place], [place], [place]) Address [address] [place] [address] Care Team Providers Care Playground Equipment Erector Name Role Phone Denae Serrano MD Primary Care Provider [phone] Encounter Details Date Type Department Care Team (Late st Contact Info) Description 03/01/2020 Transcribed Document [facility] [place] Family Medicine [address] [place] [address] ProviderJer MD [address] [place], [place] [address] Social History Tobacco Use Types Packs/Day Years [...] Description 09/13/2025 11:15 AM EST Appointment [address] [phone] documented as of this encounter Visit Diagnoses Not on filedocumented in this encounter Care Teams Playground Equipment Erector Relationship Specialty Start Date End Date Denae Serrano MD [address] [place] [phone] PCP - General Family Medicine 06/11/22 documented as of this encounter
--- OUTSIDE RECORDS SUMMARY | 2025-08-11 10:19 | XMS_ITS | Encounter Summary ---
Author Organization [employer] ([place], [place], [place], [place], [place]) Address [address] [place] [address] Care Team Providers Care Liquid Loader Name Role Phone Denae Serrano MD Primary Care Provider [phone] Encounter Details Date Type Department Care Team (Late st Contact Info) Description 03/01/2020 Transcribed Document [facility] [place] Family Medicine [address] [place] [address] ProviderJer MD [address] [place], [place] [id number] Social History Tobacco Use Types Packs/Day Years [...] and water are not available, use hand pocket setter lockstitch. ? Change your dressing as told by [...] or a bad smell. Medicines ??? Take krem-mhu-lmakcfy and prescription medicines only as told by [...] 11/18/2016 Document Revised: 07/31/2019 Document Reviewed: 11/18/2016 [employer] Interactive Patient Education ? 2020 [employer] General Anesthesia, Adult, Care After This [...] activities are safe for you. ??? Take aquc-khx-yoerkow and prescription medicines only as told by [...] 11/04/2001 Document Revised: 03/14/2018 Document Reviewed: 03/14/2018 [employer] Interactive Patient Education ? 2020 [employer]. Hernia, Adult A hernia happens when tissue [...] if you see any changes. ??? Take jojl-xyb-lacggkn and prescription medicines only as told by [...] 01/16/2011 Document Revised: 04/30/2018 Document Reviewed: 04/30/2018 [employer] Interactive Patient Education ? 2019 [employer]. documented in this encounter Plan of Treatment Upcoming Encounters Date Type Department Care Team (Late st Contact Info) Description 09/13/2025 11:15 AM EST Appointment [facility] [address] [place] [address] documented as of this encounter Visit Diagnoses Not on filedocumented in this encounter Care Teams Liquid Loader Relationship Specialty Start Date End Date Denae Serrano MD [address] [place] [phone] PCP - General Family Medicine 06/11/22 documented as of this encounter
--- OUTSIDE RECORDS SUMMARY | 2025-08-11 10:19 | XMS_ITS | Encounter Summary ---
Author Organization [email or web address] ([place], [place], [place], [place], [place]) Address [address] [place] [address] Care Team Providers Care Tourist Camp Attendant Name Role Phone Denae Serrano MD Primary Care Provider [phone] Encounter Details Date Type Department Care Team (Late st Contact Info) Description 03/01/2020 Transcribed Document [facility] [place] Family Medicine [address] [place] [address] ProviderJer MD [address] [place], [place] [address] Social History Tobacco Use Types Packs/Day Years [...] Description 09/13/2025 11:15 AM EST Appointment [address] [phone] documented as of this encounter Visit Diagnoses Not on filedocumented in this encounter Care Teams Tourist Camp Attendant Relationship Specialty Start Date End Date Denae Serrano MD [address] [place] [phone] PCP - General Family Medicine 06/11/22 documented as of this encounter
--- OUTSIDE RECORDS SUMMARY | 2025-08-11 10:19 | XMS_ITS | Encounter Summary ---
Author Organization [employer] ([place], [place], [place], [place], [place]) Address [address] [place] [address] Care Team Providers Care Turbine Measurements Engineer Name Role Phone Denae Serrano MD Primary Care Provider [phone] Encounter Details Date Type Department Care Team (Late st Contact Info) Description 10/10/[address] [facility] [place] Family Medicine [address] [place] [address] ProviderJer MD [address] [place], [place] [address] Social History Tobacco Use Types Packs/Day Years Used Date Smoking Tobacco: Never Assessed Comments Unknown Sex and Gender Information Value Date Recorded Sex Assigned at Not on file Legal Sex Female 4:41 PM CDT Gender Identity Not on file Sexual Orientation Not on file documented as of this encounter Miscellaneous Notes * Cerner Conversion Note - Historical ProviderMD - 10/10/2020 1:02 PM CHARGE MANAGER [facility] IntraOp Summary Primary Physician: KENDAL SHARP MD-GAE Finalized Date/Time: 10/10/20 13:14:28 Pt. Name: ZENAIDA BOWLING/Sex: 1965 Female Med Rec #: [id number] Physician: KENDAL SHARP MD-GAE Financial #: [id number] Pt. Type: E Room/Bed: [facility] [place] [facility] Admit/Disch: 10/10/20 11:14:00 - Institution: [facility] Endo - Case Attendance Entry 1 Entry 2 Entry 3 Case Attendee KENDAL SHARP MD-Almita Robertson, Rn ALDAIR MCCALL APRN, COMMUNITY NURSE-ANS Role Performed Surgeon/Proceduralist, International Sourcing Manager, Second COMMUNITY NURSE/Nurse Bioinformatics Assistant First Time In 10/10/20 13:00:00 10/10/20 12:51:00 [...] Almita Bennett, Romeo 10/10/20 13:14:22 10/10/20 13:14:22 [facility] Endo - Case Attendance Audit 10/10/20 13:14:22 Sustainable Design Consultant: [id number] Modifier: [id number] 1 <+> Time Out 1 <*> Procedure Colonoscopy, Colon Polypectomy 2 <+> Time Out 2 <*> Procedure Colonoscopy, Colon Polypectomy 3 <+> Time Out 3 <*> Procedure Colonoscopy, Colon Polypectomy 4 <+> Time Out 4 <*> Procedure Colonoscopy, Colon Polypectomy 5 <+> Time Out 5 <*> Procedure Colonoscopy, Colon Polypectomy 10/10/20 13:10:09 Sustainable Design Consultant: [id number] Modifier: [id number] 1 <*> Procedure Colonoscopy 2 <*> Procedure Colonoscopy 3 <*> Procedure Colonoscopy 4 <*> Procedure Colonoscopy 5 <*> Procedure Colonoscopy 10/10/20 13:00:31 Sustainable Design Consultant: [id number] Modifier: [id number] 1 <*> Time In 10/10/20 12:51:00 1 <*> Procedure Colonoscopy 10/10/20 12:56:36 Sustainable Design Consultant: [id number] Modifier: [id number] <+> 1 Procedure 2 <+> Time In 2 <*> Procedure Colonoscopy 3 <+> Time In 3 <*> Procedure Colonoscopy 4 <+> Time In 4 <*> Procedure Colonoscopy 5 <+> Time In 5 <*> Procedure Colonoscopy 10/10/20 12:54:32 Sustainable Design Consultant: [id number] Modifier: [id number] <+> 1 Time In <+> 2 Case [...] Endo - Case Times Audit 10/10/20 13:12:58 Sustainable Design Consultant: [id number] Modifier: [id number] <+> 1 Out Room Time <+> 1 Stop Time <+> 1 Stop Time 10/10/20 13:02:44 Sustainable Design Consultant: [id number] Modifier: [id number] <+> 1 Start Time [facility] - [...] Patient Transport ALDAIR MCCALL APRN, Accompanied by COMMUNITY NURSE-Donald SONG Sandy, Rn Last Modified By: Almita Bennett Rn 10/10/20 12:54:57 E Endo - Endoscopy Details Entry 1 Abdomen Procedure Soft, Non-Tender Assessment Procedure Abdomen 10/10/20 12:55:00 Assessment D/T Radio Frequency Ablation Abdominal Pressure Last Modified By: Almita Bennett Rn 10/10/20 12:55:07 [facility] Endo - Fire Risk Assessment Entry 1 [...] Modified By: Almita Bennett Rn 10/10/20 12:55:24 [facility] Endo - Fire Risk Assessment Audit 10/10/20 12:55:24 Sustainable Design Consultant: [id number] Modifier: [id number] <+> 1 Fire Risk Assessment Verified By [facility] Endo - General Case Heating Equipment Repairer 1 Case Information OR Endo 01 [facility] Case Level 1 Room Verified Yes Wound Class III - Contaminated Specialty SN Gastroenterology Anesthesia Type MAC ASA Class 3 Diagnosis Preop Diagnosis History of colon cancer Postop Same As Preop No Postop Diagnosis tranverse colon polyp, diverticulosi Last Modified By: Almita Bennett Rn 10/10/20 13:14:18 [facility] Endo - General Case Data Audit 10/10/20 13:14:18 Sustainable Design Consultant: [id number] Modifier: [id number] <+> 1 Postop Same As Preop <+> 1 Postop Diagnosis 10/10/20 12:58:08 Sustainable Design Consultant: [id number] Modifier: [id number] <+> 1 Specialty <+> 1 ASA Class [...] By Almita Bennett Rn, ALDAIR MCCALL, GOPAL, COMMUNITY NURSE-ANS Position Verified Positioning Yes Verified by Surgeon Last Modified By: Almita Bennett Rn 10/10/20 13:10:10 [facility] - Patient Positioning Audit 10/10/20 13:10:10 Sustainable Design Consultant: [id number] Modifier: [id number] 1 <*> Procedure Colonoscopy [facility] - [...] Modified By: Almita Bennett Rn 10/10/20 13:13:19 [facility] Endo - Surgical Procedures Entry 1 Entry [...] Rickards, Sandy, Rn 10/10/20 13:13:36 10/10/20 13:13:36 [facility] Endo - Surgical Procedures Audit 10/10/20 13:13:36 Sustainable Design Consultant: [id number] Modifier: [id number] <+> 1 Stop <+> 2 Stop 10/10/20 13:10:44 Sustainable Design Consultant: [id number] Modifier: [id number] <+> 1 Start <+> 2 Start 10/10/20 13:10:04 Sustainable Design Consultant: [id number] Modifier: [id number] 1 <*> Procedure Colonoscopy 1 <+> Physician States Cecum Reached <+> 2 Procedure <+> 2 Primary Procedure <+> 2 Primary Surgeon <+> 2 Specialty <+> 2 Wound Class <+> 2 Anesthesia Type <+> 2 Physician States Cecum Reached 10/10/20 12:57:33 Sustainable Design Consultant: [id number] Modifier: [id number] 1 <*> Procedure Colonoscopy 1 <+> Specialty [facility] Endo - Time Out Entry 1 Procedure [...] Endo - Time Out Audit 10/10/20 13:10:11 Sustainable Design Consultant: [id number] Modifier: [id number] 1 <*> Procedure to be Performed Colonoscopy Case Comments <None> Finalized By: Almita Bennett, Rn Document Signatures Signed By: Almita Bennett Rn 10/10/20 13:14 Electronically signed by [facility] Conversion Bag Shop Worker Cerner at 11/28/2022 11:21 PM CDT documented in this encounter Plan of Treatment Upcoming Encounters Date Type Department Care Team (Late st Contact Info) Description 09/13/2025 11:15 AM EST Appointment [address] [phone] documented as of this encounter Visit Diagnoses Not on filedocumented in this encounter Care Teams Turbine Measurements Engineer Relationship Specialty Start Date End Date Denae Serrano MD [address] [place] [phone] PCP - General Family Medicine 06/11/22 documented as of this encounter
--- OUTSIDE RECORDS SUMMARY | 2025-08-11 10:19 | XMS_ITS | Clinical Summary ---
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 Triglycerides 152(H) 0 - 150 mg/dL 10/20/2018 6:28 AM EDT [facility] HDL Cholesterol 39(L) 40 - 60 mg/dL 10/20/2018 6:28 AM EDT [facility] LDL Cholesterol 118 0 - 130 mg/dL 10/20/2018 6:28 AM T [facility] Blood Venipuncture / Unknown 10/20/2018 3:39 AM EDT 10/20/2018 5:34 AM EDT [facility] - 10/20/2018 6:28 AM EDT Cholesterol [...] MD LAB BLOOD ORDERABLES Anamika kathi Result [facility]
[address] [place] [address], from Last 3 Months or Most Recently Relevant to Health Maintenance Insurance [facility] PPO Advance Directives * CPR (Attempt to Resuscitate) (Latest Code Status on File) Date Activated Date Inactivated Comments 10/19/2018 3:31 PM 10/21/2018 3:19 PM Question Answer Comments Code Status (Patient has no pulse and is not breathing): CPR (Attempt to Resuscitate) Medical Interventions (Patie nt has pulse or is breathing): Full Level Of Support Discussed With: Patient Care Teams Planer Setup Operator Relationship Specialty Start Date End Date Denae Serrano MD [address] [place] [address] PCP - General Family Medicine 03/19/16
--- OUTSIDE RECORDS SUMMARY | 2025-08-11 10:19 | XMS_ITS | Encounter Summary ---
Author Organization [employer] ([place], [place], [place], [place], [place]) Address [address] [place] [address] Care Team Providers Care Vice President [employer] Insights Name Role Phone Denae Serrano MD Primary Care Provider [phone] Encounter Details Date Type Department Care Team (Late st Contact Info) Description 03/01/2020 Transcribed Document [facility] [place] Family Medicine [address] [place] [address] ProviderJer MD [address] [place], [place] [address] Social History Tobacco Use Types Packs/Day Years [...] ZENAIDA BOWLING/Sex: 1965 Female Med Rec #: [id number] Physician: SWAPNIL RAMIREZ MD-SUR Financial #: [id number] Pt. Type: O Room/Bed: Admit/Disch: 03/01/20 07:45:00 - Institution: [facility] Main OR PACU Case Times Entry 1 In PACU I 03/01/20 11:40:00 Ready for PACU 03/01/20 13:35:00 Discharge Discharge from PACU 03/01/20 13:35:00 I Last Modified By: Wilda Moralez RN 03/01/20 13:39:31 [facility] Main OR PACU Case Times Audit 03/01/20 13:39:31 Insurance Verification Clerk: [email or web address] Modifier: [email or web address] <+> 1 Ready for PACU Discharge <+> 1 Discharge from PACU I Finalized By: Wilda Moralez, RN Document Signatures Signed By: Wilda Moralez RN 03/01/20 13:39 documented in this encounter Plan of Treatment Upcoming Encounters Date Type Department Care Team (Late st Contact Info) Description 09/13/2025 11:15 AM EST Appointment [address] [phone] documented as of this encounter Visit Diagnoses Not on filedocumented in this encounter Care Teams Vice President [employer] Insights Relationship Specialty Start Date End Date Denae Serrano MD [address] [place] [phone] PCP - General Family Medicine 06/11/22 documented as of this encounter
--- OUTSIDE RECORDS SUMMARY | 2025-08-11 10:19 | XMS_ITS | Encounter Summary ---
Author Organization [employer] ([place], [place], [place], [place], [place]) Address [address] [place] [address] Care Team Providers Care Fur Repairer Name Role Phone Denae Serrano MD Primary Care Provider [phone] Encounter Details Date Type Department Care Team (Late st Contact Info) Description 10/10/2020 Transcribed Document [facility] [place] Family Medicine [address] [place] [address] ProviderJer MD [address] [place] [address] Social History Tobacco Use Types Packs/Day Years Used Date Smoking Tobacco: Never Assessed Comments Unknown Sex and Gender Information Value Date Recorded Sex Assigned at Not on file Legal Sex Female 4:41 PM CDT Gender Identity Not on file Sexual Orientation Not on file documented as of this encounter Miscellaneous Notes * Cerner Conversion Note - Jer Klein MD - 10/10/2020 11:51 AM TELECOMMUNICATIONS CLERK Patient: ZENAIDA BOWLING Age: 55 years Sex: Female : 1965 Associated Diagnoses: None Author: GUILLERMINA LUCERO MD-MORamin Basic Information Source of history: Self. Chief [...] identified. Histories Past Medical History: Active Hyperlipidemia (59221537) Migraine (38942283) GERD - Gastro-esophageal reflux disease (3560790974) Sleep apnea resolved (636304857) Arthritis (1879388) Hearing loss in left ear (627012976) Tinnitus (072676043) Resolved Colon cancer ([id number]): Resolved. 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 Clostridium difficile (36759907): Resolved. Viral meningitis (34428789): Resolved. Tobacco abuse (577599790): Resolved. Procedure history: Cholecystectomy; (10910). Left shoulder labrum repair. Partial left knee [...] 140 mg/mL subcutaneous solution: 140 mg, SubCutaneous, I1Rayvw, rotate injection sites, 2 Each, 0 Refill(s) [...] Refill(s) nitroglycerin 0.4 mg sublingual spray: 1 Comins, SubLINgual, Q5Min, PRN: for chest pain, 5 Gram, 0 Refill(s) rOPINIRole 2 mg oral tablet: 2 Tab, Oral, At Bedtime, 0 Refill(s), Medications (2) Active Scheduled: (0) Continuous: (1) NaCl 0.9% 1,000 mL 1,000 mL, IntraVENous, 50 mL/Hr PRN: (1) lidocaine 1% *PF* inj 5 mL 0.5 mL, IntraDermal, 1-Time Problem list: All Problems Hyperlipidemia / SNOMED CT 91768424 / Confirmed Migraine / SNOMED CT 17989002 / Confirmed GERD - Gastro-esophageal reflux disease / SNOMED CT 3002475528 / Confirmed Sleep apnea resolved / SNOMED CT 806484130 / Confirmed Urinary frequency / SNOMED CT 087216655 / Confirmed Hiatal hernia / SNOMED CT 887381483 / Confirmed Postmenopausal / SNOMED CT 697709670 / Confirmed Joint problem / SNOMED CT 312351739 / Confirmed Cancer of colon / SNOMED CT 527610955 / Confirmed Arthritis / SNOMED CT 1809238 / Confirmed Hearing loss in left ear / SNOMED CT 518280079 / Confirmed Tinnitus / SNOMED CT 455292886 / Confirmed AMI (acute myocardial infarction) / SNOMED CT 96026218 / Confirmed CAD (coronary artery disease) / SNOMED CT 66609243 / Confirmed HTN (hypertension) / SNOMED CT 8443225954 / Confirmed Stented coronary artery / SNOMED CT 5344252654 / Confirmed Borderline diabetes / SNOMED CT 0595476428 / Confirmed History of obstructive sleep apnea / IMO 15969509 / Confirmed Insomnia / SNOMED CT 795225142 / Confirmed Resolved: Colon cancer / SNOMED CT [id number] 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 Adjuvant chemo Resolved: Endometriosis / SNOMED CT 1528683045 Resolved: Clostridium difficile / SNOMED CT 68871045 Resolved: Viral meningitis / SNOMED CT 93837774 Resolved: Tobacco abuse / SNOMED CT 238482804 Canceled: Abdominal pain / SNOMED CT 87794282, Active Problems (19) AMI (acute myocardial infarction) [...] No deformity, Normal gait. Integumentary: Warm, Dry, [employer], No rash. Integumentary exam: Face, Chest, Arm, [...] Guillermina Lucero MD personally interviewed the patient [id number]. I reviewed and discussed with the patient [...] evaluation. Electronically signed by Lynne Martinez Conversion Client Service Administrator Cerner at 11/28/2022 11:17 PM CDT documented in this encounter Plan of Treatment Upcoming Encounters Date Type Department Care Team (Late st Contact Info) Description 09/13/2025 11:15 AM EST Appointment [address] [phone] documented as of this encounter Visit Diagnoses Not on filedocumented in this encounter Care Teams Fur Repairer Relationship Specialty Start Date End Date Denae Serrano MD [address] [place] [address] [address] [place] [address] PCP - General Family Medicine 06/11/22 documented as of this encounter
--- OUTSIDE RECORDS SUMMARY | 2025-08-11 10:19 | XMS_ITS | Encounter Summary ---
Author Organization [employer] ([place], [place], [place], [place], [place]) Address [address] [place] [address] Care Team Providers Care Special Machine Stitcher Name Role Phone Denae Serrano MD Primary Care Provider [phone] Encounter Details Date Type Department Care Team (Late st Contact Info) Description 10/10/2020 Transcribed Document [facility] [place] [address] [place] [address] ProviderJer MD [address] [place], [place] [address] Social History Tobacco Use Types Packs/Day Years Used Date Smoking Tobacco: Never Assessed Comments Unknown Sex and Gender Information Value Date Recorded Sex Assigned at Not on file Legal Sex Female 4:41 PM CDT Gender Identity Not on file Sexual Orientation Not on file documented as of this encounter Miscellaneous Notes * Cerner Conversion Note - Historical ProviderMD - 10/10/2020 11:59 AM TAPE RECORDER REPAIRER Pre Procedure Adult Entered On: 10/10/2020 12:06 EST Performed On: 10/10/2020 11:59 EST by Darlin Randhawa Rn Height and Weight, Clinical Dosing Height Source : Stated Height Entry Format : Rankin Height, Feet : 5 ft(Converted to: 152 cm, 60 Inch) Height, Inches : 6 Inch(Converted to: 0 ft 6 Inch, 15.24 cm) Clinical Height : 167.64 cm Weight Source : Standing scale Weight Entry Format : Rankin Clinical Dosing Weight : 101.82 kg Weight, Pounds : 224 lb Body Surface Area (BSA) : 2.1 m2 Body Mass Index : 36.2 kg/m2 (HI) [place] Body Weight : 59 kg Darlin Randhawa [...] Darlin Randhawa Rn - 10/10/2020 11:59 EST [place] Suicide Severity Rating Scale (C-SSRS) CSSRS Past [...] Info Preferred Name : Zenaida Support Person/Patient Hat And Cap Sewer : Yes Support Person/Pt Rep Name : Martita Bowling - mother Support Person/Pt Rep Contact Information : [phone] Want Family/Rep/Phys Notified of Admit : No Emergency Contact #1 : Alla Aviles Emergency Contact #1 Emergency Contact #1 Relationship : friend Emergency Contact #2 : - Emergency Contact #2 Phone Number : - Emergency Contact #2 Relationship : - Primary Language : Portuguese Preferred Communication Mode : Verbal Communication Barrier : None Fire Patrol Needed : No Darlin Randhawa Rn - [...] Scale Risk Level : 25-45 Medium Risk [place] Fall Interventions : Adequate lighting, Assistive devices [...] Description 09/13/2025 11:15 AM EST Appointment [address] [address] documented as of this encounter Visit Diagnoses Not on filedocumented in this encounter Care Teams Special Machine Stitcher Relationship Specialty Start Date End Date Denae Serrano MD [address] [address] PCP - General Family Medicine 06/11/22 documented as of this encounter
--- OUTSIDE RECORDS SUMMARY | 2025-08-11 10:19 | XMS_ITS | Encounter Summary ---
Author Organization [employer] ([place], [place], [place], [place], [place]) Address [address] [place] [address] Care Team Providers Care Records Associate Name Role Phone Denae Serrano MD Primary Care Provider [phone] Encounter Details Date Type Department Care Team (Late st Contact Info) Description 03/14/2020 Transcribed Document [facility] [place] [facility] [place] [address] ProviderJer MD [address] [place] [address] Social History Tobacco Use Types Packs/Day Years [...] OF PROCEDURE: 03/01/2020 SURGEON: Herminio Perez MD ASSISTANT PROFESSOR OF ECONOMICS: Slick. PREOPERATIVE DIAGNOSIS: Incisional hernia. POSTOPERATIVE DIAGNOSIS: [...] It was evident the patient had several [place] cheeselike defects in the midline. The hernia sacs were dissected free and removed the from the abdominal cavity. Three separate apelvy-vt-jbybu nonabsorbable sutures were used to close the [...] taken to recovery room in stable condition. /[id number] MD NORMA Flower/AQ / JS / MODL /[id number] Electronically signed by [facility] Conversion Queen Producer Cerner at 11/28/2022 11:13 PM CDT documented in this encounter Plan of Treatment Upcoming Encounters Date Type Department Care Team (Late st Contact Info) Description 09/13/2025 11:15 AM EST Appointment [address] [place] [address] documented as of this encounter Visit Diagnoses Not on filedocumented in this encounter Care Teams Records Associate Relationship Specialty Start Date End Date Denae Serrano MD [address] [place] [phone] PCP - General Family Medicine 06/11/22 documented as of this encounter
--- OUTSIDE RECORDS SUMMARY | 2025-08-11 10:19 | XMS_ITS | Encounter Summary ---
Author Organization [employer] ([place], [place], [place], [place], [place]) Address [address] [place] [address] Care Team Providers Care Sales Operations Analyst Name Role Phone Denae Serrano MD Primary Care Provider [phone] Encounter Details Date Type Department Care Team (Late st Contact Info) Description 03/01/2020 Transcribed Document [facility] [place] Family Medicine [address] [place] [address] ProviderJer MD [address] [place], [place] [address] Social History Tobacco Use Types Packs/Day Years [...] - 03/01/2020 13:47 EDT Electronically signed by [facility] Conversion Printing Manager Cerner at 11/28/2022 11:09 PM CDT documented in this encounter Plan of Treatment Upcoming Encounters Date Type Department Care Team (Late st Contact Info) Description 09/13/2025 11:15 AM EST Appointment [address] [address] documented as of this encounter Visit Diagnoses Not on filedocumented in this encounter Care Teams Sales Operations Analyst Relationship Specialty Start Date End Date Denae Serrano MD [address] [place] [phone] PCP - General Family Medicine 06/11/22 documented as of this encounter
--- OUTSIDE RECORDS SUMMARY | 2025-08-11 10:19 | XMS_ITS | Encounter Summary ---
Author Organization [employer] ([place], [place], [place], [place], [place]) Address [address] [place] [address] Care Team Providers Care Supervisor Sign Shop Name Role Phone Denae Serrano MD Primary Care Provider [phone] Encounter Details Date Type Department Care Team (Late st Contact Info) Description 03/01/2020 Transcribed Document [facility] [place] [address] [place] [address] ProviderJer MD [address] [place], [place] [address] Social History Tobacco Use Types Packs/Day Years [...] PÉREZ ALBERT RN - 03/01/2020 15:56 EDT documented in this encounter Plan of Treatment Upcoming Encounters Date Type Department Care Team (Late st Contact Info) Description 09/13/2025 11:15 AM EST Appointment [address] [address] documented as of this encounter Visit Diagnoses Not on filedocumented in this encounter Care Teams Supervisor Sign Shop Relationship Specialty Start Date End Date Denae Serrano MD [address] [place] [phone] PCP - General Family Medicine 06/11/22 documented as of this encounter
--- OUTSIDE RECORDS SUMMARY | 2025-08-11 10:19 | XMS_ITS | Clinical Summary ---
Author Organization [facility] Address [address] [place] [address] Phone Care Team Providers Care Physical Education Teacher Name Role Phone Nonstaff, Referring Primary Care [...] 6:12 PM EST [facility] [address] [facility]. [place] [id number] Modesto Groves MD Fall, initial encounter (Primary [...] ordering clinician. Modesto Groves MD [facility] Final Result * XR [...] ordering clinician. Modesto Groves MD [facility] Final Result from Last 3 Months Insurance [facility] PPO MEDICARE [place] PART A AND B Care Teams Physical Education Teacher Relationship Specialty Start Date End Date Nonstaff, Referring PCP - General 07/21/25
--- OUTSIDE RECORDS SUMMARY | 2025-08-11 10:19 | XMS_ITS | Encounter Summary ---
Author Organization [employer] ([place], [place], [place], [place], [place]) Address [address] [place] [address] Care Team Providers Care Lock Tender Name Role Phone Denae Serrano MD Primary Care Provider [phone] Encounter Details Date Type Department Care Team (Late st Contact Info) Description 03/01/2020 Transcribed Document [facility] [place] [address] [place] [address] ProviderJer MD [address] [place], [place] [address] Social History Tobacco Use Types Packs/Day Years [...] ZENAIDA BOWLING/Sex: 1965 Female Med Rec #: [id number] Physician: SWAPNIL RAMIREZ MD-SUR Financial #: [id number] Pt. Type: O Room/Bed: [facility] Admit/Disch: 03/01/20 07:45:00 - Institution: [...] Description 09/13/2025 11:15 AM EST Appointment [address] [address] documented as of this encounter Visit Diagnoses Not on filedocumented in this encounter Care Teams Lock Tender Relationship Specialty Start Date End Date Denae Serrano MD [address] [phone] PCP - General Family Medicine 06/11/22 documented as of this encounter
--- OUTSIDE RECORDS SUMMARY | 2025-08-11 10:19 | XMS_ITS | Encounter Summary ---
Author Organization [employer] ([place], [place], [place], [place], [place]) Address [address] [place] [address] Care Team Providers Care Cardiac Tech Name Role Phone Denae Serrano MD Primary Care Provider [phone] Encounter Details Date Type Department Care Team (Late st Contact Info) Description 03/01/2020 Transcribed Document [facility] [place] Family [place] [address] [place] [address] ProviderJer MD [address] [place], [place] [address] Social History Tobacco Use Types Packs/Day Years [...] PERLITA BOWLING/Sex: 1965 Female Med Rec #: [id number] Physician: SWAPNIL RAMIREZ MD-SUR Financial #: [id number] Pt. Type: O Room/Bed: [facility] Admit/Disch: 03/01/20 07:45:00 - Institution: [facility] IntraOp Case Attendance Entry 1 Entry 2 Entry 3 Case Attendee SWAPNIL RAMIREZ MD-Tiki Segal, Rn JACQUES GIRALDO FA Role Performed Surgeon/Proceduralist, Marketing Analytics Manager, Second Correctional Guard, First First Time In 03/01/20 10:31:00 03/01/20 [...] Willow Harris, - SSI Tech Role Performed Marketing Analytics Manager, First Scrub, First Repack Room Worker, Ancillary Time In 03/01/20 10:31:00 03/01/20 10:31:00 [...] 8 Case Attendee RAMIRO BIRCH, KEVIN MEADE, Seo Intern Role Performed SECURITY AUDITOR/Nurse Repairer General Scrub, Second Time In 03/01/20 10:31:00 03/01/20 11:05:00 Time Out 03/01/20 11:36:00 03/01/20 11:36:00 Procedure Hernia Repair Hernia Repair Incisional Laparoscopic Incisional Laparoscopic Other Attendee ST ILDEFONSO RELIEF Superficial Wound Closed By: Last Modified By: LONG FINNEGAN, LONG HUDSON RN 03/01/20 11:34:15 03/01/20 11:34:15 [facility] IntraOp Case Attendance Audit 03/01/20 11:34:15 Heel Stainer: LETA Modifier: [email or web address] 1 <+> Time Out [...] Procedure Hernia Repair Incisional Laparoscopic 03/01/20 11:23:59 Heel Stainer: [email or web address] Modifier: [email or web address] 5 <+> Time Out 5 <*> Procedure Hernia Repair Incisional Laparoscopic 03/01/20 11:23:46 Heel Stainer: [email or web address] Modifier: [email or web address] 1 <*> Procedure Hernia [...] Procedure <+> 8 Other Attendee 03/01/20 10:54:56 Heel Stainer: [email or web address] Modifier: [email or web address] 1 <*> Procedure Hernia [...] Role Performed <+> 7 Procedure 03/01/20 10:53:03 Heel Stainer: [email or web address] Modifier: [email or web address] <+> 1 Procedure <+> [...] [facility] IntraOp Case Times Audit 03/01/20 11:34:14 Heel Stainer: [email or web address] Modifier: [email or web address] <+> 1 Out Room Time <+> 1 Stop Time 03/01/20 11:27:44 Heel Stainer: [email or web address] Modifier: [email or web address] <+> 1 Stop Time 03/01/20 10:51:19 Heel Stainer: [email or web address] Modifier: [email or web address] <+> 1 Start Time [facility] IntraOp Cautery Entry 1 ESU Identification Cautery Type Monopolar ESU ID Number [id number] ID Type Hospital Number Cautery Settings Cut [...] 10:54:09 S[facility] IntraOp Communication Audit 03/01/20 10:54:09 Heel Stainer: [email or web address] Modifier: [email or web address] 1 <*> Date and [...] By Count Performed By KEVIN BRIGHT, (Scrub) Seo Intern Count Performed By LONG FINNEGAN RN (RN) Last Modified By: LONG FINNEGAN RN 03/01/20 11:24:24 [facility] IntraOp Counts Final Audit 03/01/20 11:24:24 Heel Stainer: [email or web address] Modifier: [email or web address] 1 <*> Procedure Hernia Repair Incisional Laparoscopic 1 <*> Count Performed By (Scrub) Cher Judd, Seo Intern 03/01/20 11:23:18 Heel Stainer: [email or web address] Modifier: [email or web address] 1 <*> Procedure Hernia [...] IntraOp Fire Risk Assessment Audit 03/01/20 10:55:35 Heel Stainer: [email or web address] Modifier: [email or web address] <+> 1 Open O2 Source (Mask or Cannula) S[facility] IntraOp General Case Hydrogeology Professor 1 Case Information OR OR 03 SJE Case Level 1 Room Verified Yes Wound Class III - Contaminated Specialty SN General Anesthesia Type General ASA Class 3 Diagnosis Preop Diagnosis INNCISIONAL HERNIA Postop Same As Preop Yes Postop Diagnosis INNCISIONAL HERNIA Last Modified By: LONG FINNEGAN RN 03/01/20 10:55:55 SJE IntraOp General Case Data Audit 03/01/20 10:55:55 Heel Stainer: [email or web address] Modifier: [email or web address] <+> 1 ASA Class <+> 1 Anesthesia Type <+> 1 Postop Same As Preop <+> 1 Preop Diagnosis <+> 1 Postop Diagnosis <+> 1 Room Verified SJE IntraOp Implant Log Entry 1 Entry 2 Type Implant (Synthetic) Implant (Synthetic) Implant Log Implant Type Other Other Tissue Implant Type Implant BIOMATERIAL SYNECOR SYS FIXATION CAPSURE Identification [id number] [id number] Description Implant Quantity 1 2 Implant Site OPSITE OPSITE Implant Identification Model Number Implant [id number] Identification Serial Number Implant [id number] Identification Lot Number Implant Wl [place] & Assc:Med Prdt Cr Bard:Davol Identification Photography Teacher Name: Implant [id number] Identification Catalog Number Implant Size Implant Has an Yes Yes Expiration Date Implant Expiration 01/20/21 08/08/21 Date Wasted Radioactive Material Time Implanted Tissue Implant Continue for Tissue Implant Documentation Tissue Identification Number Graft Prep Per Photography Teacher Instructions: Tissue Preparation Method: Reconstitution Solution: Reconstitution Solution Lot Number Reconstitution Solution Expiration Date: Thawing Solution Thawing Solution Lot Number Thawing Solution Expiration Date Preparation Materials, Other Preparation Materials, Other Lot Number Preparation Materials, Other Expiration Date Tissue Prepared/Processed By Photography Teacher Paperwork Completed Implant Type Comment Last Modified By: LONG FINNEGAN RN WESSEL, JULIANA, RN 03/01/20 11:03:55 03/01/20 11:17:28 SJE IntraOp Implant Log Audit 03/01/20 11:17:28 Heel Stainer: LETA Modifier: LETA <+> 2 Implant Identification Description <+> 2 Implant Identification Lot Number <+> 2 Implant Identification Photography Teacher Name: <+> 2 Implant Expiration Date [...] Intra Op Sign Out Audit 03/01/20 11:34:09 Heel Stainer: LETA Modifier: [email or web address] <+> 1 RN Sign [...] SJE IntraOp Surgical Procedures Audit 03/01/20 11:27:45 Heel Stainer: LETA Modifier: [email or web address] <+> 1 Stop SJE [...] Signed By: LONG FINNEGAN RN 03/01/20 11:34 Electronically signed by Cleve Martinez Conversion Industrial Electrician Journeyman Cerner at 11/28/2022 11:26 PM CDT documented in this encounter Plan of Treatment Upcoming Encounters Date Type Department Care Team (Late st Contact Info) Description 09/13/2025 11:15 AM EST Appointment [address] [phone] documented as of this encounter Visit Diagnoses Not on filedocumented in this encounter Care Teams Cardiac Tech Relationship Specialty Start Date End Date Denae Serrano MD [address] [place] [phone] PCP - General Family Medicine 06/11/22 documented as of this encounter
--- OUTSIDE RECORDS SUMMARY | 2025-08-11 10:19 | XMS_ITS | Clinical Summary ---
Author Organization [facility] Address [address] [place] [address] Care Team Providers Care Lead Data Architect Name Role Phone Denae Serrano MD Primary Care Provider [phone] Allergies Active Allergy Reactions Criticality Noted Date [...] (09/03/2022): Added automatically from request for surgery [id number] Dysphagia 07/11/2022 Overview (07/11/2022): Trouble swallowing pills [...] drink first t divina in the morning (EYE-CASH MANAGEMENT ASSOCIATE) to steady your nerves or to get [...] Screening 09/04/202408/13, 09/04/2022, 08/30/2021, Additional history exists [id number] Vaccine (1 - 2024- season) 2025 UKY-Influenza [...] this topic Medical Devices Implanted Type Area Sales Service Supervisor Device Identifier Shelf Expiration Date Model / Serial / Lot Implant Implant Bilateral: Knee Stent Stent Heart Mesh Phasix 10x12 In - [id number] Implanted:Qty : 1 on 07/26/2022 by Gentry Guardado MD at [facility] N/A: Abdomen [employer]ol Inc-[id number] 05/09/2023 [id number] / / [id number] Cement Palacos - [id number] Implanted:Qty : 2 on 11/27/2022 by Albert Boswell MD at [facility] Right: Knee Heraeus Inc-[id number] 05/11/2027 [id number] / / [id number] Chg Patella Gii Oval Resurfaci - [id number] Implanted:Qty : 1 on 11/27/2022 by Albert Boswell MD at [facility] Right: Knee Judd & Nephew Chapman Inc-[id number] 07/31/2032 [id number] / / [id number] Chg Femoral Legion Ps Oxin Sz5 - [id number] Implanted:Qty : 1 on 11/27/2022 by Albert Boswell MD at [facility] Right: Knee Judd & Nephew [employer] Inc-[id number] 04/23/2032 [id number] / / [id number] Chg Tibial Gns Ii Cmt Size 3 R - [id number] Implanted:Qty : 1 on 11/27/2022 by Albert Boswell MD at [facility] Right: Knee Judd & Nephew [employer] Inc-[id number] 06/13/2032 [id number] / / [id number] Knee Lgn Xlp Ps High Sz3-4 12mm - [id number] Implanted:Qty : 1 on 11/27/2022 by Albert Boswell MD at [facility] Right: Knee Judd & Nephew [employer] Inc-[id number] 08/13/2032 [id number] / / [id number] Procedures Procedure Name Priority Date/Time Associated Diagnosis Comments POCT GLYCOSYLATED HEMOGLOBIN (HGB A1C) Routine 07/11/2022 8:59 AM EST Personal history of nutritional deficiency from Last 3 Months or Most Recently Relevant to Health Maintenance Results * POCT Glycosylated Hemoglobin (Hgb A1C) (07/11/2022 8:59 AM EST) POCT Hemoglobin A1C 6.0 4.4-6.6 % % [facility] Kit Lot Number 529 [facility] Kit Expiration Date 06/11/24 [facility] Blood Venous blood specimen / Unknown 07/11/2022 8:59 AM EST Gentry Guardado MD POINT OF CARE TEST ENTER/EDIT OR DERABLES Final Result [facility] [address] [place] [address] from Last 3 Months or Most Recently Relevant to Health Maintenance Insurance [facility] [place] [address] Advance Directives * Full Code (Latest Code Status on File) Date Activated Date Inactivated Comments 07/26/2022 4:15 PM 07/28/2022 6:08 PM Question Answer Comments Patient has decision-making capacity? Yes Care Teams Lead Data Architect Relationship Specialty Start Date End Date Denae Serrano MD #[id number] [phone] PCP - General 12/23/20
--- OUTSIDE RECORDS SUMMARY | 2025-08-11 10:19 | XMS_ITS | Encounter Summary ---
Author Organization [employer] ([place], [place], [place], [place], [place]) Address [address] [place] [address] Care Team Providers Care Sleeve Fixer Name Role Phone Denae Serrano MD Primary Care Provider [phone] Encounter Details Date Type Department Care Team (Late st Contact Info) Description 08/07/2018 Transcribed Document [facility] [place] Family Medicine [address] [place] [address] Jer Klein MD [address] [place], [place] [address] Social History Tobacco Use Types Packs/Day Years Used Date Smoking Tobacco: Never Assessed Comments Unknown Sex and Gender Information Value Date Recorded Sex Assigned at Not on file Legal Sex Female 4:41 PM CDT Gender Identity Not on file Sexual Orientation Not on file documented as of this encounter Miscellaneous Notes * Cerner Conversion Note - Jer Klein MD - 08/07/2018 1:26 PM CASTING COORDINATOR [facility] Follow Up Note RE: ZENAIDA BOWLING : 1965 Date of Service: 08/07/2018 Referring Physician: Herminio Perez Reason for Visit: colon cancer follow up Cancer Treatment History: 1) 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 Diagnosed on colonoscopy [...] needed Social History: Single. She lives in [place]. Mother is main support person. 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 08/25 lymph nodes positive [...] Herminio Perez MD, [address] Dr. [facility] MD Liat Berger MD [address], [address], [place] [address] 1 Electronically signed by Juan [facility] Conversion Epoxy Fabrication Supervisor Cerner at 11/28/2022 11:15 PM CDT documented in this encounter Plan of Treatment Upcoming Encounters Date Type Department Care Team (Late st Contact Info) Description 09/13/2025 11:15 AM EST Appointment [facility] Breast [address] [place] [address] documented as of this encounter Visit Diagnoses Not on filedocumented in this encounter Care Teams Sleeve Fixer Relationship Specialty Start Date End Date Denae Serrano MD [address] [phone] PCP - General Family Medicine 06/11/22 documented as of this encounter
--- OUTSIDE RECORDS SUMMARY | 2025-08-11 10:19 | XMS_ITS | Encounter Summary ---
Author Organization [employer] ([place], [place], [place], [place], [place]) Address [address] [place] [address] Care Team Providers Care Maintenance Mechanic 2Nd Shift Name Role Phone Denae Serrano MD Primary Care Provider [phone] Encounter Details Date Type Department Care Team (Late st Contact Info) Description 03/01/2020 Transcribed Document [facility] [place] Family Medicine [address] [place] [address] ProviderJer MD [address] [place], [place] [address] Social History Tobacco Use Types Packs/Day Years [...] Source : Stated Height Entry Format : [place] Height, Feet : 5 ft(Converted to: 152 cm, 60 Inch) Height, Inches : 6.5 Inch(Converted to: 0 ft 7 Inch, 16.51 cm) Clinical Height : 168.91 cm Weight Source : Standing scale Weight Entry Format : [place] Clinical Dosing Weight : 100.91 kg Weight, Pounds : 222 lb Body Surface Area (BSA) : 2.1 m2 Body Mass Index : 35.4 kg/m2 (HI) [place] Body Weight : 60 kg Skye Rubio [...] Skye Rubio RN - 03/01/2020 9:27 EDT [place] Suicide Severity Rating Scale (C-SSRS) CSSRS Past [...] EDT Legal Guardian : Mother Support Person/Patient Calender Machine Operator : Yes Support Person/Pt Rep Name : Martita Bowling - mother Support Person/Pt Rep Contact Information : [phone] Want Family/Rep/Phys Notified of Admit : No Emergency Contact #1 : Martita Bowling Emergency Contact #1 C [phone] H Emergency Contact #1 Relationship : mother Emergency Contact #2 : . Emergency Contact #2 Phone Number : . Emergency Contact #2 Relationship : . Information Obtained From : Patient Primary Language : Uruguayan Preferred Communication Mode : Verbal Communication Barrier : None Group Underwriter Needed : No Objects to Sharing Info [...] Level : 46 or > High Risk [place] Fall Interventions : Adequate lighting, Bed in [...] EDT Pain Scale Intensity : 0 Skye Ruboi RN - 03/01/2020 9:27 EDT Image 4 - Images currently included in the form version of this document have not been included in the text rendition version of the form. Darlyn Coma [place] Best Motor Response : Obey commands Darlyn Best Verbal Response : Oriented [place] Eye Opening Response : Spontaneous Darlyn Coma Score : 15 Skye Rubio, RN - 03/01/2020 9:27 EDT Electronically signed by [facility], [facility] Conversion Instructor Of Spanish Cerner at 11/28/2022 11:18 PM CDT documented in this encounter Plan of Treatment Upcoming Encounters Date Type Department Care Team (Late st Contact Info) Description 09/13/2025 11:15 AM EST Appointment [address] [place] [phone] documented as of this encounter Visit Diagnoses Not on filedocumented in this encounter Care Teams Maintenance Mechanic 2Nd Shift Relationship Specialty Start Date End Date Denae Serrano MD [address] [place] [phone] PCP - General Family Medicine 06/11/22 documented as of this encounter
--- OUTSIDE RECORDS SUMMARY | 2025-08-11 10:19 | XMS_ITS | Encounter Summary ---
Author Organization [employer] ([place], [place], [place], [place], [place]) Address [address] [place] [address] Care Team Providers Care Electromechanical Inspector Name Role Phone Denae Serrano MD Primary Care Provider [phone] Encounter Details Date Type Department Care Team (Late st Contact Info) Description 02/27/2019 Transcribed Document [facility] Family Medicine [address] [place] [address] ProviderJer MD [address] [place] [address] Social History Tobacco Use Types Packs/Day Years [...] Klein MD - 02/27/2019 1:16 PM CDT [place] [facility] Follow Up Note RE: ZENAIDA BOWLING : 1965 Date of Service: 02/27/2019 Referring Physician: Herminio Perez Reason for Visit: colon cancer follow up/ high risk breast cancer screening CC: Doing well Cancer Treatment History: 1) Stage IIIB ([id number]) invasive adenocarcinoma transverse colon. Diagnosed on colonoscopy [...] Daily Praluent Pen [alirocumab] 1 Shot SubQ [id number] CoQ10 SG 100 (ubidecarenone/vitamin e mixed) [ubidecarenone/vitamin [...] sleep Social History: Single. She lives in [place]. Mother is main support person. 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 08/25 lymph nodes positive [...] to patient regarding medication. Mammograms completed at [facility]; will request records. Due again 04/30. Bilateral [...] Herminio Perez MD, Staci Mercado Dr[address] Dr. [place] [facility] Liat Contreras MD [address], [address], [place] [address] 2 documented in this encounter Plan of Treatment Upcoming Encounters Date Type Department Care Team (Late st Contact Info) Description 09/13/2025 11:15 AM EST Appointment [facility] Breast Care [address] [place] [address] [address] [place] [address] documented as of this encounter Visit Diagnoses Not on filedocumented in this encounter Care Teams Electromechanical Inspector Relationship Specialty Start Date End Date Denae Serrano MD [address] [place] [phone] PCP - General Family Medicine 06/11/22 documented as of this encounter
--- OUTSIDE RECORDS SUMMARY | 2025-08-11 10:19 | XMS_ITS | Encounter Summary ---
Author Organization [employer] ([place], [place], [place], [place], [place]) Address [address] [place] [address] Care Team Providers Care Fire Patrol Name Role Phone Denae Serrano MD Primary Care Provider [phone] Encounter Details Date Type Department Care Team (Late st Contact Info) Description 03/01/2020 Transcribed Document [facility] [place] Family Medicine [address] [place] [address] ProviderJer MD [address] [place], [place] [address] Social History Tobacco Use Types Packs/Day Years [...] ZENAIDA BOWLING/Sex: 1965 Female Med Rec #: [id number] Physician: SWAPNIL RAMIREZ MD-SUR Financial #: [id number] Pt. Type: O Room/Bed: [facility] Admit/Disch: 03/01/20 07:45:00 - Institution: [facility] PreOp Case Times Entry 1 In Preop 03/01/20 08:00:00 Ready for Holding 03/01/20 09:55:00 Room Patient Ready for 03/01/20 09:55:00 Surgery Patient Out of Preop 03/01/20 10:25:00 Patient Out of n/a Holding Room Last Modified By: OMAR RODRÍGUEZ 03/01/20 11:48:52 [facility] PreOp Case Times Audit 03/01/20 11:48:52 Lab Analyst: [id number] Modifier: [email or web address] <+> 1 Patient Out of Preop Finalized By: OMAR RODRÍGUEZ Document Signatures Signed By: OMAR RODRÍGUEZ 03/01/20 11:48 documented in this encounter Plan of Treatment Upcoming Encounters Date Type Department Care Team (Late st Contact Info) Description 09/13/2025 11:15 AM EST Appointment [address] [phone] documented as of this encounter Visit Diagnoses Not on filedocumented in this encounter Care Teams Fire Patrol Relationship Specialty Start Date End Date Denae Serrano MD [address] [place] [phone] PCP - General Family Medicine 06/11/22 documented as of this encounter
--- OUTSIDE RECORDS SUMMARY | 2025-08-11 10:20 | XMS_ITS | Encounter Summary ---
Author Organization [employer] ([place], [place], [place], [place], [place]) Address [address] [place] [address] Care Team Providers Care Russian History Professor Name Role Phone Denae Serrano MD Primary Care Provider [phone] Encounter Details Date Type Department Care Team (Late st Contact Info) Description 10/10/2020 Transcribed Document [facility] [place] [address] [place] [address] ProviderJer MD [address] [place], [place] [address] Social History Tobacco Use Types Packs/Day Years Used Date Smoking Tobacco: Never Assessed Comments Unknown Sex and Gender Information Value Date Recorded Sex Assigned at Not on file Legal Sex Female 4:41 PM CDT Gender Identity Not on file Sexual Orientation Not on file documented as of this encounter Miscellaneous Notes * Cerner Conversion Note - Historical ProviderMD - 10/10/2020 1:02 PM FIRE EQUIPMENT INSPECTOR [facility] PACU Summary Primary Physician: KENDAL SHARP MD-GAE Finalized Date/Time: 10/10/20 13:42:31 Pt. Name: ZENAIDA BOWLING/Sex: 1965 Female Med Rec #: [id number] Physician: KENDAL SHARP MD-GAE Financial #: [id number] Pt. Type: E Room/Bed: [facility] Admit/Disch: 10/10/20 11:14:00 - Institution: [facility] [place] PACU Case Times Entry 1 In PACU I 10/10/20 13:15:00 Ready for PACU 10/10/20 13:33:00 Discharge Discharge from PACU 10/10/20 13:41:00 I Finalized By: Catrachita Blas, Rn Document Signatures Signed By: Catrachita Blas Rn 10/10/20 13:42 Electronically signed by Juan [facility] Conversion Publications Manager Cerner at 11/28/2022 11:29 PM CDT documented in this encounter Plan of Treatment Upcoming Encounters Date Type Department Care Team (Late st Contact Info) Description 09/13/2025 11:15 AM EST Appointment [address] [phone] documented as of this encounter Visit Diagnoses Not on filedocumented in this encounter Care Teams Russian History Professor Relationship Specialty Start Date End Date Denae Serrano MD [address] [place] [phone] PCP - General Family Medicine 06/11/22 documented as of this encounter
--- OUTSIDE RECORDS SUMMARY | 2025-08-11 10:20 | XMS_ITS | Encounter Summary ---
Author Organization [employer] ([place], [place], [place], [place], [place]) Address [address] [place] [address] Care Team Providers Care Construction Trades Teacher Name Role Phone Denae Serrano MD Primary Care Provider [phone] Encounter Details Date Type Department Care Team (Late st Contact Info) Description 03/01/2020 Transcribed Document [facility] [place] Family Medicine [address] [place] [address] ProviderJer MD [address] [place], [place] [address] Social History Tobacco Use Types Packs/Day Years [...] 03/01/2020 10:07 EDT Electronically signed by Juan [facility] Conversion Instrument Technician Helper Cerner at 11/28/2022 11:18 PM CDT documented in this encounter Plan of Treatment Upcoming Encounters Date Type Department Care Team (Late st Contact Info) Description 09/13/2025 11:15 AM EST Appointment [address] [place] [phone] documented as of this encounter Visit Diagnoses Not on filedocumented in this encounter Care Teams Construction Trades Teacher Relationship Specialty Start Date End Date Denae Serrano MD [address] [place] [phone] PCP - General Family Medicine 06/11/22 documented as of this encounter
--- OUTSIDE RECORDS SUMMARY | 2025-08-11 10:20 | XMS_ITS | Encounter Summary ---
Author Organization [employer] ([place], [place], [place], [place], [place]) Address [address] [place] [address] Care Team Providers Care Career Resource Specialist Name Role Phone Denae Serrano MD Primary Care Provider [phone] Encounter Details Date Type Department Care Team (Late st Contact Info) Description 10/10/2020 Transcribed Document [facility] [place] Family Medicine [address] [place] [address] ProviderJer MD [address] [place], [place] [address] Social History Tobacco Use Types Packs/Day Years Used Date Smoking Tobacco: Never Assessed Comments Unknown Sex and Gender Information Value Date Recorded Sex Assigned at Not on file Legal Sex Female 4:41 PM CDT Gender Identity Not on file Sexual Orientation Not on file documented as of this encounter Miscellaneous Notes * Cerner Conversion Note - Historical ProviderMD - 10/10/2020 12:30 PM CONCAVING MACHINE OPERATOR [facility] PreOp Summary Primary Physician: KENDAL SHARP MD-GAE Finalized Date/Time: 10/10/20 12:35:44 Pt. Name: ZENAIDA BOWLING/Sex: 1965 Female Med Rec #: [id number] Physician: KENDAL SHARP MD-GAE Financial #: [id number] Pt. Type: E Room/Bed: [facility] Admit/Disch: 10/10/20 11:14:00 - Institution: [facility] PreOp Case Times Entry 1 In Preop 10/10/20 11:30:00 Ready for Holding 10/10/20 12:25:00 Room Patient Ready for 10/10/20 12:25:00 Surgery Patient Out of Preop 10/10/20 12:25:00 Patient Out of 10/10/20 12:25:00 Holding Room [facility] PreOp Case Times Audit 10/10/20 12:25:13 Juvenile Counselor: [id number] Modifier: [id number] <+> 1 Patient Out of Preop <+> [...] Description 09/13/2025 11:15 AM EST Appointment [address] [place] [address] documented as of this encounter Visit Diagnoses Not on filedocumented in this encounter Care Teams Career Resource Specialist Relationship Specialty Start Date End Date Denae Serrano MD [address] [place] [phone] PCP - General Family Medicine 06/11/22 documented as of this encounter
--- OUTSIDE RECORDS SUMMARY | 2025-08-11 10:20 | XMS_ITS | Referral Summary ---
Author Organization [employer] ([place], [place], [place], [place], [place]) Address [address] [place] [address] Care Team Providers Care Rubber Mill Operator Name Role Phone Denae Serrano MD Primary Care Provider [phone] Allergies Active Allergy Reactions Criticality Noted Date [...] Date Javier rded Speak language other than [place] Citizen at home Not on file 08/23/2023 Want [...] Description 09/13/2025 11:15 AM EST Appointment [address] [place] [phone] Procedures Procedure Name Priority Date/Time Associated [...] SHIELD MEDICARE PART A B Care Teams Rubber Mill Operator Relationship Specialty Start Date End Date Denae Serrano MD [address] [place] [phone] PCP - General Family Medicine 06/11/22
--- OUTSIDE RECORDS SUMMARY | 2025-08-11 10:20 | XMS_ITS | Encounter Summary ---
Author Organization [employer] ([place], [place], [place], [place], [place]) Address [address] [place] [address] Care Team Providers Care Gas Manager Name Role Phone Denae Serrano MD Primary Care Provider [phone] Encounter Details Date Type Department Care Team (Late st Contact Info) Description 10/10/2020 Transcribed Document [facility] Family Medicine [address] [place] [address] Jer Klein MD [address] [place], [place] [address] Social History Tobacco Use Types Packs/Day Years Used Date Smoking Tobacco: Never Assessed Comments Unknown Sex and Gender Information Value Date Recorded Sex Assigned at Not on file Legal Sex Female 4:41 PM CDT Gender Identity Not on file Sexual Orientation Not on file documented as of this encounter Miscellaneous Notes * Cerner Conversion Note - Jer Klein MD - 10/10/2020 1:24 PM NET WEB DEVELOPER Patient Education Materials Follows: Monitored Anesthesia Care, [...] eating solid foods. General instructions ??? Take mlum-imw-anscgvb and prescription medicines only as told by [...] 11/18/2016 Document Revised: 10/27/2018 Document Reviewed: 11/18/2016 [employer] Patient Education ? 2020 [employer] Colonoscopy, Adult, Care After This sheet [...] soft and easy to digest. ??? Take wgko-htj-iimbzji or prescription medicines only as told by [...] 08/31/2011 Document Revised: 05/29/2018 Document Reviewed: 04/22/2017 [employer] Patient Education ? 2020 [employer]. Diverticulosis Diverticulosis is a condition that develops [...] getting enough exercise. ??? Smoking. ??? Taking wfnh-vtw-dlgknct pain medicines, like aspirin and ibuprofen. ??? [...] health care provider or your diet and technical sales specialist (dietitian). ? Take a fiber supplement or probiotic, if your health care provider approves. ??? Take kyze-fkv-uoupdmp and prescription medicines only as told by [...] 04/25/2005 Document Revised: 07/11/2018 Document Reviewed: 06/17/2017 [employer] Patient Education ? 2020 [employer] Colon Polyps Polyps are tissue [...] Reviewed: 11/13/2018 Elsevier Patient Education ? 2019 [employer]. Electronically signed by Juan, [facility] Conversion Metal Machine Setter Cerner at 11/28/2022 11:33 PM CDT documented in this encounter Plan of Treatment Upcoming Encounters Date Type Department Care Team (Late st Contact Info) Description 09/13/2025 11:15 AM EST Appointment [address] [phone] documented as of this encounter Visit Diagnoses Not on filedocumented in this encounter Care Teams Gas Manager Relationship Specialty Start Date End Date Denae Serrano MD [address] [place] [phone] PCP - General Family Medicine 06/11/22 documented as of this encounter
--- OUTSIDE RECORDS SUMMARY | 2025-08-11 10:20 | XMS_ITS | Clinical Summary ---
Author Organization [employer] ([place], [place], [place], [place], [place]) Address [address] [place] [address] Care Team Providers Care Electrical Controls Assembler Name Role Phone Denae Serrano MD Primary Care Provider [phone] Allergies Active Allergy Reactions Criticality Noted Date [...] Date Javier rded Speak language other than Georgian at home Not on file 08/23/2023 Want [...] Info) Description 09/13/2025 11:15 AM EST Appointment [address] [place] [phone] Health Maintenance Due Date Last Done [...] SHIELD MEDICARE PART A B Care Teams Electrical Controls Assembler Relationship Specialty Start Date End Date Denae Serrano MD [address] [place] [phone] PCP - General Family Medicine 06/11/22
[2025-08-11 11:05] LABS: Cholesterol 224 mg/dl (140-200); HDL Cholesterol 60 mg/dl (40-60); Triglycerides 165 mg/dl (30-150)
== END 2025-08-11 23:59 | disposition home or self-care (01) ==
LOC: LAB 10:17
PROVIDERS: PCP Family Medicine; Visit Provider Nurse Practitioner Family
DX: I25.10 Atherosclerotic heart disease of native coronary artery without angina pectoris (principal); I10 Essential (primary) hypertension; E78.5 Hyperlipidemia, unspecified
CPT/HCPCS: 36415; 80061